=== PATIENT | female | born 1975 | race Caucasian/White ===

== ENCOUNTER 2024-10-17 16:12 | Inpatient (IN) | payer OTHER ==
--- NOTE | 2024-10-17 16:50 | ERPHSYRPT ---
- History of Present Illness Time Seen by Provider: 10/17/24 16:50 Historian: patient Exam Limitations: clinical condition Patient Subjective Stated Complaint: Abdominal pain Triage Nursing Assessment: Patient brought into ED per EMS ([facility]) and transferred self to bed. Patient A+O X 3. Patient's skin pale, warm and dry. Patient complains of abdominal pain 8/10, N/V and diarrhea for the past few days. Patient has hx of Crohn's disease and takes Percocet 7.5/325mg, which is not helping her pain. Abdomen soft and round with BS X 4. Timing/Duration: today Activities at Onset: none Quality: aching, burning, cramping Abdominal Pain Onset Location: RUQ, LUQ Allergies/Adverse Reactions: Penicillins Allergy (Intermediate, Verified 10/17/24 16:18) HALLUCINATIONS erythromycin base [Erythromycin Base] Allergy (Mild, Verified 10/17/24 16:18) Vomiting vancomycin Allergy (Verified 10/17/24 16:18) Home Medications: ALPRAZolam [Xanax] 1 mg PO TID 09/22/14 [History] Gabapentin [Neurontin] 800 mg PO QID 09/22/14 [History] Omeprazole 20 MG [Prilosec 20 mg] 20 mg PO DAILY 06/08/15 [History] Hydromorphone HCl [Dilaudid] 4 mg PO QID 08/03/15 [History] Hx Tetanus, Diphtheria Vaccination/Date Given: Yes Hx Influenza Vaccination/Date Given: Yes Hx Pneumococcal Vaccination/Date Given: No Immunizations Up to Date: Yes Travel Risk - International Travel Have you traveled outside of the country in past 3 weeks: No - Emerging Infectious Disease Are you exhibiting symptoms associated with any current EIDs: No - Review of Systems Constitutional: No Symptoms Eyes: No Symptoms Ears, Nose, & Throat: No Symptoms Respiratory: No Symptoms Cardiac: No Symptoms Abdominal/Gastrointestinal: Abdominal Pain, Nausea Genitourinary Symptoms: No Symptoms Musculoskeletal: No Symptoms - Past Medical History Pertinent Past Medical History: Yes Neurological History: No Pertinent History ENT History: No Pertinent History Cardiac History: No Pertinent History Respiratory History: No Pertinent History Endocrine Medical History: No Pertinent History Musculoskeletal History: No Pertinent History GI Medical History: Crohns Disease History: No Pertinent History Psycho-Social History: Anxiety, Panic Disorder Female Reproductive Disorders: No Pertinent History Other Medical History: 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., 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 - Past Surgical History Past Surgical History: Yes Neuro Surgical History: No Pertinent History Cardiac: No Pertinent History Respiratory: No Pertinent History Gastrointestinal: Appendectomy, Bowel Surgery, Colon Resection Genitourinary: No Pertinent History Musculoskeletal: No Pertinent History Female Surgical History: Other Other Surgical History: supra pubic cath Significant Family History: no pertinent family hx - Female History Hx Last Menstrual Period: no ovaries Hx Now: No - Social History Smoking Status: Former smoker How long have you smoked: 20 yrs Exposure to second hand smoke: Yes Alcohol Use: None Drug Use: marijuana Patient Lives Alone: No - Social Determinants of Health Will the patient participate in the screening: Yes Do you worry about a steady place to live?: No Do you have any problems with any of the following?: No known problems In the past 12 months,have you had to go without utilities?: No Transportation Issues: No Has anyone in your support network made you feel unsafe?: No Have you or anyone in your house had to go without enough: No - Nursing Vital Signs Nursing Vital Signs: Initial Vital Signs Temperature 99.1 F 10/17/24 16:21 Pulse Rate 74 10/17/24 16:21 Respiratory Rate 20 10/17/24 16:21 Blood Pressure 147/96 10/17/24 16:21 O2 Sat by Pulse Oximetry 96 10/17/24 16:21 Pain Scale Pain Intensity 0 - Physical Exam General Appearance: no apparent distress Eye Exam: PERRL/EOMI Ears, Nose, Throat Exam: normal ENT inspection Neck Exam: normal inspection Respiratory Exam: normal breath sounds Cardiovascular Exam: regular rate/rhythm Gastrointestinal/Abdomen Exam: tenderness (moderate diffuse tenderness noted ) SpO2: 96 Ordered Tests: Active Orders 24 hr Category Date Time Status Place in Observation ROUTINE Care 10/17/24 19:12 Ordered ABDOMEN AND PELVIS W CONTRAST [CT] Stat Exams 10/17/24 16:48 Taken CBC W DIFF Stat Lab 10/17/24 Completed CMP Stat Lab 10/17/24 Completed LIPASE Stat Lab 10/17/24 Completed Lactic Acid Stat Lab 10/17/24 16:48 Completed UA W/RFX UR CULTURE Stat Lab 10/17/24 16:48 Ordered Medication Summary Generic Name Dose Route Start Last Admin Trade Name Freq PRN Reason Stop Dose Admin Metronidazole 500 mg in 100 mls @ 200 mls/hr 10/17/24 19:10 Flagyl 500 Mg Ivpb IV 10/17/24 19:39 STAT STA Levofloxacin/Dextrose 500 mg in 100 mls @ 100 mls/hr 10/17/24 19:10 Levofloxacin 500mg/100ml D5w IV 10/17/24 20:09 STAT STA Discontinued Medications Generic Name Dose Route Start Last Admin Trade Name Skylerq PRN Reason Stop Dose Admin Droperidol 1.25 mg 10/17/24 16:48 10/17/24 16:55 Droperidol 5 Mg/2 Ml Vial IV 10/17/24 16:49 1.25 mg STAT ONE Administration Droperidol Confirm 10/17/24 16:51 Droperidol 5 Mg/2 Ml Vial Administered 10/17/24 16:52 Dose 5 mg .ROUTE .STK-MED ONE Hydromorphone HCl 1 mg 10/17/24 16:48 10/17/24 16:56 Hydromorphone 1 Mg/1ml Inj IV 10/17/24 16:49 1 mg STAT ONE Administration Hydromorphone HCl Confirm 10/17/24 16:51 Hydromorphone 1 Mg/1ml Inj Administered 10/17/24 16:52 Dose 1 mg .ROUTE .STK-MED ONE Hydromorphone HCl 1 mg 10/17/24 19:10 Hydromorphone 1 Mg/1ml Inj IV 10/17/24 19:11 STAT ONE Hydromorphone HCl Confirm 10/17/24 19:14 Hydromorphone 1 Mg/1ml Inj Administered 10/17/24 19:15 Dose 1 mg .ROUTE .STK-MED ONE Sodium Chloride 1,000 mls @ 999 mls/hr 10/17/24 16:48 10/17/24 18:19 Sodium Chloride 0.9% 1000 Ml IV 10/17/24 17:48 Infused .Q1H1M STA Infusion Sodium Chloride Confirm 10/17/24 16:51 Sodium Chloride 0.9% 1000 Ml Administered 10/17/24 16:52 Dose 1,000 mls @ ud .ROUTE .STK-MED ONE Metronidazole Confirm 10/17/24 19:14 Flagyl 500 Mg Ivpb Administered 10/17/24 19:15 Dose 500 mg in 100 mls @ ud IV .STK-MED ONE Lab/Rad Data: Laboratory Result Diagrams 10/17/24 Unknown 10/17/24 Unknown Laboratory Results 10/17/24 10/17/24 10/17/24 Range/Units Unknown Unknown 16:48 WBC 8.0 (3.98-10.04) x10^3/uL RBC 4.60 (3.93-5.22) x10^6/uL Hgb 12.1 (11.2-15.7) g/dL Hct 36.3 (34.1-44.9) % MCV 78.9 L (79.4-94.8) fL MCH 26.3 (25.6-32.2) pg MCHC 33.3 (32.2-35.5) g/dL RDW 14.0 (11.7-14.4) % Plt Count 310 (182-369) x10^3/uL MPV 9.7 (9.4-12.3) fL Gran % 69.0 (34.0-71.1) % Immature Gran % (Auto) 0.4 (0.001-0.429) % Nucleat RBC Rel Count 0.0 (0.00-0.2) % Eos # (Auto) 0.03 L (0.04-0.36) x10^3/uL Immature Gran # (Auto) 0.03 (0.001-0.031) x10^3u/L Absolute Lymphs (auto) 1.80 (1.18-3.74) x10^3/uL Absolute Monos (auto) 0.58 (0.24-0.86) x10^3/uL Absolute Nucleated RBC 0.00 (0.00-0.012) x10^3u/L Lymphocytes % 22.6 (19.3-51.7) % Monocytes % 7.3 (4.7-12.5) % Eosinophils % 0.4 L (0.7-5.8) % Basophils % 0.3 (0.1-1.2) % Absolute Granulocytes 5.52 (1.56-6.13) x10^3/uL Basophils # 0.02 (0.01-0.08) x10^3/uL Sodium 140 (135-145) mmol/L Potassium 3.2 L (3.5-5.1) mmol/L Chloride 103 (98-107) mmol/L Carbon Dioxide 28 (22-30) mmol/L Anion Gap 12.3 (5-15) MEQ/L BUN 12 (7-17) mg/dL Creatinine 1.11 H (0.52-1.04) mg/dL Estimated GFR 61.3 ML/MIN Glucose 112 H (74-106) mg/dL Lactic Acid 1.3 (0.4-2.0) Calcium 8.8 (8.4-10.2) mg/dL Total Bilirubin 1.00 (0.2-1.3) mg/dL AST 22 (14-36) U/L ALT 13 (0-35) U/L Alkaline Phosphatase 72 (38-126) U/L Serum Total Protein 6.9 (6.3-8.2) g/dL Albumin 4.0 (3.5-5.0) g/dL Lipase 70 (23-300) U/L - Progress Progress Note: Patient was seen and evaluated for abdominal pain she was given IV fluids opioid analgesia was given labs were obtained CT of the abdomen pelvis was obtained this revealed findings suggestive of colitis patient was updated with the results of her lab work and the CT and informed of the need for admission she is agreeable I paged the hospitalist and updated the hospitalist with the lab results and the CT results he wants the patient to receive one dose of decadron here in the department Patient was given further opioid analgesia and Levaquin and Flagyl were started here in the department 10/17/24 19:14 10/17/24 19:22 Medical Desision Making - Discussion of managment Care discussed with:: hospitalist Agreed on:: Treatment plan, decision to admit Will see patient: in hospital - Departure Departure Disposition: Observation Clinical Impression: Crohn's disease, Abdominal pain, Intractable abdominal pain, Vomiting, Acute abdominal pain Condition: Stable Critical Care Time: No Referrals: KAREN LOPEZ MD [Primary Care Provider] - Follow up/PCP as directed
[2024-10-17] MEDS ORDERED: Hydromorphone 1 mg/ml Injection ONE ×3 (16:51→22:19)
[2024-10-17] MEDS ORDERED: Sodium Chloride 0.9% 1000 ML 1,000 ML ONE (16:51)
[2024-10-17] MEDS: Sodium Chloride 0.9% 1000 ML 1,000 ML IV STA (16:53)
[2024-10-17] MEDS: Hydromorphone 1 mg/ml Injection IV ONE ×2 (16:56→19:17)
[2024-10-17 17:11] LABS: Absolute Neutrophil Ct (ANC) 5.52 x10^3/uL (1.56-6.13); BASOPHIL % 0.3 % (0.1-1.2); Basophil (Absolute #) 0.02 x10^3/uL (0.01-0.08); Eosinophil % 0.4 % (0.7-5.8); Eosinophil (Absolute #) 0.03 x10^3/uL (0.04-0.36); Hematocrit 36.3 % (34.1-44.9); Hemoglobin 12.1 g/dL (11.2-15.7); IMMATURE GRAN # 0.03 x10^3u/L (0.001-0.031); IMMATURE GRAN % 0.4 % (0.001-0.429); Lymphocytes % 22.6 % (19.3-51.7); Mean Cell Volume 78.9 fL (79.4-94.8); Mean Corpuscular Hemoglobin 26.3 pg (25.6-32.2); Mean Corpuscular Hgb Concent. 33.3 g/dL (32.2-35.5); Mean Platelet Volume 9.7 fL (9.4-12.3); Monocyte (Absolute #) 0.58 x10^3/uL (0.24-0.86); Monocytes % 7.3 % (4.7-12.5); Platelet Count 310 x10^3/uL (182-369)
[2024-10-17 17:23] LABS: ANION GAP 12.3 MEQ/L (5-15); Calcium 8.8 mg/dL (8.4-10.2); Creatinine 1 1.11 mg/dL (0.52-1.04); EST GLOMERULAR FILTRATION RATE 61.3 ML/MIN; Potassium 3.2 mmol/L (3.5-5.1); Total Protein 6.9 g/dL (6.3-8.2)
[2024-10-17] MEDS ORDERED: FLAGYL 500 MG IVPB 500 MG/100 ML BAG IV ONE (19:14)
[2024-10-17] MEDS: FLAGYL 500 MG IVPB 500 MG/100 ML BAG IV STA (19:22)
[2024-10-17] MEDS ORDERED: Levofloxacin 500MG/100ML D5W 500 MG/100 ML BAG IV ONE (20:02)
[2024-10-17] MEDS: Levofloxacin 500MG/100ML D5W 500 MG/100 ML BAG IV STA (20:03)
[2024-10-17 21:00] LABS: Appearance Cloudy (Clear); Bacteria Rare /HPF (None Seen); Bilirubin Negative (Negative); Blood Negative (Negative); Epithelial Cells Rare /HPF (None Seen); Glucose, Urine Negative (Negative); Hyaline Casts NONE SEEN /LPF (0-2); Ketones 40 (Negative); Leukocyte Esterase Trace (Negative); Nitrite Negative (Negative); Ph 7.5 (4.6-8.0); Protein,Urine Dip Trace (Negative); RBC 0-2 /HPF (0-5); Specific Gravity >=1.030 (1.005-1.030); Urobilinogen 0.2 mg/dL (0.2); WBC 0-2 /HPF (0-5)
[2024-10-17] MEDS ORDERED: MORPHINE SULFATE 4 MG INJ ONE (21:25)
[2024-10-17] MEDS ORDERED: zyPREXA 5MG TABLET ONE (21:25)
[2024-10-17] MEDS ORDERED: XANAX 1 MG ONE (21:26)
[2024-10-17] MEDS ORDERED: Neurontin ONE (21:27)
--- NOTE | 2024-10-17 21:28 | PCM.HP ---
History of Present Illness - Chief Complaint Chief Complaint: Crohns disease with acute flare Date: 10/17/24 History of Present Illness: 49-year-old with a history of Crohn's disease and anxiety, here with abdominal pain, nausea, and diarrhea, consistent with her prior flares. Patient has history of poorly controlled Crohn's disease; she was previously on Humira, but it was no longer effective. She tried Entyvio, but worsened, and was recently started on Stelara, receiving her second dose earlier this month. However, she has frequent hospitalizations with severe flares, most recently in June 2024 in [place]. She had been on a slow taper of steroids, discharging on prednisone 60, tapering slowly down to her maintenance dose of 10 mg daily. She follows with Dr. Yashira Holbrook in [place]. She was now with 3 days of severe, sharp, constant, epigastric pain, radiating to the left upper and lower quadrants, worsening with food or drink, relieved only by pain medications. Associated with nonbloody, nonbilious vomiting, 6 times per day. Patient has chr onic watery, nonbloody diarrhea, but this is increased in quantity and frequency, up to 4-5 times per day currently. She was given a Medrol Dosepak, but has not had any relief. Currently complaining mainly of the severe pain, although notes that the idea of any thing to eat or drink makes her even more nauseated. She has had some low-grade mild temperature elevations but no mariela fevers. No hematochezia or hematemesis. - Review of Systems All Other Systems: Reviewed and Negative Medications & Allergies Home Medications: Home Medication List Gabapentin [Neurontin] 800 mg PO QID 09/22/14 [History Confirmed 10/17/24] ALPRAZolam [Alprazolam] 3 mg PO TID 10/17/24 [History Confirmed 10/17/24] OLANZapine [Zyprexa] 7.5 mg PO QHS 10/17/24 [History Confirmed 10/17/24] Prednisone 10 mg [Deltasone 10 mg] 10 mg PO DAILY 10/17/24 [History Confirmed 10/17/24] Ustekinumab [Stelara] 10/17/24 [History] Allergies/Adverse Reactions: Allergies Allergy/AdvReac Type Severity Reaction Status Date / Time Penicillins Allergy Intermediate Verified 10/17/24 16:18 erythromycin base Allergy Mild Vomiting Verified 10/17/24 16:18 [Erythromycin Base] vancomycin Allergy Verified 10/17/24 16:18 - Past Medical History Past Medical History: Yes Neurological History: No Pertinent History ENT History: No Pertinent History Cardiac History: No Pertinent History Respiratory History: No Pertinent History Endocrine Medical History: No Pertinent History Musculoskelatal History: No Pertinent History GI Medical History: Crohns Disease History: No Pertinent History Pyscho-Social History: Anxiety, Panic Disorder Reproductive Disorders: No Pertinent History Comment: 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., 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 - Female History Hx Last Menstrual Period: no ovaries Are you now?: No - Past Surgical History Past Surgical History: Yes Neuro Surgical History: No Pertinent History Cardiac History: No Pertinent History Respiratory Surgery: No Pertinent History GI Surgical History: Appendectomy, Bowel Surgery, Colon Resection Genitourinary Surgical Hx: No Pertinent History Musculskeletal Surgical Hx: No Pertinent History Female Surgical History: Other Other Surgical History: supra pubic cath Significant Family History: no pertinent family hx - Social History Smoking Status: Former smoker How long have you smoked: 20 yrs Exposure to second hand smoke: Yes Alcohol: None Drug Use: marijuana - Social Determinants of Health Will the patient participate in the screening: Yes Do you worry about a steady place to live?: No Do you have any problems with any of the following?: No known problems In the past 12 months,have you had to go without utilities?: No Have you or anyone in your house had to go without enough: No Transportation Issues: No Has anyone in your support network made you feel unsafe?: No Does the patient want assistance with any of the above?: No - Physical Exam Vital Signs: Vital Signs - 24 hr Temp Pulse Resp BP BP Pulse Ox 10/17/24 20:41 97.6 F 60 18 120/63 91 L 10/17/24 19:23 96 10/17/24 19:00 82 17 138/76 97 10/17/24 18:30 88 18 122/68 96 10/17/24 18:00 70 18 145/82 94 L 10/17/24 17:00 78 18 152/88 96 10/17/24 16:58 71 155/94 97 10/17/24 16:21 99.1 F 74 20 147/96 147/96 95 Physical Exam GEN: Sitting up in bed in no acute distress. HENT: Normocephalic, atraumatic. Moist mucous membranes. EYES: Normal inspection, anicteric sclera, extraocular movements intact. NECK: Supple, full range of motion CV: Regular rate and rhythm, no murmurs, no gallops. No JVD or edema. PULM: Clear to auscultation bilaterally, no work of breathing. On room air. ABD: Nondistended. Tender to mild palpation, worst over left upper quadrant. No guarding or rebound. MSK: No joint effusions, full range of motion SKIN: No rashes, normal color. NEURO: Face symmetric, no focal motor or sensory deficits. PSYCH: Alert, oriented x 3, mildly anxious. Results - Labs Lab/Micro Results: Lab Results-Last 24 Hours 10/17/24 10/17/24 10/17/24 Range/Units 16:48 20:50 Unknown WBC 8.0 (3.98-10.04) x10^3/uL RBC 4.60 (3.93-5.22) x10^6/uL Hgb 12.1 (11.2-15.7) g/dL Hct 36.3 (34.1-44.9) % MCV 78.9 L (79.4-94.8) fL MCH 26.3 (25.6-32.2) pg MCHC 33.3 (32.2-35.5) g/dL RDW 14.0 (11.7-14.4) % Plt Count 310 (182-369) x10^3/uL MPV 9.7 (9.4-12.3) fL Gran % 69.0 (34.0-71.1) % Immature Gran % (Auto) 0.4 (0.001-0.429) % Nucleat RBC Rel Count 0.0 (0.00-0.2) % Eos # (Auto) 0.03 L (0.04-0.36) x10^3/uL Immature Gran # (Auto) 0.03 (0.001-0.031) x10^3u/L Absolute Lymphs (auto) 1.80 (1.18-3.74) x10^3/uL Absolute Monos (auto) 0.58 (0.24-0.86) x10^3/uL Absolute Nucleated RBC 0.00 (0.00-0.012) x10^3u/L Lymphocytes % 22.6 (19.3-51.7) % Monocytes % 7.3 (4.7-12.5) % Eosinophils % 0.4 L (0.7-5.8) % Basophils % 0.3 (0.1-1.2) % Absolute Granulocytes 5.52 (1.56-6.13) x10^3/uL Basophils # 0.02 (0.01-0.08) x10^3/uL Sodium (135-145) mmol/L Potassium (3.5-5.1) mmol/L Chloride (98-107) mmol/L Carbon Dioxide (22-30) mmol/L Anion Gap (5-15) MEQ/L BUN (7-17) mg/dL Creatinine (0.52-1.04) mg/dL Estimated GFR ML/MIN Glucose (74-106) mg/dL Lactic Acid 1.3 (0.4-2.0) Calcium (8.4-10.2) mg/dL Total Bilirubin (0.2-1.3) mg/dL AST (14-36) U/L ALT (0-35) U/L Alkaline Phosphatase (38-126) U/L Serum Total Protein (6.3-8.2) g/dL Albumin (3.5-5.0) g/dL Lipase (23-300) U/L Urine Color Yellow (Yellow) Urine Appearance Cloudy A (Clear) Urine pH 7.5 (4.6-8.0) Ur Specific [place] >=1.030 A (1.005-1.030) Urine Protein Trace A (Negative) Urine Glucose (UA) Negative (Negative) mg/dL Urine Ketones 40 A (Negative) Urine Blood Negative (Negative) Urine Nitrite Negative (Negative) Urine Bilirubin Negative (Negative) Urine Urobilinogen 0.2 (0.2) mg/dL Ur Leukocyte Esterase Trace A (Negative) U Hyaline Cast (Auto) NONE SEEN (0-2) /LPF Urine Microscopic RBC 0-2 (0-5) /HPF Urine Microscopic WBC 0-2 (0-5) /HPF Ur Epithelial Cells Rare (None Seen) /HPF Urine Bacteria Rare A (None Seen) /HPF Urine Culture Reflexed YES (NO) 10/17/24 Range/Units Unknown WBC (3.98-10.04) x10^3/uL RBC (3.93-5.22) x10^6/uL Hgb (11.2-15.7) g/dL Hct (34.1-44.9) % MCV (79.4-94.8) fL MCH (25.6-32.2) pg MCHC (32.2-35.5) g/dL RDW (11.7-14.4) % Plt Count (182-369) x10^3/uL MPV (9.4-12.3) fL Gran % (34.0-71.1) % Immature Gran % (Auto) (0.001-0.429) % Nucleat RBC Rel Count (0.00-0.2) % Eos # (Auto) (0.04-0.36) x10^3/uL Immature Gran # (Auto) (0.001-0.031) x10^3u/L Absolute Lymphs (auto) (1.18-3.74) x10^3/uL Absolute Monos (auto) (0.24-0.86) x10^3/uL Absolute Nucleated RBC (0.00-0.012) x10^3u/L Lymphocytes % (19.3-51.7) % Monocytes % (4.7-12.5) % Eosinophils % (0.7-5.8) % Basophils % (0.1-1.2) % Absolute Granulocytes (1.56-6.13) x10^3/uL Basophils # (0.01-0.08) x10^3/uL Sodium 140 (135-145) mmol/L Potassium 3.2 L (3.5-5.1) mmol/L Chloride 103 (98-107) mmol/L Carbon Dioxide 28 (22-30) mmol/L Anion Gap 12.3 (5-15) MEQ/L BUN 12 (7-17) mg/dL Creatinine 1.11 H (0.52-1.04) mg/dL Estimated GFR 61.3 ML/MIN Glucose 112 H (74-106) mg/dL Lactic Acid (0.4-2.0) Calcium 8.8 (8.4-10.2) mg/dL Total Bilirubin 1.00 (0.2-1.3) mg/dL AST 22 (14-36) U/L ALT 13 (0-35) U/L Alkaline Phosphatase 72 (38-126) U/L Serum Total Protein 6.9 (6.3-8.2) g/dL Albumin 4.0 (3.5-5.0) g/dL Lipase 70 (23-300) U/L Urine Color (Yellow) Urine Appearance (Clear) Urine pH (4.6-8.0) Ur Specific [place] (1.005-1.030) Urine Protein (Negative) Urine Glucose (UA) (Negative) mg/dL Urine Ketones (Negative) Urine Blood (Negative) Urine Nitrite (Negative) Urine Bilirubin (Negative) Urine Urobilinogen (0.2) mg/dL Ur Leukocyte Esterase (Negative) U Hyaline Cast (Auto) (0-2) /LPF Urine Microscopic RBC (0-5) /HPF Urine Microscopic WBC (0-5) /HPF Ur Epithelial Cells (None Seen) /HPF Urine Bacteria (None Seen) /HPF Urine Culture Reflexed (NO) - Radiology Impressions Radiology Exams & Impressions: Radiology Procedures Category Date Time Status ABDOMEN AND PELVIS W CONTRAST [CT] Stat Exams 10/17/24 16:[address] abdomen/pelvis report is not currently available, but per ED physician, patient had circumferential wall thickening, consistent with colitis. Assessment/Plan (1) Crohn's disease Current Visit: Yes Status: Chronic Assessment & Plan: 49-year-old woman with history of Crohn's disease and anxiety, here with acute flare of her Crohn's disease. ## Crohn's disease poorly controlled, not yet established on new steroid sparing therapies, and currently on chronic prednisone 10 mg. Recently started on Stelara. However, she is having frequent flares requiring hospitalization. Symptoms of current episode are also consistent with Crohn's flare. She does not appear to have evidence of abscess or bowel obstruction. However, she does have some localized peritonitis, without signs of sepsis. She was given a Medrol Dosepak, but given the severity of her symptoms, her chronic prednisone 10 mg use, and her need for a very prolonged taper, this is an inappropriate dosing for her. Start Solu-Medrol 60 mg IV BID Expect patient will discharge on prednisone 40 mg daily, with a very slow taper, no faster than 10 mg/week PRN morphine 4 mg IV q.3 hours for pain control PRN Zofran Start LR continuous at 125 mL/h Allow for clear liquid diet to allow for some ice chips and sips of water as needed, but I expect patient will not be having much p.o. intake until her flare calms down to some degree Start Levaquin and Flagyl for empiric coverage for the peritonitis ## Hypokalemia secondary to GI losses. Give KCl 40 mEq IV x 1 Repeat potassium levels in the morning Check magnesium levels ## Chronic anxiety patient is on high doses of Xanax at home, but appears to be stable on this dosing. Continue Zyprexa 7.5 mg QHS, Xanax 3 mg TID CODE STATUS: Full code (confirmed with patient) Diet: Clear liquids Prophylaxis: Lovenox 40 mg daily Disposition: Place in observation for now, but if not able to tolerate p.o. soon, may need transition to inpatient status. Expected discharge will be to home. Will need follow-up with her outpatient GI doctor in [place]. Code(s): K50.90 - CROHN'S DISEASE, UNSPECIFIED, WITHOUT COMPLICATIONS Telemedicine Encounter - Telemedicine Encounter Telemedicine Encounter: "The entirety of this encounter was performed via Telemedicine" This visit was performed using real-time audio and video connection between my location and thepatients locationwith the assistance of a surrogateat the patients location. Written or verbal consent was obtained from the patient/guardian to perform this [facility] technology. Any patient questions regarding the telemedicine interaction were answered.
[2024-10-17] MEDS: Lactated Ringers 1,000 ML IV SCH (21:29)
[2024-10-17] MEDS: NON-FORMULARY ITEM (Gabapentin [Neurontin] 800 MG Tablet) PO SCH (21:29)
[2024-10-17] MEDS: MORPHINE SULFATE 4 MG INJ IV PRN (21:30)
[2024-10-17] MEDS: Zofran 4 MG/2 ML VIAL IV PRN (21:30)
[2024-10-17] MEDS: XANAX 1 MG PO SCH (21:30)
[2024-10-17] MEDS: OLANZAPINE 7.5 MG PO SCH (21:30)
[2024-10-17] MEDS ORDERED: solu-MEDROL ONE (22:00)
[2024-10-17] MEDS: POTASSIUM CHLORIDE 20 mEq IN WATER 100ML 20 MEQ/100 ML BAG IV SCH (22:04)
[2024-10-17] MEDS: solu-MEDROL 60 MG, Sterile H2O 10 ml 2 ML IV SCH (22:05)
[2024-10-17] MEDS: Hydromorphone 1 mg/ml Injection IV PRN (22:20)
[2024-10-18] MEDS ORDERED: Hydromorphone 1 mg/ml Injection ONE ×2 (01:24→04:17)
--- NOTE | 2024-10-18 05:19 | PCM.NOTE ---
Date and Time: 10/18/24 0514 Subjective Assessment: HPI: 49-year-old with a history of Crohn's disease and anxiety, admitted 10/17/24 with abdominal pain, nausea, and diarrhea, consistent with her prior Crohn's flares. Patient has history of poorly controlled Crohn's disease; she was previously on Humira, but it was no longer effective. She tried Entyvio, but worsened, and was recently started on Stelara, receiving her second dose earlier this month. However, she has frequent hospitalizations with severe flares, most recently in June 2024 in [place]. She had been on a slow taper of steroids, discharging on prednisone 60, tapering slowly down to her maintenance dose of 10 mg daily. She follows with Dr. Yashira Holbrook in [place]. She was now with 3 days of severe, sharp, constant, epigastric pain, radiating to the left upper and lower quadrants, worsening with food or drink, relieved only by pain medications. Associated with nonbloody, nonbilious vomiting, 6 times per day. Patient has chronic watery, non-bloody diarrhea, but this is increased in quantity and frequency, up to 4-5 times per day currently. She was given a Medrol Dosepak, but has not had any relief. Initial labs remarkable for hypokalemia and BOBBI which have since resolved. Patient admitted with Crohns flare. 10/18/24: Met with patient bedside. Endorses 10/10 sharp/stabbing abdominal pain, nausea, diarrhea, and vomiting. Diluadid increased to 1mg every two hours lat night. Discussed labs with BOBBI and hypokalemia resolved. Plan for continued management of crohns flare with steroids and abx. - Review of Systems Constitutional: Weakness Eyes: No Symptoms Ears, Nose, & Throat: No Symptoms Respiratory: No Symptoms Cardiac: No Symptoms Abdominal/Gastrointestinal: Abdominal Pain, Nausea, Vomiting, Diarrhea Genitourinary Symptoms: No Symptoms Musculoskeletal: No Symptoms Skin: No Symptoms Neurological: No Symptoms Psychological: No Symptoms Endocrine: No Symptoms Hematologic/Lymphatic: No Symptoms Immunological/Allergic: No Symptoms Objective Exam General Appearance: no apparent distress Neurologic Exam: alert, oriented x 3, cooperative Skin Exam: normal color Eye Exam: PERRL Ears, Nose, Throat Exam: normal ENT inspection Neck Exam: normal inspection Respiratory Exam: normal breath sounds, lungs clear Cardiovascular Exam: regular rate/rhythm, normal heart sounds Gastrointestinal/Abdomen Exam: tenderness (TTP x 4 quads) Extremity Exam: normal inspection Back Exam: normal inspection Pelvic Exam: deferred Rectal Exam: deferred Objective Data Vital Signs: Vital Signs - 24 hr Temp Pulse Resp BP BP Pulse Ox 10/18/24 04:00 97.6 F 67 10 L 135/61 97 10/18/24 00:00 97.5 F 64 16 114/64 96 10/17/24 23:59 18 10/17/24 20:41 97.6 F 60 18 120/63 91 L 10/17/24 19:23 96 10/17/24 19:00 82 17 138/76 97 10/17/24 18:30 88 18 122/68 96 10/17/24 18:00 70 18 145/82 94 L 10/17/24 17:00 78 18 152/88 96 10/17/24 16:58 71 155/94 97 10/17/24 16:21 99.1 F 74 20 147/96 147/96 95 Pain Assessment - Last Documented Pain Intensity 7 Pain Scale Used 0-10 Pain Scale Intake and Output: Intake & Output 10/15/24 10/16/24 10/17/24 10/18/24 11:59 11:59 11:59 11:59 Intake Total 686 Output Total 800 Balance -114 Weight 71.5 kg Lab Results: Lab Results-Last 24 Hours 10/17/24 10/17/24 10/17/24 Range/Units 16:48 20:50 Unknown WBC 8.0 (3.98-10.04) x10^3/uL RBC 4.60 (3.93-5.22) x10^6/uL Hgb 12.1 (11.2-15.7) g/dL Hct 36.3 (34.1-44.9) % MCV 78.9 L (79.4-94.8) fL MCH 26.3 (25.6-32.2) pg MCHC 33.3 (32.2-35.5) g/dL RDW 14.0 (11.7-14.4) % Plt Count 310 (182-369) x10^3/uL MPV 9.7 (9.4-12.3) fL Gran % 69.0 (34.0-71.1) % Immature Gran % (Auto) 0.4 (0.001-0.429) % Nucleat RBC Rel Count 0.0 (0.00-0.2) % Eos # (Auto) 0.03 L (0.04-0.36) x10^3/uL Immature Gran # (Auto) 0.03 (0.001-0.031) x10^3u/L Absolute Lymphs (auto) 1.80 (1.18-3.74) x10^3/uL Absolute Monos (auto) 0.58 (0.24-0.86) x10^3/uL Absolute Nucleated RBC 0.00 (0.00-0.012) x10^3u/L Lymphocytes % 22.6 (19.3-51.7) % Monocytes % 7.3 (4.7-12.5) % Eosinophils % 0.4 L (0.7-5.8) % Basophils % 0.3 (0.1-1.2) % Absolute Granulocytes 5.52 (1.56-6.13) x10^3/uL Basophils # 0.02 (0.01-0.08) x10^3/uL Sodium (135-145) mmol/L Potassium (3.5-5.1) mmol/L Chloride (98-107) mmol/L Carbon Dioxide (22-30) mmol/L Anion Gap (5-15) MEQ/L BUN (7-17) mg/dL Creatinine (0.52-1.04) mg/dL Estimated GFR ML/MIN Glucose (74-106) mg/dL Lactic Acid 1.3 (0.4-2.0) Calcium (8.4-10.2) mg/dL Total Bilirubin (0.2-1.3) mg/dL AST (14-36) U/L ALT (0-35) U/L Alkaline Phosphatase (38-126) U/L Serum Total Protein (6.3-8.2) g/dL Albumin (3.5-5.0) g/dL Lipase (23-300) U/L Urine Color Yellow (Yellow) Urine Appearance Cloudy A (Clear) Urine pH 7.5 (4.6-8.0) Ur Specific [place] >=1.030 A (1.005-1.030) Urine Protein Trace A (Negative) Urine Glucose (UA) Negative (Negative) mg/dL Urine Ketones 40 A (Negative) Urine Blood Negative (Negative) Urine Nitrite Negative (Negative) Urine Bilirubin Negative (Negative) Urine Urobilinogen 0.2 (0.2) mg/dL Ur Leukocyte Esterase Trace A (Negative) U Hyaline Cast (Auto) NONE SEEN (0-2) /LPF Urine Microscopic RBC 0-2 (0-5) /HPF Urine Microscopic WBC 0-2 (0-5) /HPF Ur Epithelial Cells Rare (None Seen) /HPF Urine Bacteria Rare A (None Seen) /HPF Urine Culture Reflexed YES (NO) 10/17/24 Range/Units Unknown WBC (3.98-10.04) x10^3/uL RBC (3.93-5.22) x10^6/uL Hgb (11.2-15.7) g/dL Hct (34.1-44.9) % MCV (79.4-94.8) fL MCH (25.6-32.2) pg MCHC (32.2-35.5) g/dL RDW (11.7-14.4) % Plt Count (182-369) x10^3/uL MPV (9.4-12.3) fL Gran % (34.0-71.1) % Immature Gran % (Auto) (0.001-0.429) % Nucleat RBC Rel Count (0.00-0.2) % Eos # (Auto) (0.04-0.36) x10^3/uL Immature Gran # (Auto) (0.001-0.031) x10^3u/L Absolute Lymphs (auto) (1.18-3.74) x10^3/uL Absolute Monos (auto) (0.24-0.86) x10^3/uL Absolute Nucleated RBC (0.00-0.012) x10^3u/L Lymphocytes % (19.3-51.7) % Monocytes % (4.7-12.5) % Eosinophils % (0.7-5.8) % Basophils % (0.1-1.2) % Absolute Granulocytes (1.56-6.13) x10^3/uL Basophils # (0.01-0.08) x10^3/uL Sodium 140 (135-145) mmol/L Potassium 3.2 L (3.5-5.1) mmol/L Chloride 103 (98-107) mmol/L Carbon Dioxide 28 (22-30) mmol/L Anion Gap 12.3 (5-15) MEQ/L BUN 12 (7-17) mg/dL Creatinine 1.11 H (0.52-1.04) mg/dL Estimated GFR 61.3 ML/MIN Glucose 112 H (74-106) mg/dL Lactic Acid (0.4-2.0) Calcium 8.8 (8.4-10.2) mg/dL Total Bilirubin 1.00 (0.2-1.3) mg/dL AST 22 (14-36) U/L ALT 13 (0-35) U/L Alkaline Phosphatase 72 (38-126) U/L Serum Total Protein 6.9 (6.3-8.2) g/dL Albumin 4.0 (3.5-5.0) g/dL Lipase 70 (23-300) U/L Urine Color (Yellow) Urine Appearance (Clear) Urine pH (4.6-8.0) Ur Specific [place] (1.005-1.030) Urine Protein (Negative) Urine Glucose (UA) (Negative) mg/dL Urine Ketones (Negative) Urine Blood (Negative) Urine Nitrite (Negative) Urine Bilirubin (Negative) Urine Urobilinogen (0.2) mg/dL Ur Leukocyte Esterase (Negative) U Hyaline Cast (Auto) (0-2) /LPF Urine Microscopic RBC (0-5) /HPF Urine Microscopic WBC (0-5) /HPF Ur Epithelial Cells (None Seen) /HPF Urine Bacteria (None Seen) /HPF Urine Culture Reflexed (NO) Radiology Exams: Radiology Procedures Category Date Time Status ABDOMEN AND PELVIS W CONTRAST [CT] Stat Exams 10/17/24 16:48 Taken Assessment/Plan (1) Crohn's disease Current Visit: Yes Status: Chronic Assessment & Plan: Continue Solu-Medrol 60 mg IV BID On discharge continue steroid taper with prednisone 40 mg daily,very slow taper, no faster than 10 mg/week Pain control - currently on dilaudid 1mg Q2H PRN Zofran Start LR continuous at 125 mL/h Continue Levaquin and Flagyl for empiric coverage for the peritonitis -Follow with Dr.Prodyot Holbrook in [place] GI -+N/V/D and abdominal pain - will change diet to NPO for bowel rest -CT abd/pelvis demonstrating descending colonic circumferential wall thickening with minimal pericolonic stranding, probable colitis in this patient with history of Crohn's disease. Colonic mass is not completely excluded as there is also intraluminal narrowing with moderate fecal debris up to level of narrowing. Code(s): K50.90 - CROHN'S DISEASE, UNSPECIFIED, WITHOUT COMPLICATIONS (2) Hypokalemia Current Visit: No Status: Acute Assessment & Plan: -secondary to GI loss -Replenish per potassium protocol -potassium reviewed at 4.1 - resolved -tele Code(s): E87.6 - HYPOKALEMIA (3) Anxiety Current Visit: No Status: Acute Assessment & Plan: Continue Zyprexa 7.5 mg QHS, Xanax 1 mg TID -patient states she was on 3mg TID - inspect report ran by pharmacy showing correct dose is 1mg TID CODE STATUS: Full code (confirmed with patient) Diet: Clear liquids Prophylaxis: Lovenox 40 mg daily Disposition: Place in observation Code(s): F41.9 - ANXIETY DISORDER, UNSPECIFIED
[2024-10-18 05:21] LABS: Hematocrit 34.8 % (34.1-44.9); Hemoglobin 11.5 g/dL (11.2-15.7); Mean Cell Volume 79.8 fL (79.4-94.8); Mean Corpuscular Hemoglobin 26.4 pg (25.6-32.2); Mean Platelet Volume 9.2 fL (9.4-12.3); Platelet Count 281 x10^3/uL (182-369); Red Blood Count 4.36 x10^6/uL (3.93-5.22); Red Cell Distribution Width 13.9 % (11.7-14.4); White Blood Count 6.4 x10^3/uL (3.98-10.04)
[2024-10-18 05:35] LABS: ALBUMIN 3.8 g/dL (3.5-5.0); ANION GAP 12.3 MEQ/L (5-15); BILIRUBIN,TOTAL 0.7 mg/dL (0.2-1.3); Calcium 8.8 mg/dL (8.4-10.2); Creatinine 1 0.92 mg/dL (0.52-1.04); EST GLOMERULAR FILTRATION RATE 76.8 ML/MIN; Potassium 4.1 mmol/L (3.5-5.1); Total Protein 6.5 g/dL (6.3-8.2)
[2024-10-18] MEDS: Hydromorphone 1 mg/ml Injection IV PRN (06:17)
[2024-10-18] MEDS: FLAGYL 500 MG IVPB 500 MG/100 ML BAG IV SCH (07:20)
--- NOTE | 2024-10-18 08:42 | XRAY ---
Indication: Abdominal pain. History of Crohn's disease. Multiple contiguous axial images obtained through the abdomen and pelvis using 80 cc Isovue 370 contrast. Comparison: July 05, 2015 Lung bases clear. Heart not enlarged. Noncontrasted stomach and bowel loops appear nonobstructed. There is now moderate fecal debris predominantly in the ascending and transverse colon. Made to distal descending colon now demonstrates mild circumferential wall thickening with minimal pericolonic stranding favoring colitis. Colonic mass not completely excluded as there is underlying intraluminal colonic narrowing with fecal debris up level of narrowing with little to no fecal debris distally. No free fluid/air. Mild diffuse fatty liver. Remaining liver, gallbladder, pancreas, spleen, adrenal glands, kidneys, ureters, bladder, uterus, and aorta are unremarkable. No pathologic retroperitoneal lymphadenopathy. Osseous structures intact. Impression: 1. Descending colonic circumferential wall thickening with minimal pericolonic stranding, probable colitis in this patient with history of Crohn's disease. Colonic mass is not completely excluded as there is also intraluminal narrowing with moderate fecal debris up to level of narrowing. 2. Fatty liver.
[2024-10-18] MEDS: ENOXAPARIN SODIUM SQ SCH (10:19)
[2024-10-18] MEDS: Neurontin PO SCH (10:22)
[2024-10-18] MEDS: XANAX 1 MG PO SCH (11:36)
--- NOTE | 2024-10-18 14:27 | XRAY ---
Indication: Abdominal pain. Comparison: CT abdomen/pelvis one day earlier. KUB appears nonacute and nonobstructed again with moderate fecal debris predominantly in ascending and transverse colon. No focal bowel dilatation or free air. Contrast in urinary bladder from recent CT. Remaining solid organs and osseous structures unremarkable.
[2024-10-18 14:57] LABS: Amphetamine,Urine NEGATIVE (NEGATIVE); Barbiturate,Urine NEGATIVE (NEGATIVE); Cocaine,Urine NEGATIVE (NEGATIVE); Methadone,Urine NEGATIVE (NEGATIVE); Opiate,Urine POSITIVE (NEGATIVE); PCP,Urine NEGATIVE (NEGATIVE); THC,Urine POSITIVE (NEGATIVE)
[2024-10-18 16:11] LABS: Benzodiazepine,Urine POSITIVE (NEGATIVE)
[2024-10-18] MEDS: zyPREXA 5MG TABLET PO SCH (22:30)
[2024-10-18] MEDS: Levofloxacin 500MG/100ML D5W 500 MG/100 ML BAG IV SCH (22:36)
--- NOTE | 2024-10-19 04:58 | PCM.NOTE ---
Date and Time: 10/19/24 0458 Subjective Assessment: HPI: 49-year-old with a history of Crohn's disease and anxiety, admitted 10/17/24 with abdominal pain, nausea, and diarrhea, consistent with her prior Crohn's flares. Patient has history of poorly controlled Crohn's disease; she was previously on Humira, but it was no longer effective. She tried Entyvio, but worsened, and was recently started on Stelara, receiving her second dose earlier this month. However, she has frequent hospitalizations with severe flares, most recently in June 2024 in [place]. She had been on a slow taper of steroids, discharging on prednisone 60, tapering slowly down to her maintenance dose of 10 mg daily. She follows with Dr. Yashira Holbrook in [place]. She was now with 3 days of severe, sharp, constant, epigastric pain, radiating to the left upper and lower quadrants, worsening with food or drink, relieved only by pain medications. Associated with nonbloody, nonbilious vomiting, 6 times per day. Patient has chronic watery, non-bloody diarrhea, but this is increased in quantity and frequency, up to 4-5 times per day currently. She was given a Medrol Dosepak, but has not had any relief. Initial labs remarkable for hypokalemia and BOBBI which have since resolved. Patient admitted with Crohns flare. 10/18/24: Met with patient bedside. Endorses 10/10 sharp/stabbing abdominal pain, nausea, diarrhea, and vomiting. Diluadid increased to 1mg every two hours lat night. Discussed labs with BOBBI and hypokalemia resolved. Plan for continued management of crohns flare with steroids and abx. 10/19/24: Patient states she is feeling better. Still with some nausea and diarrhea. Rating abdominal pain 8/10 on numerical pain scale when pain meds wear off. Discussed changing pain meds to [place] with dilaudid for breakthrough. Labs and vitals stable. - Review of Systems Constitutional: No Symptoms Eyes: No Symptoms Ears, Nose, & Throat: No Symptoms Respiratory: No Symptoms Cardiac: No Symptoms Abdominal/Gastrointestinal: Abdominal Pain, Nausea, Vomiting, Diarrhea Genitourinary Symptoms: No Symptoms Musculoskeletal: No Symptoms Skin: No Symptoms Neurological: No Symptoms Psychological: No Symptoms Endocrine: No Symptoms Hematologic/Lymphatic: No Symptoms Immunological/Allergic: No Symptoms Objective Exam General Appearance: no apparent distress Neurologic Exam: alert, oriented x 3, cooperative Skin Exam: normal color Eye Exam: PERRL Ears, Nose, Throat Exam: normal ENT inspection Neck Exam: normal inspection Respiratory Exam: normal breath sounds, lungs clear Cardiovascular Exam: regular rate/rhythm, normal heart sounds Gastrointestinal/Abdomen Exam: soft, normal bowel sounds, tenderness (LLQ) Extremity Exam: normal inspection Back Exam: normal inspection Pelvic Exam: deferred Rectal Exam: deferred Objective Data Vital Signs: Vital Signs - 24 hr Temp Pulse Resp BP Pulse Ox 10/19/24 04:00 97.4 F 70 18 123/64 98 10/18/24 23:52 20 10/18/24 23:46 97.8 F 76 20 154/74 100 10/18/24 20:00 98.0 F 76 18 122/61 96 10/18/24 16:00 20 10/18/24 15:41 98.0 F 69 20 128/65 99 10/18/24 12:00 98.6 F 72 20 167/81 98 10/18/24 08:00 22 10/18/24 07:30 98.4 F 80 22 174/82 97 Pain Assessment - Last Documented Pain Intensity 7 Pain Scale Used 0-10 Pain Scale Intake and Output: Intake & Output 10/16/24 10/17/24 10/18/24 10/19/24 11:59 11:59 11:59 11:59 Intake Total 1126 2867 Output Total 800 600 Balance 326 2267 Weight 71.5 kg Lab Results: Lab Results-Last 24 Hours 10/18/24 10/18/24 10/18/24 Range/Units 05:00 05:00 05:00 WBC 6.4 (3.98-10.04) x10^3/uL RBC 4.36 (3.93-5.22) x10^6/uL Hgb 11.5 (11.2-15.7) g/dL Hct 34.8 (34.1-44.9) % MCV 79.8 (79.4-94.8) fL MCH 26.4 (25.6-32.2) pg MCHC 33.0 (32.2-35.5) g/dL RDW 13.9 (11.7-14.4) % Plt Count 281 (182-369) x10^3/uL MPV 9.2 L (9.4-12.3) fL Sodium 141 (135-145) mmol/L Potassium 4.1 D (3.5-5.1) mmol/L Chloride 107 (98-107) mmol/L Carbon Dioxide 25 (22-30) mmol/L Anion Gap 12.3 (5-15) MEQ/L BUN 12 (7-17) mg/dL Creatinine 0.92 (0.52-1.04) mg/dL Estimated GFR 76.8 ML/MIN Glucose 125 H (74-106) mg/dL Calcium 8.8 (8.4-10.2) mg/dL Magnesium 1.9 (1.6-2.3) mg/dL Total Bilirubin 0.70 (0.2-1.3) mg/dL AST 23 (14-36) U/L ALT 15 (0-35) U/L Alkaline Phosphatase 56 (38-126) U/L Serum Total Protein 6.5 (6.3-8.2) g/dL Albumin 3.8 (3.5-5.0) g/dL Urine Opiates Level (NEGATIVE) Ur Methadone (NEGATIVE) Urine Barbiturates (NEGATIVE) Ur Phencyclidine (PCP) (NEGATIVE) Urine Amphetamine (NEGATIVE) U Benzodiazepine Level (NEGATIVE) Urine Cocaine (NEGATIVE) Urine Marijuana (THC) (NEGATIVE) 10/18/24 10/18/24 Range/Units 05:00 13:28 WBC (3.98-10.04) x10^3/uL RBC (3.93-5.22) x10^6/uL Hgb (11.2-15.7) g/dL Hct (34.1-44.9) % MCV (79.4-94.8) fL MCH (25.6-32.2) pg MCHC (32.2-35.5) g/dL RDW (11.7-14.4) % Plt Count (182-369) x10^3/uL MPV (9.4-12.3) fL Sodium (135-145) mmol/L Potassium (3.5-5.1) mmol/L Chloride (98-107) mmol/L Carbon Dioxide (22-30) mmol/L Anion Gap (5-15) MEQ/L BUN (7-17) mg/dL Creatinine (0.52-1.04) mg/dL Estimated GFR ML/MIN Glucose (74-106) mg/dL Calcium (8.4-10.2) mg/dL Magnesium 2.0 (1.6-2.3) mg/dL Total Bilirubin (0.2-1.3) mg/dL AST (14-36) U/L ALT (0-35) U/L Alkaline Phosphatase (38-126) U/L Serum Total Protein (6.3-8.2) g/dL Albumin (3.5-5.0) g/dL Urine Opiates Level POSITIVE A (NEGATIVE) Ur Methadone NEGATIVE (NEGATIVE) Urine Barbiturates NEGATIVE (NEGATIVE) Ur Phencyclidine (PCP) NEGATIVE (NEGATIVE) Urine Amphetamine NEGATIVE (NEGATIVE) U Benzodiazepine Level POSITIVE A (NEGATIVE) Urine Cocaine NEGATIVE (NEGATIVE) Urine Marijuana (THC) POSITIVE A (NEGATIVE) Radiology Exams: Radiology Procedures Category Date Time Status ABDOMEN AND PELVIS W CONTRAST [CT] Stat Exams 10/17/24 16:48 Completed KUB Routine Exams 10/18/24 13:24 Completed Assessment/Plan (1) Crohn's disease Current Visit: Yes Status: Chronic Assessment & Plan: Continue Solu-Medrol 60 mg IV BID On discharge continue steroid taper with prednisone 40 mg daily,very slow taper, no faster than 10 mg/week Pain control - currently on dilaudid 1mg Q2H PRN Zofran Start LR continuous at 125 mL/h Continue Levaquin and Flagyl for empiric coverage for the peritonitis -Follow with Dr.Prodyot Holbrook in [place] GI -+N/V/D and abdominal pain - will change diet to NPO for bowel rest -CT abd/pelvis demonstrating descending colonic circumferential wall thickening with minimal pericolonic stranding, probable colitis in this patient with history of Crohn's disease. Colonic mass is not completely excluded as there is also intraluminal narrowing with moderate fecal debris up to level of narrowing. 10/19: -Change pain meds to [place] with dilaudid for breakthrough -NPO until N/v abd pain improves -continue levaquin/flagyl Code(s): K50.90 - CROHN'S DISEASE, UNSPECIFIED, WITHOUT COMPLICATIONS (2) Hypokalemia Current Visit: No Status: Acute Assessment & Plan: -secondary to GI loss -Replenish per potassium protocol -potassium reviewed at 4.1 - resolved -tele 10/19: -resolved Code(s): E87.6 - HYPOKALEMIA (3) Anxiety Current Visit: No Status: Acute Assessment & Plan: Continue Zyprexa 7.5 mg QHS, Xanax 1 mg TID -patient states she was on 3mg TID - inspect report ran by pharmacy showing correct dose is 1mg TID Code(s): K50.90 - CROHN'S DISEASE, UNSPECIFIED, WITHOUT COMPLICATIONS (2) Hypokalemia Current Visit: No Status: Acute Code(s): E87.6 - HYPOKALEMIA (3) Anxiety Current Visit: No Status: Acute Code(s): F41.9 - ANXIETY DISORDER, UNSPECIFIED
[2024-10-19 05:06] LABS: Absolute Neutrophil Ct (ANC) 6.36 x10^3/uL (1.56-6.13); BASOPHIL % 0.1 % (0.1-1.2); Basophil (Absolute #) 0.01 x10^3/uL (0.01-0.08); Eosinophil (Absolute #) 0 x10^3/uL (0.04-0.36); Hematocrit 31.5 % (34.1-44.9); Hemoglobin 10.4 g/dL (11.2-15.7); IMMATURE GRAN # 0.06 x10^3u/L (0.001-0.031); IMMATURE GRAN % 0.8 % (0.001-0.429); Lymphocyte (Absolute #) 0.71 x10^3/uL (1.18-3.74); Lymphocytes % 9.7 % (19.3-51.7); Mean Cell Volume 78.8 fL (79.4-94.8); Mean Platelet Volume 9.5 fL (9.4-12.3); Monocyte (Absolute #) 0.19 x10^3/uL (0.24-0.86); Monocytes % 2.6 % (4.7-12.5); Neutrophil % 86.8 % (34.0-71.1); Platelet Count 303 x10^3/uL (182-369); White Blood Count 7.3 x10^3/uL (3.98-10.04)
[2024-10-19 05:30] LABS: ALBUMIN 3.3 g/dL (3.5-5.0); ANION GAP 9.6 MEQ/L (5-15); BILIRUBIN,TOTAL 0.6 mg/dL (0.2-1.3); Calcium 8.4 mg/dL (8.4-10.2); Creatinine 1 0.8 mg/dL (0.52-1.04); EST GLOMERULAR FILTRATION RATE 90.8 ML/MIN; MAGNESIUM 1.8 mg/dL (1.6-2.3); Potassium 4.1 mmol/L (3.5-5.1); Total Protein 5.9 g/dL (6.3-8.2)
[2024-10-19] MEDS: Hydromorphone 1 mg/ml Injection IV PRN (10:56)
[2024-10-19] MEDS: NORCO 5/325 MG PO PRN (17:17)
--- NOTE | 2024-10-20 05:08 | PCM.NOTE ---
Date and Time: 10/20/24 0507 Subjective Assessment: HPI: 49-year-old with a history of Crohn's disease and anxiety, admitted 10/17/24 with abdominal pain, nausea, and diarrhea, consistent with her prior Crohn's flares. Patient has history of poorly controlled Crohn's disease; she was previously on Humira, but it was no longer effective. She tried Entyvio, but worsened, and was recently started on Stelara, receiving her second dose earlier this month. However, she has frequent hospitalizations with severe flares, most recently in June 2024 in [place]. She had been on a slow taper of steroids, discharging on prednisone 60, tapering slowly down to her maintenance dose of 10 mg daily. She follows with Dr. Yashira Holbrook in [place]. She was now with 3 days of severe, sharp, constant, epigastric pain, radiating to the left upper and lower quadrants, worsening with food or drink, relieved only by pain medications. Associated with nonbloody, nonbilious vomiting, 6 times per day. Patient has chronic watery, non-bloody diarrhea, but this is increased in quantity and frequency, up to 4-5 times per day currently. She was given a Medrol Dosepak, but has not had any relief. Initial labs remarkable for hypokalemia and BOBBI which have since resolved. Patient admitted with Crohns flare. 10/18/24: Met with patient bedside. Endorses 10/10 sharp/stabbing abdominal pain, nausea, diarrhea, and vomiting. Diluadid increased to 1mg every two hours lat night. Discussed labs with BOBBI and hypokalemia resolved. Plan for continued management of crohns flare with steroids and abx. 10/19/24: Patient states she is feeling better. Still with some nausea and diarrhea. Rating abdominal pain 8/10 on numerical pain scale when pain meds wear off. Discussed changing pain meds to [place] with dilaudid for breakthrough. Labs and vitals stable. 10/20/24: Met with patient bedside. Endorses continued LUQ and LLQ pain 7/10 on numerical pain scale. Tolerating CLD. States she chronically has diarrhea with no changes and nausea. Has had two doses of sterla but has failed Humira and Entyvio OP. Labs and vitals stable. Will increase steroid today. - Review of Systems Constitutional: No Symptoms Eyes: No Symptoms Ears, Nose, & Throat: No Symptoms Respiratory: No Symptoms Cardiac: No Symptoms Abdominal/Gastrointestinal: Abdominal Pain, Nausea, Vomiting, Diarrhea Genitourinary Symptoms: No Symptoms Musculoskeletal: No Symptoms Skin: No Symptoms Neurological: No Symptoms Psychological: No Symptoms Endocrine: No Symptoms Hematologic/Lymphatic: No Symptoms Immunological/Allergic: No Symptoms Objective Exam General Appearance: no apparent distress Neurologic Exam: alert, oriented x 3, cooperative Skin Exam: normal color Eye Exam: PERRL Ears, Nose, Throat Exam: normal ENT inspection Neck Exam: normal inspection Respiratory Exam: normal breath sounds, lungs clear Cardiovascular Exam: regular rate/rhythm, normal heart sounds Gastrointestinal/Abdomen Exam: tenderness (LUQ/LLQ) Extremity Exam: normal inspection Back Exam: normal inspection Pelvic Exam: deferred Rectal Exam: deferred Objective Data Vital Signs: Vital Signs - 24 hr Temp Pulse Resp BP Pulse Ox 10/20/24 04:00 97.8 F 78 140/77 99 10/20/24 00:00 16 10/19/24 23:23 97.5 F 60 16 105/55 96 10/19/24 20:00 13 10/19/24 19:52 98.6 F 79 13 167/79 98 10/19/24 16:00 98.7 F 63 15 136/76 98 10/19/24 12:00 16 10/19/24 11:50 98.3 F 76 20 168/97 97 10/19/24 08:00 98.4 F 82 22 161/108 98 Pain Assessment - Last Documented Pain Intensity 6 Pain Scale Used [facility] Intake and Output: Intake & Output 10/17/24 10/18/24 10/19/24 10/20/24 11:59 11:59 11:59 11:59 Intake Total 1126 2867 3650 Output Total 800 600 Balance 326 2267 3650 Weight 71.5 kg Lab Results: Lab Results-Last 24 Hours 10/19/24 10/19/24 Range/Units 04:59 04:59 WBC 7.3 (3.98-10.04) x10^3/uL RBC 4.00 (3.93-5.22) x10^6/uL Hgb 10.4 L (11.2-15.7) g/dL Hct 31.5 L (34.1-44.9) % MCV 78.8 L (79.4-94.8) fL MCH 26.0 (25.6-32.2) pg MCHC 33.0 (32.2-35.5) g/dL RDW 14.0 (11.7-14.4) % Plt Count 303 (182-369) x10^3/uL MPV 9.5 (9.4-12.3) fL Gran % 86.8 H (34.0-71.1) % Immature Gran % (Auto) 0.8 H (0.001-0.429) % Nucleat RBC Rel Count 0.0 (0.00-0.2) % Eos # (Auto) 0 L (0.04-0.36) x10^3/uL Immature Gran # (Auto) 0.06 H (0.001-0.031) x10^3u/L Absolute Lymphs (auto) 0.71 L (1.18-3.74) x10^3/uL Absolute Monos (auto) 0.19 L (0.24-0.86) x10^3/uL Absolute Nucleated RBC 0.00 (0.00-0.012) x10^3u/L Lymphocytes % 9.7 L (19.3-51.7) % Monocytes % 2.6 L (4.7-12.5) % Eosinophils % 0.0 L (0.7-5.8) % Basophils % 0.1 (0.1-1.2) % Absolute Granulocytes 6.36 H (1.56-6.13) x10^3/uL Basophils # 0.01 (0.01-0.08) x10^3/uL Sodium 135 (135-145) mmol/L Potassium 4.1 (3.5-5.1) mmol/L Chloride 104 (98-107) mmol/L Carbon Dioxide 25 (22-30) mmol/L Anion Gap 9.6 (5-15) MEQ/L BUN 12 (7-17) mg/dL Creatinine 0.80 (0.52-1.04) mg/dL Estimated GFR 90.8 ML/MIN Glucose 113 H (74-106) mg/dL Calcium 8.4 (8.4-10.2) mg/dL Magnesium 1.8 (1.6-2.3) mg/dL Total Bilirubin 0.60 (0.2-1.3) mg/dL AST 19 (14-36) U/L ALT 11 (0-35) U/L Alkaline Phosphatase 51 (38-126) U/L Serum Total Protein 5.9 L (6.3-8.2) g/dL Albumin 3.3 L (3.5-5.0) g/dL Radiology Exams: Radiology Procedures Category Date Time Status KUB Routine Exams 10/18/24 13:24 Completed Multi-Disciplinary Progress Notes: Multi-Disciplinary Progress Notes 10/19/24 10:30 (created 10/19/24 11:47) Case Management Note by Bhavani Tang PATIENT CONTINUES TO PLAN TO RETURN HOME AT TIME OF DC. NO CHANGE IN DC PLANS AT THIS TIME Initialized on 10/19/24 11:47 - END OF NOTE Assessment/Plan (1) Crohn's disease Current Visit: Yes Status: Chronic Assessment & Plan: Continue Solu-Medrol 60 mg IV BID On discharge continue steroid taper with prednisone 40 mg daily,very slow taper, no faster than 10 mg/week Pain control - currently on dilaudid 1mg Q2H PRN Zofran Start LR continuous at 125 mL/h Continue Levaquin and Flagyl for empiric coverage for the peritonitis -Follow with Dr.Prodyot Holbrook in [place] GI -+N/V/D and abdominal pain - will change diet to NPO for bowel rest -CT abd/pelvis demonstrating descending colonic circumferential wall thickening with minimal pericolonic stranding, probable colitis in this patient with history of Crohn's disease. Colonic mass is not completely excluded as there is also intraluminal narrowing with moderate fecal debris up to level of narrowing. 10/19: -Change pain meds to [place] with dilaudid for breakthrough -NPO until N/v abd pain improves -continue levaquin/flagyl 10/19: -Increase solumedrol to 60mg q8h -CLD -continue abx -CMP/CBC reviewed and unremarkable -Continue pain control -add aromatherapy patch to help nausea Code(s): K50.90 - CROHN'S DISEASE, UNSPECIFIED, WITHOUT COMPLICATIONS (2) Hypokalemia Current Visit: No Status: Acute Assessment & Plan: -secondary to GI loss -Replenish per potassium protocol -potassium reviewed at 4.1 - resolved -tele 10/19: -resolved Code(s): E87.6 - HYPOKALEMIA (3) Anxiety Current Visit: No Status: Acute Assessment & Plan: Continue Zyprexa 7.5 mg QHS, Xanax 1 mg TID -patient states she was on 3mg TID - inspect report ran by pharmacy showing correct dose is 1mg TID Code(s): K50.90 - CROHN'S DISEASE, UNSPECIFIED, WITHOUT COMPLICATIONS Code(s): K50.90 - CROHN'S DISEASE, UNSPECIFIED, WITHOUT COMPLICATIONS (2) Hypokalemia Current Visit: No Status: Acute Code(s): E87.6 - HYPOKALEMIA (3) Anxiety Current Visit: No Status: Acute Code(s): F41.9 - ANXIETY DISORDER, UNSPECIFIED
[2024-10-20 05:21] LABS: Hematocrit 34.2 % (34.1-44.9); Hemoglobin 11.4 g/dL (11.2-15.7); Mean Cell Volume 77.6 fL (79.4-94.8); Mean Corpuscular Hemoglobin 25.9 pg (25.6-32.2); Mean Corpuscular Hgb Concent. 33.3 g/dL (32.2-35.5); Platelet Count 368 x10^3/uL (182-369); Red Blood Count 4.41 x10^6/uL (3.93-5.22); Red Cell Distribution Width 14.2 % (11.7-14.4); White Blood Count 8.1 x10^3/uL (3.98-10.04)
[2024-10-20 05:41] LABS: ALBUMIN 3.8 g/dL (3.5-5.0); ANION GAP 10.5 MEQ/L (5-15); BILIRUBIN,TOTAL 0.8 mg/dL (0.2-1.3); Calcium 8.8 mg/dL (8.4-10.2); Creatinine 1 0.83 mg/dL (0.52-1.04); EST GLOMERULAR FILTRATION RATE 86.9 ML/MIN; MAGNESIUM 1.8 mg/dL (1.6-2.3); Potassium 3.9 mmol/L (3.5-5.1); Total Protein 6.4 g/dL (6.3-8.2)
[2024-10-20 09:06] LABS: Lymphocytes 12 % (19.3-51.7); Metamyelocyte 3 %; Monocyte 1 % (4.7-12.5); Neutrophils 84 % (34.0-71.1); Total Cells Counted 100
[2024-10-20 09:11] LABS: Platelet Estimate NORMAL (NORMAL)
[2024-10-20 09:12] LABS: Burr Cells 1+
[2024-10-20] MEDS: solu-MEDROL 60 MG, Sterile H2O 10 ml 2 ML IV SCH (14:37)
[2024-10-20] MEDS ORDERED: solu-MEDROL ONE (21:53)
[2024-10-21] MEDS ORDERED: solu-MEDROL ONE (04:54)
[2024-10-21 05:11] LABS: Absolute Neutrophil Ct (ANC) 7.02 x10^3/uL (1.56-6.13); BASOPHIL % 0.1 % (0.1-1.2); Basophil (Absolute #) 0.01 x10^3/uL (0.01-0.08); Eosinophil (Absolute #) 0 x10^3/uL (0.04-0.36); Hematocrit 32.4 % (34.1-44.9); Hemoglobin 10.9 g/dL (11.2-15.7); IMMATURE GRAN # 0.18 x10^3u/L (0.001-0.031); Lymphocyte (Absolute #) 1.37 x10^3/uL (1.18-3.74); Mean Cell Volume 78.3 fL (79.4-94.8); Mean Corpuscular Hemoglobin 26.3 pg (25.6-32.2); Mean Corpuscular Hgb Concent. 33.6 g/dL (32.2-35.5); Mean Platelet Volume 9.6 fL (9.4-12.3); Monocyte (Absolute #) 0.54 x10^3/uL (0.24-0.86); Monocytes % 5.9 % (4.7-12.5); Platelet Count 366 x10^3/uL (182-369); Red Blood Count 4.14 x10^6/uL (3.93-5.22); Red Cell Distribution Width 14.2 % (11.7-14.4); White Blood Count 9.1 x10^3/uL (3.98-10.04)
--- NOTE | 2024-10-21 05:24 | PCM.NOTE ---
Date and Time: 10/21/24 0523 Subjective Assessment: HPI: 49-year-old with a history of Crohn's disease and anxiety, admitted 10/17/24 with abdominal pain, nausea, and diarrhea, consistent with her prior Crohn's flares. Patient has history of poorly controlled Crohn's disease; she was previously on Humira, but it was no longer effective. She tried Entyvio, but worsened, and was recently started on Stelara, receiving her second dose earlier this month. However, she has frequent hospitalizations with severe flares, most recently in June 2024 in [place]. She had been on a slow taper of steroids, discharging on prednisone 60, tapering slowly down to her maintenance dose of 10 mg daily. She follows with Dr. Yashira Holbrook in [place]. She was now with 3 days of severe, sharp, constant, epigastric pain, radiating to the left upper and lower quadrants, worsening with food or drink, relieved only by pain medications. Associated with nonbloody, nonbilious vomiting, 6 times per day. Patient has chronic watery, non-bloody diarrhea, but this is increased in quantity and frequency, up to 4-5 times per day currently. She was given a Medrol Dosepak, but has not had any relief. Initial labs remarkable for hypokalemia and BOBBI which have since resolved. Patient admitted with Crohns flare. 10/18/24: Met with patient bedside. Endorses 10/10 sharp/stabbing abdominal pain, nausea, diarrhea, and vomiting. Diluadid increased to 1mg every two hours lat night. Discussed labs with BOBBI and hypokalemia resolved. Plan for continued management of crohns flare with steroids and abx. 10/19/24: Patient states she is feeling better. Still with some nausea and diarrhea. Rating abdominal pain 8/10 on numerical pain scale when pain meds wear off. Discussed changing pain meds to [place] with dilaudid for breakthrough. Labs and vitals stable. 10/20/24: Met with patient bedside. Endorses continued LUQ and LLQ pain 7/10 on numerical pain scale. Tolerating CLD. States she chronically has diarrhea with no changes and nausea. Has had two doses of sterla but has failed Humira and Entyvio OP. Labs and vitals stable. Will increase steroid today. 10/21/24: No overnight events noted. Patient requesting discharge today to a facility with GI as she feels her symptoms are not improving and this is not feeling like her typical crohns flare. Pain is still at a 7/10 on numerical pain scale to the LUE/LLE. No able to tolerate much of a diet. - Review of Systems Constitutional: Weakness Eyes: No Symptoms Ears, Nose, & Throat: No Symptoms Respiratory: No Symptoms Cardiac: No Symptoms Abdominal/Gastrointestinal: Abdominal Pain, Nausea, Vomiting, Diarrhea Genitourinary Symptoms: No Symptoms Musculoskeletal: No Symptoms Skin: No Symptoms Neurological: No Symptoms Psychological: No Symptoms Endocrine: No Symptoms Hematologic/Lymphatic: No Symptoms Immunological/Allergic: No Symptoms Objective Exam General Appearance: no apparent distress Neurologic Exam: alert, oriented x 3, cooperative Skin Exam: normal color Eye Exam: PERRL Ears, Nose, Throat Exam: normal ENT inspection Neck Exam: normal inspection Respiratory Exam: normal breath sounds, lungs clear Cardiovascular Exam: regular rate/rhythm, normal heart sounds Gastrointestinal/Abdomen Exam: tenderness (LUQ/LLQ) Extremity Exam: normal inspection Back Exam: normal inspection Objective Data Vital Signs: Vital Signs - 24 hr Temp Pulse Resp BP Pulse Ox 10/21/24 04:00 18 10/21/24 03:47 97.7 F 66 20 147/74 99 10/21/24 00:00 98.4 F 64 16 174/83 98 10/20/24 23:47 17 10/20/24 20:00 98.3 F 78 19 124/91 100 10/20/24 16:00 16 10/20/24 15:55 98.0 F 63 16 145/67 98 10/20/24 12:00 16 10/20/24 11:36 69 16 164/87 98 10/20/24 07:40 16 10/20/24 06:55 97.8 F 68 16 130/70 98 Pain Assessment - Last Documented Pain Intensity 7 Pain Scale Used 0-10 Pain Scale Intake and Output: Intake & Output 10/18/24 10/19/24 10/20/24 10/21/24 11:59 11:59 11:59 11:59 Intake Total 1126 3687 3890 3881 Output Total 800 600 Balance 326 2267 3890 3881 Weight 71.5 kg 71.5 kg Lab Results: Lab Results-Last 24 Hours 01/10/20/24 10/21/24 Range/Units 05:15 05:15 05:06 WBC 8.1 9.1 (3.98-10.04) x10^3/uL RBC 4.41 4.14 (3.93-5.22) x10^6/uL Hgb 11.4 10.9 L (11.2-15.7) g/dL Hct 34.2 32.4 L (34.1-44.9) % MCV 77.6 L 78.3 L (79.4-94.8) fL MCH 25.9 26.3 (25.6-32.2) pg MCHC 33.3 33.6 (32.2-35.5) g/dL RDW 14.2 14.2 (11.7-14.4) % Plt Count 368 366 (182-369) x10^3/uL MPV 10.0 9.6 (9.4-12.3) fL Gran % 77.0 H (34.0-71.1) % Immature Gran % (Auto) 2.0 H (0.001-0.429) % Nucleat RBC Rel Count 0.0 (0.00-0.2) % Eos # (Auto) 0 L (0.04-0.36) x10^3/uL Immature Gran # (Auto) 0.18 H (0.001-0.031) x10^3u/L Absolute Lymphs (auto) 1.37 (1.18-3.74) x10^3/uL Absolute Monos (auto) 0.54 (0.24-0.86) x10^3/uL Absolute Nucleated RBC 0.00 (0.00-0.012) x10^3u/L Lymphocytes % 15.0 L (19.3-51.7) % Monocytes % 5.9 (4.7-12.5) % Eosinophils % 0.0 L (0.7-5.8) % Basophils % 0.1 (0.1-1.2) % Absolute Granulocytes 7.02 H (1.56-6.13) x10^3/uL Segmented Neutrophils 84 H (34.0-71.1) % Lymphocytes (Manual) 12 L (19.3-51.7) % Monocytes (Manual) 1 L (4.7-12.5) % Basophils # 0.01 (0.01-0.08) x10^3/uL Metamyelocytes 3 % Platelet Estimate NORMAL (NORMAL) RBC Morphology ABNORMAL [place] Cells 1+ Sodium 135 (135-145) mmol/L Potassium 3.9 (3.5-5.1) mmol/L Chloride 103 (98-107) mmol/L Carbon Dioxide 25 (22-30) mmol/L Anion Gap 10.5 (5-15) MEQ/L BUN 14 (7-17) mg/dL Creatinine 0.83 (0.52-1.04) mg/dL Estimated GFR 86.9 ML/MIN Glucose 128 H (74-106) mg/dL Calcium 8.8 (8.4-10.2) mg/dL Magnesium 1.8 (1.6-2.3) mg/dL Total Bilirubin 0.80 (0.2-1.3) mg/dL AST 22 (14-36) U/L ALT 12 (0-35) U/L Alkaline Phosphatase 54 (38-126) U/L Serum Total Protein 6.4 (6.3-8.2) g/dL Albumin 3.8 (3.5-5.0) g/dL Multi-Disciplinary Progress Notes: Multi-Disciplinary Progress Notes 10/20/24 10:20 Case Management Note by Bhavani Tang S/W PATIENT- SHE CONTINUES TO DENY ANY NEW NEEDS AT TIME OF DC. SHE PLANS TO RETURN HOME TO HER PLF AT TIME OF DC Initialized on 10/20/24 10:20 - END OF NOTE Assessment/Plan (1) Crohn's disease Current Visit: Yes Status: Chronic Assessment & Plan: Continue Solu-Medrol 60 mg IV BID On discharge continue steroid taper with prednisone 40 mg daily,very slow taper, no faster than 10 mg/week Pain control - currently on dilaudid 1mg Q2H PRN Zofran Start LR continuous at 125 mL/h Continue Levaquin and Flagyl for empiric coverage for the peritonitis -Follow with Dr.Prodyot Holbrook in [place] GI -+N/V/D and abdominal pain - will change diet to NPO for bowel rest -CT abd/pelvis demonstrating descending colonic circumferential wall thickening with minimal pericolonic stranding, probable colitis in this patient with history of Crohn's disease. Colonic mass is not completely excluded as there is also intraluminal narrowing with moderate fecal debris up to level of narrowing. 10/19: -Change pain meds to [place] with dilaudid for breakthrough -NPO until N/v abd pain improves -continue levaquin/flagyl 10/20: -Increase solumedrol to 60mg q8h -CLD -continue abx -CMP/CBC reviewed and unremarkable -Continue pain control -add aromatherapy patch to help nausea 10/21: -continue pain control - add heating pad -Continue solumedrol -Request transfer to facility with GI per pt request -KUB reviwed with no obstruction -CMP/CBC reviewed- unremarkable -add crp Code(s): K50.90 - CROHN'S DISEASE, UNSPECIFIED, WITHOUT COMPLICATIONS (2) Hypokalemia Current Visit: No Status: Acute Assessment & Plan: -secondary to GI loss -Replenish per potassium protocol -potassium reviewed at 4.1 - resolved -tele 10/19: -resolved Code(s): E87.6 - HYPOKALEMIA (3) Anxiety Current Visit: No Status: Acute Assessment & Plan: Continue Zyprexa 7.5 mg QHS, Xanax 1 mg TID -patient states she was on 3mg TID - inspect report ran by pharmacy showing correct dose is 1mg TID Code(s): K50.90 - CROHN'S DISEASE, UNSPECIFIED, WITHOUT COMPLICATIONS (2) Hypokalemia Current Visit: No Status: Acute Code(s): E87.6 - HYPOKALEMIA (3) Anxiety Current Visit: No Status: Acute Code(s): F41.9 - ANXIETY DISORDER, UNSPECIFI ED
[2024-10-21 05:33] LABS: ALBUMIN 3.5 g/dL (3.5-5.0); ANION GAP 9.6 MEQ/L (5-15); BILIRUBIN,TOTAL 0.7 mg/dL (0.2-1.3); Calcium 8.8 mg/dL (8.4-10.2); Creatinine 1 0.76 mg/dL (0.52-1.04); EST GLOMERULAR FILTRATION RATE 96.6 ML/MIN; Potassium 3.8 mmol/L (3.5-5.1); Total Protein 6.1 g/dL (6.3-8.2)
[2024-10-21] MEDS: NORCO 5/325 MG PO PRN (11:04)
--- NOTE | 2024-10-22 05:19 | PCM.NOTE ---
Date and Time: 10/22/24 0518 Subjective Assessment: HPI: 49-year-old with a history of Crohn's disease and anxiety, admitted 10/17/24 with abdominal pain, nausea, and diarrhea, consistent with her prior Crohn's flares. Patient has history of poorly controlled Crohn's disease; she was previously on Humira, but it was no longer effective. She tried Entyvio, but worsened, and was recently started on Stelara, receiving her second dose earlier this month. However, she has frequent hospitalizations with severe flares, most recently in June 2024 in [place]. She had been on a slow taper of steroids, discharging on prednisone 60, tapering slowly down to her maintenance dose of 10 mg daily. She follows with Dr. Yashira Holbrook in [place]. She was now with 3 days of severe, sharp, constant, epigastric pain, radiating to the left upper and lower quadrants, worsening with food or drink, relieved only by pain medications. Associated with nonbloody, nonbilious vomiting, 6 times per day. Patient has chronic watery, non-bloody diarrhea, but this is increased in quantity and frequency, up to 4-5 times per day currently. She was given a Medrol Dosepak, but has not had any relief. Initial labs remarkable for hypokalemia and BOBBI which have since resolved. Patient admitted with Crohns flare. 10/18/24: Met with patient bedside. Endorses 10/10 sharp/stabbing abdominal pain, nausea, diarrhea, and vomiting. Diluadid increased to 1mg every two hours lat night. Discussed labs with BOBBI and hypokalemia resolved. Plan for continued management of crohns flare with steroids and abx. 10/19/24: Patient states she is feeling better. Still with some nausea and diarrhea. Rating abdominal pain 8/10 on numerical pain scale when pain meds wear off. Discussed changing pain meds to [place] with dilaudid for breakthrough. Labs and vitals stable. 10/20/24: Met with patient bedside. Endorses continued LUQ and LLQ pain 7/10 on numerical pain scale. Tolerating CLD. States she chronically has diarrhea with no changes and nausea. Has had two doses of sterla but has failed Humira and Entyvio OP. Labs and vitals stable. Will increase steroid today. 10/21/24: No overnight events noted. Patient requesting discharge today to a facility with GI as she feels her symptoms are not improving and this is not feeling like her typical crohns flare. Pain is still at a 7/10 on numerical pain scale to the LUE/LLE. No able to tolerate much of a diet. 10/22/24: Patient feeling better today- rating pain 6/10 on numerical pain scale. [facility] on diversion- patient requests to stay at our facility. Feels like she is improving. Would like to try a CLD today. - Review of Systems Constitutional: No Symptoms Eyes: No Symptoms Ears, Nose, & Throat: No Symptoms Respiratory: No Symptoms Cardiac: No Symptoms Abdominal/Gastrointestinal: Abdominal Pain, Nausea, Vomiting, Diarrhea Genitourinary Symptoms: No Symptoms Musculoskeletal: No Symptoms Skin: No Symptoms Neurological: No Symptoms Psychological: No Symptoms Endocrine: No Symptoms Hematologic/Lymphatic: No Symptoms Immunological/Allergic: No Symptoms Objective Exam General Appearance: no apparent distress Neurologic Exam: alert, oriented x 3, cooperative Skin Exam: normal color Wound Assessment: Skin/Wound Assessment Wound/Incision Assessment Start: 10/22/24 00:05 Text: Status: Active Freq: Q6H Protocol: Document 10/22/24 00:05 CT (Rec: 10/22/24 01:06 CT [id number]) Wound Photo Photo Taken No Eye Exam: PERRL Ears, Nose, Throat Exam: normal ENT inspection Neck Exam: normal inspection Respiratory Exam: normal breath sounds, lungs clear Cardiovascular Exam: regular rate/rhythm, normal heart sounds Gastrointestinal/Abdomen Exam: soft, normal bowel sounds, tenderness (LUQ/LLQ) Extremity Exam: normal inspection Back Exam: normal inspection Pelvic Exam: deferred Rectal Exam: deferred Objective Data Vital Signs: Vital Signs - 24 hr Temp Pulse Resp BP Pulse Ox 10/22/24 00:00 96.6 F 68 18 145/77 96 10/21/24 19:53 97.1 F 65 16 111/62 98 10/21/24 16:00 96.6 F 63 20 125/70 96 10/21/24 12:00 20 10/21/24 11:49 97.6 F 90 20 135/66 97 10/21/24 08:00 97.5 F 73 18 124/72 97 Pain Assessment - Last Documented Pain Intensity 4 Pain Scale Used 0-10 Pain Scale Intake and Output: Intake & Output 10/19/24 10/20/24 10/21/24 10/22/24 11:59 11:59 11:59 11:59 Intake Total 2867 3890 3881 340 Output Total 600 Balance 2033 3890 3881 340 Weight 71.5 kg Lab Results: Lab Results-Last 24 Hours 10/21/24 10/21/24 10/21/24 Range/Units 05:06 05:06 13:15 WBC 9.1 (3.98-10.04) x10^3/uL RBC 4.14 (3.93-5.22) x10^6/uL Hgb 10.9 L (11.2-15.7) g/dL Hct 32.4 L (34.1-44.9) % MCV 78.3 L (79.4-94.8) fL MCH 26.3 (25.6-32.2) pg MCHC 33.6 (32.2-35.5) g/dL RDW 14.2 (11.7-14.4) % Plt Count 366 (182-369) x10^3/uL MPV 9.6 (9.4-12.3) fL Gran % 77.0 H (34.0-71.1) % Immature Gran % (Auto) 2.0 H (0.001-0.429) % Nucleat RBC Rel Count 0.0 (0.00-0.2) % Eos # (Auto) 0 L (0.04-0.36) x10^3/uL Immature Gran # (Auto) 0.18 H (0.001-0.031) x10^3u/L Absolute Lymphs (auto) 1.37 (1.18-3.74) x10^3/uL Absolute Monos (auto) 0.54 (0.24-0.86) x10^3/uL Absolute Nucleated RBC 0.00 (0.00-0.012) x10^3u/L Lymphocytes % 15.0 L (19.3-51.7) % Monocytes % 5.9 (4.7-12.5) % Eosinophils % 0.0 L (0.7-5.8) % Basophils % 0.1 (0.1-1.2) % Absolute Granulocytes 7.02 H (1.56-6.13) x10^3/uL Basophils # 0.01 (0.01-0.08) x10^3/uL ESR < 1 (0-20) mm/hr Sodium 135 (135-145) mmol/L Potassium 3.8 (3.5-5.1) mmol/L Chloride 105 (98-107) mmol/L Carbon Dioxide 25 (22-30) mmol/L Anion Gap 9.6 (5-15) MEQ/L BUN 14 (7-17) mg/dL Creatinine 0.76 (0.52-1.04) mg/dL Estimated GFR 96.6 ML/MIN Glucose 114 H (74-106) mg/dL Calcium 8.8 (8.4-10.2) mg/dL Magnesium 2.0 (1.6-2.3) mg/dL Total Bilirubin 0.70 (0.2-1.3) mg/dL AST 26 (14-36) U/L ALT 14 (0-35) U/L Alkaline Phosphatase 54 (38-126) U/L Serum Total Protein 6.1 L (6.3-8.2) g/dL Albumin 3.5 (3.5-5.0) g/dL Assessment/Plan (1) Crohn's disease Current Visit: Yes Status: Chronic Assessment & Plan: Continue Solu-Medrol 60 mg IV BID On discharge continue steroid taper with prednisone 40 mg daily,very slow taper, no faster than 10 mg/week Pain control - currently on dilaudid 1mg Q2H PRN Zofran Start LR continuous at 125 mL/h Continue Levaquin and Flagyl for empiric coverage for the peritonitis -Follow with Dr.Prodyot Holbrook in [place] GI -+N/V/D and abdominal pain - will change diet to NPO for bowel rest -CT abd/pelvis demonstrating descending colonic circumferential wall thickening with minimal pericolonic stranding, probable colitis in this patient with history of Crohn's disease. Colonic mass is not completely excluded as there is also intraluminal narrowing with moderate fecal debris up to level of narrowing. 10/19: -Change pain meds to [place] with dilaudid for breakthrough -NPO until N/v abd pain improves -continue levaquin/flagyl 10/20: -Increase solumedrol to 60mg q8h -CLD -continue abx -CMP/CBC reviewed and unremarkable -Continue pain control -add aromatherapy patch to help nausea 10/21: -continue pain control - add heating pad -Continue solumedrol -Request transfer to facility with GI per pt request -KUB reviewed with no obstruction -CMP/CBC reviewed- unremarkable -add crp 10/22: -ESR reviewed and <1 -CRP pending -Heating pad helping with pain -Pain improving -Start CLD today -WBC reviewed and elevated at 13.7 most likely from increase in steroids Code(s): K50.90 - CROHN'S DISEASE, UNSPECIFIED, WITHOUT COMPLICATIONS (2) Hypokalemia Current Visit: No Status: Acute Assessment & Plan: -secondary to GI loss -Replenish per potassium protocol -potassium reviewed at 4.1 - resolved -tele 10/19: -resolved Code(s): E87.6 - HYPOKALEMIA (3) Anxiety Current Visit: No Status: Acute Assessment & Plan: Continue Zyprexa 7.5 mg QHS, Xanax 1 mg TID -patient states she was on 3mg TID - inspect report ran by pharmacy showing correct dose is 1mg TID Code(s): K50.90 - CROHN'S DISEASE, UNSPECIFIED, WITHOUT COMPLICATIONS (2) Hypokalemia Current Visit: No Status: Acute Code(s): E87.6 - HYPOKALEMIA (3) Anxiety Current Visit: No Status: Acute Code(s): F41.9 - ANXIETY DISORDER, UNSPECIFIED
[2024-10-22 09:24] LABS: Absolute Neutrophil Ct (ANC) 12.31 x10^3/uL (1.56-6.13); BASOPHIL % 0.1 % (0.1-1.2); Basophil (Absolute #) 0.01 x10^3/uL (0.01-0.08); Eosinophil (Absolute #) 0 x10^3/uL (0.04-0.36); Hematocrit 31.4 % (34.1-44.9); Hemoglobin 10.4 g/dL (11.2-15.7); IMMATURE GRAN # 0.26 x10^3u/L (0.001-0.031); IMMATURE GRAN % 1.9 % (0.001-0.429); Lymphocyte (Absolute #) 0.54 x10^3/uL (1.18-3.74); Mean Cell Volume 79.7 fL (79.4-94.8); Mean Corpuscular Hemoglobin 26.4 pg (25.6-32.2); Mean Corpuscular Hgb Concent. 33.1 g/dL (32.2-35.5); Mean Platelet Volume 9.7 fL (9.4-12.3); Monocyte (Absolute #) 0.55 x10^3/uL (0.24-0.86); Platelet Count 366 x10^3/uL (182-369); Red Blood Count 3.94 x10^6/uL (3.93-5.22); Red Cell Distribution Width 14.6 % (11.7-14.4); White Blood Count 13.7 x10^3/uL (3.98-10.04)
[2024-10-22 09:50] LABS: ALBUMIN 3.4 g/dL (3.5-5.0); ANION GAP 9.3 MEQ/L (5-15); BILIRUBIN,TOTAL 0.9 mg/dL (0.2-1.3); Calcium 8.3 mg/dL (8.4-10.2); Creatinine 1 0.81 mg/dL (0.52-1.04); EST GLOMERULAR FILTRATION RATE 89.5 ML/MIN; Potassium 3.5 mmol/L (3.5-5.1); Total Protein 5.9 g/dL (6.3-8.2)
[2024-10-22 11:15] LABS: Slide Review 1 YES
--- NOTE | 2024-10-23 05:16 | PCM.NOTE ---
Date and Time: 10/23/24 0515 Subjective Assessment: HPI: 49-year-old with a history of Crohn's disease and anxiety, admitted 10/17/24 with abdominal pain, nausea, and diarrhea, consistent with her prior Crohn's flares. Patient has history of poorly controlled Crohn's disease; she was previously on Humira, but it was no longer effective. She tried Entyvio, but worsened, and was recently started on Stelara, receiving her second dose earlier this month. However, she has frequent hospitalizations with severe flares, most recently in June 2024 in [place]. She had been on a slow taper of steroids, discharging on prednisone 60, tapering slowly down to her maintenance dose of 10 mg daily. She follows with Dr. Yashira Holbrook in [place]. She was now with 3 days of severe, sharp, constant, epigastric pain, radiating to the left upper and lower quadrants, worsening with food or drink, relieved only by pain medications. Associated with nonbloody, nonbilious vomiting, 6 times per day. Patient has chronic watery, non-bloody diarrhea, but this is increased in quantity and frequency, up to 4-5 times per day currently. She was given a Medrol Dosepak, but has not had any relief. Initial labs remarkable for hypokalemia and BOBBI which have since resolved. Patient admitted with Crohns flare. 10/18/24: Met with patient bedside. Endorses 10/10 sharp/stabbing abdominal pain, nausea, diarrhea, and vomiting. Diluadid increased to 1mg every two hours lat night. Discussed labs with BOBBI and hypokalemia resolved. Plan for continued management of crohns flare with steroids and abx. 10/19/24: Patient states she is feeling better. Still with some nausea and diarrhea. Rating abdominal pain 8/10 on numerical pain scale when pain meds wear off. Discussed changing pain meds to [place] with dilaudid for breakthrough. Labs and vitals stable. 10/20/24: Met with patient bedside. Endorses continued LUQ and LLQ pain 7/10 on numerical pain scale. Tolerating CLD. States she chronically has diarrhea with no changes and nausea. Has had two doses of sterla but has failed Humira and Entyvio OP. Labs and vitals stable. Will increase steroid today. 10/21/24: No overnight events noted. Patient requesting discharge today to a facility with GI as she feels her symptoms are not improving and this is not feeling like her typical crohns flare. Pain is still at a 7/10 on numerical pain scale to the LUE/LLE. No able to tolerate much of a diet. 10/22/24: Patient feeling better today- rating pain 6/10 on numerical pain scale. [facility] on diversion- patient requests to stay at our facility. Feels like she is improving. Would like to try a CLD today. 10/23/24: Pain continues to improve. Patient requesting full liquid diet today. Will try to discontinue IV pain meds and resume home percocet. No n/v. Patient states she is having dark stools. No BRB. Will order occult stools. Patient has planned OP colonoscopy already set up with GI. Occult stool ordered. - Review of Systems Constitutional: No Symptoms Eyes: No Symptoms Ears, Nose, & Throat: No Symptoms Respiratory: No Symptoms Cardiac: No Symptoms Abdominal/Gastrointestinal: Abdominal Pain, Diarrhea Genitourinary Symptoms: No Symptoms Musculoskeletal: No Symptoms Skin: No Symptoms Neurological: No Symptoms Psychological: No Symptoms Endocrine: No Symptoms Hematologic/Lymphatic: No Symptoms Immunological/Allergic: No Symptoms Objective Exam General Appearance: no apparent distress Neurologic Exam: alert, oriented x 3, cooperative Skin Exam: normal color Eye Exam: PERRL Ears, Nose, Throat Exam: normal ENT inspection Neck Exam: normal inspection Respiratory Exam: normal breath sounds, lungs clear Cardiovascular Exam: regular rate/rhythm, normal heart sounds Gastrointestinal/Abdomen Exam: soft, normal bowel sounds, tenderness (LLQ/LUQ) Extremity Exam: normal inspection Back Exam: normal inspection Pelvic Exam: deferred Rectal Exam: deferred Objective Data Vital Signs: Vital Signs - 24 hr Temp Pulse Resp BP Pulse Ox 10/23/24 00:41 97.3 F 69 16 116/61 98 10/22/24 21:00 98 F 80 16 115/64 99 10/22/24 17:00 97.5 F 60 17 113/56 97 10/22/24 12:17 97.3 F 63 16 129/84 98 10/22/24 09:50 138/80 10/22/24 08:00 97.1 F 79 16 193/109 97 Pain Assessment - Last Documented Pain Intensity 6 Pain Scale Used 0-10 Pain Scale Intake and Output: Intake & Output 10/20/24 10/21/24 10/22/24 10/23/24 11:59 11:59 11:59 11:59 Intake Total 3890 3884 3696 2213 Balance 3890 3881 3697 2211 Weight 71.5 kg Lab Results: Lab Results-Last 24 Hours 10/21/24 10/22/24 10/22/24 Range/Units 13:15 09:14 09:14 WBC 13.7 H (3.98-10.04) x10^3/uL RBC 3.94 (3.93-5.22) x10^6/uL Hgb 10.4 L (11.2-15.7) g/dL Hct 31.4 L (34.1-44.9) % MCV 79.7 (79.4-94.8) fL MCH 26.4 (25.6-32.2) pg MCHC 33.1 (32.2-35.5) g/dL RDW 14.6 H (11.7-14.4) % Plt Count 366 (182-369) x10^3/uL MPV 9.7 (9.4-12.3) fL Gran % 90.0 H (34.0-71.1) % Immature Gran % (Auto) 1.9 H (0.001-0.429) % Nucleat RBC Rel Count 0.0 (0.00-0.2) % Eos # (Auto) 0 L (0.04-0.36) x10^3/uL Immature Gran # (Auto) 0.26 H (0.001-0.031) x10^3u/L Absolute Lymphs (auto) 0.54 L (1.18-3.74) x10^3/uL Absolute Monos (auto) 0.55 (0.24-0.86) x10^3/uL Absolute Nucleated RBC 0.00 (0.00-0.012) x10^3u/L Lymphocytes % 4.0 L (19.3-51.7) % Monocytes % 4.0 L (4.7-12.5) % Eosinophils % 0.0 L (0.7-5.8) % Basophils % 0.1 (0.1-1.2) % Absolute Granulocytes 12.31 H (1.56-6.13) x10^3/uL Basophils # 0.01 (0.01-0.08) x10^3/uL Sodium 136 (135-145) mmol/L Potassium 3.5 (3.5-5.1) mmol/L Chloride 105 (98-107) mmol/L Carbon Dioxide 25 (22-30) mmol/L Anion Gap 9.3 (5-15) MEQ/L BUN 14 (7-17) mg/dL Creatinine 0.81 (0.52-1.04) mg/dL Estimated GFR 89.5 ML/MIN Glucose 144 H (74-106) mg/dL Calcium 8.3 L (8.4-10.2) mg/dL Magnesium 2.0 (1.6-2.3) mg/dL Total Bilirubin 0.90 (0.2-1.3) mg/dL AST 23 (14-36) U/L ALT 13 (0-35) U/L Alkaline Phosphatase 49 (38-126) U/L C-Reactive Prot, Quant 1 (0-10) mg/L Serum Total Protein 5.9 L (6.3-8.2) g/dL Albumin 3.4 L (3.5-5.0) g/dL Slides for Path Review YES Assessment/Plan (1) Crohn's disease Current Visit: Yes Status: Chronic Assessment & Plan: Continue Solu-Medrol 60 mg IV BID On discharge continue steroid taper with prednisone 40 mg daily,very slow taper, no faster than 10 mg/week Pain control - currently on dilaudid 1mg Q2H PRN Zofran Start LR continuous at 125 mL/h Continue Levaquin and Flagyl for empiric coverage for the peritonitis -Follow with Dr.Prodyot Holbrook in [place] [facility] -+N/V/D and abdominal pain - will change diet to NPO for bowel rest -CT abd/pelvis demonstrating descending colonic circumferential wall thickening with minimal pericolonic stranding, probable colitis in this patient with history of Crohn's disease. Colonic mass is not completely excluded as there is also intraluminal narrowing with moderate fecal debris up to level of narrowing. 10/19: -Change pain meds to [place] with dilaudid for breakthrough -NPO until N/v abd pain improves -continue levaquin/flagyl 10/20: -Increase solumedrol to 60mg q8h -CLD -continue abx -CMP/CBC reviewed and unremarkable -Continue pain control -add aromatherapy patch to help nausea 10/21: -continue pain control - add heating pad -Continue solumedrol -Request transfer to facility with GI per pt request -KUB reviewed with no obstruction -CMP/CBC reviewed- unremarkable -add crp 10/22: -ESR reviewed and <1 -CRP pending -Heating pad helping with pain -Pain improving -Start CLD today -WBC reviewed and elevated at 13.7 most likely from increase in steroids 10/23: -Advance diet to FLD- can advance as tolerated -WBC reviewed and WNL today -continue steroid/abx -Pain control - resume home percocet dosing -dc diluadid and norco Code(s): K50.90 - CROHN'S DISEASE, UNSPECIFIED, WITHOUT COMPLICATIONS (2) Hypokalemia Current Visit: No Status: Acute Assessment & Plan: -secondary to GI loss -Replenish per potassium protocol -potassium reviewed at 4.1 - resolved -tele 10/19: -resolved Code(s): E87.6 - HYPOKALEMIA (3) Anxiety Current Visit: No Status: Acute Assessment & Plan: Continue Zyprexa 7.5 mg QHS, Xanax 1 mg TID -patient states she was on 3mg TID - inspect report ran by pharmacy showing correct dose is 1mg TID Code(s): K50.90 - CROHN'S DISEASE, UNSPECIFIED, WITHOUT COMPLICATIONS (2) Hypokalemia Current Visit: No Status: Acute Code(s): E87.6 - HYPOKALEMIA (3) Anxiety Current Visit: No Status: Acute Code(s): F41.9 - ANXIETY DISORDER, UNSPECIFIED
[2024-10-23 08:29] LABS: Absolute Neutrophil Ct (ANC) 8.12 x10^3/uL (1.56-6.13); BASOPHIL % 0.1 % (0.1-1.2); Basophil (Absolute #) 0.01 x10^3/uL (0.01-0.08); Eosinophil (Absolute #) 0 x10^3/uL (0.04-0.36); Hematocrit 27.6 % (34.1-44.9); Hemoglobin 9.2 g/dL (11.2-15.7); IMMATURE GRAN # 0.12 x10^3u/L (0.001-0.031); IMMATURE GRAN % 1.3 % (0.001-0.429); Lymphocyte (Absolute #) 0.55 x10^3/uL (1.18-3.74); Lymphocytes % 6.1 % (19.3-51.7); Mean Cell Volume 79.5 fL (79.4-94.8); Mean Corpuscular Hemoglobin 26.5 pg (25.6-32.2); Mean Corpuscular Hgb Concent. 33.3 g/dL (32.2-35.5); Mean Platelet Volume 10.3 fL (9.4-12.3); Monocyte (Absolute #) 0.28 x10^3/uL (0.24-0.86); Monocytes % 3.1 % (4.7-12.5); Neutrophil % 89.4 % (34.0-71.1); Platelet Count 370 x10^3/uL (182-369); Red Blood Count 3.47 x10^6/uL (3.93-5.22); White Blood Count 9.1 x10^3/uL (3.98-10.04)
[2024-10-23 08:54] LABS: ALBUMIN 3.5 g/dL (3.5-5.0); ANION GAP 10.3 MEQ/L (5-15); BILIRUBIN,TOTAL 0.8 mg/dL (0.2-1.3); Calcium 8.5 mg/dL (8.4-10.2); Creatinine 1 0.69 mg/dL (0.52-1.04); MAGNESIUM 2.1 mg/dL (1.6-2.3); Potassium 4.7 mmol/L (3.5-5.1)
[2024-10-23 08:55] LABS: Slide Review 1 YES
[2024-10-23] MEDS: PERCOCET TABLET 5/325MG PO PRN (12:28)
[2024-10-23 14:50] LABS: IFOB TEST RESULTS POSITIVE (NEGATIVE)
[2024-10-23] MEDS: Hydromorphone 1 mg/ml Injection IV ONE (16:04)
[2024-10-24 06:35] LABS: Absolute Neutrophil Ct (ANC) 8.09 x10^3/uL (1.56-6.13); Basophil (Absolute #) 0 x10^3/uL (0.01-0.08); Eosinophil (Absolute #) 0 x10^3/uL (0.04-0.36); Hematocrit 26.1 % (34.1-44.9); Hemoglobin 8.7 g/dL (11.2-15.7); IMMATURE GRAN # 0.14 x10^3u/L (0.001-0.031); IMMATURE GRAN % 1.5 % (0.001-0.429); Lymphocyte (Absolute #) 1.02 x10^3/uL (1.18-3.74); Lymphocytes % 10.6 % (19.3-51.7); Mean Cell Volume 78.9 fL (79.4-94.8); Mean Corpuscular Hemoglobin 26.3 pg (25.6-32.2); Mean Corpuscular Hgb Concent. 33.3 g/dL (32.2-35.5); Mean Platelet Volume 10.3 fL (9.4-12.3); Monocyte (Absolute #) 0.35 x10^3/uL (0.24-0.86); Monocytes % 3.6 % (4.7-12.5); Neutrophil % 84.3 % (34.0-71.1); Platelet Count 413 x10^3/uL (182-369); Red Blood Count 3.31 x10^6/uL (3.93-5.22); Red Cell Distribution Width 15.2 % (11.7-14.4); White Blood Count 9.6 x10^3/uL (3.98-10.04)
[2024-10-24 06:41] LABS: ALBUMIN 3.4 g/dL (3.5-5.0); ANION GAP 10.3 MEQ/L (5-15); BILIRUBIN,TOTAL 0.6 mg/dL (0.2-1.3); Calcium 8.7 mg/dL (8.4-10.2); Creatinine 1 0.72 mg/dL (0.52-1.04); EST GLOMERULAR FILTRATION RATE 103.1 ML/MIN; MAGNESIUM 2.1 mg/dL (1.6-2.3); Potassium 3.9 mmol/L (3.5-5.1); Total Protein 5.8 g/dL (6.3-8.2)
[2024-10-24] MEDS: FLAGYL 500 MG IVPB 500 MG/100 ML BAG IV SCH (09:42)
--- NOTE | 2024-10-24 10:33 | PCM.NOTE ---
Date and Time: 10/24/24 1026 Subjective Assessment: HPI: 49-year-old with a history of Crohn's disease and anxiety, admitted 10/17/24 with abdominal pain, nausea, and diarrhea, consistent with her prior Crohn's flares. Patient has history of poorly controlled Crohn's disease; she was previously on Humira, but it was no longer effective. She tried Entyvio, but worsened, and was recently started on Stelara, receiving her second dose earlier this month. However, she has frequent hospitalizations with severe flares, most recently in June 2024 in [place]. She had been on a slow taper of steroids, discharging on prednisone 60, tapering slowly down to her maintenance dose of 10 mg daily. She follows with Dr. Yashira Holbrook in [place]. On admission she was going on 3 days of severe, sharp, constant, epigastric pain, radiating to the left upper and lower quadrants, worsening with food or drink, relieved only by pain medications. Associated with nonbloody, nonbilious vomiting, 6 times per day. Patient has chronic watery, non-bloody diarrhea, but this is increased in quantity and frequency, up to 4-5 times per day. She was given a Medrol Dosepak, but not have any relief. Initial labs remarkable for hypokalemia and BOBBI which have since resolved. Patient admitted with Crohns flare and placed on Flagyl and Levaquin. Diet changed to soft yesterday evening and she felt she wanted to eat something. IV pain meds stopped at that time and home PO meds started. Pt states she is refusing to eat as she only wants the IV pain meds for her abd pa in. Abd. pain is 10/10 today in epigastric region, and she describes it as squeezing. She is swaying back and forth, as well as turning herself in the bed. She has questionable drug seeking behavior. Surgery consulted as pain does not correlate with labs. Will also check a Lipase. Continue levaquin, flagyl, and IVF. Pt made NPO for surgery consult. - Review of Systems Constitutional: No Fever, No Chills Eyes: No Symptoms Ears, Nose, & Throat: No Symptoms Respiratory: No Cough, No Short Of Breath Cardiac: No Chest Pain, No Edema, No Syncope Abdominal/Gastrointestinal: Abdominal Pain, Nausea, No Vomiting, No Diarrhea Genitourinary Symptoms: No Dysuria Musculoskeletal: No Back Pain, No Neck Pain Skin: No Rash Neurological: No Dizziness, No Focal Weakness, No Sensory Changes Psychological: No Symptoms Endocrine: No Symptoms Hematologic/Lymphatic: No Symptoms Immunological/Allergic: No Symptoms Objective Exam General Appearance: moderate distress, alert Neurologic Exam: alert, oriented x 3, nml cerebellar function, sensation nml, agitation, No motor deficits Skin Exam: normal color, warm, dry Eye Exam: PERRL, EOMI, eyes nml inspection Ears, Nose, Throat Exam: normal ENT inspection, pharynx normal, moist mucous membranes Neck Exam: normal inspection, non-tender, supple, full range of motion Respiratory Exam: normal breath sounds, lungs clear, No respiratory distress Cardiovascular Exam: regular rate/rhythm, normal heart sounds Gastrointestinal/Abdomen Exam: soft, tenderness (epigastric region), No mass Extremity Exam: normal inspection, normal range of motion Back Exam: normal inspection, normal range of motion, No CVA tenderness, No vertebral tenderness Pelvic Exam: deferred Rectal Exam: deferred Objective Data Vital Signs: Vital Signs - 24 hr Temp Pulse Resp BP Pulse Ox 10/24/24 07:28 97.8 F 84 16 170/94 99 10/24/24 05:00 97 F 72 12 134/76 99 10/24/24 00:11 97 F 62 12 119/56 98 10/23/24 21:00 97.4 F 65 16 130/74 98 10/23/24 17:00 98 F 68 16 140/78 99 10/23/24 13:00 97.7 F 66 16 119/62 99 Pain Assessment - Last Documented Pain Intensity 10 Pain Scale Used 0-10 Pain Scale Intake and Output: Intake & Output 10/21/24 10/22/24 10/23/24 10/24/24 11:59 11:59 11:59 11:59 Intake Total 3881 3695 3915 4100 Balance 3881 3695 3915 4100 Weight 71.5 kg Lab Results: Lab Results-Last 24 Hours 10/23/24 10/24/24 10/24/24 Range/Units 14:30 06:15 06:15 WBC 9.6 (3.98-10.04) x10^3/uL RBC 3.31 L (3.93-5.22) x10^6/uL Hgb 8.7 L (11.2-15.7) g/dL Hct 26.1 L (34.1-44.9) % MCV 78.9 L (79.4-94.8) fL MCH 26.3 (25.6-32.2) pg MCHC 33.3 (32.2-35.5) g/dL RDW 15.2 H (11.7-14.4) % Plt Count 413 H (182-369) x10^3/uL MPV 10.3 (9.4-12.3) fL Gran % 84.3 H (34.0-71.1) % Immature Gran % (Auto) 1.5 H (0.001-0.429) % Nucleat RBC Rel Count 0.0 (0.00-0.2) % Eos # (Auto) 0 L (0.04-0.36) x10^3/uL Immature Gran # (Auto) 0.14 H (0.001-0.031) x10^3u/L Absolute Lymphs (auto) 1.02 L (1.18-3.74) x10^3/uL Absolute Monos (auto) 0.35 (0.24-0.86) x10^3/uL Absolute Nucleated RBC 0.00 (0.00-0.012) x10^3u/L Lymphocytes % 10.6 L (19.3-51.7) % Monocytes % 3.6 L (4.7-12.5) % Eosinophils % 0.0 L (0.7-5.8) % Basophils % 0.0 L (0.1-1.2) % Absolute Granulocytes 8.09 H (1.56-6.13) x10^3/uL Basophils # 0 L (0.01-0.08) x10^3/uL Sodium 133 L (135-145) mmol/L Potassium 3.9 (3.5-5.1) mmol/L Chloride 103 (98-107) mmol/L Carbon Dioxide 23 (22-30) mmol/L Anion Gap 10.3 (5-15) MEQ/L BUN 18 H (7-17) mg/dL Creatinine 0.72 (0.52-1.04) mg/dL Estimated GFR 103.1 ML/MIN Glucose 112 H (74-106) mg/dL Calcium 8.7 (8.4-10.2) mg/dL Magnesium 2.1 (1.6-2.3) mg/dL Total Bilirubin 0.60 (0.2-1.3) mg/dL AST 21 (14-36) U/L ALT 13 (0-35) U/L Alkaline Phosphatase 45 (38-126) U/L Serum Total Protein 5.8 L (6.3-8.2) g/dL Albumin 3.4 L (3.5-5.0) g/dL Stl Occult Blood (IFOB) POSITIVE A (NEGATIVE) Assessment/Plan (1) Crohn's disease Current Visit: Yes Status: Chronic Assessment & Plan: - surgery consult - LIpase pending - CBC, CMP reviewed - IVF - Levaquin/flagyl IV, steriods - Protonix - narcotic pain meds - Follow Dr. Hu in [place] with GI - KUB 10/18/24 appears nonacute and nonobstructed again with moderate fecal debris predominantly in ascending and transverse colon. No focal bowel dilatation or free air. Contrast in urinary bladder from recent CT. Remaining solid organs and osseous structures unremarkable - Abd/Pelvis CT: 10/17/24 Impression: 1. Descending colonic circumferential wall thickening with minimal pericolonic stranding, probable colitis in this patient with history of Crohn's disease. Colonic mass is not completely excluded as there is also intraluminal narrowing with moderate fecal debris up to level of narrowing. 2. Fatty liver. Code(s): K50.90 - CROHN'S DISEASE, UNSPECIFIED, WITHOUT COMPLICATIONS (2) Nausea & vomiting Current Visit: Yes Status: Acute Assessment & Plan: - IVF - Zofran PRN Code(s): R11.2 - NAUSEA WITH VOMITING, UNSPECIFIED (3) Anxiety Current Visit: No Status: Chronic Assessment & Plan: - xanax 1 mg TID PRN Code(s): F41.9 - ANXIETY DISORDER, UNSPECIFIED (4) Hypokalemia Current Visit: No Status: Acute Assessment & Plan: - resolved Code(s): E87.6 - HYPOKALEMIA (5) Chronic pain syndrome Current Visit: No Status: Chronic Assessment & Plan: - Continue home meds VTE: SCD's PPI: Protonix Next of KIN:parent Shanti/Norris Rojas [phone] D/C plan: pending surgery recs Code status: Full
[2024-10-24] MEDS: Lactated Ringers 1,000 ML IV SCH (10:39)
[2024-10-24] MEDS: PROTONIX 40 MG IV IV SCH (10:56)
[2024-10-24] MEDS: Narcan 0.4 MG/ML IV PRN (17:14)
[2024-10-24 17:40] LABS: ANION GAP 16.4 MEQ/L (5-15); BILIRUBIN,TOTAL 0.8 mg/dL (0.2-1.3); Calcium 8.1 mg/dL (8.4-10.2); Creatinine 1 1.16 mg/dL (0.52-1.04); EST GLOMERULAR FILTRATION RATE 58.2 ML/MIN; Potassium 4.3 mmol/L (3.5-5.1); Total Protein 5.2 g/dL (6.3-8.2)
[2024-10-24 17:53] LABS: Hematocrit 36.8 % (34.1-44.9); Mean Cell Volume 80.5 fL (79.4-94.8); Mean Corpuscular Hemoglobin 27.1 pg (25.6-32.2); Mean Corpuscular Hgb Concent. 33.7 g/dL (32.2-35.5); Red Blood Count 4.57 x10^6/uL (3.93-5.22); Red Cell Distribution Width 15.3 % (11.7-14.4)
[2024-10-24 17:55] LABS: White Blood Count 28.3 x10^3/uL (3.98-10.04)
[2024-10-24 17:56] LABS: Hemoglobin 12.4 g/dL (11.2-15.7); Platelet Count 607 x10^3/uL (182-369)
[2024-10-24 18:36] LABS: Lymphocytes 1 % (19.3-51.7); Monocyte 1 % (4.7-12.5); Neutrophils 98 % (34.0-71.1); Total Cells Counted 100
[2024-10-24 18:37] LABS: ACANTHROCYTES 1+; ANISOCYTOSIS 2+; Burr Cells 3+; Platelet Estimate INCREASED (NORMAL); Polychromasia 1+
--- NOTE | 2024-10-24 19:59 | TM.IN ---
Tele-Medicine Incident Note - Incident Note Tel-Medicine Incident Note: 10/24/241953 Repeat labs reviewed and were noted to be markedly abnormal, and STAT CT abdomen results just reported now to demonstrate significant abdominal fluid and free air concerning for bowel perforation. Checking lactic acid and calling surgery for reevaluation STAT (Dr. Bar assessed the patient earlier upon consultation by hospitalist service, with recommendations for transfer for GI evaluation). Continue NPO status. Will consider expanding antibiotics coverage but already receiving Levaquin and Flagyl IV. Also already received IV fluids earlier. Telemedicine Encounter - Telemedicine Encounter Telemedicine Encounter: "The entirety of this encounter was performed via Telemedicine" This visit was performed using real-time audio and video connection between my location and thepatients locationwith the assistance of a surrogateat the patients location. Written or verbal consent was obtained from the patient/guardian to perform this visit usingsyn[facility]Home Dialysis Pl[facility]elemedicine technology. Any patient questions regarding the telemedicine interaction were answered.
[2024-10-24] MEDS ORDERED: SUBLIMAZE 100 MCG/2 ML ONE (21:15)
[2024-10-24] MEDS ORDERED: Versed 2 MG/2 ML Injection ONE (21:16)
[2024-10-24 21:17] LABS: Hematocrit 38.3 % (34.1-44.9); Hemoglobin 12.8 g/dL (11.2-15.7); Mean Cell Volume 79.3 fL (79.4-94.8); Mean Corpuscular Hemoglobin 26.5 pg (25.6-32.2); Mean Corpuscular Hgb Concent. 33.4 g/dL (32.2-35.5); Platelet Count 737 x10^3/uL (182-369); Red Blood Count 4.83 x10^6/uL (3.93-5.22); Red Cell Distribution Width 15.8 % (11.7-14.4)
[2024-10-24] MEDS ORDERED: propofoL IV ONE (21:17)
[2024-10-24] MEDS ORDERED: ROCURONIUM BROMIDE IV ONE ×2 (21:18→22:13)
[2024-10-24] MEDS ORDERED: Zofran 4 MG/2 ML VIAL ONE (21:18)
[2024-10-24] MEDS ORDERED: Quelicin Fliptop 200 MG/10 ML ONE (21:18)
[2024-10-24] MEDS ORDERED: Sodium Chloride 0.9% 100 ML ONE ×2 (21:19→22:24)
[2024-10-24] MEDS ORDERED: PHENYLEPHRINE HCL ONE (21:20)
[2024-10-24 21:21] LABS: White Blood Count 25.8 x10^3/uL (3.98-10.04)
[2024-10-24 21:30] LABS: ALBUMIN 2.7 g/dL (3.5-5.0); ANION GAP 18.5 MEQ/L (5-15); BILIRUBIN,TOTAL 0.8 mg/dL (0.2-1.3); Calcium 8.7 mg/dL (8.4-10.2); Creatinine 1 1.37 mg/dL (0.52-1.04); EST GLOMERULAR FILTRATION RATE 47.6 ML/MIN; INR 1.89 (0.8-3.0); PROTIME 19.8 SECONDS (9.4-12.5); Potassium 4.8 mmol/L (3.5-5.1); Total Protein 4.9 g/dL (6.3-8.2)
[2024-10-24] MEDS ORDERED: CEFOXITIN 2 GM/100 ML NACL IVPB 2 GM/100 ML IVPB IV ONE (21:45)
[2024-10-24 21:53] LABS: ABO TYPING A; Antibody Screen NEGATIVE (NEGATIVE); RH TYPING POSITIVE
[2024-10-24] MEDS ORDERED: Lactated Ringers 1,000 ML IV ONE (22:13)
[2024-10-24] MEDS ORDERED: Ketamine HCl 50 MG/ML ONE (22:28)
[2024-10-24 23:37] LABS: ANISOCYTOSIS 2+; Burr Cells 2+; Lymphocytes 5 % (19.3-51.7); Monocyte 5 % (4.7-12.5); Neutrophils 90 % (34.0-71.1); Platelet Estimate INCREASED (NORMAL); Polychromasia 2+; Total Cells Counted 100
[2024-10-25] MEDS ORDERED: PHENYLEPHRINE HCL ONE (00:15)
[2024-10-25] MEDS ORDERED: Hydromorphone 1 mg/ml Injection ONE ×2 (00:21→00:54)
[2024-10-25 00:55] LABS: Appearance Clear (Clear); Bacteria None Seen /HPF (None Seen); Bilirubin Negative (Negative); Blood Negative (Negative); Epithelial Cells None Seen /HPF (None Seen); Glucose, Urine 100 mg/dL (Negative); Ketones Trace (Negative); Leukocyte Esterase Negative (Negative); Nitrite Negative (Negative); Protein,Urine Dip 30 (Negative); RBC 0-2 /HPF (0-5); Specific Gravity >=1.030 (1.005-1.030); Urobilinogen 0.2 mg/dL (0.2); WBC 0-2 /HPF (0-5)
--- NOTE | 2024-10-25 02:14 | XRAY ---
CLINICAL HISTORY: CVL PLACEMENT COMPARISON: None. TECHNIQUE: Chest x-ray performed in frontal view. FINDINGS: Left internal jugular central venous line, its tip is noted in the right atrium. Right subclavian central venous line, its tip located at the cavoatrial junction. Nasogastric/orogastric tube is located in the midline in the chest, traversing the ricky to the left upper abdomen, its tip is noted more than 10 cm from the gastroesophageal junction. Prominent central bronchovascular markings with mild peribronchial thickening. Suspected left lower zone retrocardiac small opacity, could be related to prominent bronchovascular markings. Otherwise, no consolidation or collapse. No evidence of pleural effusion or pleural thickening. Unremarkable heart size on AP projection. Unremarkable bony thorax. IMPRESSION: 1. Bilateral central venous lines with the appropriate position. 2. Nasogastric/orogastric tube with proper course and position. 3. Prominent broncho-vascular markings with mild peribronchial thickening. Clinical correlation is advised to assess for pulmonary congestion/bronchitis. Electronically Signed by: Jacques Andrade MD. (10/25/2024 02:09:05 EST)
[2024-10-25] MEDS: PHARMACY DOSING REQUIRED: DILAUDID PCA IV ONE (03:07)
[2024-10-25] MEDS: PHARMACY DOSING REQUEST MC ONE ×2 (03:07→10:53)
[2024-10-25] MEDS: Sodium Chloride 0.9% 1000 ML 1,000 ML IV SCH (03:13)
[2024-10-25] MEDS: Lactated Ringers 1,000 ML IV ONE (03:15)
[2024-10-25] MEDS: Merrem 1 GM in Sodium Chloride 100ML MINI-BAG PLUS 100 ML IV ONE (03:15)
[2024-10-25] MEDS ORDERED: NARCAN 2 MG/2 ML IV PRN (03:37)
[2024-10-25] MEDS: HYDROMORPHONE 30 MG/30 ML-NS PCA IV PRN (04:06)
[2024-10-25 05:28] LABS: Absolute Neutrophil Ct (ANC) 19.29 x10^3/uL (1.56-6.13); BASOPHIL % 0.1 % (0.1-1.2); Basophil (Absolute #) 0.03 x10^3/uL (0.01-0.08); Eosinophil (Absolute #) 0 x10^3/uL (0.04-0.36); Hematocrit 34.7 % (34.1-44.9); Hemoglobin 11.4 g/dL (11.2-15.7); IMMATURE GRAN # 0.16 x10^3u/L (0.001-0.031); IMMATURE GRAN % 0.7 % (0.001-0.429); Lymphocyte (Absolute #) 1.37 x10^3/uL (1.18-3.74); Lymphocytes % 6.1 % (19.3-51.7); Mean Cell Volume 81.5 fL (79.4-94.8); Mean Corpuscular Hemoglobin 26.8 pg (25.6-32.2); Mean Corpuscular Hgb Concent. 32.9 g/dL (32.2-35.5); Mean Platelet Volume 10.7 fL (9.4-12.3); Monocyte (Absolute #) 1.69 x10^3/uL (0.24-0.86); Monocytes % 7.5 % (4.7-12.5); NUCLEATED RBC % 0.4 % (0.00-0.2); Neutrophil % 85.6 % (34.0-71.1); Platelet Count 614 x10^3/uL (182-369); Red Blood Count 4.26 x10^6/uL (3.93-5.22); Red Cell Distribution Width 16.2 % (11.7-14.4); White Blood Count 22.5 x10^3/uL (3.98-10.04)
[2024-10-25] MEDS: FLAGYL 500 MG IVPB 500 MG/100 ML BAG IV SCH (05:43)
[2024-10-25] MEDS ORDERED: Merrem 1 GM in Sodium Chloride 100ML MINI-BAG PLUS 100 ML IV SCH (06:00)
[2024-10-25 06:18] LABS: ALBUMIN 2.3 g/dL (3.5-5.0); ANION GAP 16.1 MEQ/L (5-15); BILIRUBIN,TOTAL 0.7 mg/dL (0.2-1.3); Creatinine 1 1.94 mg/dL (0.52-1.04); EST GLOMERULAR FILTRATION RATE 31.4 ML/MIN; MAGNESIUM 1.9 mg/dL (1.6-2.3); Total Protein 4.4 g/dL (6.3-8.2)
--- NOTE | 2024-10-25 07:27 | ERPHSYRPT ---
- Events Date: 10/24/24 Time Seen by Provider: 17:15 Reason for Code Rapid: unresponsive Pre-Event Complaints: found unresponsive CPR initiated prior to MD arrival: No Physician Note: Dr. Andrews responded to code rapid as per policy at approximately 1715. Code rapid was called as patient was found unresponsive. However RN administered Narcan and patient immediately awoke. Code rapid resolved prior to my arrival. Upon my arrival patient was alert and oriented conversant. Patient stable I returned back to the emergency department. RN contacted me to request lab orders. Per RN it is policy that the responding physician place or authorize orders regarding the code rapid. Labs were followed up initially by floor nursing staff and later by Dr. Andrews.
[2024-10-25] MEDS ORDERED: Sodium Bicarbonate 50 MEQ/50 ML VIAL*** 150 MEQ in Dextrose 5%/Water IV Soln. 1000 ML 1... IV SCH (08:00)
[2024-10-25] MEDS: Sodium Chloride 0.9% 1000 ML 1,000 ML IV STA (08:28)
--- NOTE | 2024-10-25 08:38 | XRAY ---
Indication: Abdominal pain. Leukocytosis. History Crohn's disease. Multiple contiguous axial images obtained through the abdomen and pelvis using 80 cc Isovue 370 contrast. Comparison: October 17, 2024 Lung bases remain clear. Heart not enlarged. Abdomen demonstrates new moderate free fluid and small free air concerning for GI perforation. Query perforation cardiac portion of the stomach. Noncontrasted stomach and bowel loops appear nonobstructed. Previous colonic bowel wall thickening improved with mild residual. Again mild diffuse fatty liver and small left periumbilical ventral hernia now fluid filled. Remaining liver, gallbladder, pancreas, spleen, adrenal glands, kidneys, ureters, bladder, and uterus are unremarkable. Stable minimal distal aortic calcification without AAA or dissection. Impression: 1. New abdominal free fluid and free air concerning for GI perforation. Query gastric perforation. 2. Diminished colonic bowel wall thickening. 3. Again incidental fatty liver and periumbilical hernia. Comment: Telephone report given to Ling, floor nurse at 1945 hrs. on October 24, 2024.
[2024-10-25 09:02] LABS: Slide Review 1 YES
[2024-10-25] MEDS: Sodium Chloride 0.9% 1000 ML 1,000 ML IV ONE (09:41)
[2024-10-25] MEDS: PROTONIX 40 MG IV IV SCH (10:54)
[2024-10-25 13:20] LABS: ALBUMIN 2.3 g/dL (3.5-5.0); ANION GAP 10.2 MEQ/L (5-15); BILIRUBIN,TOTAL 0.6 mg/dL (0.2-1.3); Calcium 6.7 mg/dL (8.4-10.2); Creatinine 1 1.67 mg/dL (0.52-1.04); EST GLOMERULAR FILTRATION RATE 37.6 ML/MIN; Potassium 4.2 mmol/L (3.5-5.1); Total Protein 4.5 g/dL (6.3-8.2)
[2024-10-25] MEDS: ENOXAPARIN SODIUM SQ SCH (13:34)
[2024-10-25] MEDS: Sodium Chloride 0.9% 500 ML 500 ML IV SCH (13:54)
[2024-10-25] MEDS: KABIVEN - CENT TPN 2053 ML 2,053 ML with Vitamins For Infusion 10 ML INJECTION*** 10 ML... IV SCH (13:56)
--- NOTE | 2024-10-25 14:32 | PCM.NOTE ---
Date and Time: 10/25/24 1404 Subjective Assessment: 10/24/24 49-year-old with a history of Crohn's disease and anxiety, admitted 10/17/24 with abdominal pain, nausea, and diarrhea, consistent with her prior Crohn's flares. Patient has history of poorly controlled Crohn's disease; she was previously on Humira, but it was no longer effective. She tried Entyvio, but worsened, and was recently started on Stelara, receiving her second dose earlier this month. However, she has frequent hospitalizations with severe flares, most recently in June 2024 in [place]. She had been on a slow taper of steroids, discharging on prednisone 60, tapering slowly down to her maintenance dose of 10 mg daily. She follows with Dr. Yashira Holbrook in [place]. On admission she was going on 3 days of severe, sharp, constant, epigastric pain, radiating to the left upper and lower quadrants, worsening with food or drink, relieved only by pain medications. Associated with nonbloody, nonbilious vomiting, 6 times per day. Patient has chronic watery, non-bloody diarrhea, but this is increased in quantity and frequency, up to 4-5 times per day. She was given a Medrol Dosepak, but not have any relief. Initial labs remarkable for hypokalemia and BOBBI which have since resolved. Patient admitted with Crohns flare and placed on Flagyl and Levaquin. Diet changed to soft yesterday evening and she felt she wanted to eat something. IV pain meds stopped at that time and home PO meds started. Pt states she is refusing to eat as she only wants the IV pain meds for her abd pain. Abd. pain is 10/10 today in epigastric region, and she describes it as squeezing. She is swaying back and forth, as well as turning herself in the bed. She has questionable drug seeking behavior. Surgery consulted as pain does not correlate with labs. Will also check a Lipase. Continue levaquin, flagyl, and IVF. Pt made NPO for surgery consult. 10/25/24 Pt transferred to ICU bed this AM. Pt has severe sepsis this AM. 2 liters NS ordered stat. + tachycardia HR- 120-130. BP soft. Lactic acid 6.1 at 5am. Repeat LA after 2-1LNS fluid boluses 1.4. BP improved this afternoon. HR also improved. She was taken to surgery last night for bowel perforation as seen on CT abd/pelvis. It appears per surgery notes she had a bowel resection. She now has 3 kevin drains, a central line, and abd. binder on. General surgery was consulted earlier in the day and it was recommended she be transferred to a higher level of care with GI. Her GI provider is at [facility] and that hospital is currently on diversion and has been all week. She, previously in the week, would only transfer there but there were no beds. Last night [facility] was called and Dr. Ivan spoke with GI there and they recommended a stat CT abd/pelvis last night and would not accept the pt at that time. Thats when bowel perforation was found and GS reconsulted by Dr. Ivan. Prior to going to CT pt had an unresponsive episode per nurse PATRICK Dubon and Narcan was given in which the pt became responsive. She had been requesting IV pain med repeatedly throughout the day, Asked staff to search room for meds last night and 2 unmarked pill bottles were found 1 bottle had no meds and the other had xanax per nurse. Purse and meds locked up per staff. Today steroids reduced. Pt has dilaudid SHANK CEMENTER HAND per GS orders. Pt asking for benzo discussed at this time this would not be safe as it can cause respiratory depression in combination with narcotic pain medication. Narcan on NOV PRN. Antibiotic changed per GS to Merrem. Continue Flagyl. Call out to pt's GI provider to discuss pt case and further recs. AST/ALT elevated- US ordered for further evaluation. Awaiting further GS recs today. - Review of Systems Constitutional: No Fever, No Chills Eyes: No Symptoms Ears, Nose, & Throat: No Symptoms Respiratory: No Cough, No Short Of Breath Cardiac: No Chest Pain, No Edema, No Syncope Abdominal/Gastrointestinal: Abdominal Pain, No Nausea, No Vomiting, No Diarrhea Genitourinary Symptoms: No Dysuria Musculoskeletal: No Back Pain, No Neck Pain Skin: No Rash Neurological: No Dizziness, No Focal Weakness, No Sensory Changes Psychological: No Symptoms, Anxiety Endocrine: No Symptoms Hematologic/Lymphatic: No Symptoms Immunological/Allergic: No Symptoms Objective Exam General Appearance: no apparent distress, alert Neurologic Exam: alert, oriented x 3, cooperative, normal mood/affect, nml cerebellar function, sensation nml, other (anxiety), No motor deficits Skin Exam: normal color, warm, dry Eye Exam: PERRL, EOMI, eyes nml inspection Ears, Nose, Throat Exam: normal ENT inspection, pharynx normal, moist mucous mem branes Neck Exam: normal inspection, non-tender, supple, full range of motion Respiratory Exam: normal breath sounds, lungs clear, No respiratory distress Cardiovascular Exam: regular rate/rhythm, normal heart sounds Gastrointestinal/Abdomen Exam: soft, tenderness, No mass Extremity Exam: normal inspection, normal range of motion Back Exam: normal inspection, normal range of motion, No CVA tenderness, No vertebral tenderness Pelvic Exam: deferred Rectal Exam: deferred Objective Data Vital Signs: Vital Signs - 24 hr Temp Pulse Resp BP BP Pulse Ox 10/25/24 12:19 94 H 10/25/24 12:18 98.0 F 10/25/24 12:11 93 H 16 122/74 97 10/25/24 11:16 96 H 100/82 97 10/25/24 10:47 102 H 110/80 98 10/25/24 10:41 98.5 F 10/25/24 10:40 99 H 121/82 95 10/25/24 08:00 19 10/25/24 07:00 20 93 L 10/25/24 05:37 98.0 F 128 H 20 90/51 96 10/25/24 04:38 97.9 F 133 H 20 98/53 96 10/25/24 04:06 22 94 L 10/25/24 04:00 20 10/25/24 03:34 124 H 22 105/56 96 10/25/24 03:00 97.5 F 121 H 24 98/54 96 10/25/24 02:29 97.5 F 128 H 22 95/54 98 10/25/24 02:12 97.4 F 131 H 26 H 86/50 98 10/25/24 01:54 97.5 F 129 H 24 92/51 99 10/25/24 01:30 97.5 F 134 H 26 H 102/56 98 10/24/24 20:48 97.9 F 110 H 16 126/79 97 10/24/24 20:02 97.9 F 110 H 16 126/79 97 10/24/24 20:00 16 10/24/24 16:19 16 10/24/24 15:36 97.9 F 136 H 16 132/82 99 Pain Assessment - Last Documented Pain Intensity 8 Pain Scale Used 0-10 Pain Scale Intake and Output: Intake & Output 10/23/24 10/24/24 10/25/24 10/26/24 11:59 11:59 11:59 11:59 Intake Total 3915 4100 1200 0 Output Total 665 Balance 3915 4100 535 0 Weight 71.5 kg Lab Results: Lab Results-Last 24 Hours 10/24/24 10/24/24 10/24/24 Range/Units 17:13 17:28 17:28 WBC 28.3 H* (3.98-10.04) x10^3/uL RBC 4.57 (3.93-5.22) x10^6/uL Hgb 12.4 D (11.2-15.7) g/dL Hct 36.8 (34.1-44.9) % MCV 80.5 (79.4-94.8) fL MCH 27.1 (25.6-32.2) pg MCHC 33.7 (32.2-35.5) g/dL RDW 15.3 H (11.7-14.4) % Plt Count 607 H D (182-369) x10^3/uL MPV 10.0 (9.4-12.3) fL Gran % (34.0-71.1) % Immature Gran % (Auto) (0.001-0.429) % Nucleat RBC Rel Count (0.00-0.2) % Eos # (Auto) (0.04-0.36) x10^3/uL Immature Gran # (Auto) (0.001-0.031) x10^3u/L Absolute Lymphs (auto) (1.18-3.74) x10^3/uL Absolute Monos (auto) (0.24-0.86) x10^3/uL Absolute Nucleated RBC (0.00-0.012) x10^3u/L Lymphocytes % (19.3-51.7) % Monocytes % (4.7-12.5) % Eosinophils % (0.7-5.8) % Basophils % (0.1-1.2) % Absolute Granulocytes (1.56-6.13) x10^3/uL Segmented Neutrophils 98 H (34.0-71.1) % Lymphocytes (Manual) 1 L (19.3-51.7) % Monocytes (Manual) 1 L (4.7-12.5) % Basophils # (0.01-0.08) x10^3/uL Platelet Estimate INCREASED (NORMAL) RBC Morphology ABNORMAL Polychromasia 1+ Anisocytosis 2+ Greg Cells 3+ Acanthocytes (Spur) 1+ Smear Path Review Pending PT (9.4-12.5) SECONDS INR (0.8-3.0) Sodium 132 L (135-145) mmol/L Potassium 4.3 (3.5-5.1) mmol/L Chloride 103 (98-107) mmol/L Carbon Dioxide 17 L (22-30) mmol/L Anion Gap 16.4 H (5-15) MEQ/L BUN 26 H (7-17) mg/dL Creatinine 1.16 H (0.52-1.04) mg/dL Estimated GFR 58.2 ML/MIN Glucose 288 H (74-106) mg/dL POC Glucometer 231 H (74 to 106) mg/dL Lactic Acid (0.4-2.0) Calcium 8.1 L (8.4-10.2) mg/dL Magnesium (1.6-2.3) mg/dL Total Bilirubin 0.80 (0.2-1.3) mg/dL AST 29 (14-36) U/L ALT 23 (0-35) U/L Alkaline Phosphatase 37 L (38-126) U/L Serum Total Protein 5.2 L (6.3-8.2) g/dL Albumin 3.0 L (3.5-5.0) g/dL Urine Color (Yellow) Urine Appearance (Clear) Urine pH (4.6-8.0) Ur Specific [place] (1.005-1.030) Urine Protein (Negative) Urine Glucose (UA) (Negative) mg/dL Urine Ketones (Negative) Urine Blood (Negative) Urine Nitrite (Negative) Urine Bilirubin (Negative) Urine Urobilinogen (0.2) mg/dL Ur Leukocyte Esterase (Negative) U Hyaline Cast (Auto) (0-2) /LPF Urine Microscopic RBC (0-5) /HPF Urine Microscopic WBC (0-5) /HPF Ur Epithelial Cells (None Seen) /HPF Urine Bacteria (None Seen) /HPF Urine Culture Reflexed (NO) Slides for Path Review ABO Group Rh Factor Antibody Screen (NEGATIVE) 10/24/24 10/24/24 10/24/24 Range/Units 20:15 21:00 21:00 WBC 25.8 H* (3.98-10.04) x10^3/uL RBC 4.83 (3.93-5.22) x10^6/uL Hgb 12.8 (11.2-15.7) g/dL Hct 38.3 (34.1-44.9) % MCV 79.3 L (79.4-94.8) fL MCH 26.5 (25.6-32.2) pg MCHC 33.4 (32.2-35.5) g/dL RDW 15.8 H (11.7-14.4) % Plt Count 737 H (182-369) x10^3/uL MPV (9.4-12.3) fL Gran % (34.0-71.1) % Immature Gran % (Auto) (0.001-0.429) % Nucleat RBC Rel Count (0.00-0.2) % Eos # (Auto) (0.04-0.36) x10^3/uL Immature Gran # (Auto) (0.001-0.031) x10^3u/L Absolute Lymphs (auto) (1.18-3.74) x10^3/uL Absolute Monos (auto) (0.24-0.86) x10^3/uL Absolute Nucleated RBC (0.00-0.012) x10^3u/L Lymphocytes % (19.3-51.7) % Monocytes % (4.7-12.5) % Eosinophils % (0.7-5.8) % Basophils % (0.1-1.2) % Absolute Granulocytes (1.56-6.13) x10^3/uL Segmented Neutrophils 90 H (34.0-71.1) % Lymphocytes (Manual) 5 L (19.3-51.7) % Monocytes (Manual) 5 (4.7-12.5) % Basophils # (0.01-0.08) x10^3/uL Platelet Estimate INCREASED (NORMAL) RBC Morphology ABNORMAL Polychromasia 2+ Anisocytosis 2+ [place] Cells 2+ Acanthocytes (Spur) Smear Path Review PT (9.4-12.5) SECONDS INR (0.8-3.0) Sodium 132 L (135-145) mmol/L Potassium 4.8 (3.5-5.1) mmol/L Chloride 101 (98-107) mmol/L Carbon Dioxide 17 L (22-30) mmol/L Anion Gap 18.5 H (5-15) MEQ/L BUN 28 H (7-17) mg/dL Creatinine 1.37 H (0.52-1.04) mg/dL Estimated GFR 47.6 ML/MIN Glucose 286 H (74-106) mg/dL POC Glucometer (74 to 106) mg/dL Lactic Acid 6.2 H (0.4-2.0) Calcium 8.7 (8.4-10.2) mg/dL Magnesium (1.6-2.3) mg/dL Total Bilirubin 0.80 (0.2-1.3) mg/dL AST 30 (14-36) U/L ALT 25 (0-35) U/L Alkaline Phosphatase 35 L (38-126) U/L Serum Total Protein 4.9 L (6.3-8.2) g/dL Albumin 2.7 L (3.5-5.0) g/dL Urine Color (Yellow) Urine Appearance (Clear) Urine pH (4.6-8.0) Ur Specific [place] (1.005-1.030) Urine Protein (Negative) Urine Glucose (UA) (Negative) mg/dL Urine Ketones (Negative) Urine Blood (Negative) Urine Nitrite (Negative) Urine Bilirubin (Negative) Urine Urobilinogen (0.2) mg/dL Ur Leukocyte Esterase (Negative) U Hyaline Cast (Auto) (0-2) /LPF Urine Microscopic RBC (0-5) /HPF Urine Microscopic WBC (0-5) /HPF Ur Epithelial Cells (None Seen) /HPF Urine Bacteria (None Seen) /HPF Urine Culture Reflexed (NO) Slides for Path Review ABO Group Rh Factor Antibody Screen (NEGATIVE) 10/24/24 10/24/24 10/25/24 Range/Units 21:00 21:06 05:05 WBC (3.98-10.04) x10^3/uL RBC (3.93-5.22) x10^6/uL Hgb (11.2-15.7) g/dL Hct (34.1-44.9) % MCV (79.4-94.8) fL MCH (25.6-32.2) pg MCHC (32.2-35.5) g/dL RDW (11.7-14.4) % Plt Count (182-369) x10^3/uL MPV (9.4-12.3) fL Gran % (34.0-71.1) % Immature Gran % (Auto) (0.001-0.429) % Nucleat RBC Rel Count (0.00-0.2) % Eos # (Auto) (0.04-0.36) x10^3/uL Immature Gran # (Auto) (0.001-0.031) x10^3u/L Absolute Lymphs (auto) (1.18-3.74) x10^3/uL Absolute Monos (auto) (0.24-0.86) x10^3/uL Absolute Nucleated RBC (0.00-0.012) x10^3u/L Lymphocytes % (19.3-51.7) % Monocytes % (4.7-12.5) % Eosinophils % (0.7-5.8) % Basophils % (0.1-1.2) % Absolute Granulocytes (1.56-6.13) x10^3/uL Segmented Neutrophils (34.0-71.1) % Lymphocytes (Manual) (19.3-51.7) % Monocytes (Manual) (4.7-12.5) % Basophils # (0.01-0.08) x10^3/uL Platelet Estimate (NORMAL) RBC Morphology Polychromasia Anisocytosis Greg Cells Acanthocytes (Spur) Smear Path Review PT 19.8 H (9.4-12.5) SECONDS INR 1.89 (0.8-3.0) Sodium (135-145) mmol/L Potassium (3.5-5.1) mmol/L Chloride (98-107) mmol/L Carbon Dioxide (22-30) mmol/L Anion Gap (5-15) MEQ/L BUN (7-17) mg/dL Creatinine (0.52-1.04) mg/dL Estimated GFR ML/MIN Glucose (74-106) mg/dL POC Glucometer (74 to 106) mg/dL Lactic Acid 6.1 H (0.4-2.0) Calcium (8.4-10.2) mg/dL Magnesium (1.6-2.3) mg/dL Total Bilirubin (0.2-1.3) mg/dL AST (14-36) U/L ALT (0-35) U/L Alkaline Phosphatase (38-126) U/L Serum Total Protein (6.3-8.2) g/dL Albumin (3.5-5.0) g/dL Urine Color (Yellow) Urine Appearance (Clear) Urine pH (4.6-8.0) Ur Specific [place] (1.005-1.030) Urine Protein (Negative) Urine Glucose (UA) (Negative) mg/dL Urine Ketones (Negative) Urine Blood (Negative) Urine Nitrite (Negative) Urine Bilirubin (Negative) Urine Urobilinogen (0.2) mg/dL Ur Leukocyte Esterase (Negative) U Hyaline Cast (Auto) (0-2) /LPF Urine Microscopic RBC (0-5) /HPF Urine Microscopic WBC (0-5) /HPF Ur Epithelial Cells (None Seen) /HPF Urine Bacteria (None Seen) /HPF Urine Culture Reflexed (NO) Slides for Path Review ABO Group A Rh Factor POSITIVE Antibody Screen NEGATIVE (NEGATIVE) 10/25/24 10/25/24 10/25/24 Range/Units 05:21 05:21 10:45 WBC 22.5 H (3.98-10.04) x10^3/uL RBC 4.26 (3.93-5.22) x10^6/uL Hgb 11.4 (11.2-15.7) g/dL Hct 34.7 (34.1-44.9) % MCV 81.5 (79.4-94.8) fL MCH 26.8 (25.6-32.2) pg MCHC 32.9 (32.2-35.5) g/dL RDW 16.2 H (11.7-14.4) % Plt Count 614 H (182-369) x10^3/uL MPV 10.7 (9.4-12.3) fL Gran % 85.6 H (34.0-71.1) % Immature Gran % (Auto) 0.7 H (0.001-0.429) % Nucleat RBC Rel Count 0.4 H (0.00-0.2) % Eos # (Auto) 0 L (0.04-0.36) x10^3/uL Immature Gran # (Auto) 0.16 H (0.001-0.031) x10^3u/L Absolute Lymphs (auto) 1.37 (1.18-3.74) x10^3/uL Absolute Monos (auto) 1.69 H (0.24-0.86) x10^3/uL Absolute Nucleated RBC 0.10 H (0.00-0.012) x10^3u/L Lymphocytes % 6.1 L (19.3-51.7) % Monocytes % 7.5 (4.7-12.5) % Eosinophils % 0.0 L (0.7-5.8) % Basophils % 0.1 (0.1-1.2) % Absolute Granulocytes 19.29 H (1.56-6.13) x10^3/uL Segmented Neutrophils (34.0-71.1) % Lymphocytes (Manual) (19.3-51.7) % Monocytes (Manual) (4.7-12.5) % Basophils # 0.03 (0.01-0.08) x10^3/uL Platelet Estimate (NORMAL) RBC Morphology Polychromasia Anisocytosis [place] Cells Acanthocytes (Spur) Smear Path Review PT (9.4-12.5) SECONDS INR (0.8-3.0) Sodium 132 L (135-145) mmol/L Potassium 5.0 (3.5-5.1) mmol/L Chloride 104 (98-107) mmol/L Carbon Dioxide 17 L (22-30) mmol/L Anion Gap 16.1 H (5-15) MEQ/L BUN 32 H (7-17) mg/dL Creatinine 1.94 H (0.52-1.04) mg/dL Estimated GFR 31.4 ML/MIN Glucose 216 H (74-106) mg/dL POC Glucometer 117 H (74 to 106) mg/dL Lactic Acid (0.4-2.0) Calcium 7.0 L D (8.4-10.2) mg/dL Magnesium 1.9 (1.6-2.3) mg/dL Total Bilirubin 0.70 (0.2-1.3) mg/dL AST 97 H (14-36) U/L ALT 45 H (0-35) U/L Alkaline Phosphatase 33 L (38-126) U/L Serum Total Protein 4.4 L (6.3-8.2) g/dL Albumin 2.3 L (3.5-5.0) g/dL Urine Color (Yellow) Urine Appearance (Clear) Urine pH (4.6-8.0) Ur Specific [place] (1.005-1.030) Urine Protein (Negative) Urine Glucose (UA) (Negative) mg/dL Urine Ketones (Negative) Urine Blood (Negative) Urine Nitrite (Negative) Urine Bilirubin (Negative) Urine Urobilinogen (0.2) mg/dL Ur Leukocyte Esterase (Negative) U Hyaline Cast (Auto) (0-2) /LPF Urine Microscopic RBC (0-5) /HPF Urine Microscopic WBC (0-5) /HPF Ur Epithelial Cells (None Seen) /HPF Urine Bacteria (None Seen) /HPF Urine Culture Reflexed (NO) Slides for Path Review YES ABO Group Rh Factor Antibody Screen (NEGATIVE) 10/25/24 10/25/24 10/25/24 Range/Units 13:00 13:00 21:30 WBC (3.98-10.04) x10^3/uL RBC (3.93-5.22) x10^6/uL Hgb (11.2-15.7) g/dL Hct (34.1-44.9) % MCV (79.4-94.8) fL MCH (25.6-32.2) pg MCHC (32.2-35.5) g/dL RDW (11.7-14.4) % Plt Count (182-369) x10^3/uL MPV (9.4-12.3) fL Gran % (34.0-71.1) % Immature Gran % (Auto) (0.001-0.429) % Nucleat RBC Rel Count (0.00-0.2) % Eos # (Auto) (0.04-0.36) x10^3/uL Immature Gran # (Auto) (0.001-0.031) x10^3u/L Absolute Lymphs (auto) (1.18-3.74) x10^3/uL Absolute Monos (auto) (0.24-0.86) x10^3/uL Absolute Nucleated RBC (0.00-0.012) x10^3u/L Lymphocytes % (19.3-51.7) % Monocytes % (4.7-12.5) % Eosinophils % (0.7-5.8) % Basophils % (0.1-1.2) % Absolute Granulocytes (1.56-6.13) x10^3/uL Segmented Neutrophils (34.0-71.1) % Lymphocytes (Manual) (19.3-51.7) % Monocytes (Manual) (4.7-12.5) % Basophils # (0.01-0.08) x10^3/uL Platelet Estimate (NORMAL) RBC Morphology Polychromasia Anisocytosis [place] Cells Acanthocytes (Spur) Smear Path Review PT (9.4-12.5) SECONDS INR (0.8-3.0) Sodium 137 (135-145) mmol/L Potassium 4.2 (3.5-5.1) mmol/L Chloride 110 H (98-107) mmol/L Carbon Dioxide 20 L (22-30) mmol/L Anion Gap 10.2 (5-15) MEQ/L BUN 35 H (7-17) mg/dL Creatinine 1.67 H (0.52-1.04) mg/dL Estimated GFR 37.6 ML/MIN Glucose 116 H (74-106) mg/dL POC Glucometer (74 to 106) mg/dL Lactic Acid 1.4 (0.4-2.0) Calcium 6.7 L (8.4-10.2) mg/dL Magnesium (1.6-2.3) mg/dL Total Bilirubin 0.60 (0.2-1.3) mg/dL AST 727 H (14-36) U/L ALT 280 H (0-35) U/L Alkaline Phosphatase 34 L (38-126) U/L Serum Total Protein 4.5 L (6.3-8.2) g/dL Albumin 2.3 L (3.5-5.0) g/dL Urine Color Dark Yellow A (Yellow) Urine Appearance Clear (Clear) Urine pH 6.0 (4.6-8.0) Ur Specific [place] >=1.030 A (1.005-1.030) Urine Protein 30 (Negative) Urine Glucose (UA) 100 A (Negative) mg/dL Urine Ketones Trace A (Negative) Urine Blood Negative (Negative) Urine Nitrite Negative (Negative) Urine Bilirubin Negative (Negative) Urine Urobilinogen 0.2 (0.2) mg/dL Ur Leukocyte Esterase Negative (Negative) U Hyaline Cast (Auto) 3-5 A (0-2) /LPF Urine Microscopic RBC 0-2 (0-5) /HPF Urine Microscopic WBC 0-2 (0-5) /HPF Ur Epithelial Cells None Seen (None Seen) /HPF Urine Bacteria None Seen (None Seen) /HPF Urine Culture Reflexed YES (NO) Slides for Path Review ABO Group Rh Factor Antibody Screen (NEGATIVE) Radiology Exams: Radiology Procedures Category Date Time Status ABDOMEN AND PELVIS W CONTRAST [CT] Stat Exams 10/24/24 16:42 Completed CHEST 1 VIEW (PORTABLE) Stat Exams 10/25/24 00:10 Completed Multi-Disciplinary Progress Notes: Multi-Disciplinary Progress Notes 10/25/24 09:29 Pharmacy Note by [facility] TPN Consult Date: 10-25-24 TPN Day #: 1 Patient Name: OPAL ROJAS HT: 62 IN ACTUAL WT: 71.5KG Age: 49 Patient Current Labs: Sodium 132 Potassium 5.0 Chloride 104 Glucose 216 Magnesium 1.9 Calcium 7.0 Sr Cr 1.94 CR CL 27ML/MIN HOSPITAL CENTRAL LINE TPN FORMULATION a. Hospital Formulation: (triple mix) [facility] CENTRAL LINE TRIPLE MIX 3 ML b. Dextrose 9.8% + Amino Acid 3.3% + Intralipid 3.9% PER 2000 ML c. Total KCals = 1820 KCAL per bag d. Total Volume = 2053 ml e. Carbohydrates = 200 gm; Protein = 68 gm; Fat = 80 gm f. Electrolytes/ premixed bag Sodium 64 meq Potassium 47 meq Calcium 8 meq Magnesium 16 meq Chloride 92 meq Acetate 78 meq Sulfate 16 meq phosphorous 20 mMole 1. CENTRAL LINE - TPN RATE: Total Volume to be delivered /24 hr: 1680ML Total Calories to be delivered/24 hr: 1490CAL 2. Additions to TPN Bag for today (Date_1 ) A. Sodium chloride B. Potassium chloride C. MVI 10 ml D. Trace Metals 1 mg E. Other Humulin R 30 units ii. Total Electrolytes per 24 hours: 1. Sodium 64 meq 2. Potassium 47 meq 3. Calcium 8 meq 4. Magnesium 16 meq 5. Chloride 92 meq 6. Acetate 78 meq 7. Sulfate 16 meq 8. Phosphorous 20 mmol Central Line TPN to infuse at 70ml/hr. Creatinine is rising. Will start at lower rate to decrease protein amount. Adding 30 units of insulin for glucose levels. Initialized on 10/25/24 09:29 - END OF NOTE 10/25/24 07:25 Pharmacy Note by Hari Granado PHARMACY TO DOSE MERREM MERREM 1 GM Q8H KHAUGER Initialized on 10/25/24 07:25 - END OF NOTE 10/25/24 07:25 Pharmacy Note by Hari Granado PAIN / SHANK CEMENTER HAND CONSULT POST OP? YES CURRENT PAIN MEDS? NORCO - PRE SURGERY ALSO WAS ON DILAUDID 1 MG Q4H PRN UP TO 10/23/24 PAIN SCALE AT START?? 10 POST OP RECEIVED 2 MG DILAUDID IN PACU MEDICATION STARTED: DILAUDID SHANK CEMENTER HAND DATE AND TIME STARTED: 29910/25/24 DOSE: 0.5 MG BOLUS, 0.2 MG Q10 MIN PRN, BASAL RATE 0.4 MG/HR 6 MG MAX PER 4 HRS [facility] 10/25/24 [id number].... CHECK WITH NRUSE PESCH... PATIENT SLEEPING [facility] PHARMACY TO FOLLOW Initialized on 10/25/24 07:25 - END OF NOTE 10/24/24 15:46 Nutrition Note by Florina Harris F/u Note: Note pt with poor po intake x 6 days; consumed 50% of breakfast; 100% of lunch on ; refused meals/NPO the other 5 days. Labs 10/24= Na 133, BUN 18, glu 112, alb 3.4, hgb 8.7, hct 26.1, mcv 78.9. No recent weight available. Recommend alt feeding method. Will monitor and f/u prn. T.SANDI Harris Initialized on 10/24/24 15:46 - END OF NOTE Assessment/Plan (1) Severe sepsis Current Visit: Yes Status: Acute Assessment & Plan: - LA 6.1 - 1 L LR fluid bolus gave last night - 2 L NS fluid bolus gave this AM - Repeat LA 1.4 - 2:2 colon perforation - Resp > 20 , HR ? 90. WBC > 12,000, BOBBI - SBP < 90 - Tele - ICU - I&O Q4hr Code(s): A41.9 - SEPSIS, UNSPECIFIED ORGANISM; R65.20 - SEVERE SEPSIS WITHOUT SEPTIC SHOCK (2) Bowel perforation Current Visit: Yes Status: Acute Assessment & Plan: - as seen on CT yesterday evening Code(s): K63.1 - PERFORATION OF INTESTINE (NONTRAUMATIC) (3) S/P colon resection Current Visit: Yes Status: Acute Assessment & Plan: - Colon resection by Dr. Fong 10/24- evening - Abd binder., KEVIN drains x3, NG - SHANK CEMENTER HAND Dilaudid by GS Code(s): Z90.49 - ACQUIRED ABSENCE OF OTHER SPECIFIED PARTS OF DIGESTIVE TRACT (4) Transaminitis Current Visit: Yes Status: Acute Assessment & Plan: - likely 2:2 surgery - Trend labs - US tech unable to do US d/t abd incicsions. - discussed with Dr. Ivan- will continue to monitor. Code(s): R74.01 - ELEVATION OF LEVELS OF LIVER TRANSAMINASE LEVELS (5) Crohn's disease Current Visit: Yes Status: Chronic Code(s): K50.90 - CROHN'S DISEASE, UNSPECIFIED, WITHOUT COMPLICATIONS (6) Hyperglycemia Current Visit: Yes Status: Acute Assessment & Plan: - Accuchecks Q4 as she is NPO - Humalog s/s Code(s): R73.9 - HYPERGLYCEMIA, UNSPECIFIED (7) Nausea & vomiting Current Visit: Yes Status: Acute Code(s): R11.2 - NAUSEA WITH VOMITING, UNSPECIFIED (8) Anxiety Current Visit: No Status: Chronic Code(s): F41.9 - ANXIETY DISORDER, UNSPECIFIED (9) Hypokalemia Current Visit: No Status: Acute Code(s): E87.6 - HYPOKALEMIA (10) Chronic pain syndrome Current Visit: No Status: Chronic Assessment & Plan: (1) Crohn's disease Current Visit: Yes Status: Chronic Assessment & Plan: - Surgery consult: recommends tx to higher level of care where GI is available - no further radiology exams at this time. - Lipase pending - CBC, CMP reviewed - IVF - Levaquin/flagyl IV, steriods - Protonix - narcotic pain meds - Follow Dr. Hu in [place] with GI - KUB 10/18/24 appears nonacute and nonobstructed again with moderate fecal debris predominantly in ascending and transverse colon. No focal bowel dilatation or free air. Contrast in urinary bladder from recent CT. Remaining solid organs and osseous structures unremarkable - Abd/Pelvis CT: 10/17/24 Impression: 1. Descending colonic circumferential wall thickening with minimal pericolonic stranding, probable colitis in this patient with history of Crohn's disease. Colonic mass is not completely excluded as there is also intraluminal narrowing with moderate fecal debris up to level of narrowing. 2. Fatty liver. - Tried to transfer pt for GI and would not accept w/o CT abd/ pelvis - Stat CT abd pelvis 10/24 16:42 Impression: 1. New abdominal free fluid and free air concerning for GI perforation. Query gastric perforation. 2. Diminished colonic bowel wall thickening. 3. Again incidental fatty liver and periumbilical hernia. - GS called again for consult by Dr. Ivan - Colon resection by Dr. Fong - Black oliveros., KEVIN drains x3, NG - SHANK CEMENTER HAND Dilaudid by GS - Antibiotic changed to Merrem and flagyl by GS - Protonix changed to IV Q12 10/25/24 - TPN started - steroids decreased - Call out to discuss pt case with pt's GI provider. Code(s): K50.90 - CROHN'S DISEASE, UNSPECIFIED, WITHOUT COMPLICATIONS (2) Nausea & vomiting Current Visit: Yes Status: Acute Assessment & Plan: - IVF - Zofran PRN Code(s): R11.2 - NAUSEA WITH VOMITING, UNSPECIFIED (3) Anxiety Current Visit: No Status: Chronic Assessment & Plan: - xanax 1 mg TID PRN Code(s): F41.9 - ANXIETY DISORDER, UNSPECIFIED (4) Hypokalemia Current Visit: No Status: Acute Assessment & Plan: - resolved Code(s): E87.6 - HYPOKALEMIA (5) Chronic pain syndrome Current Visit: No Status: Chronic Assessment & Plan: - Continue home meds VTE: SCD's PPI: Protonix Next of KIN:parent Shanti/Norris Rojas [phone] D/C plan: pending surgery recs Code status: Full
[2024-10-25] MEDS: Merrem 1 GM in Sodium Chloride 100ML MINI-BAG PLUS 100 ML IV SCH (16:56)
[2024-10-25] MEDS: solu-MEDROL 40 MG, Sterile H2O 10 ml 1 ML IV SCH (20:01)
[2024-10-26 06:31] LABS: Absolute Neutrophil Ct (ANC) 12.82 x10^3/uL (1.56-6.13); BASOPHIL % 0.1 % (0.1-1.2); Basophil (Absolute #) 0.01 x10^3/uL (0.01-0.08); Eosinophil (Absolute #) 0 x10^3/uL (0.04-0.36); Hematocrit 21.3 % (34.1-44.9); Hemoglobin 7.1 g/dL (11.2-15.7); IMMATURE GRAN # 0.18 x10^3u/L (0.001-0.031); IMMATURE GRAN % 1.2 % (0.001-0.429); Lymphocyte (Absolute #) 1.16 x10^3/uL (1.18-3.74); Lymphocytes % 7.7 % (19.3-51.7); Mean Cell Volume 79.5 fL (79.4-94.8); Mean Corpuscular Hemoglobin 26.5 pg (25.6-32.2); Mean Corpuscular Hgb Concent. 33.3 g/dL (32.2-35.5); Mean Platelet Volume 10.4 fL (9.4-12.3); Monocyte (Absolute #) 0.87 x10^3/uL (0.24-0.86); Monocytes % 5.8 % (4.7-12.5); NUCLEATED RBC # 0.06 x10^3u/L (0.00-0.012); NUCLEATED RBC % 0.4 % (0.00-0.2); Neutrophil % 85.2 % (34.0-71.1); Platelet Count 350 x10^3/uL (182-369); Red Blood Count 2.68 x10^6/uL (3.93-5.22); Red Cell Distribution Width 15.8 % (11.7-14.4)
[2024-10-26 06:58] LABS: ALBUMIN 2.5 g/dL (3.5-5.0); ANION GAP 8.3 MEQ/L (5-15); BILIRUBIN,TOTAL 0.6 mg/dL (0.2-1.3); Calcium 7.5 mg/dL (8.4-10.2); Creatinine 1 1.07 mg/dL (0.52-1.04); EST GLOMERULAR FILTRATION RATE 64.1 ML/MIN; MAGNESIUM 2.5 mg/dL (1.6-2.3); Potassium 3.8 mmol/L (3.5-5.1); Total Protein 4.7 g/dL (6.3-8.2)
[2024-10-26 12:10] LABS: Hematocrit 19.9 % (34.1-44.9)
[2024-10-26 12:21] LABS: Hemoglobin 6.7 g/dL (11.2-15.7)
[2024-10-26] MEDS: KABIVEN - CENT TPN 2053 ML 2,053 ML with Vitamins For Infusion 10 ML INJECTION*** 10 ML... IV SCH (13:34)
--- NOTE | 2024-10-26 13:49 | CONS ---
HISTORY OF PRESENT ILLNESS: This is a 49-year-old female who has long history of Crohn disease, had a partial colectomy apparently in [place] for this. She has a long established history with [facility], treating her Crohn's at that time and she was recently admitted there. She was admitted for intermittent flares and recently she was just admitted there 2 or 3 months ago. The hospitalist has had her admitted here for 1 week. She did not appear to completely resolve her flare-up. Here, she had some chronic aches and pains. She is having loose stools. She is not obstructed. She had requested transfer 2 or 3 days ago to facility with GI at that time. They have had her on some IV pain medications during this time. She had an outpatient colonoscopy already set up per her GI specialist apparently. She is afebrile. Temperature 97.8, pulse is 84, blood pressure is 170/94. White count is 9.6, hemoglobin 8.7, platelets are not low. Liver function tests are fairly unremarkable. Creatinine 0.72. CT scan was done approximately 1 week ago with some thickening of descending colon consistent with the patient's history of Crohn disease. She had some fecal debris. She is not obstructed. She has been having loose stools. Lipase is 42. PAST MEDICAL HISTORY: Reviewed as presented in the history. HOME MEDICATIONS: Reviewed as presented in the history. SOCIAL HISTORY: Reviewed as presented in the history. FAMILY HISTORY: Reviewed as presented in the history. REVIEW OF SYSTEMS: As noted above. Pertinent for some abdominal aches. No current chest pain. Other systems negative or noncontributory as noted per admission assessment and history and physical. Twelve systems reviewed. PHYSICAL EXAMINATION: GENERAL: No acute distress. She does not appear toxic right now, sounds like she is having some chronic abdominal pain. VITAL SIGNS: Stable. HEENT: Sclerae nonicteric. NECK: No JVD. CHEST: Equal excursion, nonlabored breathing. CARDIOVASCULAR: Regular pulse. ABDOMEN: Very soft. She does have some nonspecific tenderness but she is very soft and she is distracted. She does not appear to have rebounding, does not appear to have an acute surgical abdomen at this point. EXTREMITIES: No edema. NEUROLOGIC: Alert, moving extremities. PSYCHIATRIC: Appropriate mood and affect. LABORATORY DATA AND TESTS: Her white count is 9.6. ASSESSMENT: They had held her IV pain medications today per the nurse and whether she has any withdrawal components unclear. Feel she is best served being transferred to her Crohn's specialist where her GI has had long followup with her and where she has had her surgery before as GI is not available here or Crohn's specialist. She seems to be in agreement. Recommend transferring her to higher level of care to be seen by GI as she does not appear on physical exam and vitals to need any emergent operation at this minute on my exam. Could do followup CT scan workup (not done today) but feel she is best served being transferred to her GI specialist and where she has had her surgery before, preferably [place] as they are well in tune with her extensive followup care as her saw handle assembler has her set up for endoscopy according to the staff and she has had her prior surgery there. At this time, on my visit she does not appear to need emergent surgical intervention. Feel she is best served transferring to higher level of care where she can see her saw handle assembler who is well known to her as well as be where she had her prior partial colectomy in the past. Otherwise, continue medical management of her chronic pain syndrome, anxiety, and Crohn disease. Her medications here, she is on Xanax, Neurontin, Flagyl, methylprednisolone, Zyprexa, Narcan, pantoprazole, Percocet, Zofran. They just started holding her IV pain medications per nurse. Again, feel she is best served at higher level of care where she can see her saw handle assembler and surgeons that followed her from her previous partial colectomy she had. Again, recommend transfer to higher level of care at this time as I do not feel she needs immediate emergent operation right at this moment on my visit and exam.
--- NOTE | 2024-10-26 13:53 | PROG NOTE ---
Followup visit, change in condition: I was called this evening. Patient had been seen earlier. Had a white count of 9.6 this morning from last labs. She is hemodynamically stable with a very soft abdomen. When I saw her, she was having some pain. She had been in the hospital for 1 week on high-dose steroids. I recommended that she be transferred to high-level care with her GI physician and the surgeons who did her original colon resection for her Crohn's disease in the past. Which I do believe was [place] according to the patient. They are working on making arrangements for that when the patient had more pain. She had a followup lab later this evening. White count 28,000, and change in condition. A CT scan was done where she had free air and enlargement of the free air. The prior colon thickening had improved according to the radiologist, but there was a new finding of a large amount of free fluid and some free air. There was concern on whether she had perforated stomach given her high-dose steroids or whether she had a perforated ulcer, although a perforated small bowel or colon would also be in the differential. Higher level of care was not wanting to take the patient in her current condition. It was felt she would benefit from emergent laparotomy. She had also tachycardia of 110. This evening her temperature is still afebrile. She is still 97% to 99% on room air and blood pressure is stable at 126 to 132 over 79 to 82. Patient did not want to be transferred to higher level care at this juncture. She preferred to receive the operative intervention right at this moment. On abdominal exam, she is having, unlike when I saw her earlier today where her abdomen was very soft, she seems to be having much more tenderness and rebound tenderness now that is a new finding from my exam earlier today. She was explained the CT results and concern for possible perforated bowel, whether gastroduodenal such as an ulcer-type situation versus small bowel or colon. It was felt she needed exploratory laparotomy and wash any contamination out and look for the area in question, and then possibly omental patch if ulcer or if small bowel or colon, she might need bowel resection, possible re-anastomosis of the small bowel, possible ostomy if colon enlargement or contamination. She was explained the risks and benefits of the procedure including, but not limited to, bleeding and infection; risk of wound complications, hernia, or dehiscence, particularly given her high steroid use; risk of intra-abdominal abscess formation, fistula formation, possibly requiring percutaneous or open drainage even at a later date; risk of ongoing infection and sepsis; risk of respiratory failure and renal insufficiency, pneumonia; risk of adhesion or scar formation or obstruction. She understands risk of any anastomotic complications, leak or fistula formation, should be small bowel source and attempt at re-anastomosis. She understands if ulcer and attempt at omental patch closure, the risk of nonhealing or fistula formation, possibly requiring other procedures or prolonged bowel rest and IV nutrition, general risk of anesthesia, DVT, PE, pneumonia, but not limited to risk of mortality. She is agreeable to the planned procedure. We will proceed with exploratory laparotomy, possible bowel resection, and possible ostomy if required. If colon source, require ostomy, risk of stomal complications, retraction, necrosis, peristomal hernia, possibly requiring other procedures. She understands all of the above. We will proceed with exploratory laparotomy and possible bowel resection, possible ostomy. She understands if ulcer, we may be able to was things out, leave drains, and try omental patching.
--- NOTE | 2024-10-26 13:57 | OP ---
SURGERY DATE/TIME: 10/24/2024 [id number]. PREOPERATIVE DIAGNOSIS: Acute abdomen perforated viscus. POSTOPERATIVE DIAGNOSIS: 1) Perforated large proximal duodenal ulcer, large diffuse peritonitis. 2) Incarcerated ventral hernia with incarcerated omentum. PROCEDURE: 1) Exploratory laparotomy. 2) Diffuse extensive lavage of diffuse peritonitis with culture sent. 3) Closure of very large perforated proximal duodenal ulcer with additional omental patch onlay. 4) Repair of incarcerated ventral hernias (with approximately 10 cm span of all defects) with suture (given contaminated field). SURGEON: Brayden Bar MD ANESTHESIA: General. Please see anesthesia notes regarding central line placed in left internal jugular vein. INDICATIONS: As above. The risks and benefits were explained in detail as outlined per the surgical followup consult note. Risks explained, consent obtained, including the failure to heal, possibly requiring prolonged bowel rest or other procedures. DESCRIPTION OF PROCEDURE AND FINDINGS: The patient was taken to the operating room. General anesthesia was induced. Prepped and draped in the usual sterile fashion. After official time-out, no disagreement in planned procedure, a midline incision was made, upper midline incision. Dissection carried down. She had 1 larger defect that was about 3.5 cm inferior to that incarcerated omentum. She actually had 2 other epigastric ventral hernias that had incarcerated fat in them. In actuality, the entire span across all of these defects is probably about 10 cm. . The peritoneum was entered sharply. There was diffuse liquidy fluid. A culture was sent. Suctioned 3 L of fluid out of the abdomen. It was evident that there was a very large hole in the proximal duodenum that seemed to be about 3.5 to 4 cm in size. On careful inspection, there did not appear to be any visible holes in the lesser sac or the posterior side of the stomach. Careful inspection up to the area of the diaphragm and splenic area with no visible perforations in the more proximal stomach that could be visualized at this point. Given the large size of the defect, it was felt that there was no way that simple omental patch onlay would allow this to heal. The tissue was soft on either edge enough that it was felt it was worthwhile to bring this together in interrupted fashion. As the defect was transverse across the direction of the bowel, it was closed in an interrupted fashion to avoid any narrowing with 3-0 PDS Pop-offs in a tension-free manner bringing the viable edges of the perforated ulcer back to midline. Once this was accomplished, the patient did not have good distal omentum but the more proximal omentum hanging off the inferior aspect of the stomach was mobile enough. This was slipped back up over the perforated ulcer closure side and carefully tacked in a tension-free manner without strangulation with some 2-0 PDS to the stomach. Additionally, the fatty viable falciform that had been adhesed to the omentum earlier was allowed to be laid down over the area also. Copious amount of irrigation down in the pelvis. The left lower quadrant was all sealed with omental adhesions, but there did not appear to be any new contamination down by the colon. There was a pocket down to the right half of the abdomen on the right. This was carefully irrigated. Any loose debris was removed as well as loose debris lateral to the spleen and above the liver. Copious amount of irrigation, irrigating clear. The large perforated ulcer was then closed with suturing in a tension-free manner with omental patch onlay then placed on it. NG was in good position. Copious amount of irrigation, irrigated as clear as possible. AARON drain was placed up by the spleen and the diaphragm on the left as well as another one up on the level of the liver on the right and a third drain extending from the right lower abdomen up onto the liver and the edge of the gallbladder without direct communication of the ulcer side itself. At this point, gloves and instruments were changed. Clean closing instruments were used. Fascia was closed with a running loop sequential 0 PDS. It should be noted in closing these hernia defects that were spread over about a 10 cm area with 2 upper epigastric ventral hernias and the more lower ventral hernia that had the larger amount of incarcerated omentum, they were all closed over a 10 cm span with sutures as this was a contaminated field, so it was not warranted using mesh. Copious amount of irrigation irrigating the subq. Skin loosely stapled. The facility did not have 0.25 inch Iodoform for some reason, so the next best thing is a 0.5 inch Iodoform which was packed in between and gradually advanced out. The drains sutured in place and placed to bulb suction. Anesthesia is working on placing a central line in left IJ with ultrasound approach. He had good access. Initially, he had a little bit of trouble with passing the guidewire, so I had sterile new gloves on at that time and was able to reposition the needle slightly and the guidewire passed easily at this time. That helped with the anesthesia. He then made the skin laura, passed the dilator, passed the triple lumen catheter to about 19 or 20 cm skin level and secured with a silk suture. Otherwise, all 3 lumens aspirated dark nonpulsatile venous return and flushed with injectable saline. Sterile dressings applied per the staff. Port flushes as needed pending central line placement.
[2024-10-26 14:56] LABS: CROSS MATCH (PRBC) COMPATIBLE (COMPATIBLE)
[2024-10-26 15:00] LABS: CROSS MATCH (PRBC) COMPATIBLE (COMPATIBLE)
[2024-10-26] MEDS: Sodium Chloride 0.9% 500 ML 500 ML IV SCH (15:00)
--- NOTE | 2024-10-26 16:57 | PCM.NOTE ---
Date and Time: 10/26/24 1634 Subjective Assessment: 10/24/24 49-year-old with a history of Crohn's disease and anxiety, admitted 10/17/24 with abdominal pain, nausea, and diarrhea, consistent with her prior Crohn's flares. Patient has history of poorly controlled Crohn's disease; she was previously on Humira, but it was no longer effective. She tried Entyvio, but worsened, and was recently started on Stelara, receiving her second dose earlier this month. However, she has frequent hospitalizations with severe flares, most recently in June 2024 in [place]. She had been on a slow taper of steroids, discharging on prednisone 60, tapering slowly down to her maintenance dose of 10 mg daily. She follows with Dr. Yashira Holbrook in [place]. On admission she was going on 3 days of severe, sharp, constant, epigastric pain, radiating to the left upper and lower quadrants, worsening with food or drink, relieved only by pain medications. Associated with nonbloody, nonbilious vomiting, 6 times per day. Patient has chronic watery, non-bloody diarrhea, but this is increased in quantity and frequency, up to 4-5 times per day. She was given a Medrol Dosepak, but not have any relief. Initial labs remarkable for hypokalemia and BOBBI which have since resolved. Patient admitted with Crohns flare and placed on Flagyl and Levaquin. Diet changed to soft yesterday evening and she felt she wanted to eat something. IV pain meds stopped at that time and home PO meds started. Pt states she is refusing to eat as she only wants the IV pain meds for her abd pain. Abd. pain is 10/10 today in epigastric region, and she describes it as squeezing. She is swaying back and forth, as well as turning herself in the bed. She has questionable drug seeking behavior. Surgery consulted as pain does not correlate with labs. Will also check a Lipase. Continue levaquin, flagyl, and IVF. Pt made NPO for surgery consult. 10/25/24 Pt transferred to ICU bed this AM. Pt has severe sepsis this AM. 2 liters NS ordered stat. + tachycardia HR- 120-130. BP soft. Lactic acid 6.1 at 5am. Repeat LA after 2-1LNS fluid boluses 1.4. BP improved this afternoon. HR also improved. She was taken to surgery last night for bowel perforation as seen on CT abd/pelvis. It appears per surgery notes she had a bowel resection. She now has 3 kevin drains, a central line, and abd. binder on. General surgery was consulted earlier in the day and it was recommended she be transferred to a higher level of care with GI. Her GI provider is at [facility] and that hospital is currently on diversion and has been all week. She, previously in the week, would only transfer there but there were no beds. Last night [facility] was called and Dr. Ivan spoke with GI there and they recommended a stat CT abd/pelvis last night and would not accept the pt at that time. Thats when bowel perforation was found and GS reconsulted by Dr. Ivan. Prior to going to CT pt had an unresponsive episode per nurse PATRICK Dubon and Narcan was given in which the pt became responsive. She had been requesting IV pain med repeatedly throughout the day, Asked staff to search room for meds last night and 2 unmarked pill bottles were found 1 bottle had no meds and the other had xanax per nurse. Purse and meds locked up per staff. Today steroids reduced. Pt has dilaudid PUMPING SUPERVISOR per GS orders. Pt asking for benzo discussed at this time this would not be safe as it can cause respiratory depression in combination with narcotic pain medication. Narcan on NOV PRN. Antibiotic changed per GS to Merrem. Continue Flagyl. Call out to pt's GI provider to discuss pt case and further recs. AST/ALT elevated- US ordered for further evaluation. Awaiting further GS recs today. 10/26/24 Pt up walking in the halls today and reports feeling better. Repeat HGB 6.7 at noon and 2 units PRBC ordered. Discussed pt case with pt's GI provider Dr. Holbrook at [facility], yesterday evening. He advised steroids are indicated for acute Crohn's flare and that a weaning schedule can now be implemented with specific instructions on how to do so, see chart notes. He advised that pt should only be admitted to a hospital with GI services from now on as pt only has 2 ft of colon left and she is a very difficult pt to manage. He reported she has a complex hx with drug abuse and crohn's disease. She has tried multiple immunosuppresive drugs without improvement. She has also had multiple colon surgeries. He stressed the fact that she will try and get food and drinks from staff and it is imperative that we do not give in as she will not heal from this surgery. He requested the path and operative reports from the surgery be faxed to him to review. Labs overall improving and she is feeling much better. Pt lluvia es any further concerns and pain is well controlled 01/05 with dilaudid PUMPING SUPERVISOR. Awaiting further surgery recs today. - Review of Systems Constitutional: No Fever, No Chills Eyes: No Symptoms Ears, Nose, & Throat: No Symptoms Respiratory: No Cough, No Short Of Breath Cardiac: No Chest Pain, No Edema, No Syncope Abdominal/Gastrointestinal: Abdominal Pain, No Nausea, No Vomiting, No Diarrhea Genitourinary Symptoms: No Dysuria Musculoskeletal: No Back Pain, No Neck Pain Skin: No Rash Neurological: No Dizziness, No Focal Weakness, No Sensory Changes Psychological: No Symptoms Endocrine: No Symptoms Hematologic/Lymphatic: No Symptoms Immunological/Allergic: No Symptoms Objective Exam General Appearance: no apparent distress, alert Neurologic Exam: alert, oriented x 3, cooperative, normal mood/affect, nml cerebellar function, sensation nml, No motor deficits Skin Exam: normal color, warm, dry Wound Assessment: Skin/Wound Assessment Wound/Incision Assessment Start: 10/26/24 07:40 Text: Status: Active Freq: Q6H Protocol: Document 10/26/24 14:00 HARRIET (Rec: 10/26/24 14:10 HARRIET [id number]) Wound/Incision Assessment Medial Abdomen Wound Assessment Shift Assessment Wound Type Incision Wound Stage Non Pressure Wound Dressing Status Dry & Intact Drainage Amount None Comment DRESSING IN PLACE, ABDOMINAL BINDER ALSO ON Left Lateral Abdomen Drain Type KEVIN drain Drainage Description Brown Odor None/Absent Right Lower Lateral Abdomen Drain Type KEVIN drain Drainage Description Yellow Odor None/Absent Right Upper Lateral Abdomen Drain Type KEVIN drain Drainage Description Yellow Odor None/Absent Eye Exam: PERRL, EOMI, eyes nml inspection Ears, Nose, Throat Exam: normal ENT inspection, pharynx normal, moist mucous membranes Neck Exam: normal inspection, non-tender, supple, full range of motion Respiratory Exam: normal breath sounds, lungs clear, No respiratory distress Cardiovascular Exam: regular rate/rhythm, normal heart sounds Gastrointestinal/Abdomen Exam: soft, tenderness, No mass Extremity Exam: normal inspection, normal range of motion Back Exam: normal inspection, normal range of motion, No CVA tenderness, No vertebral tenderness Pelvic Exam: deferred Rectal Exam: deferred Objective Data Vital Signs: Vital Signs - 24 hr Temp Pulse Resp BP BP Pulse Ox 10/26/24 16:00 98.0 F 86 19 133/46 95 10/26/24 12:00 79 16 95 10/26/24 11:43 98.3 F 86 21 136/67 96 10/26/24 08:03 98.2 F 81 39 H 126/64 95 10/26/24 08:00 85 19 95 10/26/24 07:00 12 95 10/26/24 06:00 88 12 112/67 95 10/26/24 05:01 89 17 145/64 95 10/26/24 04:07 98.0 F 94 H 22 144/71 94 L 10/26/24 04:00 94 H 12 10/26/24 03:04 82 17 111/56 90 L 10/26/24 03:00 17 90 L 10/26/24 02:03 94 H 13 94 L 10/26/24 01:05 101 H 20 148/81 94 L 10/26/24 00:01 97.7 F 105 H 15 134/81 86 L 10/26/24 00:00 105 H 15 10/25/24 23:01 95 H 23 124/69 10/25/24 23:00 18 92 L 10/25/24 22:00 91 H 15 145/85 94 L 10/25/24 21:00 101 H 19 125/66 95 10/25/24 20:05 98.1 F 89 17 139/80 95 10/25/24 20:00 89 15 10/25/24 19:00 104 H 15 143/86 95 10/25/24 18:02 113 H 15 132/75 10/25/24 18:00 95 H 18 93/68 10/25/24 17:45 101 H 17 127/99 10/25/24 17:30 104 H 20 129/77 95 10/25/24 17:16 91 H 15 126/68 93 L 10/25/24 16:45 105 H 21 128/73 97 Pain Assessment - Last Documented Pain Intensity 6 Pain Scale Used 0-10 Pain Scale Intake and Output: Intake & Output 10/24/24 10/25/24 10/26/24 10/27/24 11:59 11:59 11:59 11:59 Intake Total 4100 1200 3322 120 Output Total 665 2960 380 Balance 4100 849 362 -260 Weight 71.5 kg 76.4 kg Lab Results: Lab Results-Last 24 Hours 10/25/24 10/26/24 10/26/24 Range/Units 22:16 00:45 04:09 WBC (3.98-10.04) x10^3/uL RBC (3.93-5.22) x10^6/uL Hgb (11.2-15.7) g/dL Hct (34.1-44.9) % MCV (79.4-94.8) fL MCH (25.6-32.2) pg MCHC (32.2-35.5) g/dL RDW (11.7-14.4) % Plt Count (182-369) x10^3/uL MPV (9.4-12.3) fL Gran % (34.0-71.1) % Immature Gran % (Auto) (0.001-0.429) % Nucleat RBC Rel Count (0.00-0.2) % Eos # (Auto) (0.04-0.36) x10^3/uL Immature Gran # (Auto) (0.001-0.031) x10^3u/L Absolute Lymphs (auto) (1.18-3.74) x10^3/uL Absolute Monos (auto) (0.24-0.86) x10^3/uL Absolute Nucleated RBC (0.00-0.012) x10^3u/L Lymphocytes % (19.3-51.7) % Monocytes % (4.7-12.5) % Eosinophils % (0.7-5.8) % Basophils % (0.1-1.2) % Absolute Granulocytes (1.56-6.13) x10^3/uL Basophils # (0.01-0.08) x10^3/uL Sodium (135-145) mmol/L Potassium (3.5-5.1) mmol/L Chloride (98-107) mmol/L Carbon Dioxide (22-30) mmol/L Anion Gap (5-15) MEQ/L BUN (7-17) mg/dL Creatinine (0.52-1.04) mg/dL Estimated GFR ML/MIN Glucose (74-106) mg/dL POC Glucometer 119 H 133 H 122 H (74 to 106) mg/dL Calcium (8.4-10.2) mg/dL Magnesium (1.6-2.3) mg/dL Total Bilirubin (0.2-1.3) mg/dL AST (14-36) U/L ALT (0-35) U/L Alkaline Phosphatase (38-126) U/L Serum Total Protein (6.3-8.2) g/dL Albumin (3.5-5.0) g/dL Crossmatch (COMPATIBLE) 10/26/24 10/26/24 10/26/24 Range/Units 04:40 04:40 07:12 WBC 15.0 H (3.98-10.04) x10^3/uL RBC 2.68 L (3.93-5.22) x10^6/uL Hgb 7.1 L D (11.2-15.7) g/dL Hct 21.3 L (34.1-44.9) % MCV 79.5 (79.4-94.8) fL MCH 26.5 (25.6-32.2) pg MCHC 33.3 (32.2-35.5) g/dL RDW 15.8 H (11.7-14.4) % Plt Count 350 D (182-369) x10^3/uL MPV 10.4 (9.4-12.3) fL Gran % 85.2 H (34.0-71.1) % Immature Gran % (Auto) 1.2 H (0.001-0.429) % Nucleat RBC Rel Count 0.4 H (0.00-0.2) % Eos # (Auto) 0 L (0.04-0.36) x10^3/uL Immature Gran # (Auto) 0.18 H (0.001-0.031) x10^3u/L Absolute Lymphs (auto) 1.16 L (1.18-3.74) x10^3/uL Absolute Monos (auto) 0.87 H (0.24-0.86) x10^3/uL Absolute Nucleated RBC 0.06 H (0.00-0.012) x10^3u/L Lymphocytes % 7.7 L (19.3-51.7) % Monocytes % 5.8 (4.7-12.5) % Eosinophils % 0.0 L (0.7-5.8) % Basophils % 0.1 (0.1-1.2) % Absolute Granulocytes 12.82 H (1.56-6.13) x10^3/uL Basophils # 0.01 (0.01-0.08) x10^3/uL Sodium 134 L (135-145) mmol/L Potassium 3.8 (3.5-5.1) mmol/L Chloride 108 H (98-107) mmol/L Carbon Dioxide 21 L (22-30) mmol/L Anion Gap 8.3 (5-15) MEQ/L BUN 31 H (7-17) mg/dL Creatinine 1.07 H (0.52-1.04) mg/dL Estimated GFR 64.1 ML/MIN Glucose 101 (74-106) mg/dL POC Glucometer 106 (74 to 106) mg/dL Calcium 7.5 L (8.4-10.2) mg/dL Magnesium 2.5 H (1.6-2.3) mg/dL Total Bilirubin 0.60 (0.2-1.3) mg/dL AST 244 H (14-36) U/L ALT 179 H (0-35) U/L Alkaline Phosphatase 42 (38-126) U/L Serum Total Protein 4.7 L (6.3-8.2) g/dL Albumin 2.5 L (3.5-5.0) g/dL Crossmatch (COMPATIBLE) 10/26/24 10/26/24 10/26/24 Range/Units 11:07 12:00 13:20 WBC (3.98-10.04) x10^3/uL RBC (3.93-5.22) x10^6/uL Hgb 6.7 L* (11.2-15.7) g/dL Hct 19.9 L (34.1-44.9) % MCV (79.4-94.8) fL MCH (25.6-32.2) pg MCHC (32.2-35.5) g/dL RDW (11.7-14.4) % Plt Count (182-369) x10^3/uL MPV (9.4-12.3) fL Gran % (34.0-71.1) % Immature Gran % (Auto) (0.001-0.429) % Nucleat RBC Rel Count (0.00-0.2) % Eos # (Auto) (0.04-0.36) x10^3/uL Immature Gran # (Auto) (0.001-0.031) x10^3u/L Absolute Lymphs (auto) (1.18-3.74) x10^3/uL Absolute Monos (auto) (0.24-0.86) x10^3/uL Absolute Nucleated RBC (0.00-0.012) x10^3u/L Lymphocytes % (19.3-51.7) % Monocytes % (4.7-12.5) % Eosinophils % (0.7-5.8) % Basophils % (0.1-1.2) % Absolute Granulocytes (1.56-6.13) x10^3/uL Basophils # (0.01-0.08) x10^3/uL Sodium (135-145) mmol/L Potassium (3.5-5.1) mmol/L Chloride (98-107) mmol/L Carbon Dioxide (22-30) mmol/L Anion Gap (5-15) MEQ/L BUN (7-17) mg/dL Creatinine (0.52-1.04) mg/dL Estimated GFR ML/MIN Glucose (74-106) mg/dL POC Glucometer 95 (74 to 106) mg/dL Calcium (8.4-10.2) mg/dL Magnesium (1.6-2.3) mg/dL Total Bilirubin (0.2-1.3) mg/dL AST (14-36) U/L ALT (0-35) U/L Alkaline Phosphatase (38-126) U/L Serum Total Protein (6.3-8.2) g/dL Albumin (3.5-5.0) g/dL Crossmatch COMPATIBLE (COMPATIBLE) 10/26/24 10/26/24 Range/Units 13:20 16:00 WBC (3.98-10.04) x10^3/uL RBC (3.93-5.22) x10^6/uL Hgb (11.2-15.7) g/dL Hct (34.1-44.9) % MCV (79.4-94.8) fL MCH (25.6-32.2) pg MCHC (32.2-35.5) g/dL RDW (11.7-14.4) % Plt Count (182-369) x10^3/uL MPV (9.4-12.3) fL Gran % (34.0-71.1) % Immature Gran % (Auto) (0.001-0.429) % Nucleat RBC Rel Count (0.00-0.2) % Eos # (Auto) (0.04-0.36) x10^3/uL Immature Gran # (Auto) (0.001-0.031) x10^3u/L Absolute Lymphs (auto) (1.18-3.74) x10^3/uL Absolute Monos (auto) (0.24-0.86) x10^3/uL Absolute Nucleated RBC (0.00-0.012) x10^3u/L Lymphocytes % (19.3-51.7) % Monocytes % (4.7-12.5) % Eosinophils % (0.7-5.8) % Basophils % (0.1-1.2) % Absolute Granulocytes (1.56-6.13) x10^3/uL Basophils # (0.01-0.08) x10^3/uL Sodium (135-145) mmol/L Potassium (3.5-5.1) mmol/L Chloride (98-107) mmol/L Carbon Dioxide (22-30) mmol/L Anion Gap (5-15) MEQ/L BUN (7-17) mg/dL Creatinine (0.52-1.04) mg/dL Estimated GFR ML/MIN Glucose (74-106) mg/dL POC Glucometer 94 (74 to 106) mg/dL Calcium (8.4-10.2) mg/dL Magnesium (1.6-2.3) mg/dL Total Bilirubin (0.2-1.3) mg/dL AST (14-36) U/L ALT (0-35) U/L Alkaline Phosphatase (38-126) U/L Serum Total Protein (6.3-8.2) g/dL Albumin (3.5-5.0) g/dL Crossmatch COMPATIBLE (COMPATIBLE) Radiology Exams: Radiology Procedures Category Date Time Status ABDOMEN AND PELVIS W CONTRAST [CT] Stat Exams 10/24/24 16:42 Completed CHEST 1 VIEW (PORTABLE) Stat Exams 10/25/24 00:10 Completed Assessment/Plan (1) Severe sepsis Current Visit: Yes Status: Acute Assessment & Plan: - LA 6.1 - 1 L LR fluid bolus gave last night - 2 L NS fluid bolus gave this AM - Repeat LA 1.4 - 2:2 colon perforation - Resp > 20 , HR ? 90. WBC > 12,000, BOBBI - SBP < 90 - Tele - ICU - I&O Q4hr Code(s): A41.9 - SEPSIS, UNSPECIFIED ORGANISM; R65.20 - SEVERE SEPSIS WITHOUT SEPTIC SHOCK (2) Crohn's disease Current Visit: Yes Status: Chronic Assessment & Plan: - Surgery consult: recommends tx to higher level of care where GI is available - no further radiology exams at this time. - Lipase pending - CBC, CMP reviewed - IVF - Levaquin/flagyl IV, steriods - Protonix - narcotic pain meds - Follow Dr. Hu in [place] with GI - KUB 10/18/24 appears nonacute and nonobstructed again with moderate fecal debris predominantly in ascending and transverse colon. No focal bowel dilatation or free air. Contrast in urinary bladder from recent CT. Remaining solid organs and osseous structures unremarkable - Abd/Pelvis CT: 10/17/24 Impression: 1. Descending colonic circumferential wall thickening with minimal pericolonic stranding, probable colitis in this patient with history of Crohn's disease. Colonic mass is not completely excluded as there is also intraluminal narrowing with moderate fecal debris up to level of narrowing. 2. Fatty liver. - Tried to transfer pt for GI and would not accept w/o CT abd/ pelvis - Stat CT abd pelvis 10/24 16:42 Impression: 1. New abdominal free fluid and free air concerning for GI perforation. Query gastric perforation. 2. Diminished colonic bowel wall thickening. 3. Again incidental fatty liver and periumbilical hernia. - GS called again for consult by Dr. Ivan - Colon resection by Dr. Fong - Black oliveros., KEVIN drains x3, NG - PUMPING SUPERVISOR Dilaudid by - Antibiotic changed to Merrem and flagyl by - Protonix changed to IV Q12 10/25/24 - TPN started - steroids decreased to 40 BID - Discuss pt case with pt's GI provider- wean steroids as directed: tomorrow change 30 BID, THen 40 QD x1 week, then 30 QD x1 week - Per GI pt has 2 ft of colon left - Will fax Path and operative report when available per Dr. Hu request. 10/26 - Anemia- 2 units PRBC ordered - Advised nurse Shadia, PATRICK to let surgery know of acute anemia today - CBC, CMP reviewed- labs overall improving - NS @ 30 ml/hr to run with PUMPING SUPERVISOR Code(s): K50.90 - CROHN'S DISEASE, UNSPECIFIED, WITHOUT COMPLICATIONS (3) Bowel perforation Current Visit: Yes Status: Acute Assessment & Plan: - as seen on CT 10/24 Code(s): K63.1 - PERFORATION OF INTESTINE (NONTRAUMATIC) (4) S/P colon resection Current Visit: Yes Status: Acute Assessment & Plan: - Colon resection by Dr. Fong 10/24- evening - Abd domo., KEVIN drains x3, NG - PUMPING SUPERVISOR Dilaudid by Code(s): Z90.49 - ACQUIRED ABSENCE OF OTHER SPECIFIED PARTS OF DIGESTIVE TRACT (5) Anemia Current Visit: Yes Status: Acute Qualifiers: Anemia type: other cause Assessment & Plan: - Repeat HGB at noon 6.7 - 2 units PRBC ordered - T&C ordered - Repeat labs after blood infused. - RN to let GS team now about anemia. - Occult stool + on 10/23 Code(s): D64.9 - ANEMIA, UNSPECIFIED (6) Transaminitis Current Visit: Yes Status: Acute Assessment & Plan: - likely 2:2 surgery - Trend labs - US tech unable to do US d/t abd incicsions. - discussed with Dr. Ivan- will continue to monitor. 10/26 - labs improving- trend Code(s): R74.01 - ELEVATION OF LEVELS OF LIVER TRANSAMINASE LEVELS (7) Hyperglycemia Current Visit: Yes Status: Acute Assessment & Plan: - Accuchecks Q4 as she is NPO - Humalog s/s Code(s): R73.9 - HYPERGLYCEMIA, UNSPECIFIED (8) Nausea & vomiting Current Visit: Yes Status: Resolved Assessment & Plan: - IVF - Zofran PRN Code(s): R11.2 - NAUSEA WITH VOMITING, UNSPECIFIED (9) Anxiety Current Visit: No Status: Chronic Assessment & Plan: - meds stopped Code(s): F41.9 - ANXIETY DISORDER, UNSPECIFIED (10) Hypokalemia Current Visit: No Status: Acute Assessment & Plan: - resolved Code(s): E87.6 - HYPOKALEMIA (11) Chronic pain syndrome Current Visit: No Status: Chronic Assessment & Plan: - Oral pain med held for now - on PUMPING SUPERVISOR for pain PRN VTE: SCD's PPI: Protonix Next of KIN:parent Shanti/Norris Rojas [phone] D/C plan: pending surgery recs Code status: Full
[2024-10-26] MEDS: solu-MEDROL 30 MG, Sterile H2O 10 ml 1 ML IV SCH (21:32)
[2024-10-26 22:05] LABS: Hematocrit 26.6 % (34.1-44.9)
[2024-10-26 22:06] LABS: Hemoglobin 9.2 g/dL (11.2-15.7)
[2024-10-27 04:59] LABS: Hematocrit 28.3 % (34.1-44.9); Hemoglobin 9.3 g/dL (11.2-15.7); Mean Cell Volume 83.7 fL (79.4-94.8); Mean Corpuscular Hemoglobin 27.5 pg (25.6-32.2); Mean Corpuscular Hgb Concent. 32.9 g/dL (32.2-35.5); Platelet Count 191 x10^3/uL (182-369); Red Blood Count 3.38 x10^6/uL (3.93-5.22); Red Cell Distribution Width 15.7 % (11.7-14.4); White Blood Count 12.5 x10^3/uL (3.98-10.04)
[2024-10-27 05:14] LABS: ALBUMIN 2.6 g/dL (3.5-5.0); ANION GAP 8.3 MEQ/L (5-15); BILIRUBIN,TOTAL 0.8 mg/dL (0.2-1.3); Calcium 7.6 mg/dL (8.4-10.2); Creatinine 1 0.76 mg/dL (0.52-1.04); EST GLOMERULAR FILTRATION RATE 96.6 ML/MIN; MAGNESIUM 2.2 mg/dL (1.6-2.3); Potassium 4.2 mmol/L (3.5-5.1)
[2024-10-27] MEDS: solu-MEDROL 40 MG, Sterile H2O 10 ml 1 ML IV SCH (10:19)
--- NOTE | 2024-10-27 13:32 | PCM.NOTE ---
Date and Time: 10/27/24 1327 Subjective Assessment: 10/24/24 49-year-old with a history of Crohn's disease and anxiety, admitted 10/17/24 with abdominal pain, nausea, and diarrhea, consistent with her prior Crohn's flares. Patient has history of poorly controlled Crohn's disease; she was previously on Humira, but it was no longer effective. She tried Entyvio, but worsened, and was recently started on Stelara, receiving her second dose earlier this month. However, she has frequent hospitalizations with severe flares, most recently in June 2024 in [place]. She had been on a slow taper of steroids, discharging on prednisone 60, tapering slowly down to her maintenance dose of 10 mg daily. She follows with Dr. Yashira Holbrook in [place]. On admission she was going on 3 days of severe, sharp, constant, epigastric pain, radiating to the left upper and lower quadrants, worsening with food or drink, relieved only by pain medications. Associated with nonbloody, nonbilious vomiting, 6 times per day. Patient has chronic watery, non-bloody diarrhea, but this is increased in quantity and frequency, up to 4-5 times per day. She was given a Medrol Dosepak, but not have any relief. Initial labs remarkable for hypokalemia and BOBBI which have since resolved. Patient admitted with Crohns flare and placed on Flagyl and Levaquin. Diet changed to soft yesterday evening and she felt she wanted to eat something. IV pain meds stopped at that time and home PO meds started. Pt states she is refusing to eat as she only wants the IV pain meds for her abd pain. Abd. pain is 10/10 today in epigastric region, and she describes it as squeezing. She is swaying back and forth, as well as turning herself in the bed. She has questionable drug seeking behavior. Surgery consulted as pain does not correlate with labs. Will also check a Lipase. Continue levaquin, flagyl, and IVF. Pt made NPO for surgery consult. 10/25/24 Pt transferred to ICU bed this AM. Pt has severe sepsis this AM. 2 liters NS ordered stat. + tachycardia HR- 120-130. BP soft. Lactic acid 6.1 at 5am. Repeat LA after 2-1LNS fluid boluses 1.4. BP improved this afternoon. HR also improved. She was taken to surgery last night for bowel perforation as seen on CT abd/pelvis. It appears per surgery notes she had a bowel resection. She now has 3 kevin drains, a central line, and abd. binder on. General surgery was consulted earlier in the day and it was recommended she be transferred to a higher level of care with GI. Her GI provider is at [facility] and that hospital is currently on diversion and has been all week. She, previously in the week, would only transfer there but there were no beds. Last night [facility] was called and Dr. Ivan spoke with GI there and they recommended a stat CT abd/pelvis last night and would not accept the pt at that time. Thats when bowel perforation was found and GS reconsulted by Dr. Ivan. Prior to going to CT pt had an unresponsive episode per nurse PATRICK Dubon and Narcan was given in which the pt became responsive. She had been requesting IV pain med repeatedly throughout the day, Asked staff to search room for meds last night and 2 unmarked pill bottles were found 1 bottle had no meds and the other had xanax per nurse. Purse and meds locked up per staff. Today steroids reduced. Pt has dilaudid SHEET MANAGER per GS orders. Pt asking for benzo discussed at this time this would not be safe as it can cause respiratory depression in combination with narcotic pain medication. Narcan on NOV PRN. Antibiotic changed per GS to Merrem. Continue Flagyl. Call out to pt's GI provider to discuss pt case and further recs. AST/ALT elevated- US ordered for further evaluation. Awaiting further GS recs today. 10/26/24 Pt up walking in the halls today and reports feeling better. Repeat HGB 6.7 at noon and 2 units PRBC ordered. Discussed pt case with pt's GI provider Dr. Holbrook at [facility], yesterday evening. He advised steroids are indicated for acute Crohn's flare and that a weaning schedule can now be implemented with specific instructions on how to do so, see chart notes. He advised that pt should only be admitted to a hospital with GI services from now on as pt only has 2 ft of colon left and she is a very difficult pt to manage. He reported she has a complex hx with drug abuse and crohn's disease. She has tried multiple immunosuppresive drugs without improvement. She has also had multiple colon surgeries. He stressed the fact that she will try and get food and drinks from staff and it is imperative that we do not give in as she will not heal from this surgery. He requested the path and operative reports from the surgery be faxed to him to review. Labs overall improving and she is feeling much better. Pt denies any further concerns and pain is well controlled 01/05 with dilaudid SHEET MANAGER. Awaiting further surgery recs today. 10/27/24 Pt up and walking in the halls this AM again. She reports feeling better. Pharmacy discussed lowering SHEET MANAGER dose. Continue TPN, IV antibiotics. Continue to reduce steroids per GI recommended schedule. BOBBI resolved. Labs overall continue to improved. All drains remain in place. Abd. fluid culture pending. All other cultures negative. Pain well controlled at this time and she denies any further concerns. She is asking for a timeframe as to when she will be able to eat agai n. Will need to discuss this with general surgery. - Review of Systems Constitutional: No Fever, No Chills Eyes: No Symptoms Ears, Nose, & Throat: No Symptoms Respiratory: No Cough, No Short Of Breath Cardiac: No Chest Pain, No Edema, No Syncope Abdominal/Gastrointestinal: Abdominal Pain, No Nausea, No Vomiting, No Diarrhea Genitourinary Symptoms: No Dysuria Musculoskeletal: No Back Pain, No Neck Pain Skin: No Rash Neurological: No Dizziness, No Focal Weakness, No Sensory Changes Psychological: No Symptoms Endocrine: No Symptoms Hematologic/Lymphatic: No Symptoms Immunological/Allergic: No Symptoms Objective Exam General Appearance: no apparent distress, alert Neurologic Exam: alert, oriented x 3, cooperative, normal mood/affect, nml cerebellar function, sensation nml, No motor deficits Skin Exam: normal color, warm, dry Wound Assessment: Skin/Wound Assessment Wound/Incision Assessment Start: 10/26/24 07:40 Text: Status: Active Freq: Q6H Protocol: Document 10/27/24 08:00 HARRIET (Rec: 10/27/24 08:16 HARRIET [id number]) Wound/Incision Assessment Medial Abdomen Wound Assessment Shift Assessment Wound Type Incision Wound Stage Non Pressure Wound Dressing Status Dry & Intact Primary Dressing BORDERED GAUZE Comment DRESSING CLEAN, DRY AND INTACT , ABDOMINAL BINDER ALSO ON Left Lateral Abdomen Drain Type KEVIN drain Drainage Description Brown Odor None/Absent Right Lower Lateral Abdomen Drain Type KEVIN drain Drainage Description Yellow Odor None/Absent Right Upper Lateral Abdomen Drain Type KEVIN drain Drainage Description Yellow Odor None/Absent Eye Exam: PERRL, EOMI, eyes nml inspection Ears, Nose, Throat Exam: normal ENT inspection, pharynx normal, moist mucous membranes Neck Exam: normal inspection, non-tender, supple, full range of motion Respiratory Exam: normal breath sounds, lungs clear, No respiratory distress Cardiovascular Exam: regular rate/rhythm, normal heart sounds Gastrointestinal/Abdomen Exam: soft, tenderness (generlized), No mass Extremity Exam: normal inspection, normal range of motion Back Exam: normal inspection, normal range of motion, No CVA tenderness, No vertebral tenderness Pelvic Exam: deferred Rectal Exam: deferred Objective Data Vital Signs: Vital Signs - 24 hr Temp Pulse Resp BP Pulse Ox 10/27/24 12:00 98.0 F 78 16 119/78 97 10/27/24 11:55 14 94 L 10/27/24 08:00 81 18 95 10/27/24 07:45 98.4 F 82 22 122/88 97 10/27/24 07:10 18 96 10/27/24 04:00 97.5 F 94 H 17 125/84 94 L 10/27/24 00:00 98.9 F 82 17 122/65 94 L 10/26/24 20:35 98.0 F 85 18 128/66 95 10/26/24 20:00 98.4 F 85 18 129/69 97 10/26/24 19:02 17 96 10/26/24 16:00 98.0 F 86 19 133/46 95 Pain Assessment - Last Documented Pain Intensity 5 Pain Scale Used 0-10 Pain Scale Intake and Output: Intake & Output 10/25/24 10/26/24 10/27/24 10/28/24 11:59 11:59 11:59 11:59 Intake Total 1200 3322 4517 Output Total 665 2960 2975 300 Balance 742 118 5032 -300 Weight 71.5 kg 76.4 kg Lab Results: Lab Results-Last 24 Hours 10/26/24 10/26/24 10/26/24 Range/Units 12:20 13:20 13:20 WBC (3.98-10.04) x10^3/uL RBC (3.93-5.22) x10^6/uL Hgb (11.2-15.7) g/dL Hct (34.1-44.9) % MCV (79.4-94.8) fL MCH (25.6-32.2) pg MCHC (32.2-35.5) g/dL RDW (11.7-14.4) % Plt Count (182-369) x10^3/uL MPV (9.4-12.3) fL Sodium (135-145) mmol/L Potassium (3.5-5.1) mmol/L Chloride (98-107) mmol/L Carbon Dioxide (22-30) mmol/L Anion Gap (5-15) MEQ/L BUN (7-17) mg/dL Creatinine (0.52-1.04) mg/dL Estimated GFR ML/MIN Glucose (74-106) mg/dL POC Glucometer (74 to 106) mg/dL Hemoglobin A1c (4.5-6.0) % Calcium (8.4-10.2) mg/dL Magnesium (1.6-2.3) mg/dL Total Bilirubin (0.2-1.3) mg/dL AST (14-36) U/L ALT (0-35) U/L Alkaline Phosphatase (38-126) U/L Serum Total Protein (6.3-8.2) g/dL Albumin (3.5-5.0) g/dL Crossmatch COMPATIBLE COMPATIBLE (COMPATIBLE) 10/26/24 10/26/24 10/26/24 Range/Units 16:00 20:47 22:00 WBC (3.98-10.04) x10^3/uL RBC (3.93-5.22) x10^6/uL Hgb 9.2 L D (11.2-15.7) g/dL Hct 26.6 L (34.1-44.9) % MCV (79.4-94.8) fL MCH (25.6-32.2) pg MCHC (32.2-35.5) g/dL RDW (11.7-14.4) % Plt Count (182-369) x10^3/uL MPV (9.4-12.3) fL Sodium (135-145) mmol/L Potassium (3.5-5.1) mmol/L Chloride (98-107) mmol/L Carbon Dioxide (22-30) mmol/L Anion Gap (5-15) MEQ/L BUN (7-17) mg/dL Creatinine (0.52-1.04) mg/dL Estimated GFR ML/MIN Glucose (74-106) mg/dL POC Glucometer 94 86 (74 to 106) mg/dL Hemoglobin A1c (4.5-6.0) % Calcium (8.4-10.2) mg/dL Magnesium (1.6-2.3) mg/dL Total Bilirubin (0.2-1.3) mg/dL AST (14-36) U/L ALT (0-35) U/L Alkaline Phosphatase (38-126) U/L Serum Total Protein (6.3-8.2) g/dL Albumin (3.5-5.0) g/dL Crossmatch (COMPATIBLE) 10/26/24 10/27/24 10/27/24 Range/Units 23:40 04:30 04:55 WBC (3.98-10.04) x10^3/uL RBC (3.93-5.22) x10^6/uL Hgb (11.2-15.7) g/dL Hct (34.1-44.9) % MCV (79.4-94.8) fL MCH (25.6-32.2) pg MCHC (32.2-35.5) g/dL RDW (11.7-14.4) % Plt Count (182-369) x10^3/uL MPV (9.4-12.3) fL Sodium 135 (135-145) mmol/L Potassium 4.2 (3.5-5.1) mmol/L Chloride 107 (98-107) mmol/L Carbon Dioxide 24 (22-30) mmol/L Anion Gap 8.3 (5-15) MEQ/L BUN 19 H (7-17) mg/dL Creatinine 0.76 (0.52-1.04) mg/dL Estimated GFR 96.6 ML/MIN Glucose 120 H (74-106) mg/dL POC Glucometer 104 126 H (74 to 106) mg/dL Hemoglobin A1c (4.5-6.0) % Calcium 7.6 L (8.4-10.2) mg/dL Magnesium 2.2 (1.6-2.3) mg/dL Total Bilirubin 0.80 (0.2-1.3) mg/dL AST 204 H (14-36) U/L ALT 174 H (0-35) U/L Alkaline Phosphatase 40 (38-126) U/L Serum Total Protein 5.0 L (6.3-8.2) g/dL Albumin 2.6 L (3.5-5.0) g/dL Crossmatch (COMPATIBLE) 10/27/24 10/27/24 10/27/24 Range/Units 04:55 07:07 11:09 WBC 12.5 H (3.98-10.04) x10^3/uL RBC 3.38 L (3.93-5.22) x10^6/uL Hgb 9.3 L (11.2-15.7) g/dL Hct 28.3 L (34.1-44.9) % MCV 83.7 (79.4-94.8) fL MCH 27.5 (25.6-32.2) pg MCHC 32.9 (32.2-35.5) g/dL RDW 15.7 H (11.7-14.4) % Plt Count 191 D (182-369) x10^3/uL MPV 11.0 (9.4-12.3) fL Sodium (135-145) mmol/L Potassium (3.5-5.1) mmol/L Chloride (98-107) mmol/L Carbon Dioxide (22-30) mmol/L Anion Gap (5-15) MEQ/L BUN (7-17) mg/dL Creatinine (0.52-1.04) mg/dL Estimated GFR ML/MIN Glucose (74-106) mg/dL POC Glucometer 119 H 113 H (74 to 106) mg/dL Hemoglobin A1c (4.5-6.0) % Calcium (8.4-10.2) mg/dL Magnesium (1.6-2.3) mg/dL Total Bilirubin (0.2-1.3) mg/dL AST (14-36) U/L ALT (0-35) U/L Alkaline Phosphatase (38-126) U/L Serum Total Protein (6.3-8.2) g/dL Albumin (3.5-5.0) g/dL Crossmatch (COMPATIBLE) Multi-Disciplinary Progress Notes: Multi-Disciplinary Progress Notes 10/27/24 12:15 Case Management Note by Bhavani Tang PATIENT HAS BEEN AMBULATING IN HALLWAY WITH STAFF, SHE IS NORMALLY INDEPENDENT WITH ADLS. ANTICIPATE DC HOME AT TIME OF DC. MAY NEED HHC Initialized on 10/27/24 12:15 - END OF NOTE Assessment/Plan (1) Severe sepsis Current Visit: Yes Status: Acute Code(s): A41.9 - SEPSIS, UNSPECIFIED ORGANISM; R65.20 - SEVERE SEPSIS WITHOUT SEPTIC SHOCK (2) Crohn's disease Current Visit: Yes Status: Chronic Code(s): K50.90 - CROHN'S DISEASE, UNSPECIFIED, WITHOUT COMPLICATIONS (3) Bowel perforation Current Visit: Yes Status: Acute Code(s): K63.1 - PERFORATION OF INTESTINE (NONTRAUMATIC) (4) S/P colon resection Current Visit: Yes Status: Acute Code(s): Z90.49 - ACQUIRED ABSENCE OF OTHER SPECIFIED PARTS OF DIGESTIVE TRACT (5) Anemia Current Visit: Yes Status: Acute Qualifiers: Anemia type: other cause Code(s): D64.9 - ANEMIA, UNSPECIFIED (6) Transaminitis Current Visit: Yes Status: Acute Code(s): R74.01 - ELEVATION OF LEVELS OF LIVER TRANSAMINASE LEVELS (7) Hyperglycemia Current Visit: Yes Status: Acute Code(s): R73.9 - HYPERGLYCEMIA, UNSPECIFIED (8) Nausea & vomiting Current Visit: Yes Status: Resolved Code(s): R11.2 - NAUSEA WITH VOMITING, UNSPECIFIED (9) Anxiety Current Visit: No Status: Chronic Code(s): F41.9 - ANXIETY DISORDER, UNSPECIFIED (10) Hypokalemia Current Visit: No Status: Acute Code(s): E87.6 - HYPOKALEMIA (11) Chronic pain syndrome Current Visit: No Status: Chronic Assessment & Plan: (1) Severe sepsis Current Visit: Yes Status: Acute Assessment & Plan: - LA 6.1 - 1 L LR fluid bolus gave last night - 2 L NS fluid bolus gave this AM - Repeat LA 1.4 - 2:2 colon perforation - Resp > 20 , HR ? 90. WBC > 12,000, BOBBI - SBP < 90 - Tele - ICU - I&O Q4hr Code(s): A41.9 - SEPSIS, UNSPECIFIED ORGANISM; R65.20 - SEVERE SEPSIS WITHOUT SEPTIC SHOCK (2) Crohn's disease Current Visit: Yes Status: Chronic Assessment & Plan: - Surgery consult: recommends tx to higher level of care where GI is available - no further radiology exams at this time. - Lipase pending - CBC, CMP reviewed - IVF - Levaquin/flagyl IV, steriods - Protonix - narcotic pain meds - Follow Dr. Hu in [place] with GI - KUB 10/18/24 appears nonacute and nonobstructed again with moderate fecal debris predominantly in ascending and transverse colon. No focal bowel dilatation or free air. Contrast in urinary bladder from recent CT. Remaining solid organs and osseous structures unremarkable - Abd/Pelvis CT: 10/17/24 Impression: 1. Descending colonic circumferential wall thickening with minimal pericolonic stranding, probable colitis in this patient with history of Crohn's disease. Colonic mass is not completely excluded as there is also intraluminal narrowing with moderate fecal debris up to level of narrowing. 2. Fatty liver. - Tried to transfer pt for GI and would not accept w/o CT abd/ pelvis - Stat CT abd pelvis 10/24 16:42 Impression: 1. New abdominal free fluid and free air concerning for GI perforation. Query gastric perforation. 2. Diminished colonic bowel wall thickening. 3. Again incidental fatty liver and periumbilical hernia. - called again for consult by Dr. Ivan - Colon resection by Dr. Fong - Black oliveros., KEVIN drains x3, NG - SHEET MANAGER Dilaudid by GS - Antibiotic changed to Merrem and flagyl by GS - Protonix changed to IV Q12 10/25/24 - TPN started - Steroids decreased to 40 BID - Discuss pt case with pt's GI provider- wean steroids as directed: tomorrow change 30 BID, THen 40 QD x1 week, then 30 QD x1 week - Per GI pt has 2 ft of colon left - Will fax Path and operative report when available per Dr. Hu request. 10/26 - Anemia- 2 units PRBC ordered - Advised nurse PATRICK Reno to let surgery know of acute anemia today - CBC, CMP reviewed- labs overall improving - NS @ 30 ml/hr to run with SHEET MANAGER - Steroids decrease to 30 BID 10/27 - CBC, CMP reviewed- labs overall improving - Steroids started at 40 QD x1 week Code(s): K50.90 - CROHN'S DISEASE, UNSPECIFIED, WITHOUT COMPLICATIONS (3) Bowel perforation Current Visit: Yes Status: Acute Assessment & Plan: - as seen on CT 10/24 Code(s): K63.1 - PERFORATION OF INTESTINE (NONTRAUMATIC) (4) S/P colon resection Current Visit: Yes Status: Acute Assessment & Plan: - Colon resection by Dr. Fong 10/24- evening - NPO - Abd binder., KEVIN drains x3, NG - SHEET MANAGER Dilaudid by GS 10/27 - Abd. fluid culture pending Code(s): Z90.49 - ACQUIRED ABSENCE OF OTHER SPECIFIED PARTS OF DIGESTIVE TRACT (5) Anemia Current Visit: Yes Status: Acute Qualifiers: Anemia type: other cause Assessment & Plan: - Repeat HGB at noon 6.7 - 2 units PRBC ordered - T&C ordered - Repeat labs after blood infused. - RN to let team now about anemia. - Occult stool + on 10/23 10/27 - Hgb 9.3- stable Code(s): D64.9 - ANEMIA, UNSPECIFIED (6) Transaminitis Current Visit: Yes Status: Acute Assessment & Plan: - likely 2:2 surgery - Trend labs - US tech unable to do US d/t abd incicsions. - discussed with Dr. Ivan- will continue to monitor. 10/26 - labs improving- trend 10/26 - labs continue to improved Code(s): R74.01 - ELEVATION OF LEVELS OF LIVER TRANSAMINASE LEVELS (7) Hyperglycemia Current Visit: Yes Status: Acute Assessment & Plan: - Accuchecks Q4 as she is NPO - Humalog s/s Code(s): R73.9 - HYPERGLYCEMIA, UNSPECIFIED (8) Nausea & vomiting Current Visit: Yes Status: Resolved Assessment & Plan: - IVF - Zofran PRN Code(s): R11.2 - NAUSEA WITH VOMITING, UNSPECIFIED (9) Anxiety Current Visit: No Status: Chronic Assessment & Plan: - meds stopped Code(s): F41.9 - ANXIETY DISORDER, UNSPECIFIED (10) Hypokalemia Current Visit: No Status: Acute Assessment & Plan: - resolved Code(s): E87.6 - HYPOKALEMIA (11) Chronic pain syndrome Current Visit: No Status: Chronic Assessment & Plan: - Oral pain med held for now - on SHEET MANAGER for pain PRN- pharmacy managing VTE: SCD's PPI: Protonix Next of KIN:parent Shanti/Norris Rojas [phone] D/C plan: pending surgery recs Code status: Full
[2024-10-27] MEDS: CLARITIN 10 MG PO PRN (18:09)
[2024-10-27] MEDS: HYDROMORPHONE 30 MG/30 ML-NS PCA IV PRN (23:15)
[2024-10-28 07:39] LABS: Absolute Neutrophil Ct (ANC) 7.34 x10^3/uL (1.56-6.13); BASOPHIL % 0.1 % (0.1-1.2); Basophil (Absolute #) 0.01 x10^3/uL (0.01-0.08); Eosinophil % 0.1 % (0.7-5.8); Eosinophil (Absolute #) 0.01 x10^3/uL (0.04-0.36); Hematocrit 28.7 % (34.1-44.9); Hemoglobin 9.5 g/dL (11.2-15.7); IMMATURE GRAN # 0.18 x10^3u/L (0.001-0.031); Lymphocyte (Absolute #) 0.92 x10^3/uL (1.18-3.74); Lymphocytes % 10.1 % (19.3-51.7); Mean Corpuscular Hemoglobin 27.1 pg (25.6-32.2); Mean Corpuscular Hgb Concent. 33.1 g/dL (32.2-35.5); Mean Platelet Volume 10.7 fL (9.4-12.3); Monocyte (Absolute #) 0.68 x10^3/uL (0.24-0.86); Monocytes % 7.4 % (4.7-12.5); NUCLEATED RBC # 0.07 x10^3u/L (0.00-0.012); NUCLEATED RBC % 0.8 % (0.00-0.2); Neutrophil % 80.3 % (34.0-71.1); Platelet Count 247 x10^3/uL (182-369); Red Cell Distribution Width 15.7 % (11.7-14.4); White Blood Count 9.1 x10^3/uL (3.98-10.04)
[2024-10-28 07:50] LABS: ALBUMIN 2.7 g/dL (3.5-5.0); ANION GAP 8.3 MEQ/L (5-15); BILIRUBIN,TOTAL 0.9 mg/dL (0.2-1.3); Calcium 7.7 mg/dL (8.4-10.2); Creatinine 1 0.65 mg/dL (0.52-1.04); EST GLOMERULAR FILTRATION RATE 108.5 ML/MIN; MAGNESIUM 2.2 mg/dL (1.6-2.3); Potassium 3.5 mmol/L (3.5-5.1)
[2024-10-28 08:10] LABS: Slide Review 1 YES
[2024-10-28] MEDS ORDERED: SUBLIMAZE 100 MCG/2 ML IV PRN (09:24)
[2024-10-28] MEDS: PHARMACY DOSING REQUEST MC ONE ×2 (10:15→12:16)
[2024-10-28] MEDS: FENTANYL 500 MCG/10 ML VIAL 1,500 MCG in Sodium Chloride 0.9% 150 ML 120 ML IV SCH (10:37)
[2024-10-28] MEDS: MORPHINE SULFATE 4 MG INJ IV PRN (12:45)
--- NOTE | 2024-10-28 15:23 | PCM.NOTE ---
Date and Time: 10/28/24 1515 Subjective Assessment: 10/24/24 49-year-old with a history of Crohn's disease and anxiety, admitted 10/17/24 with abdominal pain, nausea, and diarrhea, consistent with her prior Crohn's flares. Patient has history of poorly controlled Crohn's disease; she was previously on Humira, but it was no longer effective. She tried Entyvio, but worsened, and was recently started on Stelara, receiving her second dose earlier this month. However, she has frequent hospitalizations with severe flares, most recently in June 2024 in [place]. She had been on a slow taper of steroids, discharging on prednisone 60, tapering slowly down to her maintenance dose of 10 mg daily. She follows with Dr. Yashira Holbrook in [place]. On admission she was going on 3 days of severe, sharp, constant, epigastric pain, radiating to the left upper and lower quadrants, worsening with food or drink, relieved only by pain medications. Associated with nonbloody, nonbilious vomiting, 6 times per day. Patient has chronic watery, non-bloody diarrhea, but this is increased in quantity and frequency, up to 4-5 times per day. She was given a Medrol Dosepak, but not have any relief. Initial labs remarkable for hypokalemia and BOBBI which have since resolved. Patient admitted with Crohns flare and placed on Flagyl and Levaquin. Diet changed to soft yesterday evening and she felt she wanted to eat something. IV pain meds stopped at that time and home PO meds started. Pt states she is refusing to eat as she only wants the IV pain meds for her abd pain. Abd. pain is 10/10 today in epigastric region, and she describes it as squeezing. She is swaying back and forth, as well as turning herself in the bed. She has questionable drug seeking behavior. Surgery consulted as pain does not correlate with labs. Will also check a Lipase. Continue levaquin, flagyl, and IVF. Pt made NPO for surgery consult. 10/25/24 Pt transferred to ICU bed this AM. Pt has severe sepsis this AM. 2 liters NS ordered stat. + tachycardia HR- 120-130. BP soft. Lactic acid 6.1 at 5am. Repeat LA after 2-1LNS fluid boluses 1.4. BP improved this afternoon. HR also improved. She was taken to surgery last night for bowel perforation as seen on CT abd/pelvis. It appears per surgery notes she had a bowel resection. She now has 3 kevin drains, a central line, and abd. binder on. General surgery was consulted earlier in the day and it was recommended she be transferred to a higher level of care with GI. Her GI provider is at [facility] and that hospital is currently on diversion and has been all week. She, previously in the week, would only transfer there but there were no beds. Last night [facility] was called and Dr. Ivan spoke with GI there and they recommended a stat CT abd/pelvis last night and would not accept the pt at that time. Thats when bowel perforation was found and GS reconsulted by Dr. Ivan. Prior to going to CT pt had an unresponsive episode per nurse PATRICK Dubon and Narcan was given in which the pt became responsive. She had been requesting IV pain med repeatedly throughout the day, Asked staff to search room for meds last night and 2 unmarked pill bottles were found 1 bottle had no meds and the other had xanax per nurse. Purse and meds locked up per staff. Today steroids reduced. Pt has dilaudid TOE CLOSING MACHINE TENDER per GS orders. Pt asking for benzo discussed at this time this would not be safe as it can cause respiratory depression in combination with narcotic pain medication. Narcan on NOV PRN. Antibiotic changed per GS to Merrem. Continue Flagyl. Call out to pt's GI provider to discuss pt case and further recs. AST/ALT elevated- US ordered for further evaluation. Awaiting further GS recs today. 10/26/24 Pt up walking in the halls today and reports feeling better. Repeat HGB 6.7 at noon and 2 units PRBC ordered. Discussed pt case with pt's GI provider Dr. Holbrook at [facility], yesterday evening. He advised steroids are indicated for acute Crohn's flare and that a weaning schedule can now be implemented with specific instructions on how to do so, see chart notes. He advised that pt should only be admitted to a hospital with GI services from now on as pt only has 2 ft of colon left and she is a very difficult pt to manage. He reported she has a complex hx with drug abuse and crohn's disease. She has tried multiple immunosuppresive drugs without improvement. She has also had multiple colon surgeries. He stressed the fact that she will try and get food and drinks from staff and it is imperative that we do not give in as she will not heal from this surgery. He requested the path and operative reports from the surgery be faxed to him to review. Labs overall improving and she is feeling much better. Pt denies any further concerns and pain is well controlled 01/05 with dilaudid TOE CLOSING MACHINE TENDER. Awaiting further surgery recs today. 10/27/24 Pt up and walking in the halls this AM again. She reports feeling better. Pharmacy discussed lowering TOE CLOSING MACHINE TENDER dose. Continue TPN, IV antibiotics. Continue to reduce steroids per GI recommended schedule. BOBBI resolved. Labs overall continue to improved. All drains remain in place. Abd. fluid culture pending. All other cultures negative. Pain well controlled at this time and she denies any further concerns. She is asking for a timeframe as to when she will be able to eat agai n. Will need to discuss this with general surgery. 10/28/24 Pt resting in bed. She is asking for anxiety meds back and tearful. Discussed side effects of resp depression with combination of narcotic pain medication. Per pharmacy Dilaudid needed to be changed to something else as on back order and med almost out. Nurse called and they recommended fentanyl. Pt refused this med. Discussed case with Dr. Ivan and we will change to Morphine IVP as the syringe will not fit in the machine. Pt states she would give up pain meds for anxiety meds. Discussed that pain meds are PRN and we will see how she does and if she dos not need much we can continue anxiety meds. LAbs overal improving. PLan is pt to have upper GI study Thursday per . She denies CP, SOB, abd. pain, N/V/D. Pt weight obtained this afternoon as bed scale was incorrect. This information was charted with the correct wt. - Review of Systems Constitutional: No Fever, No Chills Eyes: No Symptoms Ears, Nose, & Throat: No Symptoms Respiratory: No Cough, No Short Of Breath Cardiac: No Chest Pain, No Edema, No Syncope Abdominal/Gastrointestinal: Abdominal Pain, No Nausea, No Vomiting, No Diarrhea Genitourinary Symptoms: No Dysuria Musculoskeletal: No Back Pain, No Neck Pain Skin: No Rash Neurological: No Dizziness, No Focal Weakness, No Sensory Changes Psychological: No Symptoms, Anxiety Endocrine: No Symptoms Hematologic/Lymphatic: No Symptoms Immunological/Allergic: No Symptoms Objective Exam General Appearance: no apparent distress, alert Neurologic Exam: alert, oriented x 3, cooperative, normal mood/affect, nml cerebellar function, sensation nml, No motor deficits Skin Exam: normal color, warm, dry Wound Assessment: Skin/Wound Assessment Wound/Incision Assessment Start: 10/26/24 07:40 Text: Status: Active Freq: Q6H Protocol: Document 10/28/24 14:00 Christopher (Rec: 10/28/24 14:08 [facility] [id number]) Wound/Incision Assessment Medial Abdomen Wound Assessment Shift Assessment Wound Type Incision Wound Stage Non Pressure Wound Dressing Status Changed Drainage Amount Moderate Drainage Description Brown Drainage Odor None/Absent General Appearance Well Approximated,Sutures Intact,[place] Intact Surrounding Tissue [place] Topical Solution/Irrigant Saline Irrigant Packing Type Specialty Absorptive Primary Dressing Gauze Pads Secondary Dressing Bordered gauze Comment dressing changed at this time to abd incision, brown drainage on abd binder, old dressing. incision well approximated, no redness, betito intact.. Drainage sponges changed around all 3 KEVIN drains and secured with tape. yellow drainage noted in KEVIN drains - minimal amount. pt tolerated well, medicated with morphine 4 mg prior to dressing change. new abdominal binder applied. Left Lateral Abdomen Drain Type KEVIN drain Drainage Description Yellow Odor None/Absent Right Lower Lateral Abdomen Drain Type KEVIN drain Drainage Description Yellow Odor None/Absent Right Upper Lateral Abdomen Drain Type KEVIN drain Drainage Description Yellow Odor None/Absent Wound Photo Photo Taken No Eye Exam: PERRL, EOMI, eyes nml inspection Ears, Nose, Throat Exam: normal ENT inspection, pharynx normal, moist mucous membranes Neck Exam: normal inspection, non-tender, supple, full range of motion Respiratory Exam: normal breath sounds, lungs clear, No respiratory distress Cardiovascular Exam: regular rate/rhythm, normal heart sounds Gastrointestinal/Abdomen Exam: soft, tenderness, No mass Extremity Exam: normal inspection, normal range of motion Back Exam: normal inspection, normal range of motion, No CVA tenderness, No vertebral tenderness Pelvic Exam: deferred Rectal Exam: deferred Objective Data Vital Signs: Vital Signs - 24 hr Temp Pulse Resp BP BP Pulse Ox 10/28/24 12:00 71 10/28/24 11:16 67 23 150/91 10/28/24 10:42 71 14 132/86 10/28/24 07:54 71 15 170/94 10/28/24 07:51 93 H 15 169/101 10/28/24 07:47 17 95 10/28/24 07:42 98.5 F 76 17 135/94 95 10/28/24 07:03 79 18 135/94 10/28/24 04:10 76 23 144/83 10/28/24 04:00 97.2 F 70 20 144/83 97 10/28/24 00:20 72 14 129/74 97 10/28/24 00:00 77 17 129/74 94 L 10/27/24 23:15 14 94 L 10/27/24 20:11 76 17 144/83 10/27/24 20:00 97.3 F 74 16 144/83 95 10/27/24 16:19 87 19 137/90 10/27/24 16:00 98 F 71 16 137/90 97 Pain Assessment - Last Documented Pain Intensity 6 Pain Scale Used 0-10 Pain Scale Intake and Output: Intake & Output 10/26/24 10/27/24 10/28/24 10/29/24 11:59 11:59 11:59 11:59 Intake Total 3322 4517 3414 Output Total 2960 2975 1510 Balance 362 1542 1904 Weight 76.4 kg 76.8 kg 70.81 kg Lab Results: Lab Results-Last 24 Hours 10/27/24 10/27/24 10/27/24 Range/Units 16:18 20:09 23:48 WBC Corrected WBC (auto) RBC Hgb Hct MCV MCH MCHC RDW Plt Count MPV Gran % (34.0-71.1) % Immature Gran % (Auto) (0.001-0.429) % Nucleat RBC Rel Count (0.00-0.2) % Eos # (Auto) (0.04-0.36) x10^3/uL Immature Gran # (Auto) (0.001-0.031) x10^3u/L Absolute Lymphs (auto) (1.18-3.74) x10^3/uL Absolute Monos (auto) (0.24-0.86) x10^3/uL Absolute Nucleated RBC (0.00-0.012) x10^3u/L Lymphocytes % (19.3-51.7) % Monocytes % (4.7-12.5) % Eosinophils % (0.7-5.8) % Basophils % (0.1-1.2) % Absolute Granulocytes (1.56-6.13) x10^3/uL Basophils # (0.01-0.08) x10^3/uL Sodium (135-145) mmol/L Potassium (3.5-5.1) mmol/L Chloride (98-107) mmol/L Carbon Dioxide (22-30) mmol/L Anion Gap (5-15) MEQ/L BUN (7-17) mg/dL Creatinine (0.52-1.04) mg/dL Estimated GFR ML/MIN Glucose (74-106) mg/dL POC Glucometer 128 H 135 H 134 H (74 to 106) mg/dL Calcium (8.4-10.2) mg/dL Magnesium (1.6-2.3) mg/dL Total Bilirubin (0.2-1.3) mg/dL AST (14-36) U/L ALT (0-35) U/L Alkaline Phosphatase (38-126) U/L Serum Total Protein (6.3-8.2) g/dL Albumin (3.5-5.0) g/dL Slides for Path Review 10/28/24 10/28/24 10/28/24 Range/Units 04:06 04:59 07:06 WBC Cancelled Corrected WBC (auto) Cancelled RBC Cancelled Hgb Cancelled Hct Cancelled MCV Cancelled MCH Cancelled MCHC Cancelled RDW Cancelled Plt Count Cancelled MPV Cancelled Gran % (34.0-71.1) % Immature Gran % (Auto) (0.001-0.429) % Nucleat RBC Rel Count (0.00-0.2) % Eos # (Auto) (0.04-0.36) x10^3/uL Immature Gran # (Auto) (0.001-0.031) x10^3u/L Absolute Lymphs (auto) (1.18-3.74) x10^3/uL Absolute Monos (auto) (0.24-0.86) x10^3/uL Absolute Nucleated RBC (0.00-0.012) x10^3u/L Lymphocytes % (19.3-51.7) % Monocytes % (4.7-12.5) % Eosinophils % (0.7-5.8) % Basophils % (0.1-1.2) % Absolute Granulocytes (1.56-6.13) x10^3/uL Basophils # (0.01-0.08) x10^3/uL Sodium (135-145) mmol/L Potassium (3.5-5.1) mmol/L Chloride (98-107) mmol/L Carbon Dioxide (22-30) mmol/L Anion Gap (5-15) MEQ/L BUN (7-17) mg/dL Creatinine (0.52-1.04) mg/dL Estimated GFR ML/MIN Glucose (74-106) mg/dL POC Glucometer 130 H 110 H (74 to 106) mg/dL Calcium (8.4-10.2) mg/dL Magnesium (1.6-2.3) mg/dL Total Bilirubin (0.2-1.3) mg/dL AST (14-36) U/L ALT (0-35) U/L Alkaline Phosphatase (38-126) U/L Serum Total Protein (6.3-8.2) g/dL Albumin (3.5-5.0) g/dL Slides for Path Review Cancelled 10/28/24 10/28/24 10/28/24 Range/Units 07:39 07:39 11:16 WBC 9.1 Corrected WBC (auto) RBC 3.50 L Hgb 9.5 L Hct 28.7 L MCV 82.0 MCH 27.1 MCHC 33.1 RDW 15.7 H Plt Count 247 MPV 10.7 Gran % 80.3 H (34.0-71.1) % Immature Gran % (Auto) 2.0 H (0.001-0.429) % Nucleat RBC Rel Count 0.8 H (0.00-0.2) % Eos # (Auto) 0.01 L (0.04-0.36) x10^3/uL Immature Gran # (Auto) 0.18 H (0.001-0.031) x10^3u/L Absolute Lymphs (auto) 0.92 L (1.18-3.74) x10^3/uL Absolute Monos (auto) 0.68 (0.24-0.86) x10^3/uL Absolute Nucleated RBC 0.07 H (0.00-0.012) x10^3u/L Lymphocytes % 10.1 L (19.3-51.7) % Monocytes % 7.4 (4.7-12.5) % Eosinophils % 0.1 L (0.7-5.8) % Basophils % 0.1 (0.1-1.2) % Absolute Granulocytes 7.34 H (1.56-6.13) x10^3/uL Basophils # 0.01 (0.01-0.08) x10^3/uL Sodium 137 (135-145) mmol/L Potassium 3.5 (3.5-5.1) mmol/L Chloride 110 H (98-107) mmol/L Carbon Dioxide 22 (22-30) mmol/L Anion Gap 8.3 (5-15) MEQ/L BUN 16 (7-17) mg/dL Creatinine 0.65 (0.52-1.04) mg/dL Estimated GFR 108.5 ML/MIN Glucose 110 H (74-106) mg/dL POC Glucometer 120 H (74 to 106) mg/dL Calcium 7.7 L (8.4-10.2) mg/dL Magnesium 2.2 (1.6-2.3) mg/dL Total Bilirubin 0.90 (0.2-1.3) mg/dL AST 178 H (14-36) U/L ALT 209 H (0-35) U/L Alkaline Phosphatase 50 (38-126) U/L Serum Total Protein 5.0 L (6.3-8.2) g/dL Albumin 2.7 L (3.5-5.0) g/dL Slides for Path Review YES Radiology Exams: Radiology Procedures Category Date Time Status UGI w/o AIR Urgent Exams 10/31/24 08:00 Ordered Multi-Disciplinary Progress Notes: Multi-Disciplinary Progress Notes 10/28/24 13:13 Case Management Note by Bhavani Tang PATIENT STILL ACUTELY ILL, FRESHLY POST OP. NO PLANS FOR DC OVER THE WEEKEND. PATIENT CONTINUES TO PLAN TO DC HOME. WILL ASSESS NEEDS CLOSER TO TIME OF DC. PATIENT NORMALLY INDEPENDENT WITH ADLS Initialized on 10/28/24 13:13 - END OF NOTE 10/27/24 15:20 Nutrition Note by Florina Harris F/U Note: Pt remains NPO; TPN infusing @ 80mls/hour meeting pts needs 100%. Labs 10/27= alb 2.6, BUN 19, glu 113, hgb 9.3, hct 28.3. adm weight 71.5kg; current weight 76.4kg. Pt with + fluid balance. Pt tolerating TPN. Will con't to monitor and f/u prn. TSANDI Lee Initialized on 10/27/24 15:20 - END OF NOTE Assessment/Plan (1) Severe sepsis Current Visit: Yes Status: Acute Code(s): A41.9 - SEPSIS, UNSPECIFIED ORGANISM; R65.20 - SEVERE SEPSIS WITHOUT SEPTIC SHOCK (2) Crohn's disease Current Visit: Yes Status: Chronic Code(s): K50.90 - CROHN'S DISEASE, UNSPECIFIED, WITHOUT COMPLICATIONS (3) Bowel perforation Current Visit: Yes Status: Acute Code(s): K63.1 - PERFORATION OF INTESTINE (NONTRAUMATIC) (4) S/P colon resection Current Visit: Yes Status: Acute Code(s): Z90.49 - ACQUIRED ABSENCE OF OTHER SPECIFIED PARTS OF DIGESTIVE TRACT (5) Anemia Current Visit: Yes Status: Acute Qualifiers: Anemia type: other cause Code(s): D64.9 - ANEMIA, UNSPECIFIED (6) Transaminitis Current Visit: Yes Status: Acute Code(s): R74.01 - ELEVATION OF LEVELS OF LIVER TRANSAMINASE LEVELS (7) Hyperglycemia Current Visit: Yes Status: Acute Code(s): R73.9 - HYPERGLYCEMIA, UNSPECIFIED (8) Nausea & vomiting Current Visit: Yes Status: Resolved Code(s): R11.2 - NAUSEA WITH VOMITING, UNSPECIFIED (9) Anxiety Current Visit: No Status: Chronic Code(s): F41.9 - ANXIETY DISORDER, UNSPECIFIED (10) Hypokalemia Current Visit: No Status: Acute Code(s): E87.6 - HYPOKALEMIA (11) Chronic pain syndrome Current Visit: No Status: Chronic Assessment & Plan: (1) Severe sepsis Current Visit: Yes Status: Acute Assessment & Plan: - LA 6.1 - 1 L LR fluid bolus gave last night - 2 L NS fluid bolus gave this AM - Repeat LA 1.4 - 2:2 colon perforation - Resp > 20 , HR ? 90. WBC > 12,000, BOBBI - SBP < 90 - Tele - ICU - I&O Q4hr Code(s): A41.9 - SEPSIS, UNSPECIFIED ORGANISM; R65.20 - SEVERE SEPSIS WITHOUT SEPTIC SHOCK (2) Crohn's disease Current Visit: Yes Status: Chronic Assessment & Plan: - Surgery consult: recommends tx to higher level of care where GI is available - no further radiology exams at this time. - Lipase pending - CBC, CMP reviewed - IVF - Levaquin/flagyl IV, steriods - Protonix - narcotic pain meds - Follow Dr. Hu in [place] with GI - KUB 10/18/24 appears nonacute and nonobstructed again with moderate fecal debris predominantly in ascending and transverse colon. No focal bowel dilatation or free air. Contrast in urinary bladder from recent CT. Remaining solid organs and osseous structures unremarkable - Abd/Pelvis CT: 10/17/24 Impression: 1. Descending colonic circumferential wall thickening with minimal pericolonic stranding, probable colitis in this patient with history of Crohn's disease. Colonic mass is not completely excluded as there is also intraluminal narrowing with moderate fecal debris up to level of narrowing. 2. Fatty liver. - Tried to transfer pt for GI and would not accept w/o CT abd/ pelvis - Stat CT abd pelvis 10/24 16:42 Impression: 1. New abdominal free fluid and free air concerning for GI perforation. Query gastric perforation. 2. Diminished colonic bowel wall thickening. 3. Again incidental fatty liver and periumbilical hernia. - called again for consult by Dr. Ivan - Colon resection by Dr. Fong - Black oliveros., KEVIN drains x3, NG - TOE CLOSING MACHINE TENDER Dilaudid by - Antibiotic changed to Merrem and flagyl by GS - Protonix changed to IV Q12 10/25/24 - TPN started - Steroids decreased to 40 BID - Discuss pt case with pt's GI provider- wean steroids as directed: tomorrow change 30 BID, THen 40 QD x1 week, then 30 QD x1 week - Per GI pt has 2 ft of colon left - Will fax Path and operative report when available per Dr. Hu request. 10/26 - Anemia- 2 units PRBC ordered - Advised nurse Krystol, RN to let surgery know of acute anemia today - CBC, CMP reviewed- labs overall improving - NS @ 30 ml/hr to run with TOE CLOSING MACHINE TENDER - Steroids decrease to 30 BID 10/27 - CBC, CMP reviewed- labs overall improving - Steroids started at 40 QD x1 week 10/28 - CBC, CMP reviewed- labs overall improving - Pain med changed to morphine IVP Code(s): K50.90 - CROHN'S DISEASE, UNSPECIFIED, WITHOUT COMPLICATIONS (3) Bowel perforation Current Visit: Yes Status: Acute Assessment & Plan: - as seen on CT 10/24 Code(s): K63.1 - PERFORATION OF INTESTINE (NONTRAUMATIC) (4) S/P colon resection Current Visit: Yes Status: Acute Assessment & Plan: - Colon resection by Dr. Fong 10/24- evening - NPO - Abd binder., KEVIN drains x3, NG - TOE CLOSING MACHINE TENDER Dilaudid by GS 10/27 - Abd. fluid culture negative Code(s): Z90.49 - ACQUIRED ABSENCE OF OTHER SPECIFIED PARTS OF DIGESTIVE TRACT (5) Anemia Current Visit: Yes Status: Acute Qualifiers: Anemia type: other cause Assessment & Plan: - Repeat HGB at noon 6.7 - 2 units PRBC ordered - T&C ordered - Repeat labs after blood infused. - RN to let team now about anemia. - Occult stool + on 10/23 10/27 - Hgb 9.3- stable 10/28 - Hgb 9.5 Code(s): D64.9 - ANEMIA, UNSPECIFIED (6) Transaminitis Current Visit: Yes Status: Acute Assessment & Plan: - likely 2:2 surgery - Trend labs - US tech unable to do US d/t abd incicsions. - discussed with Dr. Ivan- will continue to monitor. 10/26 - labs improving- trend 10/17 - labs continue to improve 10/28 - labs continue to improve Code(s): R74.01 - ELEVATION OF LEVELS OF LIVER TRANSAMINASE LEVELS (7) Hyperglycemia Current Visit: Yes Status: Acute Assessment & Plan: - Accuchecks Q4 as she is NPO - Humalog s/s Code(s): R73.9 - HYPERGLYCEMIA, UNSPECIFIED (8) Nausea & vomiting Current Visit: Yes Status: Resolved Assessment & Plan: - IVF - Zofran PRN Code(s): R11.2 - NAUSEA WITH VOMITING, UNSPECIFIED (9) Anxiety Current Visit: No Status: Chronic Assessment & Plan: - meds stopped Code(s): F41.9 - ANXIETY DISORDER, UNSPECIFIED (10) Hypokalemia Current Visit: No Status: Acute Assessment & Plan: - resolved Code(s): E87.6 - HYPOKALEMIA (11) Chronic pain syndrome Current Visit: No Status: Chronic Assessment & Plan: - Oral pain med held for now - on TOE CLOSING MACHINE TENDER for pain PRN- pharmacy managing VTE: SCD's PPI: Protonix Next of KIN:parent Shanti/Norris Rojas [phone] D/C plan: pending surgery recs Code status: Full
[2024-10-28] MEDS: APRESOLINE 20 MG/ML INJ IV PRN (16:39)
[2024-10-29 04:42] LABS: Absolute Neutrophil Ct (ANC) 5.98 x10^3/uL (1.56-6.13); BASOPHIL % 0.2 % (0.1-1.2); Basophil (Absolute #) 0.02 x10^3/uL (0.01-0.08); Eosinophil % 0.1 % (0.7-5.8); Eosinophil (Absolute #) 0.01 x10^3/uL (0.04-0.36); Hematocrit 30.3 % (34.1-44.9); Hemoglobin 10.2 g/dL (11.2-15.7); IMMATURE GRAN # 0.45 x10^3u/L (0.001-0.031); Lymphocyte (Absolute #) 1.56 x10^3/uL (1.18-3.74); Lymphocytes % 17.2 % (19.3-51.7); Mean Cell Volume 80.6 fL (79.4-94.8); Mean Corpuscular Hemoglobin 27.1 pg (25.6-32.2); Mean Corpuscular Hgb Concent. 33.7 g/dL (32.2-35.5); Mean Platelet Volume 9.4 fL (9.4-12.3); Monocyte (Absolute #) 1.03 x10^3/uL (0.24-0.86); Monocytes % 11.4 % (4.7-12.5); NUCLEATED RBC # 0.07 x10^3u/L (0.00-0.012); NUCLEATED RBC % 0.8 % (0.00-0.2); Neutrophil % 66.1 % (34.0-71.1); Platelet Count 395 x10^3/uL (182-369); Red Blood Count 3.76 x10^6/uL (3.93-5.22); Red Cell Distribution Width 15.9 % (11.7-14.4); White Blood Count 9.1 x10^3/uL (3.98-10.04)
[2024-10-29 04:54] LABS: ALBUMIN 2.7 g/dL (3.5-5.0); ANION GAP 6.8 MEQ/L (5-15); BILIRUBIN,TOTAL 0.8 mg/dL (0.2-1.3); Calcium 7.8 mg/dL (8.4-10.2); Creatinine 1 0.67 mg/dL (0.52-1.04); EST GLOMERULAR FILTRATION RATE 107.8 ML/MIN; MAGNESIUM 2.2 mg/dL (1.6-2.3); Potassium 3.3 mmol/L (3.5-5.1); Total Protein 5.3 g/dL (6.3-8.2)
[2024-10-29] MEDS: POTASSIUM CHLORIDE 20 mEq IN WATER 100ML 20 MEQ/100 ML BAG IV SCH (05:48)
[2024-10-29] MEDS: POTASSIUM CHLORIDE 20 mEq IN WATER 100ML 100 ML IV SCH (09:54)
--- NOTE | 2024-10-29 13:08 | PCM.NOTE ---
Date and Time: 10/29/24 1304 Subjective Assessment: 10/24/24 49-year-old with a history of Crohn's disease and anxiety, admitted 10/17/24 with abdominal pain, nausea, and diarrhea, consistent with her prior Crohn's flares. Patient has history of poorly controlled Crohn's disease; she was previously on Humira, but it was no longer effective. She tried Entyvio, but worsened, and was recently started on Stelara, receiving her second dose earlier this month. However, she has frequent hospitalizations with severe flares, most recently in June 2024 in [place]. She had been on a slow taper of steroids, discharging on prednisone 60, tapering slowly down to her maintenance dose of 10 mg daily. She follows with Dr. Yashira Holbrook in [place]. On admission she was going on 3 days of severe, sharp, constant, epigastric pain, radiating to the left upper and lower quadrants, worsening with food or drink, relieved only by pain medications. Associated with nonbloody, nonbilious vomiting, 6 times per day. Patient has chronic watery, non-bloody diarrhea, but this is increased in quantity and frequency, up to 4-5 times per day. She was given a Medrol Dosepak, but not have any relief. Initial labs remarkable for hypokalemia and BOBBI which have since resolved. Patient admitted with Crohns flare and placed on Flagyl and Levaquin. Diet changed to soft yesterday evening and she felt she wanted to eat something. IV pain meds stopped at that time and home PO meds started. Pt states she is refusing to eat as she only wants the IV pain meds for her abd pain. Abd. pain is 10/10 today in epigastric region, and she describes it as squeezing. She is swaying back and forth, as well as turning herself in the bed. She has questionable drug seeking behavior. Surgery consulted as pain does not correlate with labs. Will also check a Lipase. Continue levaquin, flagyl, and IVF. Pt made NPO for surgery consult. 10/25/24 Pt transferred to ICU bed this AM. Pt has severe sepsis this AM. 2 liters NS ordered stat. + tachycardia HR- 120-130. BP soft. Lactic acid 6.1 at 5am. Repeat LA after 2-1LNS fluid boluses 1.4. BP improved this afternoon. HR also improved. She was taken to surgery last night for bowel perforation as seen on CT abd/pelvis. It appears per surgery notes she had a bowel resection. She now has 3 kevin drains, a central line, and abd. binder on. General surgery was consulted earlier in the day and it was recommended she be transferred to a higher level of care with GI. Her GI provider is at [facility] and that hospital is currently on diversion and has been all week. She, previously in the week, would only transfer there but there were no beds. Last night [facility] was called and Dr. Ivan spoke with GI there and they recommended a stat CT abd/pelvis last night and would not accept the pt at that time. Thats when bowel perforation was found and GS reconsulted by Dr. Ivan. Prior to going to CT pt had an unresponsive episode per nurse PATRICK Dubon and Narcan was given in which the pt became responsive. She had been requesting IV pain med repeatedly throughout the day, Asked staff to search room for meds last night and 2 unmarked pill bottles were found 1 bottle had no meds and the other had xanax per nurse. Purse and meds locked up per staff. Today steroids reduced. Pt has dilaudid MUSIC ENGRAVER per GS orders. Pt asking for benzo discussed at this time this would not be safe as it can cause respiratory depression in combination with narcotic pain medication. Narcan on NOV PRN. Antibiotic changed per GS to Merrem. Continue Flagyl. Call out to pt's GI provider to discuss pt case and further recs. AST/ALT elevated- US ordered for further evaluation. Awaiting further GS recs today. 10/26/24 Pt up walking in the halls today and reports feeling better. Repeat HGB 6.7 at noon and 2 units PRBC ordered. Discussed pt case with pt's GI provider Dr. Holbrook at [facility], yesterday evening. He advised steroids are indicated for acute Crohn's flare and that a weaning schedule can now be implemented with specific instructions on how to do so, see chart notes. He advised that pt should only be admitted to a hospital with GI services from now on as pt only has 2 ft of colon left and she is a very difficult pt to manage. He reported she has a complex hx with drug abuse and crohn's disease. She has tried multiple immunosuppresive drugs without improvement. She has also had multiple colon surgeries. He stressed the fact that she will try and get food and drinks from staff and it is imperative that we do not give in as she will not heal from this surgery. He requested the path and operative reports from the surgery be faxed to him to review. Labs overall improving and she is feeling much better. Pt lluvia es any further concerns and pain is well controlled 01/05 with dilaudid MUSIC ENGRAVER. Awaiting further surgery recs today. 10/27/24 Pt up and walking in the halls this AM again. She reports feeling better. Pharmacy discussed lowering MUSIC ENGRAVER dose. Continue TPN, IV antibiotics. Continue to reduce steroids per GI recommended schedule. BOBBI resolved. Labs overall continue to improved. All drains remain in place. Abd. fluid culture pending. All other cultures negative. Pain well controlled at this time and she denies any further concerns. She is asking for a timeframe as to when she will be able to eat aga in. Will need to discuss this with general surgery. 10/28/24 Pt resting in bed. She is asking for anxiety meds back and tearful. Discussed side effects of resp depression with combination of narcotic pain medication. Per pharmacy Dilaudid needed to be changed to something else as on back order and med almost out. Nurse called GS and they recommended fentanyl. Pt refused this med. Discussed case with Dr. Ivan and we will change to Morphine IVP as the syringe will not fit in the machine. Pt states she would give up pain meds for anxiety meds. Discussed that pain meds are PRN and we will see how she does and if she dos not need much we can continue anxiety meds. LAbs overal improving. PLan is pt to have upper GI study Thursday per GS. She denies CP, SOB, abd. pain, N/V/D. Pt weight obtained this afternoon as bed scale was incorrect. This information was charted with the correct wt. 10/29/24 Pt resting in bed She is feeling much better. She is asking for chicken broth. Explained she is scheduled for an upper GI scan Thursday and that she will need to discuss when she can start eating again after that is completed with general surgery. For now continue TPN. K+ 3.3 and replaced. Labs overall improving. Pain improving. CXR for NG placement and nonconcerning. Continue Merrem and Flagyl. Per GS note on 10/27/[address] abd/pelvis today, order placed. Reviewed OP report today as it was not back immediately. Note states post op dx perforated large proximal duodenlal ulcer, large diffuse peritonitis. Also incarcerated ventral hernia with incarcerated omentum. Pt denies CP, SOB, N/V/D. - Review of Systems Constitutional: No Fever, No Chills Eyes: No Symptoms Ears, Nose, & Throat: No Symptoms Respiratory: No Cough, No Short Of Breath Cardiac: No Chest Pain, No Edema, No Syncope Abdominal/Gastrointestinal: Abdominal Pain, No Nausea, No Vomiting, No Diarrhea Genitourinary Symptoms: No Dysuria Musculoskeletal: No Back Pain, No Neck Pain Skin: No Rash Neurological: No Dizziness, No Focal Weakness, No Sensory Changes Psychological: No Symptoms Endocrine: No Symptoms Hematologic/Lymphatic: No Symptoms Immunological/Allergic: No Symptoms Objective Exam General Appearance: no apparent distress, alert Neurologic Exam: alert, oriented x 3, cooperative, normal mood/affect, nml cerebellar function, sensation nml, No motor deficits Skin Exam: normal color, warm, dry Wound Assessment: Skin/Wound Assessment Wound/Incision Assessment Start: 10/26/24 07:40 Text: Status: Active Freq: Q6H Protocol: Document 10/29/24 08:10 JV (Rec: 10/29/24 10:12 JV [id number]) Wound/Incision Assessment Medial Abdomen Wound Assessment Shift Assessment Wound Type Incision Wound Stage Non Pressure Wound Dressing Status Dry & Intact Drainage Amount None Secondary Dressing bordered gauze Comment dressing CDI at this time Left Lateral Abdomen Drain Type KEVIN drain Drainage Description Yellow Odor None/Absent Right Lower Lateral Abdomen Drain Type KEVIN drain Drainage Description Yellow Odor None/Absent Right Upper Lateral Abdomen Drain Type KEVIN drain Drainage Description Yellow Odor None/Absent Wound Photo Photo Taken No Eye Exam: PERRL, EOMI, eyes nml inspection Ears, Nose, Throat Exam: normal ENT inspection, pharynx normal, moist mucous membranes Neck Exam: normal inspection, non-tender, supple, full range of motion Respiratory Exam: normal breath sounds, lungs clear, No respiratory distress Cardiovascular Exam: regular rate/rhythm, normal heart sounds Gastrointestinal/Abdomen Exam: soft, tenderness, No mass Extremity Exam: normal inspection, normal range of motion Back Exam: normal inspection, normal range of motion, No CVA tenderness, No vertebral tenderness Pelvic Exam: deferred Rectal Exam: deferred Objective Data Vital Signs: Vital Signs - 24 hr Temp Pulse Resp BP BP Pulse Ox 10/29/24 12:45 72 10/29/24 11:40 98.2 F 72 16 133/86 99 10/29/24 11:31 77 17 133/86 10/29/24 08:31 80 18 138/75 10/29/24 08:25 98.0 F 83 22 183/102 95 10/29/24 08:10 80 10/29/24 07:22 75 38 H 183/102 10/29/24 04:01 78 15 137/77 10/29/24 04:00 98.9 F 70 14 137/77 98 10/28/24 23:30 70 10/28/24 23:29 98.8 F 70 16 140/108 99 10/28/24 23:28 72 14 140/108 10/28/24 19:59 98.9 F 78 18 97 10/28/24 19:55 78 10/28/24 19:30 74 19 155/102 10/28/24 19:10 81 22 151/91 10/28/24 18:32 98 H 17 10/28/24 18:03 82 11 L 10/28/24 17:30 80 13 175/115 10/28/24 17:00 92 H 28 H 162/89 10/28/24 16:43 83 20 155/91 10/28/24 16:17 73 16 161/107 97 10/28/24 16:15 76 20 10/28/24 16:00 71 Pain Assessment - Last Documented Pain Intensity 6 Pain Scale Used 0-10 Pain Scale Intake and Output: Intake & Output 10/27/24 10/28/24 10/29/24 10/30/24 11:59 11:59 11:59 11:59 Intake Total 4517 3414 3677 Output Total 2975 1510 665 180 Balance 1542 1904 3012 -180 Weight 76.8 kg 68.04 kg Lab Results: Lab Results-Last 24 Hours 10/28/24 10/28/24 10/29/24 Range/Units 16:18 21:13 00:04 WBC (3.98-10.04) x10^3/uL RBC (3.93-5.22) x10^6/uL Hgb (11.2-15.7) g/dL Hct (34.1-44.9) % MCV (79.4-94.8) fL MCH (25.6-32.2) pg MCHC (32.2-35.5) g/dL RDW (11.7-14.4) % Plt Count (182-369) x10^3/uL MPV (9.4-12.3) fL Gran % (34.0-71.1) % Immature Gran % (Auto) (0.001-0.429) % Nucleat RBC Rel Count (0.00-0.2) % Eos # (Auto) (0.04-0.36) x10^3/uL Immature Gran # (Auto) (0.001-0.031) x10^3u/L Absolute Lymphs (auto) (1.18-3.74) x10^3/uL Absolute Monos (auto) (0.24-0.86) x10^3/uL Absolute Nucleated RBC (0.00-0.012) x10^3u/L Lymphocytes % (19.3-51.7) % Monocytes % (4.7-12.5) % Eosinophils % (0.7-5.8) % Basophils % (0.1-1.2) % Absolute Granulocytes (1.56-6.13) x10^3/uL Basophils # (0.01-0.08) x10^3/uL Sodium (135-145) mmol/L Potassium (3.5-5.1) mmol/L Chloride (98-107) mmol/L Carbon Dioxide (22-30) mmol/L Anion Gap (5-15) MEQ/L BUN (7-17) mg/dL Creatinine (0.52-1.04) mg/dL Estimated GFR ML/MIN Glucose (74-106) mg/dL POC Glucometer 137 H 131 H 130 H (74 to 106) mg/dL Calcium (8.4-10.2) mg/dL Magnesium (1.6-2.3) mg/dL Total Bilirubin (0.2-1.3) mg/dL AST (14-36) U/L ALT (0-35) U/L Alkaline Phosphatase (38-126) U/L Serum Total Protein (6.3-8.2) g/dL Albumin (3.5-5.0) g/dL 10/29/24 10/29/24 10/29/24 Range/Units 04:19 04:36 04:36 WBC 9.1 (3.98-10.04) x10^3/uL RBC 3.76 L (3.93-5.22) x10^6/uL Hgb 10.2 L (11.2-15.7) g/dL Hct 30.3 L (34.1-44.9) % MCV 80.6 (79.4-94.8) fL MCH 27.1 (25.6-32.2) pg MCHC 33.7 (32.2-35.5) g/dL RDW 15.9 H (11.7-14.4) % Plt Count 395 H D (182-369) x10^3/uL MPV 9.4 (9.4-12.3) fL Gran % 66.1 (34.0-71.1) % Immature Gran % (Auto) 5.0 H (0.001-0.429) % Nucleat RBC Rel Count 0.8 H (0.00-0.2) % Eos # (Auto) 0.01 L (0.04-0.36) x10^3/uL Immature Gran # (Auto) 0.45 H (0.001-0.031) x10^3u/L Absolute Lymphs (auto) 1.56 (1.18-3.74) x10^3/uL Absolute Monos (auto) 1.03 H (0.24-0.86) x10^3/uL Absolute Nucleated RBC 0.07 H (0.00-0.012) x10^3u/L Lymphocytes % 17.2 L (19.3-51.7) % Monocytes % 11.4 (4.7-12.5) % Eosinophils % 0.1 L (0.7-5.8) % Basophils % 0.2 (0.1-1.2) % Absolute Granulocytes 5.98 (1.56-6.13) x10^3/uL Basophils # 0.02 (0.01-0.08) x10^3/uL Sodium 138 (135-145) mmol/L Potassium 3.3 L (3.5-5.1) mmol/L Chloride 108 H (98-107) mmol/L Carbon Dioxide 27 (22-30) mmol/L Anion Gap 6.8 (5-15) MEQ/L BUN 14 (7-17) mg/dL Creatinine 0.67 (0.52-1.04) mg/dL Estimated GFR 107.8 ML/MIN Glucose 96 (74-106) mg/dL POC Glucometer 104 (74 to 106) mg/dL Calcium 7.8 L (8.4-10.2) mg/dL Magnesium 2.2 (1.6-2.3) mg/dL Total Bilirubin 0.80 (0.2-1.3) mg/dL AST 109 H (14-36) U/L ALT 197 H (0-35) U/L Alkaline Phosphatase 51 (38-126) U/L Serum Total Protein 5.3 L (6.3-8.2) g/dL Albumin 2.7 L (3.5-5.0) g/dL 10/29/24 10/29/24 Range/Units 07:20 11:30 WBC (3.98-10.04) x10^3/uL RBC (3.93-5.22) x10^6/uL Hgb (11.2-15.7) g/dL Hct (34.1-44.9) % MCV (79.4-94.8) fL MCH (25.6-32.2) pg MCHC (32.2-35.5) g/dL RDW (11.7-14.4) % Plt Count (182-369) x10^3/uL MPV (9.4-12.3) fL Gran % (34.0-71.1) % Immature Gran % (Auto) (0.001-0.429) % Nucleat RBC Rel Count (0.00-0.2) % Eos # (Auto) (0.04-0.36) x10^3/uL Immature Gran # (Auto) (0.001-0.031) x10^3u/L Absolute Lymphs (auto) (1.18-3.74) x10^3/uL Absolute Monos (auto) (0.24-0.86) x10^3/uL Absolute Nucleated RBC (0.00-0.012) x10^3u/L Lymphocytes % (19.3-51.7) % Monocytes % (4.7-12.5) % Eosinophils % (0.7-5.8) % Basophils % (0.1-1.2) % Absolute Granulocytes (1.56-6.13) x10^3/uL Basophils # (0.01-0.08) x10^3/uL Sodium (135-145) mmol/L Potassium (3.5-5.1) mmol/L Chloride (98-107) mmol/L Carbon Dioxide (22-30) mmol/L Anion Gap (5-15) MEQ/L BUN (7-17) mg/dL Creatinine (0.52-1.04) mg/dL Estimated GFR ML/MIN Glucose (74-106) mg/dL POC Glucometer 108 H 117 H (74 to 106) mg/dL Calcium (8.4-10.2) mg/dL Magnesium (1.6-2.3) mg/dL Total Bilirubin (0.2-1.3) mg/dL AST (14-36) U/L ALT (0-35) U/L Alkaline Phosphatase (38-126) U/L Serum Total Protein (6.3-8.2) g/dL Albumin (3.5-5.0) g/dL Radiology Exams: Radiology Procedures Category Date Time Status CHEST 1 VIEW (PORTABLE) Routine Exams 10/29/24 07:18 Taken UGI w/o AIR Urgent Exams 10/31/24 08:00 Ordered Multi-Disciplinary Progress Notes: Multi-Disciplinary Progress Notes 10/29/24 10:42 Pharmacy Note by [facility] changing TPN due to product availability... changing to Clinimix E 15/5 Adding additional KCL 40 meq to bag for total 85 meq given per day patient had been receiving k riders... current potassium level - 3.3 tpn rate = 80 ml/hr 1920 ml/day weight decreased 2 kg today. instructed nursing for accurate I and Os [facility] CENTRAL LINE TPN FORMULATION a. Hospital Formulation: (triple mix) Clinimix E 15/5 Dextrose 15% + Amino Acid 5% per 2000 ml + Intralipid 20% 250 ML b. Total KCals = 1920 KCAL per bag c. Total Volume = 2250 ml d. Carbohydrates = 300 gm; Protein = 100 gm; Fat = 50 gm e. Electrolytes/ premixed bag Sodium 70 meq Potassium 60 meq Calcium 9 meq Magnesium 10 meq Chloride 78 meq Acetate 160 meq Phosphorous 30 mMole 1. CENTRAL LINE - TPN RATE: 80 ml/hr Total Volume to be delivered /24 hr: 1920 ml Total Calories to be delivered/24 hr: 1638 kcal 2. Additions to TPN Bag for today (Date__10/29/2024 ) A. Sodium chloride B. Potassium chloride 40 mEq C. MVI 10 ml D. Trace Metals 1 mg E. Other _Humulin R 30 units ii. Total Electrolytes per 24 hours: 1. Sodium 60 meq 2. Potassium 85 meq 3. Calcium 7.65 meq 4. Magnesium 8.5 meq 5. Chloride 83 meq 6. Acetate 136 meq 7. Phosphorous 25.5 mmol k mari Initialized on 10/29/24 10:42 - END OF NOTE 10/28/24 13:13 Case Management Note by Bhavani Tang PATIENT STILL ACUTELY ILL, FRESHLY POST OP. NO PLANS FOR DC OVER THE WEEKEND. PATIENT CONTINUES TO PLAN TO DC HOME. WILL ASSESS NEEDS CLOSER TO TIME OF DC. PATIENT NORMALLY INDEPENDENT WITH ADLS Initialized on 10/28/24 13:13 - END OF NOTE Assessment/Plan (1) Severe sepsis Current Visit: Yes Status: Acute Code(s): A41.9 - SEPSIS, UNSPECIFIED ORGANISM; R65.20 - SEVERE SEPSIS WITHOUT SEPTIC SHOCK (2) Crohn's disease Current Visit: Yes Status: Chronic Code(s): K50.90 - CROHN'S DISEASE, UNSPECIFIED, WITHOUT COMPLICATIONS (3) Bowel perforation Current Visit: Yes Status: Acute Code(s): K63.1 - PERFORATION OF INTESTINE (NONTRAUMATIC) (4) S/P colon resection Current Visit: Yes Status: Acute Code(s): Z90.49 - ACQUIRED ABSENCE OF OTHER SPECIFIED PARTS OF DIGESTIVE TRACT (5) Anemia Current Visit: Yes Status: Acute Qualifiers: Anemia type: other cause Code(s): D64.9 - ANEMIA, UNSPECIFIED (6) Transaminitis Current Visit: Yes Status: Acute Code(s): R74.01 - ELEVATION OF LEVELS OF LIVER TRANSAMINASE LEVELS (7) Hyperglycemia Current Visit: Yes Status: Acute Code(s): R73.9 - HYPERGLYCEMIA, UNSPECIFIED (8) Nausea & vomiting Current Visit: Yes Status: Resolved Code(s): R11.2 - NAUSEA WITH VOMITING, UNSPECIFIED (9) Anxiety Current Visit: No Status: Chronic Code(s): F41.9 - ANXIETY DISORDER, UNSPECIFIED (10) Hypokalemia Current Visit: No Status: Acute Code(s): E87.6 - HYPOKALEMIA (11) Chronic pain syndrome Current Visit: No Status: Chronic Assessment & Plan: (1) Severe sepsis Current Visit: Yes Status: Acute Assessment & Plan: - LA 6.1 - 1 L LR fluid bolus gave last night - 2 L NS fluid bolus gave this AM - Repeat LA 1.4 - 2:2 colon perforation - Resp > 20 , HR ? 90. WBC > 12,000, BOBBI - SBP < 90 - Tele - ICU - I&O Q4hr Code(s): A41.9 - SEPSIS, UNSPECIFIED ORGANISM; R65.20 - SEVERE SEPSIS WITHOUT SEPTIC SHOCK (2) Crohn's disease Current Visit: Yes Status: Chronic Assessment & Plan: - Surgery consult: recommends tx to higher level of care where GI is available - no further radiology exams at this time. - Lipase pending - CBC, CMP reviewed - IVF - Levaquin/flagyl IV, steriods - Protonix - narcotic pain meds - Follow Dr. Hu in [place] with GI - KUB 10/18/24 appears nonacute and nonobstructed again with moderate fecal debris predominantly in ascending and transverse colon. No focal bowel dilatation or free air. Contrast in urinary bladder from recent CT. Remaining solid organs and osseous structures unremarkable - Abd/Pelvis CT: 10/17/24 Impression: 1. Descending colonic circumferential wall thickening with minimal pericolonic stranding, probable colitis in this patient with history of Crohn's disease. Colonic mass is not completely excluded as there is also intraluminal narrowing with moderate fecal debris up to level of narrowing. 2. Fatty liver. - Tried to transfer pt for GI and would not accept w/o CT abd/ pelvis - Stat CT abd pelvis 10/24 16:42 Impression: 1. New abdominal free fluid and free air concerning for GI perforation. Query gastric perforation. 2. Diminished colonic bowel wall thickening. 3. Again incidental fatty liver and periumbilical hernia. - called again for consult by Dr. Ivan - Colon resection by Dr. Fong - Black murphy, KEVIN drains x3, NG - MUSIC ENGRAVER Dilaudid by GS - Antibiotic changed to Merrem and flagyl by GS - Protonix changed to IV Q12 10/25/24 - TPN started - Steroids decreased to 40 BID - Discuss pt case with pt's GI provider- wean steroids as directed: tomorrow change 30 BID, THen 40 QD x1 week, then 30 QD x1 week - Per GI pt has 2 ft of colon left - Will fax Path and operative report when available per Dr. Hu request. 10/26 - Anemia- 2 units PRBC ordered - Advised nurse PATRICK Reno to let surgery know of acute anemia today - CBC, CMP reviewed- labs overall improving - NS @ 30 ml/hr to run with MUSIC ENGRAVER - Steroids decrease to 30 BID 10/27 - CBC, CMP reviewed- labs overall improving - Steroids started at 40 QD x1 week 10/28 - CBC, CMP reviewed- labs overall improving - Pain med changed to morphine IVP 10/29 - CBC, CMP reviewed- labs overall improving - CT abd pelvis wand w/o contrast per surgery orders today Code(s): K50.90 - CROHN'S DISEASE, UNSPECIFIED, WITHOUT COMPLICATIONS (3) Bowel perforation Current Visit: Yes Status: Acute Assessment & Plan: - as seen on CT 10/24 10/29 - Not a bowel perforation per GS note but a perforated ulcer with peritonitis Code(s): K63.1 - PERFORATION OF INTESTINE (NONTRAUMATIC) (4) S/P colon resection Current Visit: Yes Status: Acute Assessment & Plan: - Colon resection by Dr. Fong 10/24- evening - NPO - Abd domo., KEVIN drains x3, NG - MUSIC ENGRAVER Dilaudid by GS 10/27 - Abd. fluid culture negative 2/1 - Pt did not have colon resection per OP note. Code(s): Z90.49 - ACQUIRED ABSENCE OF OTHER SPECIFIED PARTS OF DIGESTIVE TRACT (5) Anemia Current Visit: Yes Status: Acute Qualifiers: Anemia type: other cause Assessment & Plan: - Repeat HGB at noon 6.7 - 2 units PRBC ordered - T&C ordered - Repeat labs after blood infused. - RN to let GS team now about anemia. - Occult stool + on 10/23 10/27 - Hgb 9.3- stable 10/28 - Hgb 9.5 10/29 - Hgb 10.2- stable Code(s): D64.9 - ANEMIA, UNSPECIFIED (6) Transaminitis Current Visit: Yes Status: Acute Assessment & Plan: - likely 2:2 surgery - Trend labs - US tech unable to do US d/t abd incicsions. - discussed with Dr. Ivan- will continue to monitor. 10/26 - labs improving- trend 10/17 - labs continue to improve 10/28 - labs continue to improve 10/29 - AST 109, ALT 197 Code(s): R74.01 - ELEVATION OF LEVELS OF LIVER TRANSAMINASE LEVELS (7) Hyperglycemia Current Visit: Yes Status: Acute Assessment & Plan: - Accuchecks Q4 as she is NPO - Humalog s/s Code(s): R73.9 - HYPERGLYCEMIA, UNSPECIFIED (8) Nausea & vomiting Current Visit: Yes Status: Resolved Assessment & Plan: - IVF - Zofran PRN Code(s): R11.2 - NAUSEA WITH VOMITING, UNSPECIFIED (9) Anxiety Current Visit: No Status: Chronic Assessment & Plan: - meds stopped Code(s): F41.9 - ANXIETY DISORDER, UNSPECIFIED (10) Hypokalemia Current Visit: No Status: Acute Assessment & Plan: - K+ 3.3- replaced and added to TPN by pharmacy Code(s): E87.6 - HYPOKALEMIA (11) Chronic pain syndrome Current Visit: No Status: Chronic Assessment & Plan: - Oral pain med held for now - on MUSIC ENGRAVER for pain PRN- pharmacy managing (12) Diffuse peritonitis Current Visit: Yes Status: Acute Assessment & Plan: - Per GS OP report Code(s): K65.0 - GENERALIZED (ACUTE) PERITONITIS (13) Perforated duodenal ulcer Current Visit: Yes Status: Acute Assessment & Plan: - Per GS OP report - With closure and repair with large ulcer, omental patch by Code(s): K26.5 - CHRONIC OR UNSPECIFIED DUODENAL ULCER WITH PERFORATION (14) Incarcerated ventral hernia Current Visit: Yes Status: Acute Assessment & Plan: - Per GS report with repair - report reviewed Code(s): K43.6 - OTHER AND UNSP VENTRAL HERNIA WITH OBSTRUCTION, W/O GANGRENE (15) S/P exploratory laparotomy Current Visit: Yes Status: Acute Assessment & Plan: - Post op report from on 10/24 reviewed- see note for further information. VTE: SCD's PPI: Protonix Next of KIN: Parent Shanti/Norris Rojas [phone] D/C plan: Pending surgery recs Code status: Full Code(s): Z98.890 - OTHER SPECIFIED POSTPROCEDURAL STATES
[2024-10-29] MEDS: [UNRECOGNIZED DRUG - OTHER] IV SCH (16:43)
[2024-10-29] MEDS: INTRALIPID 20% IV SCH (16:43)
[2024-10-29] MEDS: CLINIMIX E IV SCH (16:43)
[2024-10-29] MEDS: Cathflo Activase 2 MG IV ONE ×2 (16:44)
[2024-10-30 06:22] LABS: Hematocrit 32.2 % (34.1-44.9); Hemoglobin 10.4 g/dL (11.2-15.7); Mean Cell Volume 82.4 fL (79.4-94.8); Mean Corpuscular Hemoglobin 26.6 pg (25.6-32.2); Mean Corpuscular Hgb Concent. 32.3 g/dL (32.2-35.5); Mean Platelet Volume 9.5 fL (9.4-12.3); Platelet Count 443 x10^3/uL (182-369); Red Blood Count 3.91 x10^6/uL (3.93-5.22); Red Cell Distribution Width 16.1 % (11.7-14.4); White Blood Count 10.4 x10^3/uL (3.98-10.04)
[2024-10-30 06:51] LABS: ALBUMIN 2.7 g/dL (3.5-5.0); ANION GAP 9.1 MEQ/L (5-15); BILIRUBIN,TOTAL 0.9 mg/dL (0.2-1.3); Calcium 8.1 mg/dL (8.4-10.2); Creatinine 1 0.66 mg/dL (0.52-1.04); EST GLOMERULAR FILTRATION RATE 108.1 ML/MIN; MAGNESIUM 2.2 mg/dL (1.6-2.3); Total Protein 5.3 g/dL (6.3-8.2)
--- NOTE | 2024-10-30 11:16 | XRAY ---
CLINICAL HISTORY: NG placement COMPARISON: DX dated 10/24/2024. TECHNIQUE: Chest x-ray performed in frontal portable view. FINDINGS: Left internal jugular central venous line, its tip is noted in the atriocaval junction. Right subclavian central venous line, its tip located at the cavoatrial junction. Nasogastric tube is located in the midline in the chest, its tip is noted at the gastroesophageal junction. The fenestrations within the nasogastric tube is located at the esophagus above the gastroesophageal junction further pushing of the nasogastric tube is advised for adequate positioning Prominent central bronchovascular markings with mild peribronchial thickening. Otherwise, no consolidation or collapse. Blunting of both costophrenic angles suggesting small effusion Unremarkable heart size on AP projection. Unremarkable bony thorax. IMPRESSION: 1. A nasogastric tube is located in the midline in the chest, its tip is noted at the gastroesophageal junction. The fenestrations within the nasogastric tube is located at the esophagus above the gastroesophageal junction further pushing of the nasogastric tube is advised for adequate positioning, New. 2. Blunting of both costophrenic angles suggesting small effusion, New. 3. Bilateral central venous lines with the appropriate position. 4. Stable prominent broncho-vascular markings with mild peribronchial thickening. Clinical correlation is advised to assess for pulmonary congestion/bronchitis. Electronically Signed by: Jacques Andrade MD. (10/30/2024 11:11:16 EST)
--- NOTE | 2024-10-30 11:20 | PCM.NOTE ---
Date and Time: 10/30/24 1110 Subjective Assessment: 10/24/24 49-year-old with a history of Crohn's disease and anxiety, admitted 10/17/24 with abdominal pain, nausea, and diarrhea, consistent with her prior Crohn's flares. Patient has history of poorly controlled Crohn's disease; she was previously on Humira, but it was no longer effective. She tried Entyvio, but worsened, and was recently started on Stelara, receiving her second dose earlier this month. However, she has frequent hospitalizations with severe flares, most recently in June 2024 in [place]. She had been on a slow taper of steroids, discharging on prednisone 60, tapering slowly down to her maintenance dose of 10 mg daily. She follows with Dr. Yashira Holbrook in [place]. On admission she was going on 3 days of severe, sharp, constant, epigastric pain, radiating to the left upper and lower quadrants, worsening with food or drink, relieved only by pain medications. Associated with nonbloody, nonbilious vomiting, 6 times per day. Patient has chronic watery, non-bloody diarrhea, but this is increased in quantity and frequency, up to 4-5 times per day. She was given a Medrol Dosepak, but not have any relief. Initial labs remarkable for hypokalemia and BOBBI which have since resolved. Patient admitted with Crohns flare and placed on Flagyl and Levaquin. Diet changed to soft yesterday evening and she felt she wanted to eat something. IV pain meds stopped at that time and home PO meds started. Pt states she is refusing to eat as she only wants the IV pain meds for her abd pain. Abd. pain is 10/10 today in epigastric region, and she describes it as squeezing. She is swaying back and forth, as well as turning herself in the bed. She has questionable drug seeking behavior. Surgery consulted as pain does not correlate with labs. Will also check a Lipase. Continue levaquin, flagyl, and IVF. Pt made NPO for surgery consult. 10/25/24 Pt transferred to ICU bed this AM. Pt has severe sepsis this AM. 2 liters NS ordered stat. + tachycardia HR- 120-130. BP soft. Lactic acid 6.1 at 5am. Repeat LA after 2-1LNS fluid boluses 1.4. BP improved this afternoon. HR also improved. She was taken to surgery last night for bowel perforation as seen on CT abd/pelvis. It appears per surgery notes she had a bowel resection. She now has 3 kevin drains, a central line, and abd. binder on. General surgery was consulted earlier in the day and it was recommended she be transferred to a higher level of care with GI. Her GI provider is at [facility] and that hospital is currently on diversion and has been all week. She, previously in the week, would only transfer there but there were no beds. Last night [facility] was called and Dr. Ivan spoke with GI there and they recommended a stat CT abd/pelvis last night and would not accept the pt at that time. Thats when bowel perforation was found and GS reconsulted by Dr. Ivan. Prior to going to CT pt had an unresponsive episode per nurse PATRICK Dubon and Narcan was given in which the pt became responsive. She had been requesting IV pain med repeatedly throughout the day, Asked staff to search room for meds last night and 2 unmarked pill bottles were found 1 bottle had no meds and the other had xanax per nurse. Purse and meds locked up per staff. Today steroids reduced. Pt has dilaudid FOOD SERVICE SPECIALIST per GS orders. Pt asking for benzo discussed at this time this would not be safe as it can cause respiratory depression in combination with narcotic pain medication. Narcan on NOV PRN. Antibiotic changed per GS to Merrem. Continue Flagyl. Call out to pt's GI provider to discuss pt case and further recs. AST/ALT elevated- US ordered for further evaluation. Awaiting further GS recs today. 10/26/24 Pt up walking in the halls today and reports feeling better. Repeat HGB 6.7 at noon and 2 units PRBC ordered. Discussed pt case with pt's GI provider Dr. Holbrook at [facility], yesterday evening. He advised steroids are indicated for acute Crohn's flare and that a weaning schedule can now be implemented with specific instructions on how to do so, see chart notes. He advised that pt should only be admitted to a hospital with GI services from now on as pt only has 2 ft of colon left and she is a very difficult pt to manage. He reported she has a complex hx with drug abuse and crohn's disease. She has tried multiple immunosuppresive drugs without improvement. She has also had multiple colon surgeries. He stressed the fact that she will try and get food and drinks from staff and it is imperative that we do not give in as she will not heal from this surgery. He requested the path and operative reports from the surgery be faxed to him to review. Labs overall improving and she is feeling much better. Pt lluvia es any further concerns and pain is well controlled 01/05 with dilaudid FOOD SERVICE SPECIALIST. Awaiting further surgery recs today. 10/27/24 Pt up and walking in the halls this AM again. She reports feeling better. Pharmacy discussed lowering FOOD SERVICE SPECIALIST dose. Continue TPN, IV antibiotics. Continue to reduce steroids per GI recommended schedule. BOBBI resolved. Labs overall continue to improved. All drains remain in place. Abd. fluid culture pending. All other cultures negative. Pain well controlled at this time and she denies any further concerns. She is asking for a timeframe as to when she will be able to eat aga in. Will need to discuss this with general surgery. 10/28/24 Pt resting in bed. She is asking for anxiety meds back and tearful. Discussed side effects of resp depression with combination of narcotic pain medication. Per pharmacy Dilaudid needed to be changed to something else as on back order and med almost out. Nurse called GS and they recommended fentanyl. Pt refused this med. Discussed case with Dr. Ivan and we will change to Morphine IVP as the syringe will not fit in the machine. Pt states she would give up pain meds for anxiety meds. Discussed that pain meds are PRN and we will see how she does and if she dos not need much we can continue anxiety meds. LAbs overal improving. PLan is pt to have upper GI study Thursday per GS. She denies CP, SOB, abd. pain, N/V/D. Pt weight obtained this afternoon as bed scale was incorrect. This information was charted with the correct wt. 10/29/24 Pt resting in bed She is feeling much better. She is asking for chicken broth. Explained she is scheduled for an upper GI scan Thursday and that she will need to discuss when she can start eating again after that is completed with general surgery. For now continue TPN. K+ 3.3 and replaced. Labs overall improving. Pain improving. CXR for NG placement and nonconcerning. Continue Merrem and Flagyl. Per GS note on 10/27/[address] abd/pelvis today, order placed. Reviewed OP report today as it was not back immediately. Note states post op dx perforated large proximal duodenlal ulcer, large diffuse peritonitis. Also incarcerated ventral hernia with incarcerated omentum. Pt denies CP, SOB, N/V/D. 10/30/24 Pt resting in bed. She explained she started having some burning type pain last in epigastric region- this is a new type of pain she explains. She is unsure if CT abd/pelvis was done before or aft the pain started. Will have nurse reach out to GS today abut this new pain. She feels morphine is controlling pain well. WBC elevated today at 10.4, Continue Merrem, flagyl, morphine, and TPN. FLT's improved. Continue NG to LIS. She is scheduled for an upper GI scan tomorrow. CT Abd/Pelvis reading by radiology yesterday. She denies Cp, SOB, N/V/D. + passing gas. - Review of Systems Constitutional: No Fever, No Chills Eyes: No Symptoms Ears, Nose, & Throat: No Symptoms Respiratory: No Cough, No Short Of Breath Cardiac: No Chest Pain, No Edema, No Syncope Abdominal/Gastrointestinal: Abdominal Pain (epigastric burning pain), No Nausea, No Vomiting, No Diarrhea Genitourinary Symptoms: No Dysuria Musculoskeletal: No Back Pain, No Neck Pain Skin: No Rash Neurological: No Dizziness, No Focal Weakness, No Sensory Changes Psychological: No Symptoms Endocrine: No Symptoms Hematologic/Lymphatic: No Symptoms Immunological/Allergic: No Symptoms Objective Exam General Appearance: no apparent distress, alert Neurologic Exam: alert, oriented x 3, cooperative, normal mood/affect, nml cerebellar function, sensation nml, No motor deficits Skin Exam: normal color, warm, dry Wound Assessment: Skin/Wound Assessment Wound/Incision Assessment Start: 10/26/24 07:40 Text: Status: Active Freq: Q6H Protocol: Document 10/30/24 08:30 JV (Rec: 10/30/24 09:01 JV [id number]) Wound/Incision Assessment Medial Abdomen Wound Assessment Shift Assessment Wound Type Incision Wound Stage Non Pressure Wound Dressing Status Dry & Intact Drainage Amount Minimal Drainage Description Brown Secondary Dressing bordered gauze Comment dressing dry and intact - scant amount of drainage noted to silk tape. Remains true Left Lateral Abdomen Drain Type KEVIN drain Drainage Description Yellow Odor None/Absent Right Lower Lateral Abdomen Drain Type KEVIN drain Drainage Description Yellow Odor None/Absent Right Upper Lateral Abdomen Drain Type KEVIN drain Drainage Description Yellow Odor None/Absent Wound Photo Photo Taken No Eye Exam: PERRL, EOMI, eyes nml inspection Ears, Nose, Throat Exam: normal ENT inspection, pharynx normal, moist mucous membranes Neck Exam: normal inspection, non-tender, supple, full range of motion Respiratory Exam: normal breath sounds, lungs clear, No respiratory distress Cardiovascular Exam: regular rate/rhythm, normal heart sounds Gastrointestinal/Abdomen Exam: soft, tenderness, No mass Extremity Exam: normal inspection, normal range of motion Back Exam: normal inspection, normal range of motion, No CVA tenderness, No vertebral tenderness Pelvic Exam: deferred Rectal Exam: deferred Objective Data Vital Signs: Vital Signs - 24 hr Temp Pulse Resp BP BP Pulse Ox 10/30/24 08:30 70 10/30/24 07:33 97.9 F 70 11 L 138/77 95 10/30/24 03:09 65 10/30/24 02:59 97.5 F 65 13 137/83 98 10/30/24 00:00 62 10/29/24 23:49 97.8 F 68 12 164/92 97 10/29/24 19:27 67 16 135/89 99 10/29/24 19:15 98.9 F 69 16 135/89 99 10/29/24 16:30 69 10/29/24 16:19 69 12 132/83 10/29/24 16:00 97.8 F 97 H 16 132/83 97 10/29/24 12:45 72 10/29/24 11:40 98.2 F 72 16 133/86 99 10/29/24 11:31 77 17 133/86 Pain Assessment - Last Documented Pain Intensity 6 Pain Scale Used 0-10 Pain Scale Intake and Output: Intake & Output 10/27/24 10/28/24 10/29/24 10/30/24 11:59 11:59 11:59 11:59 Intake Total 5616 3414 3677 2957 Output Total 2975 0995 035 6281 Balance 1542 1904 3012 -1244 Weight 76.8 kg 68.04 kg 67.5 kg Lab Results: Lab Results-Last 24 Hours 10/28/24 10/29/24 10/29/24 Range/Units 07:39 11:30 13:31 WBC 9.1 (3.98-10.04) x10^3/uL RBC 3.50 L (3.93-5.22) x10^6/uL Hgb 9.5 L (11.2-15.7) g/dL Hct 28.7 L (34.1-44.9) % MCV 82.0 (79.4-94.8) fL MCH 27.1 (25.6-32.2) pg MCHC 33.1 (32.2-35.5) g/dL RDW 15.7 H (11.7-14.4) % Plt Count 247 (182-369) x10^3/uL MPV 10.7 (9.4-12.3) fL Gran % 80.3 H (34.0-71.1) % Immature Gran % (Auto) 2.0 H (0.001-0.429) % Nucleat RBC Rel Count 0.8 H (0.00-0.2) % Eos # (Auto) 0.01 L (0.04-0.36) x10^3/uL Immature Gran # (Auto) 0.18 H (0.001-0.031) x10^3u/L Absolute Lymphs (auto) 0.92 L (1.18-3.74) x10^3/uL Absolute Monos (auto) 0.68 (0.24-0.86) x10^3/uL Absolute Nucleated RBC 0.07 H (0.00-0.012) x10^3u/L Lymphocytes % 10.1 L (19.3-51.7) % Monocytes % 7.4 (4.7-12.5) % Eosinophils % 0.1 L (0.7-5.8) % Basophils % 0.1 (0.1-1.2) % Absolute Granulocytes 7.34 H (1.56-6.13) x10^3/uL Basophils # 0.01 (0.01-0.08) x10^3/uL Sodium (135-145) mmol/L Potassium 3.9 (3.5-5.1) mmol/L Chloride (98-107) mmol/L Carbon Dioxide (22-30) mmol/L Anion Gap (5-15) MEQ/L BUN (7-17) mg/dL Creatinine (0.52-1.04) mg/dL Estimated GFR ML/MIN Glucose (74-106) mg/dL POC Glucometer 117 H (74 to 106) mg/dL Calcium (8.4-10.2) mg/dL Magnesium (1.6-2.3) mg/dL Total Bilirubin (0.2-1.3) mg/dL AST (14-36) U/L ALT (0-35) U/L Alkaline Phosphatase (38-126) U/L Serum Total Protein (6.3-8.2) g/dL Albumin (3.5-5.0) g/dL Slides for Path Review YES 10/29/24 10/29/24 10/29/24 Range/Units 16:18 19:31 23:47 WBC (3.98-10.04) x10^3/uL RBC (3.93-5.22) x10^6/uL Hgb (11.2-15.7) g/dL Hct (34.1-44.9) % MCV (79.4-94.8) fL MCH (25.6-32.2) pg MCHC (32.2-35.5) g/dL RDW (11.7-14.4) % Plt Count (182-369) x10^3/uL MPV (9.4-12.3) fL Gran % (34.0-71.1) % Immature Gran % (Auto) (0.001-0.429) % Nucleat RBC Rel Count (0.00-0.2) % Eos # (Auto) (0.04-0.36) x10^3/uL Immature Gran # (Auto) (0.001-0.031) x10^3u/L Absolute Lymphs (auto) (1.18-3.74) x10^3/uL Absolute Monos (auto) (0.24-0.86) x10^3/uL Absolute Nucleated RBC (0.00-0.012) x10^3u/L Lymphocytes % (19.3-51.7) % Monocytes % (4.7-12.5) % Eosinophils % (0.7-5.8) % Basophils % (0.1-1.2) % Absolute Granulocytes (1.56-6.13) x10^3/uL Basophils # (0.01-0.08) x10^3/uL Sodium (135-145) mmol/L Potassium (3.5-5.1) mmol/L Chloride (98-107) mmol/L Carbon Dioxide (22-30) mmol/L Anion Gap (5-15) MEQ/L BUN (7-17) mg/dL Creatinine (0.52-1.04) mg/dL Estimated GFR ML/MIN Glucose (74-106) mg/dL POC Glucometer 146 H 157 H 129 H (74 to 106) mg/dL Calcium (8.4-10.2) mg/dL Magnesium (1.6-2.3) mg/dL Total Bilirubin (0.2-1.3) mg/dL AST (14-36) U/L ALT (0-35) U/L Alkaline Phosphatase (38-126) U/L Serum Total Protein (6.3-8.2) g/dL Albumin (3.5-5.0) g/dL Slides for Path Review 10/30/24 10/30/24 10/30/24 Range/Units 03:02 06:15 06:15 WBC 10.4 H (3.98-10.04) x10^3/uL RBC 3.91 L (3.93-5.22) x10^6/uL Hgb 10.4 L (11.2-15.7) g/dL Hct 32.2 L (34.1-44.9) % MCV 82.4 (79.4-94.8) fL MCH 26.6 (25.6-32.2) pg MCHC 32.3 (32.2-35.5) g/dL RDW 16.1 H (11.7-14.4) % Plt Count 443 H (182-369) x10^3/uL MPV 9.5 (9.4-12.3) fL Gran % (34.0-71.1) % Immature Gran % (Auto) (0.001-0.429) % Nucleat RBC Rel Count (0.00-0.2) % Eos # (Auto) (0.04-0.36) x10^3/uL Immature Gran # (Auto) (0.001-0.031) x10^3u/L Absolute Lymphs (auto) (1.18-3.74) x10^3/uL Absolute Monos (auto) (0.24-0.86) x10^3/uL Absolute Nucleated RBC (0.00-0.012) x10^3u/L Lymphocytes % (19.3-51.7) % Monocytes % (4.7-12.5) % Eosinophils % (0.7-5.8) % Basophils % (0.1-1.2) % Absolute Granulocytes (1.56-6.13) x10^3/uL Basophils # (0.01-0.08) x10^3/uL Sodium 139 (135-145) mmol/L Potassium 4.0 (3.5-5.1) mmol/L Chloride 109 H (98-107) mmol/L Carbon Dioxide 25 (22-30) mmol/L Anion Gap 9.1 (5-15) MEQ/L BUN 17 (7-17) mg/dL Creatinine 0.66 (0.52-1.04) mg/dL Estimated GFR 108.1 ML/MIN Glucose 101 (74-106) mg/dL POC Glucometer 119 H (74 to 106) mg/dL Calcium 8.1 L (8.4-10.2) mg/dL Magnesium 2.2 (1.6-2.3) mg/dL Total Bilirubin 0.90 (0.2-1.3) mg/dL AST 53 H (14-36) U/L ALT 149 H (0-35) U/L Alkaline Phosphatase 51 (38-126) U/L Serum Total Protein 5.3 L (6.3-8.2) g/dL Albumin 2.7 L (3.5-5.0) g/dL Slides for Path Review 10/30/24 Range/Units 07:29 WBC (3.98-10.04) x10^3/uL RBC (3.93-5.22) x10^6/uL Hgb (11.2-15.7) g/dL Hct (34.1-44.9) % MCV (79.4-94.8) fL MCH (25.6-32.2) pg MCHC (32.2-35.5) g/dL RDW (11.7-14.4) % Plt Count (182-369) x10^3/uL MPV (9.4-12.3) fL Gran % (34.0-71.1) % Immature Gran % (Auto) (0.001-0.429) % Nucleat RBC Rel Count (0.00-0.2) % Eos # (Auto) (0.04-0.36) x10^3/uL Immature Gran # (Auto) (0.001-0.031) x10^3u/L Absolute Lymphs (auto) (1.18-3.74) x10^3/uL Absolute Monos (auto) (0.24-0.86) x10^3/uL Absolute Nucleated RBC (0.00-0.012) x10^3u/L Lymphocytes % (19.3-51.7) % Monocytes % (4.7-12.5) % Eosinophils % (0.7-5.8) % Basophils % (0.1-1.2) % Absolute Granulocytes (1.56-6.13) x10^3/uL Basophils # (0.01-0.08) x10^3/uL Sodium (135-145) mmol/L Potassium (3.5-5.1) mmol/L Chloride (98-107) mmol/L Carbon Dioxide (22-30) mmol/L Anion Gap (5-15) MEQ/L BUN (7-17) mg/dL Creatinine (0.52-1.04) mg/dL Estimated GFR ML/MIN Glucose (74-106) mg/dL POC Glucometer 121 H (74 to 106) mg/dL Calcium (8.4-10.2) mg/dL Magnesium (1.6-2.3) mg/dL Total Bilirubin (0.2-1.3) mg/dL AST (14-36) U/L ALT (0-35) U/L Alkaline Phosphatase (38-126) U/L Serum Total Protein (6.3-8.2) g/dL Albumin (3.5-5.0) g/dL Slides for Path Review Radiology Exams: Radiology Procedures Category Date Time Status ABDOMEN AND PELVIS W&WO CONTRA [CT] Routine Exams 10/29/24 13:18 Taken CHEST 1 VIEW (PORTABLE) Routine Exams 10/29/24 07:18 Taken UGI w/o AIR Urgent Exams 10/31/24 08:00 Ordered UGI w/o AIR Urgent Exams 10/31/24 08:00 Stop Req Assessment/Plan (1) Severe sepsis Current Visit: Yes Status: Acute Code(s): A41.9 - SEPSIS, UNSPECIFIED ORGANISM; R65.20 - SEVERE SEPSIS WITHOUT SEPTIC SHOCK (2) Crohn's disease Current Visit: Yes Status: Chronic Code(s): K50.90 - CROHN'S DISEASE, UNSPECIFIED, WITHOUT COMPLICATIONS (3) Bowel perforation Current Visit: Yes Status: Acute Code(s): K63.1 - PERFORATION OF INTESTINE (NONTRAUMATIC) (4) S/P colon resection Current Visit: Yes Status: Acute Code(s): Z90.49 - ACQUIRED ABSENCE OF OTHER SPECIFIED PARTS OF DIGESTIVE TRACT (5) Anemia Current Visit: Yes Status: Acute Qualifiers: Anemia type: other cause Code(s): D64.9 - ANEMIA, UNSPECIFIED (6) Transaminitis Current Visit: Yes Status: Acute Code(s): R74.01 - ELEVATION OF LEVELS OF LIVER TRANSAMINASE LEVELS (7) Hyperglycemia Current Visit: Yes Status: Acute Code(s): R73.9 - HYPERGLYCEMIA, UNSPECIFIED (8) Nausea & vomiting Current Visit: Yes Status: Resolved Code(s): R11.2 - NAUSEA WITH VOMITING, UNSPECIFIED (9) Anxiety Current Visit: No Status: Chronic Code(s): F41.9 - ANXIETY DISORDER, UNSPECIFIED (10) Hypokalemia Current Visit: No Status: Acute Code(s): E87.6 - HYPOKALEMIA (11) Chronic pain syndrome Current Visit: No Status: Chronic (12) Diffuse peritonitis Current Visit: Yes Status: Acute Code(s): K65.0 - GENERALIZED (ACUTE) PERITONITIS (13) Perforated duodenal ulcer Current Visit: Yes Status: Acute Code(s): K26.5 - CHRONIC OR UNSPECIFIED DU ODENAL ULCER WITH PERFORATION (14) Incarcerated ventral hernia Current Visit: Yes Status: Acute Code(s): K43.6 - OTHER AND UNSP VENTRAL HERNIA WITH OBSTRUCTION, W/O GANGRENE (15) S/P exploratory laparotomy Current Visit: Yes Status: Acute Assessment & Plan: (1) Severe sepsis Current Visit: Yes Status: Acute Assessment & Plan: - LA 6.1 - 1 L LR fluid bolus gave last night - 2 L NS fluid bolus gave this AM - Repeat LA 1.4 - 2:2 colon perforation - Resp > 20 , HR ? 90. WBC > 12,000, BOBBI - SBP < 90 - Tele - ICU - I&O Q4hr Code(s): A41.9 - SEPSIS, UNSPECIFIED ORGANISM; R65.20 - SEVERE SEPSIS WITHOUT SEPTIC SHOCK (2) Crohn's disease Current Visit: Yes Status: Chronic Assessment & Plan: - Surgery consult: recommends tx to higher level of care where GI is available - no further radiology exams at this time. - Lipase pending - CBC, CMP reviewed - IVF - Levaquin/flagyl IV, steriods - Protonix - narcotic pain meds - Follow Dr. Hu in [place] with GI - KUB 10/18/24 appears nonacute and nonobstructed again with moderate fecal debris predominantly in ascending and transverse colon. No focal bowel dilatation or free air. Contrast in urinary bladder from recent CT. Remaining solid organs and osseous structures unremarkable - Abd/Pelvis CT: 10/17/24 Impression: 1. Descending colonic circumferential wall thickening with minimal pericolonic stranding, probable colitis in this patient with history of Crohn's disease. Colonic mass is not completely excluded as there is also intraluminal narrowing with moderate fecal debris up to level of narrowing. 2. Fatty liver. - Tried to transfer pt for GI and would not accept w/o CT abd/ pelvis - Stat CT abd pelvis 10/24 16:42 Impression: 1. New abdominal free fluid and free air concerning for GI perforation. Query gastric perforation. 2. Diminished colonic bowel wall thickening. 3. Again incidental fatty liver and periumbilical hernia. - called again for consult by Dr. Ivan - Colon resection by Dr. Fong - Black oliveros., KEVIN drains x3, NG - FOOD SERVICE SPECIALIST Dilaudid by GS - Antibiotic changed to Merrem and flagyl by GS - Protonix changed to IV Q12 10/25/24 - TPN started - Steroids decreased to 40 BID - Discuss pt case with pt's GI provider- wean steroids as directed: tomorrow change 30 BID, Then 40 QD x1 week, then 30 QD x1 week - Per GI pt has 2 ft of colon left - Will fax Path and operative report when available per Dr. uH request. 10/26 - Anemia- 2 units PRBC ordered - Advised nurse Shadia, PATRICK to let surgery know of acute anemia today - CBC, CMP reviewed- labs overall improving - NS @ 30 ml/hr to run with FOOD SERVICE SPECIALIST - Steroids decrease to 30 BID 10/27 - CBC, CMP reviewed- labs overall improving - Steroids started at 40 QD x1 week 10/28 - CBC, CMP reviewed- labs overall improving - Pain med changed to morphine IVP 10/29 - CBC, CMP reviewed- labs overall improving - CT abd pelvis wand w/o contrast per surgery orders today 10/30 - CT abd/pelvis pending radiology reading - CBC, CMP reviewed - WBC 10.4 - New epigastric pain- burning- nurse to make surgeon aware. Code(s): K50.90 - CROHN'S DISEASE, UNSPECIFIED, WITHOUT COMPLICATIONS (3) Bowel perforation Current Visit: Yes Status: Acute Assessment & Plan: - as seen on CT 10/24 10/29 - Not a bowel perforation per GS note but a perforated ulcer with peritonitis Code(s): K63.1 - PERFORATION OF INTESTINE (NONTRAUMATIC) (4) S/P colon resection Current Visit: Yes Status: Acute Assessment & Plan: - Colon resection by Dr. Fong 10/24- evening - NPO - Abd binder., KEVIN drains x3, NG - FOOD SERVICE SPECIALIST Dilaudid by GS 10/27 - Abd. fluid culture negative 10/29 - Pt did not have colon resection per OP note. Code(s): Z90.49 - ACQUIRED ABSENCE OF OTHER SPECIFIED PARTS OF DIGESTIVE TRACT (5) Anemia Current Visit: Yes Status: Acute Qualifiers: Anemia type: other cause Assessment & Plan: - Repeat HGB at noon 6.7 - 2 units PRBC ordered - T&C ordered - Repeat labs after blood infused. - RN to let GS team now about anemia. - Occult stool + on 10/23 10/27 - Hgb 9.3- stable 10/28 - Hgb 9.5 10/29 - Hgb 10.2- stable 10/30 - Hgb 10.4- stable Code(s): D64.9 - ANEMIA, UNSPECIFIED (6) Transaminitis Current Visit: Yes Status: Acute Assessment & Plan: - likely 2:2 surgery - Trend labs - US tech unable to do US d/t abd incicsions. - discussed with Dr. Ivan- will continue to monitor. 10/26 - labs improving- trend 10/17 - labs continue to improve 10/28 - labs continue to improve 10/29 - AST 109, ALT 197 10/30 - AST 53, ALT 149 Code(s): R74.01 - ELEVATION OF LEVELS OF LIVER TRANSAMINASE LEVELS (7) Hyperglycemia Current Visit: Yes Status: Acute Assessment & Plan: - Accuchecks Q4 as she is NPO - Humalog s/s Code(s): R73.9 - HYPERGLYCEMIA, UNSPECIFIED (8) Nausea & vomiting Current Visit: Yes Status: Resolved Assessment & Plan: - IVF - Zofran PRN Code(s): R11.2 - NAUSEA WITH VOMITING, UNSPECIFIED (9) Anxiety Current Visit: No Status: Chronic Assessment & Plan: - meds stopped Code(s): F41.9 - ANXIETY DISORDER, UNSPECIFIED (10) Hypokalemia Current Visit: No Status: Acute Assessment & Plan: - K+ 3.3- replaced and added to TPN by pharmacy 10/30 - resolved Code(s): E87.6 - HYPOKALEMIA (11) Chronic pain syndrome Current Visit: No Status: Chronic Assessment & Plan: - Oral pain med held for now - on FOOD SERVICE SPECIALIST for pain PRN- pharmacy managing (12) Diffuse peritonitis Current Visit: Yes Status: Acute Assessment & Plan: - Per GS OP report Code(s): K65.0 - GENERALIZED (ACUTE) PERITONITIS (13) Perforated duodenal ulcer Current Visit: Yes Status: Acute Assessment & Plan: - Per GS OP report - With closure and repair with large ulcer, omental patch by GS Code(s): K26.5 - CHRONIC OR UNSPECIFIED DUODENAL ULCER WITH PERFORATION (14) Incarcerated ventral hernia Current Visit: Yes Status: Acute Assessment & Plan: - Per GS report with repair - report reviewed Code(s): K43.6 - OTHER AND UNSP VENTRAL HERNIA WITH OBSTRUCTION, W/O GANGRENE (15) S/P exploratory laparotomy Current Visit: Yes Status: Acute Assessment & Plan: - Post op report from on 10/24 reviewed- see note for further information. Code(s): Z98.890 - OTHER SPECIFIED POSTPROCEDURAL STATE Code(s): Z98.890 - OTHER SPECIFIED POSTPROCEDURAL STATES (16) Thrombocytosis Current Visit: Yes Status: Acute Assessment & Plan: - platelets 443 - likely 2:2 surgery/ infection VTE: SCD's PPI: Protonix Next of KIN: Parent Shanti/Norris Rojas [phone] D/C plan: Pending surgery recs Code status: Full
--- NOTE | 2024-10-30 12:30 | XRAY ---
CLINICAL HISTORY: post op perforated duodenal ulcer COMPARISON: No prior studies are available for comparison. TECHNIQUE: Non-contrast and contrast-enhanced CT of the abdomen and pelvis was performed, with the following protocol: axial images and reconstructed coronal and sagittal images. One of the following dose reduction techniques was utilized for this exam.Automated exposure control, adjustment of the mA and/or kV according to patient size, and use of iterative reconstruction. CTDI: 21mGy, DLP: 1156mGy*cm. FINDINGS: Liver: evidence of right perihepatic drain with no related encysted collection Normal in size, shape, with homogenous low attenuation ct texture denoting fatty infiltration. No focal lesions, cysts, or masses were identified. No evidence of hepatic steatosis or cirrhosis. Gallbladder and Biliary System: The gallbladder is normal in size and shape. No wall thickening, pericholecystic fluid, or gallstones were identified. Pancreas: Pancreatic head, body, and tail are visualized and appear normal in size and density. No pancreatic masses, cysts, or calcifications were noted. The main pancreatic duct is normal size and diameter without dilatation. Spleen: Evidence of left sided subdiaphragmatic drain with no related encysted collection could be seen. Normal in size, shape, and density. No splenic lesions or masses were identified. Kidneys and Adrenal Glands: Both kidneys are normal in size, shape, and position. Cortical thickness is within normal limits. No renal calculi or hydronephrosis. Adrenal glands are unremarkable. Appendix: The appendix is normal in size without luna appendiceal fat stranding, and without an appendicolith. No evidence of appendiceal abscess or perforation. Peritoneal and Retroperitoneal Structures: Mild upper abdominal mesenteric fat stranding seen at the perigastric region with no evidence of pneumoperitoneum. No free fluid or abnormal fluid collections were identified within the abdomen or pelvis. No lymphadenopathy was noted. Bladder: Normal in size and wall thickness. No intraluminal masses or diverticula. Normal enhancement post-contrast. Uterus and both ovaries: Normal in size and appearance. No focal lesions or abnormal enhancement. no adenexal masses. Bowel: Normal appearance of the visualized bowel loops. No evidence of obstruction, wall thickening, or abnormal dilatation. evidence of nasogastric tube, its tip opposite the cardia. midline abdominal wall suture is seen Lower chest cuts show bilateral mild pleural reaction. IMPRESSION: 1. Right perihepatic drain with no related encysted collection. 2. Left sided subdiaphragmatic drain with no related encysted collection could be seen. 3. Mild upper abdominal mesenteric fat stranding was seen at the perigastric region with no evidence of pneumoperitoneum likely related to previous intervention sequel. 4. Mild fatty liver. 5. Bilateral mild pleural reaction. 6. Nasogastric tube, its tip opposite the cardia. 7. Clinical correlation is recommended and follow up Electronically Signed by: Jacques Andrade MD. (10/30/2024 12:26:56 EST)
[2024-10-31 05:13] LABS: Absolute Neutrophil Ct (ANC) 5.61 x10^3/uL (1.56-6.13); BASOPHIL % 0.1 % (0.1-1.2); Basophil (Absolute #) 0.01 x10^3/uL (0.01-0.08); Eosinophil % 0.7 % (0.7-5.8); Eosinophil (Absolute #) 0.06 x10^3/uL (0.04-0.36); Hematocrit 31.4 % (34.1-44.9); Hemoglobin 10.1 g/dL (11.2-15.7); IMMATURE GRAN % 2.4 % (0.001-0.429); Lymphocyte (Absolute #) 1.74 x10^3/uL (1.18-3.74); Mean Cell Volume 83.3 fL (79.4-94.8); Mean Corpuscular Hemoglobin 26.8 pg (25.6-32.2); Mean Corpuscular Hgb Concent. 32.2 g/dL (32.2-35.5); Mean Platelet Volume 9.4 fL (9.4-12.3); Monocyte (Absolute #) 0.67 x10^3/uL (0.24-0.86); Monocytes % 8.1 % (4.7-12.5); Neutrophil % 67.7 % (34.0-71.1); Platelet Count 372 x10^3/uL (182-369); Red Blood Count 3.77 x10^6/uL (3.93-5.22); White Blood Count 8.3 x10^3/uL (3.98-10.04)
[2024-10-31 05:41] LABS: ALBUMIN 2.7 g/dL (3.5-5.0); ANION GAP 9.6 MEQ/L (5-15); Creatinine 1 0.64 mg/dL (0.52-1.04); EST GLOMERULAR FILTRATION RATE 108.9 ML/MIN; Total Protein 5.2 g/dL (6.3-8.2)
--- NOTE | 2024-10-31 05:41 | PCM.NOTE ---
Date and Time: 10/31/24 0536 Subjective Assessment: HPI: 49-year-old with a history of Crohn's disease and anxiety, admitted 10/17/24 with abdominal pain, nausea, and diarrhea, consistent with her prior Crohn's flares. Patient has history of poorly controlled Crohn's disease; she was previously on Humira, but it was no longer effective. She tried Entyvio, but worsened, and was recently started on Stelara, receiving her second dose earlier this month. However, she has frequent hospitalizations with severe flares, most recently in June 2024 in [place]. She had been on a slow taper of steroids, discharging on prednisone 60, tapering slowly down to her maintenance dose of 10 mg daily. She follows with Dr. Yashira Holbrook in [place]. Transfer was attempted to [facility] where her GI doctor is but they were on diversion and patient did not wish to transfer to another facility. Initial labs remarkable for hypokalemia and BOBBI which have since resolved. On 10/25/24 patient was taken to surgery for perforated large proximal duodenal ulcer, large diffuse peritonitis and an incarcerated ventral hernia. Surgery consisted of a closure of very large perforated proximal duodenal ulcer with additional omental patch onlay. Repair of incarcerated ventral hernia (with approximately 3.5 cm defect) with suture (given contaminated field). Case discussed with Dr. Holbrook at [facility], patients GI provider.. He advised steroids are indicated for acute Crohn's flare and that a weaning schedule can now be implemented with specific instructions on how to do so, see chart notes. He advised that pt should only be admitted to a hospital with GI services from now on as pt only has 2 ft of colon left and she is a very difficult pt to manage. He reported she has a complex hx with drug abuse and crohn's disease. She has tried multiple immunosuppresive drugs without improvement. She has also had multiple colon surgeries. He stressed the fact that she will try and get food and drinks from staff and it is imperative that we do not give in as she will not heal from this surgery. He requested the path and operative reports from the surgery be faxed to him to review. GI study ordered per GS and negative.Continue Merrem and Flagy. Per surgery discontinue NG 10/31/24 and advance diet to [facility]. Please see prior chart notes for full details. 2/3: Met with patient bedside. Endorses some nauseas and abdominal pain. +flatulence. No BM. GI study negative. Vitals and labs stable. GS following - NG to be discontinued today and diet advanced to [facility]. - Review of Systems Constitutional: No Symptoms Eyes: No Symptoms Ears, Nose, & Throat: No Symptoms Respiratory: No Symptoms Cardiac: No Symptoms Abdominal/Gastrointestinal: Abdominal Pain, Nausea Genitourinary Symptoms: No Symptoms Musculoskeletal: No Symptoms Skin: Other (3 AARON drains with moderate sanguineous fluid) Neurological: No Symptoms, Other (MLI with betito covered in surgical dressing/3 AARON drains with moderate sanguineous drainage) Psychological: No Symptoms Endocrine: No Symptoms Hematologic/Lymphatic: No Symptoms Immunological/Allergic: No Symptoms Objective Exam General Appearance: no apparent distress Neurologic Exam: alert, oriented x 3, cooperative Skin Exam: other (MLI with betito covered in surgical dressing/3 AARON drains with moderate sanguineous drainage) Wound Assessment: Skin/Wound Assessment Wound/Incision Assessment Start: 10/26/24 07:40 Text: Status: Active Freq: Q6H Protocol: Document 10/31/24 02:00 AK (Rec: 10/31/24 03:45 AK [id number]) Wound/Incision Assessment Medial Abdomen Wound Assessment Shift Assessment Wound Type Incision Wound Stage Non Pressure Wound Dressing Status Dry & Intact Comment dressing CDI Left Lateral Abdomen Drain Type AARON drain Drainage Description Yellow Odor None/Absent Right Lower Lateral Abdomen Drain Type AARON drain Drainage Description Yellow Odor None/Absent Right Upper Lateral Abdomen Drain Type AARON drain Drainage Description Yellow Odor None/Absent Wound Photo Photo Taken No Eye Exam: PERRL Ears, Nose, Throat Exam: normal ENT inspection Neck Exam: normal inspection Respiratory Exam: normal breath sounds, lungs clear Cardiovascular Exam: regular rate/rhythm, normal heart sounds Gastrointestinal/Abdomen Exam: soft, tenderness, other (hypoactive BS x 4 quads) Extremity Exam: normal inspection Back Exam: normal inspection Pelvic Exam: deferred Rectal Exam: deferred Objective Data Vital Signs: Vital Signs - 24 hr Temp Pulse Resp BP Pulse Ox 10/31/24 04:00 97.4 F 73 17 126/89 96 10/31/24 00:00 97.5 F 75 20 126/78 97 10/30/24 19:40 97.8 F 67 17 145/90 98 10/30/24 16:00 98.2 F 81 20 120/82 98 10/30/24 11:42 98.1 F 73 12 114/89 96 10/30/24 08:30 70 10/30/24 07:33 97.9 F 70 11 L 138/77 95 Pain Assessment - Last Documented Pain Intensity 4 Pain Scale Used 0-10 Pain Scale Intake and Output: Intake & Output 10/28/24 10/29/24 10/30/24 10/31/24 11:59 11:59 11:59 11:59 Intake Total 3414 3677 2956 1533 Output Total 8680 319 5447 1909 Balance 1907 8079 -1794 -469 Weight 76.8 kg 68.04 kg 67.5 kg Lab Results: Lab Results-Last 24 Hours 10/28/24 10/30/24 10/30/24 Range/Units 07:39 06:15 06:15 WBC 9.1 10.4 H (3.98-10.04) x10^3/uL RBC 3.50 L 3.91 L (3.93-5.22) x10^6/uL Hgb 9.5 L 10.4 L (11.2-15.7) g/dL Hct 28.7 L 32.2 L (34.1-44.9) % MCV 82.0 82.4 (79.4-94.8) fL MCH 27.1 26.6 (25.6-32.2) pg MCHC 33.1 32.3 (32.2-35.5) g/dL RDW 15.7 H 16.1 H (11.7-14.4) % Plt Count 247 443 H (182-369) x10^3/uL MPV 10.7 9.5 (9.4-12.3) fL Gran % 80.3 H (34.0-71.1) % Immature Gran % (Auto) 2.0 H (0.001-0.429) % Nucleat RBC Rel Count 0.8 H (0.00-0.2) % Eos # (Auto) 0.01 L (0.04-0.36) x10^3/uL Immature Gran # (Auto) 0.18 H (0.001-0.031) x10^3u/L Absolute Lymphs (auto) 0.92 L (1.18-3.74) x10^3/uL Absolute Monos (auto) 0.68 (0.24-0.86) x10^3/uL Absolute Nucleated RBC 0.07 H (0.00-0.012) x10^3u/L Lymphocytes % 10.1 L (19.3-51.7) % Monocytes % 7.4 (4.7-12.5) % Eosinophils % 0.1 L (0.7-5.8) % Basophils % 0.1 (0.1-1.2) % Absolute Granulocytes 7.34 H (1.56-6.13) x10^3/uL Basophils # 0.01 (0.01-0.08) x10^3/uL Sodium 139 (135-145) mmol/L Potassium 4.0 (3.5-5.1) mmol/L Chloride 109 H (98-107) mmol/L Carbon Dioxide 25 (22-30) mmol/L Anion Gap 9.1 (5-15) MEQ/L BUN 17 (7-17) mg/dL Creatinine 0.66 (0.52-1.04) mg/dL Estimated GFR 108.1 ML/MIN Glucose 101 (74-106) mg/dL POC Glucometer (74 to 106) mg/dL Calcium 8.1 L (8.4-10.2) mg/dL Magnesium 2.2 (1.6-2.3) mg/dL Total Bilirubin 0.90 (0.2-1.3) mg/dL AST 53 H (14-36) U/L ALT 149 H (0-35) U/L Alkaline Phosphatase 51 (38-126) U/L Serum Total Protein 5.3 L (6.3-8.2) g/dL Albumin 2.7 L (3.5-5.0) g/dL Slides for Path Review YES 10/30/24 10/30/24 10/30/24 Range/Units 07:29 11:37 16:20 WBC (3.98-10.04) x10^3/uL RBC (3.93-5.22) x10^6/uL Hgb (11.2-15.7) g/dL Hct (34.1-44.9) % MCV (79.4-94.8) fL MCH (25.6-32.2) pg MCHC (32.2-35.5) g/dL RDW (11.7-14.4) % Plt Count (182-369) x10^3/uL MPV (9.4-12.3) fL Gran % (34.0-71.1) % Immature Gran % (Auto) (0.001-0.429) % Nucleat RBC Rel Count (0.00-0.2) % Eos # (Auto) (0.04-0.36) x10^3/uL Immature Gran # (Auto) (0.001-0.031) x10^3u/L Absolute Lymphs (auto) (1.18-3.74) x10^3/uL Absolute Monos (auto) (0.24-0.86) x10^3/uL Absolute Nucleated RBC (0.00-0.012) x10^3u/L Lymphocytes % (19.3-51.7) % Monocytes % (4.7-12.5) % Eosinophils % (0.7-5.8) % Basophils % (0.1-1.2) % Absolute Granulocytes (1.56-6.13) x10^3/uL Basophils # (0.01-0.08) x10^3/uL Sodium (135-145) mmol/L Potassium (3.5-5.1) mmol/L Chloride (98-107) mmol/L Carbon Dioxide (22-30) mmol/L Anion Gap (5-15) MEQ/L BUN (7-17) mg/dL Creatinine (0.52-1.04) mg/dL Estimated GFR ML/MIN Glucose (74-106) mg/dL POC Glucometer 121 H 141 H 132 H (74 to 106) mg/dL Calcium (8.4-10.2) mg/dL Magnesium (1.6-2.3) mg/dL Total Bilirubin (0.2-1.3) mg/dL AST (14-36) U/L ALT (0-35) U/L Alkaline Phosphatase (38-126) U/L Serum Total Protein (6.3-8.2) g/dL Albumin (3.5-5.0) g/dL Slides for Path Review 10/30/24 10/31/24 10/31/24 Range/Units 20:09 00:18 04:23 WBC (3.98-10.04) x10^3/uL RBC (3.93-5.22) x10^6/uL Hgb (11.2-15.7) g/dL Hct (34.1-44.9) % MCV (79.4-94.8) fL MCH (25.6-32.2) pg MCHC (32.2-35.5) g/dL RDW (11.7-14.4) % Plt Count (182-369) x10^3/uL MPV (9.4-12.3) fL Gran % (34.0-71.1) % Immature Gran % (Auto) (0.001-0.429) % Nucleat RBC Rel Count (0.00-0.2) % Eos # (Auto) (0.04-0.36) x10^3/uL Immature Gran # (Auto) (0.001-0.031) x10^3u/L Absolute Lymphs (auto) (1.18-3.74) x10^3/uL Absolute Monos (auto) (0.24-0.86) x10^3/uL Absolute Nucleated RBC (0.00-0.012) x10^3u/L Lymphocytes % (19.3-51.7) % Monocytes % (4.7-12.5) % Eosinophils % (0.7-5.8) % Basophils % (0.1-1.2) % Absolute Granulocytes (1.56-6.13) x10^3/uL Basophils # (0.01-0.08) x10^3/uL Sodium (135-145) mmol/L Potassium (3.5-5.1) mmol/L Chloride (98-107) mmol/L Carbon Dioxide (22-30) mmol/L Anion Gap (5-15) MEQ/L BUN (7-17) mg/dL Creatinine (0.52-1.04) mg/dL Estimated GFR ML/MIN Glucose (74-106) mg/dL POC Glucometer 132 H 130 H 104 (74 to 106) mg/dL Calcium (8.4-10.2) mg/dL Magnesium (1.6-2.3) mg/dL Total Bilirubin (0.2-1.3) mg/dL AST (14-36) U/L ALT (0-35) U/L Alkaline Phosphatase (38-126) U/L Serum Total Protein (6.3-8.2) g/dL Albumin (3.5-5.0) g/dL Slides for Path Review 10/31/24 Range/Units 05:05 WBC 8.3 (3.98-10.04) x10^3/uL RBC 3.77 L (3.93-5.22) x10^6/uL Hgb 10.1 L (11.2-15.7) g/dL Hct 31.4 L (34.1-44.9) % MCV 83.3 (79.4-94.8) fL MCH 26.8 (25.6-32.2) pg MCHC 32.2 (32.2-35.5) g/dL RDW 16.0 H (11.7-14.4) % Plt Count 372 H (182-369) x10^3/uL MPV 9.4 (9.4-12.3) fL Gran % 67.7 (34.0-71.1) % Immature Gran % (Auto) 2.4 H (0.001-0.429) % Nucleat RBC Rel Count 0.0 (0.00-0.2) % Eos # (Auto) 0.06 (0.04-0.36) x10^3/uL Immature Gran # (Auto) 0.20 H (0.001-0.031) x10^3u/L Absolute Lymphs (auto) 1.74 (1.18-3.74) x10^3/uL Absolute Monos (auto) 0.67 (0.24-0.86) x10^3/uL Absolute Nucleated RBC 0.00 (0.00-0.012) x10^3u/L Lymphocytes % 21.0 (19.3-51.7) % Monocytes % 8.1 (4.7-12.5) % Eosinophils % 0.7 (0.7-5.8) % Basophils % 0.1 (0.1-1.2) % Absolute Granulocytes 5.61 (1.56-6.13) x10^3/uL Basophils # 0.01 (0.01-0.08) x10^3/uL Sodium (135-145) mmol/L Potassium (3.5-5.1) mmol/L Chloride (98-107) mmol/L Carbon Dioxide (22-30) mmol/L Anion Gap (5-15) MEQ/L BUN (7-17) mg/dL Creatinine (0.52-1.04) mg/dL Estimated GFR ML/MIN Glucose (74-106) mg/dL POC Glucometer (74 to 106) mg/dL Calcium (8.4-10.2) mg/dL Magnesium (1.6-2.3) mg/dL Total Bilirubin (0.2-1.3) mg/dL AST (14-36) U/L ALT (0-35) U/L Alkaline Phosphatase (38-126) U/L Serum Total Protein (6.3-8.2) g/dL Albumin (3.5-5.0) g/dL Slides for Path Review Radiology Exams: Radiology Procedures Category Date Time Status ABDOMEN AND PELVIS W&WO CONTRA [CT] Routine Exams 10/29/24 13:18 Completed CHEST 1 VIEW (PORTABLE) Routine Exams 10/29/24 07:18 Completed UGI w/o AIR Urgent Exams 10/31/24 08:00 Ordered Assessment/Plan (1) Severe sepsis Current Visit: Yes Status: Acute Assessment & Plan: -Received 3L fluid bolus - 2:2 duodenal ulcer perforation - Tele - ICU - I&O Q4hr -no longer meeting sepsis criteria -Continue Merem and Flagyl -WBC reviewed at 8.3- WNL Code(s): A41.9 - SEPSIS, UNSPECIFIED ORGANISM; R65.20 - SEVERE SEPSIS WITHOUT SEPTIC SHOCK (2) Crohn's disease Current Visit: Yes Status: Chronic Assessment & Plan: - Follow Dr. Hu in [place] with GI - KUB 10/18/24 appears nonacute and nonobstructed again with moderate fecal debris predominantly in ascending and transverse colon. No focal bowel dilatation or free air. Contrast in urinary bladder from recent CT. Remaining solid organs and osseous structures unremarkable - Abd/Pelvis CT: 10/17/24 Impression: 1. Descending colonic circumferential wall thickening with minimal pericolonic stranding, probable colitis in this patient with history of Crohn's disease. Colonic mass is not completely excluded as there is also intraluminal narrowing with moderate fecal debris up to level of narrowing. 2. Fatty liver. - Attempted transfer pt for GI and would not accept w/o CT abd/ pelvis - Stat CT abd pelvis 10/24 16:42 Impression: 1. New abdominal free fluid and free air concerning for GI perforation. Query gastric perforation. 2. Diminished colonic bowel wall thickening. 3. Again incidental fatty liver and periumbilical hernia. - GS called again for consult by Dr. Ivan - 10/25/24 surgery for perforated large proximal duodenal ulcer, large diffuse peritonitis and an incarcerated ventral hernia. Surgery consisted of a closure of very large perforated proximal duodenal ulcer with additional omental patch onlay. Repair of incarcerated ventral hernia (with approximately 3.5 cm defect) with suture (given contaminated field). Dr. Fong - Black oliveros., AARON drains x3, NG - Antibiotic changed to Merrem and flagyl by GS - Protonix changed to IV Q12 - TPN started - Discuss pt case with pt's GI provider- wean steroids as directed: 30 BID, Then 40 QD x1 week, then 30 QD x1 week - currently on solumedrol 40mg daily started 10/27 stop on 11/02 then start 30mg daily x 1 week - Per GI pt has 2 ft of colon left - Will fax Path and operative report when available per Dr. Hu request. - 2 units PRBC 10/26/24 - Pain med changed to morphine IVP 10/28/24 - CT abd/pelvis reviewed from 10/29/24 with no new findings - CBC, CMP reviewed -Upper GI negative - NG discontinued per surgery and diet advanced to [facility] Code(s): K50.90 - CROHN'S DISEASE, UNSPECIFIED, WITHOUT COMPLICATIONS (3) Hypokalemia Current Visit: No Status: Acute Assessment & Plan: -tele -monitor renal/lytes daily -replenish per potassium protocol as needed -potassium reviewed at 4.0 resolved Code(s): E87.6 - HYPOKALEMIA (4) Anxiety Current Visit: No Status: Chronic Assessment & Plan: - meds stopped due to oversedation Code(s): F41.9 - ANXIETY DISORDER, UNSPECIFIED (5) Anemia Current Visit: Yes Status: Acute Qualifiers: Anemia type: other cause Assessment & Plan: -2 units of LPRBC received on 10/26/24 -Hgb reviewed 10.1 -Monitor and replace if hgb < 7 Code(s): D64.9 - ANEMIA, UNSPECIFIED (6) Bowel perforation Current Visit: Yes Status: Acute Assessment & Plan: - Not a bowel perforation per GS note but a perforated ulcer with peritonitis Code(s): K63.1 - PERFORATION OF INTESTINE (NONTRAUMATIC) (7) Diffuse peritonitis Current Visit: Yes Status: Acute Assessment & Plan: - Per GS OP report Code(s): K65.0 - GENERALIZED (ACUTE) PERITONITIS (8) Hyperglycemia Current Visit: Yes Status: Acute Assessment & Plan: -2/2 to steroids most likely - Accuchecks Q4 as she is NPO - Humalog s/s Code(s): R73.9 - HYPERGLYCEMIA, UNSPECIFIED (9) Incarcerated ventral hernia Current Visit: Yes Status: Acute Assessment & Plan: - Per GS report with repair - report reviewed Code(s): K43.6 - OTHER AND UNSP VENTRAL HERNIA WITH OBSTRUCTION, W/O GANGRENE (10) Perforated duodenal ulcer Current Visit: Yes Status: Acute Assessment & Plan: - Per GS OP report - With closure and repair with large ulcer, omental patch by GS Code(s): K26.5 - CHRONIC OR UNSPECIFIED DUODENAL ULCER WITH PERFORATION (11) S/P colon resection Current Visit: Yes Status: Acute Assessment & Plan: - Abd. fluid culture negative - Pt did not have colon resection per OP note rather a closure of very large perforated proximal duodenal ulcer with additional omental patch onlay. Repair of incarcerated ventral hernia (with approximately 3.5 cm defect) with suture (given contaminated field). Code(s): Z90.49 - ACQUIRED ABSENCE OF OTHER SPECIFIED PARTS OF DIGESTIVE TRACT (12) S/P exploratory laparotomy Current Visit: Yes Status: Acute Assessment & Plan: - Post op report from on 10/24 reviewed- see note for further information. Code(s): Z98.890 - OTHER SPECIFIED POSTPROCEDURAL STATES (13) Transaminitis Current Visit: Yes Status: Acute Assessment & Plan: -LFTs reviewed and improving - most likely reactive from recent surgery/infection Code(s): R74.01 - ELEVATION OF LEVELS OF LIVER TRANSAMINASE LEVELS (14) Chronic pain syndrome Current Visit: Yes Status: Acute Assessment & Plan: Oral pain med held for now - on [employer] for pain PRN- pharmacy managing Code(s): G89.4 - CHRONIC PAIN SYNDROME (15) Nausea and vomiting Current Visit: Yes Status: Acute Assessment & Plan: - IVF - Zofran PRN Code(s): R11.2 - NAUSEA WITH VOMITING, UNSPECIFIED (16) Thrombocytosis Current Visit: Yes Status: Acute Assessment & Plan: -most likely reactive 2:2 surgery/ infection -PLT reviewed and improved at 372<443 -trend VTE: SCD's PPI: Protonix Next of KIN: Parent Shanti/Norris Rojas [phone] D/C plan: Pending surgery recs Code status: Full
--- NOTE | 2024-10-31 11:53 | XRAY ---
Indication: Follow-up perforated bowel with surgery one week ago. Approximately 270 cc of diluted Gastrografin mixed with water injected through indwelling NG tube. Multiple digital spot and overhead radiographs obtained. Contrast collects in the gastric lumen. No abnormal filling defect, extravasation, or gastroesophageal reflux. Little to no peristalsis with very slow gastric emptying. Duodenal cap unremarkable. Duodenal sweep best seen on overhead radiograph and appears normal in course and caliber. No extravasation. Normal antegrade movement of Gastrografin throughout small bowel loops. Impression: Negative limited single contrast upper GI exam. Approximately 6.7 minutes fluoroscopy used.
[2024-11-01 05:10] LABS: Absolute Neutrophil Ct (ANC) 6.29 x10^3/uL (1.56-6.13); BASOPHIL % 0.1 % (0.1-1.2); Basophil (Absolute #) 0.01 x10^3/uL (0.01-0.08); Eosinophil % 1.2 % (0.7-5.8); Hematocrit 31.5 % (34.1-44.9); IMMATURE GRAN # 0.13 x10^3u/L (0.001-0.031); IMMATURE GRAN % 1.5 % (0.001-0.429); Lymphocytes % 16.4 % (19.3-51.7); Mean Cell Volume 83.6 fL (79.4-94.8); Mean Corpuscular Hemoglobin 26.5 pg (25.6-32.2); Mean Corpuscular Hgb Concent. 31.7 g/dL (32.2-35.5); Mean Platelet Volume 9.6 fL (9.4-12.3); Monocyte (Absolute #) 0.63 x10^3/uL (0.24-0.86); Monocytes % 7.4 % (4.7-12.5); Neutrophil % 73.4 % (34.0-71.1); Platelet Count 403 x10^3/uL (182-369); Red Blood Count 3.77 x10^6/uL (3.93-5.22); Red Cell Distribution Width 15.9 % (11.7-14.4); White Blood Count 8.6 x10^3/uL (3.98-10.04)
[2024-11-01 05:25] LABS: ALBUMIN 2.7 g/dL (3.5-5.0); ANION GAP 9.6 MEQ/L (5-15); BILIRUBIN,TOTAL 0.9 mg/dL (0.2-1.3); Creatinine 1 0.65 mg/dL (0.52-1.04); EST GLOMERULAR FILTRATION RATE 108.5 ML/MIN; Potassium 4.3 mmol/L (3.5-5.1); Total Protein 5.3 g/dL (6.3-8.2)
--- NOTE | 2024-11-01 06:01 | PCM.NOTE ---
Date and Time: 11/01/24 0600 Subjective Assessment: HPI: 49-year-old with a history of Crohn's disease and anxiety, admitted 10/17/24 with abdominal pain, nausea, and diarrhea, consistent with her prior Crohn's flares. Patient has history of poorly controlled Crohn's disease; she was previously on Humira, but it was no longer effective. She tried Entyvio, but worsened, and was recently started on Stelara, receiving her second dose earlier this month. However, she has frequent hospitalizations with severe flares, most recently in June 2024 in [place]. She had been on a slow taper of steroids, discharging on prednisone 60, tapering slowly down to her maintenance dose of 10 mg daily. She follows with Dr. Yashira Holbrook in [place]. Transfer was attempted to [facility] where her GI doctor is but they were on diversion and patient did not wish to transfer to another facility. Initial labs remarkable for hypokalemia and BOBBI which have since resolved. On 10/25/24 patient was taken to surgery for perforated large proximal duodenal ulcer, large diffuse peritonitis and an incarcerated ventral hernia. Surgery consisted of a closure of very large perforated proximal duodenal ulcer with additional omental patch onlay. Repair of incarcerated ventral hernia (with approximately 3.5 cm defect) with suture (given contaminated field). Case discussed with Dr. Holbrook at [facility], patients GI provider.. He advised steroids are indicated for acute Crohn's flare and that a weaning schedule can now be implemented with specific instructions on how to do so, see chart notes. He advised that pt should only be admitted to a hospital with GI services from now on as pt only has 2 ft of colon left and she is a very difficult pt to manage. He reported she has a complex hx with drug abuse and crohn's disease. She has tried multiple immunosuppresive drugs without improvement. She has also had multiple colon surgeries. He stressed the fact that she will try and get food and drinks from staff and it is imperative that we do not give in as she will not heal from this surgery. He requested the path and operative reports from the surgery be faxed to him to review. GI study ordered per GS and negative.Continue Merrem and Flagy. Per surgery discontinue NG 10/31/24 and advance diet to CLD. Please see prior chart notes for full details. 2: Met with patient bedside. Endorses some nauseas and abdominal pain. +flatulence. No BM. GI study negative. Vitals and labs stable. GS following - NG to be discontinued today and diet advanced to CLD. 11/01/24: No overnight events noted. Patient with BM x 2 overnight +flatulence. GS following. Tolerating CLD. Abdominal pain 7/10 at surgical incision site. AARON drains with minimal drainage. - Review of Systems Constitutional: No Symptoms Eyes: No Symptoms Ears, Nose, & Throat: No Symptoms Respiratory: No Symptoms Cardiac: No Symptoms Abdominal/Gastrointestinal: Abdominal Pain Genitourinary Symptoms: No Symptoms Musculoskeletal: No Symptoms Skin: Other (MLI with betito, covered in surgical dressing/abdominal binder - 3 AARON drains - CDI) Neurological: No Symptoms Psychological: No Symptoms Endocrine: No Symptoms Hematologic/Lymphatic: No Symptoms Immunological/Allergic: No Symptoms Objective Exam General Appearance: no apparent distress Neurologic Exam: alert, oriented x 3, cooperative Skin Exam: normal color, other (MLI with betito, covered in surgical dressing/abdominal binder - 3 AARON drains - CDI) Wound Assessment: Skin/Wound Assessment Wound/Incision Assessment Start: 10/26/24 07:40 Text: Status: Active Freq: Q6H Protocol: Document 11/01/24 02:00 HARRIET (Rec: 11/01/24 02:04 HARRIET [id number]) Wound/Incision Assessment Medial Abdomen Wound Assessment Shift Assessment Wound Type Incision Wound Stage Non Pressure Wound Dressing Status Dry & Intact,Changed Drainage Amount None Comment ABDOMINAL BINDER ALSO ON Left Lateral Abdomen Drain Type AARON drain Drainage Description Yellow Odor None/Absent Right Lower Lateral Abdomen Drain Type AARON drain Drainage Description Yellow Odor None/Absent Right Upper Lateral Abdomen Drain Type AARON drain Drainage Description Yellow Odor None/Absent Eye Exam: PERRL Ears, Nose, Throat Exam: normal ENT inspection Neck Exam: normal inspection Respiratory Exam: normal breath sounds, lungs clear Cardiovascular Exam: regular rate/rhythm, normal heart sounds Gastrointestinal/Abdomen Exam: soft, normal bowel sounds, tenderness Extremity Exam: normal inspection Back Exam: normal inspection Pelvic Exam: deferred Rectal Exam: deferred Objective Data Vital Signs: Vital Signs - 24 hr Temp Pulse Resp BP BP Pulse Ox 11/01/24 04:00 97.1 F 76 16 116/73 97 11/01/24 00:00 96.5 F 72 18 111/73 98 10/31/24 20:00 97.1 F 70 19 105/63 98 10/31/24 16:00 78 17 114/77 98 10/31/24 12:00 97.6 F 79 17 111/74 99 10/31/24 07:59 97.7 F 76 16 141/78 96 Pain Assessment - Last Documented Pain Intensity 7 Pain Scale Used 0-10 Pain Scale Intake and Output: Intake & Output 10/29/24 10/30/24 10/31/24 11/01/24 11:59 11:59 11:59 11:59 Intake Total 3677 2957 3000 1576 Output Total 669 2891 1761 7228 Balance 3012 -0985 395 1302 Weight 68.04 kg 67.5 kg 64.6 kg Lab Results: Lab Results-Last 24 Hours 10/31/24 10/31/24 10/31/24 Range/Units 07:55 11:50 16:19 WBC (3.98-10.04) x10^3/uL RBC (3.93-5.22) x10^6/uL Hgb (11.2-15.7) g/dL Hct (34.1-44.9) % MCV (79.4-94.8) fL MCH (25.6-32.2) pg MCHC (32.2-35.5) g/dL RDW (11.7-14.4) % Plt Count (182-369) x10^3/uL MPV (9.4-12.3) fL Gran % (34.0-71.1) % Immature Gran % (Auto) (0.001-0.429) % Nucleat RBC Rel Count (0.00-0.2) % Eos # (Auto) (0.04-0.36) x10^3/uL Immature Gran # (Auto) (0.001-0.031) x10^3u/L Absolute Lymphs (auto) (1.18-3.74) x10^3/uL Absolute Monos (auto) (0.24-0.86) x10^3/uL Absolute Nucleated RBC (0.00-0.012) x10^3u/L Lymphocytes % (19.3-51.7) % Monocytes % (4.7-12.5) % Eosinophils % (0.7-5.8) % Basophils % (0.1-1.2) % Absolute Granulocytes (1.56-6.13) x10^3/uL Basophils # (0.01-0.08) x10^3/uL Sodium (135-145) mmol/L Potassium (3.5-5.1) mmol/L Chloride (98-107) mmol/L Carbon Dioxide (22-30) mmol/L Anion Gap (5-15) MEQ/L BUN (7-17) mg/dL Creatinine (0.52-1.04) mg/dL Estimated GFR ML/MIN Glucose (74-106) mg/dL POC Glucometer 124 H 120 H 140 H (74 to 106) mg/dL Calcium (8.4-10.2) mg/dL Total Bilirubin (0.2-1.3) mg/dL AST (14-36) U/L ALT (0-35) U/L Alkaline Phosphatase (38-126) U/L Serum Total Protein (6.3-8.2) g/dL Albumin (3.5-5.0) g/dL 10/31/24 11/01/24 11/01/24 Range/Units 20:27 00:39 03:58 WBC (3.98-10.04) x10^3/uL RBC (3.93-5.22) x10^6/uL Hgb (11.2-15.7) g/dL Hct (34.1-44.9) % MCV (79.4-94.8) fL MCH (25.6-32.2) pg MCHC (32.2-35.5) g/dL RDW (11.7-14.4) % Plt Count (182-369) x10^3/uL MPV (9.4-12.3) fL Gran % (34.0-71.1) % Immature Gran % (Auto) (0.001-0.429) % Nucleat RBC Rel Count (0.00-0.2) % Eos # (Auto) (0.04-0.36) x10^3/uL Immature Gran # (Auto) (0.001-0.031) x10^3u/L Absolute Lymphs (auto) (1.18-3.74) x10^3/uL Absolute Monos (auto) (0.24-0.86) x10^3/uL Absolute Nucleated RBC (0.00-0.012) x10^3u/L Lymphocytes % (19.3-51.7) % Monocytes % (4.7-12.5) % Eosinophils % (0.7-5.8) % Basophils % (0.1-1.2) % Absolute Granulocytes (1.56-6.13) x10^3/uL Basophils # (0.01-0.08) x10^3/uL Sodium (135-145) mmol/L Potassium (3.5-5.1) mmol/L Chloride (98-107) mmol/L Carbon Dioxide (22-30) mmol/L Anion Gap (5-15) MEQ/L BUN (7-17) mg/dL Creatinine (0.52-1.04) mg/dL Estimated GFR ML/MIN Glucose (74-106) mg/dL POC Glucometer 121 H 139 H 111 H (74 to 106) mg/dL Calcium (8.4-10.2) mg/dL Total Bilirubin (0.2-1.3) mg/dL AST (14-36) U/L ALT (0-35) U/L Alkaline Phosphatase (38-126) U/L Serum Total Protein (6.3-8.2) g/dL Albumin (3.5-5.0) g/dL 11/01/24 11/01/24 Range/Units 04:11 04:11 WBC 8.6 (3.98-10.04) x10^3/uL RBC 3.77 L (3.93-5.22) x10^6/uL Hgb 10.0 L (11.2-15.7) g/dL Hct 31.5 L (34.1-44.9) % MCV 83.6 (79.4-94.8) fL MCH 26.5 (25.6-32.2) pg MCHC 31.7 L (32.2-35.5) g/dL RDW 15.9 H (11.7-14.4) % Plt Count 403 H (182-369) x10^3/uL MPV 9.6 (9.4-12.3) fL Gran % 73.4 H (34.0-71.1) % Immature Gran % (Auto) 1.5 H (0.001-0.429) % Nucleat RBC Rel Count 0.0 (0.00-0.2) % Eos # (Auto) 0.10 (0.04-0.36) x10^3/uL Immature Gran # (Auto) 0.13 H (0.001-0.031) x10^3u/L Absolute Lymphs (auto) 1.40 (1.18-3.74) x10^3/uL Absolute Monos (auto) 0.63 (0.24-0.86) x10^3/uL Absolute Nucleated RBC 0.00 (0.00-0.012) x10^3u/L Lymphocytes % 16.4 L (19.3-51.7) % Monocytes % 7.4 (4.7-12.5) % Eosinophils % 1.2 (0.7-5.8) % Basophils % 0.1 (0.1-1.2) % Absolute Granulocytes 6.29 H (1.56-6.13) x10^3/uL Basophils # 0.01 (0.01-0.08) x10^3/uL Sodium 135 (135-145) mmol/L Potassium 4.3 (3.5-5.1) mmol/L Chloride 105 (98-107) mmol/L Carbon Dioxide 25 (22-30) mmol/L Anion Gap 9.6 (5-15) MEQ/L BUN 18 H (7-17) mg/dL Creatinine 0.65 (0.52-1.04) mg/dL Estimated GFR 108.5 ML/MIN Glucose 92 (74-106) mg/dL POC Glucometer (74 to 106) mg/dL Calcium 8.0 L (8.4-10.2) mg/dL Total Bilirubin 0.90 (0.2-1.3) mg/dL AST 30 (14-36) U/L ALT 91 H (0-35) U/L Alkaline Phosphatase 57 (38-126) U/L Serum Total Protein 5.3 L (6.3-8.2) g/dL Albumin 2.7 L (3.5-5.0) g/dL Radiology Exams: Radiology Procedures Category Date Time Status UGI w/o AIR Urgent Exams 10/31/24 08:00 Completed Multi-Disciplinary Progress Notes: Multi-Disciplinary Progress Notes 10/31/24 15:22 Nutrition Note by Florina Harris F/u Note: TPN con't with no problems. Pt remains NPO. Labs 2/3= BUN 18, glu 120, alb 2.7, hgb 10.1, hct 31.4. Pt currently 117%IBW - note fluid balance decreasing. MBS today - no report noted at this time. Will con't to monitor and f/u prn. T.MATIAS HarrisCD Initialized on 10/31/24 15:22 - END OF NOTE 10/31/24 11:42 Case Management Note by Bhavani Tang PATIENT STILL BEING MANAGED ACUTELY POST OP- PATIENT AMBULATING WELL. ANTICIPATE TO DC HOME TO HER PLF, MAY NEED HHC SET UP Initialized on 10/31/24 11:42 - END OF NOTE Assessment/Plan (1) Severe sepsis Current Visit: Yes Status: Acute Assessment & Plan: -Received 3L fluid bolus - 2:2 duodenal ulcer perforation - Tele - ICU - I&O Q4hr -no longer meeting sepsis criteria -Continue Merem and Flagyl -WBC reviewed at 8.3- WNL Code(s): A41.9 - SEPSIS, UNSPECIFIED ORGANISM; R65.20 - SEVERE SEPSIS WITHOUT SEPTIC SHOCK (2) Crohn's disease Current Visit: Yes Status: Chronic Assessment & Plan: - Follow Dr. Hu in [place] with GI - KUB 10/18/24 appears nonacute and nonobstructed again with moderate fecal debris predominantly in ascending and transverse colon. No focal bowel dilatation or free air. Contrast in urinary bladder from recent CT. Remaining solid organs and osseous structures unremarkable - Abd/Pelvis CT: 10/17/24 Impression: 1. Descending colonic circumferential wall thickening with minimal pericolonic stranding, probable colitis in this patient with history of Crohn's disease. Colonic mass is not completely excluded as there is also intraluminal narrowing with moderate fecal debris up to level of narrowing. 2. Fatty liver. - Attempted transfer pt for GI and would not accept w/o CT abd/ pelvis - Stat CT abd pelvis 10/24 16:42 Impression: 1. New abdominal free fluid and free air concerning for GI perforation. Query gastric perforation. 2. Diminished colonic bowel wall thickening. 3. Again incidental fatty liver and periumbilical hernia. - called again for consult by Dr. Ivan - 10/25/24 surgery for perforated large proximal duodenal ulcer, large diffuse peritonitis and an incarcerated ventral hernia. Surgery consisted of a closure of very large perforated proximal duodenal ulcer with additional omental patch onlay. Repair of incarcerated ventral hernia (with approximately 3.5 cm defect) with suture (given contaminated field). Dr. Fong - Abd binder., AARON drains x3, NG - Antibiotic changed to Merrem and flagyl by GS - Protonix changed to IV Q12 - TPN started - Discuss pt case with pt's GI provider- wean steroids as directed: 30 BID, Then 40 QD x1 week, then 30 QD x1 week - currently on solumedrol 40mg daily started 10/27 stop on 11/02 then start 30mg daily x 1 week - Per GI pt has 2 ft of colon left - Will fax Path and operative report when available per Dr. Hu request. - 2 units PRBC 10/26/24 - Pain med changed to morphine IVP 10/28/24 - CT abd/pelvis reviewed from 10/29/24 with no new findings - CBC, CMP reviewed -Upper GI negative - NG discontinued per surgery and diet advanced to CLD 11/01/24: -BM x 2 - +flatulence -Tolerating CLD -Surgery following -pending further recommendations -AARON drains with minimal drainage -Continue TPN per surgery -CMP/CBC reviewed -unremarkable Code(s): K50.90 - CROHN'S DISEASE, UNSPECIFIED, WITHOUT COMPLICATIONS (3) Hypokalemia Current Visit: No Status: Acute Assessment & Plan: -tele -monitor renal/lytes daily -replenish per potassium protocol as needed -potassium reviewed at 4.0 resolved Code(s): E87.6 - HYPOKALEMIA (4) Anxiety Current Visit: No Status: Chronic Assessment & Plan: - meds stopped due to oversedation Code(s): F41.9 - ANXIETY DISORDER, UNSPECIFIED (5) Anemia Current Visit: Yes Status: Acute Qualifiers: Anemia type: other cause Assessment & Plan: -2 units of LPRBC received on 10/26/24 -Hgb reviewed 10.0 -Monitor and replace if hgb < 7 Code(s): D64.9 - ANEMIA, UNSPECIFIED (6) Bowel perforation Current Visit: Yes Status: Acute Assessment & Plan: - Not a bowel perforation per GS note but a perforated ulcer with peritonitis Code(s): K63.1 - PERFORATION OF INTESTINE (NONTRAUMATIC) (7) Diffuse peritonitis Current Visit: Yes Status: Acute Assessment & Plan: - Per GS OP report Code(s): K65.0 - GENERALIZED (ACUTE) PERITONITIS (8) Hyperglycemia Current Visit: Yes Status: Acute Assessment & Plan: -2/2 to steroids most likely - Accuchecks Q4 as she is NPO - Humalog s/s 2/: Glucose reviewed and stable at 114 Code(s): R73.9 - HYPERGLYCEMIA, UNSPECIFIED (9) Incarcerated ventral hernia Current Visit: Yes Status: Acute Assessment & Plan: - Per GS report with repair - report reviewed Code(s): K43.6 - OTHER AND UNSP VENTRAL HERNIA WITH OBSTRUCTION, W/O GANGRENE (10) Perforated duodenal ulcer Current Visit: Yes Status: Acute Assessment & Plan: - Per GS OP report - With closure and repair with large ulcer, omental patch by GS Code(s): K26.5 - CHRONIC OR UNSPECIFIED DUODENAL ULCER WITH PERFORATION (11) S/P colon resection Current Visit: Yes Status: Acute Assessment & Plan: - Abd. fluid culture negative - Pt did not have colon resection per OP note rather a closure of very large perforated proximal duodenal ulcer with additional omental patch onlay. Repair of incarcerated ventral hernia (with approximately 3.5 cm defect) with suture (given contaminated field). Code(s): Z90.49 - ACQUIRED ABSENCE OF OTHER SPECIFIED PARTS OF DIGESTIVE TRACT (12) S/P exploratory laparotomy Current Visit: Yes Status: Acute Assessment & Plan: - Post op report from on 10/24 reviewed- see note for further information. Code(s): Z98.890 - OTHER SPECIFIED POSTPROCEDURAL STATES (13) Transaminitis Current Visit: Yes Status: Acute Assessment & Plan: -LFTs reviewed and improving - most likely reactive from recent surgery/infection 11/01: -LFTs down-trending - monitor daily Code(s): R74.01 - ELEVATION OF LEVELS OF LIVER TRANSAMINASE LEVELS (14) Chronic pain syndrome Current Visit: Yes Status: Acute Assessment & Plan: Oral pain med held for now - on [employer] for pain PRN- pharmacy managing /: -continue morphine IVP for now Code(s): G89.4 - CHRONIC PAIN SYNDROME (15) Nausea and vomiting Current Visit: Yes Status: Acute Assessment & Plan: - IVF - Zofran PRN Code(s): R11.2 - NAUSEA WITH VOMITING, UNSPECIFIED (16) Thrombocytosis Current Visit: Yes Status: Acute Assessment & Plan: -most likely reactive 2:2 surgery/ infection -PLT reviewed and improved at 372<443 -trend 11/01: -Plts reviewed at 403 VTE: SCD's PPI: Protonix Next of KIN: Parent Shanti/Norris Rojas [phone] D/C plan: Pending surgery recs Code status: Full Additional CC's: KAREN LOPEZ Code(s): A41.9 - SEPSIS, UNSPECIFIED ORGANISM; R65.20 - SEVERE SEPSIS WITHOUT SEPTIC SHOCK (2) Crohn's disease Current Visit: Yes Status: Chronic Code(s): K50.90 - CROHN'S DISEASE, UNSPECIFIED, WITHOUT COMPLICATIONS (3) Hypokalemia Current Visit: No Status: Acute Code(s): E87.6 - HYPOKALEMIA (4) Anxiety Current Visit: No Status: Chronic Code(s): F41.9 - ANXIETY DISORDER, UNSPECIFIED (5) Anemia Current Visit: Yes Status: Acute Qualifiers: Anemia type: other cause Code(s): D64.9 - ANEMIA, UNSPECIFIED (6) Bowel perforation Current Visit: Yes Status: Acute Code(s): K63.1 - PERFORATION OF INTESTINE (NONTRAUMATIC) (7) Diffuse peritonitis Current Visit: Yes Status: Acute Code(s): K65.0 - GENERALIZED (ACUTE) PERITONITIS (8) Hyperglycemia Current Visit: Yes Status: Acute Code(s): R73.9 - HYPERGLYCEMIA, UNSPECIFIED (9) Incarcerated ventral hernia Current Visit: Yes Status: Acute Code(s): K43.6 - OTHER AND UNSP VENTRAL HERNIA WITH OBSTRUCTION, W/O GANGRENE (10) Perforated duodenal ulcer Current Visit: Yes Status: Acute Code(s): K26.5 - CHRONIC OR UNSPECIFIED DUODENAL ULCER WITH PERFORATION (11) S/P colon resection Current Visit: Yes Status: Acute Code(s): Z90.49 - ACQUIRED ABSENCE OF OTHER SPECIFIED PARTS OF DIGESTIVE TRACT (12) S/P exploratory laparotomy Current Visit: Yes Status: Acute Code(s): Z98.890 - OTHER SPECIFIED POSTPROCEDURAL STATES (13) Transaminitis Current Visit: Yes Status: Acute Code(s): R74.01 - ELEVATION OF LEVELS OF LIVER TRANSAMINASE LEVELS (14) Chronic pain syndrome Current Visit: Yes Status: Acute Code(s): G89.4 - CHRONIC PAIN SYNDROME (15) Nausea and vomiting Current Visit: Yes Status: Acute Code(s): R11.2 - NAUSEA WITH VOMITING, UNSPECIFIED (16) Thrombocytosis Current Visit: Yes Status: Acute
[2024-11-02 05:26] LABS: Absolute Neutrophil Ct (ANC) 4.99 x10^3/uL (1.56-6.13); BASOPHIL % 0.1 % (0.1-1.2); Basophil (Absolute #) 0.01 x10^3/uL (0.01-0.08); Eosinophil % 1.6 % (0.7-5.8); Eosinophil (Absolute #) 0.12 x10^3/uL (0.04-0.36); Hematocrit 30.4 % (34.1-44.9); Hemoglobin 9.9 g/dL (11.2-15.7); IMMATURE GRAN # 0.12 x10^3u/L (0.001-0.031); IMMATURE GRAN % 1.6 % (0.001-0.429); Lymphocyte (Absolute #) 1.55 x10^3/uL (1.18-3.74); Lymphocytes % 21.3 % (19.3-51.7); Mean Cell Volume 83.3 fL (79.4-94.8); Mean Corpuscular Hemoglobin 27.1 pg (25.6-32.2); Mean Corpuscular Hgb Concent. 32.6 g/dL (32.2-35.5); Mean Platelet Volume 9.6 fL (9.4-12.3); Monocyte (Absolute #) 0.49 x10^3/uL (0.24-0.86); Monocytes % 6.7 % (4.7-12.5); Neutrophil % 68.7 % (34.0-71.1); Platelet Count 409 x10^3/uL (182-369); Red Blood Count 3.65 x10^6/uL (3.93-5.22); Red Cell Distribution Width 16.2 % (11.7-14.4); White Blood Count 7.3 x10^3/uL (3.98-10.04)
[2024-11-02 05:47] LABS: ALBUMIN 2.8 g/dL (3.5-5.0); ANION GAP 9.6 MEQ/L (5-15); BILIRUBIN,TOTAL 0.7 mg/dL (0.2-1.3); Calcium 8.3 mg/dL (8.4-10.2); Creatinine 1 0.71 mg/dL (0.52-1.04); EST GLOMERULAR FILTRATION RATE 104.8 ML/MIN; Potassium 4.6 mmol/L (3.5-5.1); Total Protein 5.3 g/dL (6.3-8.2)
--- NOTE | 2024-11-02 05:49 | PCM.NOTE ---
Date and Time: 11/02/24 0547 Subjective Assessment: HPI: 49-year-old with a history of Crohn's disease and anxiety, admitted 10/17/24 with abdominal pain, nausea, and diarrhea, consistent with her prior Crohn's flares. Patient has history of poorly controlled Crohn's disease; she was previously on Humira, but it was no longer effective. She tried Entyvio, but worsened, and was recently started on Stelara, receiving her second dose earlier this month. However, she has frequent hospitalizations with severe flares, most recently in June 2024 in [place]. She had been on a slow taper of steroids, discharging on prednisone 60, tapering slowly down to her maintenance dose of 10 mg daily. She follows with Dr. Yashira Holbrook in [place]. Transfer was attempted to [facility] where her GI doctor is but they were on diversion and patient did not wish to transfer to another facility. Initial labs remarkable for hypokalemia and BOBBI which have since resolved. On 10/25/24 patient was taken to surgery for perforated large proximal duodenal ulcer, large diffuse peritonitis and an incarcerated ventral hernia. Surgery consisted of a closure of very large perforated proximal duodenal ulcer with additional omental patch onlay. Repair of incarcerated ventral hernia (with approximately 3.5 cm defect) with suture (given contaminated field). Case discussed with Dr. Holbrook at [facility], patients GI provider.. He advised steroids are indicated for acute Crohn's flare and that a weaning schedule can now be implemented with specific instructions on how to do so, see chart notes. He advised that pt should only be admitted to a hospital with GI services from now on as pt only has 2 ft of colon left and she is a very difficult pt to manage. He reported she has a complex hx with drug abuse and crohn's disease. She has tried multiple immunosuppresive drugs without improvement. She has also had multiple colon surgeries. He stressed the fact that she will try and get food and drinks from staff and it is imperative that we do not give in as she will not heal from this surgery. He requested the path and operative reports from the surgery be faxed to him to review. GI study ordered per GS and negative.Continue Merrem and Flagy. Per surgery discontinue NG 10/31/24 and advance diet to CLD. Please see prior chart notes for full details. 2: Met with patient bedside. Endorses some nauseas and abdominal pain. +flatulence. No BM. GI study negative. Vitals and labs stable. GS following - NG to be discontinued today and diet advanced to CLD. 11/01/24: No overnight events noted. Patient with BM x 2 overnight +flatulence. GS following. Tolerating CLD. Abdominal pain 7/10 at surgical incision site. AARON drains with minimal drainage. 11/02/24: Diet advanced to FLD per surgery team - also recommended to continue TPN for now. +BM. No nausea/vomiting. Patient with abdominal pain at incision site but states pain is "improving everyday" rating at 6/10 on numerical pain scale. Will change pain meds to home pain regimen of percocet 7.5mg. Surgery team following - appreciate recs. - Review of Systems Constitutional: No Symptoms Eyes: No Symptoms Ears, Nose, & Throat: No Symptoms Respiratory: No Symptoms Cardiac: No Symptoms Abdominal/Gastrointestinal: Abdominal Pain Genitourinary Symptoms: No Symptoms Musculoskeletal: No Symptoms Skin: No Symptoms Neurological: No Symptoms Psychological: No Symptoms Endocrine: No Symptoms Hematologic/Lymphatic: No Symptoms Immunological/Allergic: No Symptoms Objective Exam General Appearance: no apparent distress Neurologic Exam: alert, oriented x 3, cooperative Skin Exam: normal color Wound Assessment: Skin/Wound Assessment Wound/Incision Assessment Start: 10/26/24 07:40 Text: Status: Active Freq: Q6H Protocol: Document 11/02/24 02:00 AK (Rec: 11/02/24 02:16 AK [id number]) Wound/Incision Assessment Medial Abdomen Wound Assessment Shift Assessment Wound Type Incision Wound Stage Non Pressure Wound Dressing Status Dry & Intact Drainage Amount None Primary Dressing Absorbant Pad Comment dressing CDI Left Lateral Abdomen Drain Type AARON drain Drainage Description Yellow Odor None/Absent Right Lower Lateral Abdomen Drain Type AARON drain Drainage Description Yellow Odor None/Absent Right Upper Lateral Abdomen Drain Type AARON drain Drainage Description Yellow Odor None/Absent Wound Photo Photo Taken No Eye Exam: PERRL Ears, Nose, Throat Exam: normal ENT inspection Neck Exam: normal inspection Respiratory Exam: normal breath sounds, lungs clear Cardiovascular Exam: regular rate/rhythm, normal heart sounds Gastrointestinal/Abdomen Exam: soft, normal bowel sounds, tenderness, other (MLI with betito/surgical dressing -CDI - 3 AARON drains) Extremity Exam: normal inspection Objective Data Vital Signs: Vital Signs - 24 hr Temp Pulse Resp BP Pulse Ox 11/02/24 04:00 98.1 F 73 16 130/68 99 11/01/24 23:35 97.5 F 68 20 133/66 99 11/01/24 19:15 99 F 68 16 127/80 98 11/01/24 16:00 98.0 F 76 16 111/75 99 11/01/24 12:00 98.5 F 83 14 101/81 97 11/01/24 08:00 98.0 F 77 16 119/68 99 Pain Assessment - Last Documented Pain Intensity 5 Pain Scale Used 0-10 Pain Scale Intake and Output: Intake & Output 10/30/24 10/31/24 11/01/24 11/02/24 11:59 11:59 11:59 11:59 Intake Total 2957 3000 2936 3912 Output Total 4551 2605 3498 2935 Balance -1594 395 -562 977 Weight 67.5 kg 64.6 kg 63.775 kg Lab Results: Lab Results-Last 24 Hours 11/01/24 11/01/24 11/01/24 Range/Units 07:37 11:53 16:51 WBC (3.98-10.04) x10^3/uL RBC (3.93-5.22) x10^6/uL Hgb (11.2-15.7) g/dL Hct (34.1-44.9) % MCV (79.4-94.8) fL MCH (25.6-32.2) pg MCHC (32.2-35.5) g/dL RDW (11.7-14.4) % Plt Count (182-369) x10^3/uL MPV (9.4-12.3) fL Gran % (34.0-71.1) % Immature Gran % (Auto) (0.001-0.429) % Nucleat RBC Rel Count (0.00-0.2) % Eos # (Auto) (0.04-0.36) x10^3/uL Immature Gran # (Auto) (0.001-0.031) x10^3u/L Absolute Lymphs (auto) (1.18-3.74) x10^3/uL Absolute Monos (auto) (0.24-0.86) x10^3/uL Absolute Nucleated RBC (0.00-0.012) x10^3u/L Lymphocytes % (19.3-51.7) % Monocytes % (4.7-12.5) % Eosinophils % (0.7-5.8) % Basophils % (0.1-1.2) % Absolute Granulocytes (1.56-6.13) x10^3/uL Basophils # (0.01-0.08) x10^3/uL POC Glucometer 114 H TNP 148 H (74 to 106) mg/dL 11/02/24 11/02/24 11/02/24 Range/Units 00:46 04:32 05:12 WBC 7.3 (3.98-10.04) x10^3/uL RBC 3.65 L (3.93-5.22) x10^6/uL Hgb 9.9 L (11.2-15.7) g/dL Hct 30.4 L (34.1-44.9) % MCV 83.3 (79.4-94.8) fL MCH 27.1 (25.6-32.2) pg MCHC 32.6 (32.2-35.5) g/dL RDW 16.2 H (11.7-14.4) % Plt Count 409 H (182-369) x10^3/uL MPV 9.6 (9.4-12.3) fL Gran % 68.7 (34.0-71.1) % Immature Gran % (Auto) 1.6 H (0.001-0.429) % Nucleat RBC Rel Count 0.0 (0.00-0.2) % Eos # (Auto) 0.12 (0.04-0.36) x10^3/uL Immature Gran # (Auto) 0.12 H (0.001-0.031) x10^3u/L Absolute Lymphs (auto) 1.55 (1.18-3.74) x10^3/uL Absolute Monos (auto) 0.49 (0.24-0.86) x10^3/uL Absolute Nucleated RBC 0.00 (0.00-0.012) x10^3u/L Lymphocytes % 21.3 (19.3-51.7) % Monocytes % 6.7 (4.7-12.5) % Eosinophils % 1.6 (0.7-5.8) % Basophils % 0.1 (0.1-1.2) % Absolute Granulocytes 4.99 (1.56-6.13) x10^3/uL Basophils # 0.01 (0.01-0.08) x10^3/uL POC Glucometer 121 H 106 (74 to 106) mg/dL Radiology Exams: Radiology Procedures Category Date Time Status UGI w/o AIR Urgent Exams 10/31/24 08:00 Completed Multi-Disciplinary Progress Notes: Multi-Disciplinary Progress Notes 11/01/24 13:13 Case Management Note by Bhavani Tang S/W PATIENT- SHE CONTINUES TO PLAN TO DC HOME AT [facility]. SHE REPORTS SHE FEELS SHE CAN DO HER DRESSING CHANGES AT HOME AND MANAGE HER DRAINS HERSELF AND REPORTS HER DAUGHTER CAN ASSIST IF NEEDED. NO NEW NEEDS FOR DC IDENTIFIED AT THIS TIME Initialized on 11/01/24 13:13 - END OF NOTE Assessment/Plan (1) Severe sepsis Current Visit: Yes Status: Acute Assessment & Plan: -Received 3L fluid bolus - 2:2 duodenal ulcer perforation - Tele - ICU - I&O Q4hr -no longer meeting sepsis criteria -Continue Merem and Flagyl -WBC reviewed at 8.3- WNL Code(s): A41.9 - SEPSIS, UNSPECIFIED ORGANISM; R65.20 - SEVERE SEPSIS WITHOUT SEPTIC SHOCK (2) Crohn's disease Current Visit: Yes Status: Chronic Assessment & Plan: - Follow Dr. Hu in [place] with GI - KUB 10/18/24 appears nonacute and nonobstructed again with moderate fecal debris predominantly in ascending and transverse colon. No focal bowel dilatation or free air. Contrast in urinary bladder from recent CT. Remaining solid organs and osseous structures unremarkable - Abd/Pelvis CT: 10/17/24 Impression: 1. Descending colonic circumferential wall thickening with minimal pericolonic stranding, probable colitis in this patient with history of Crohn's disease. Colonic mass is not completely excluded as there is also intraluminal narrowing with moderate fecal debris up to level of narrowing. 2. Fatty liver. - Attempted transfer pt for GI and would not accept w/o CT abd/ pelvis - Stat CT abd pelvis 10/24 16:42 Impression: 1. New abdominal free fluid and free air concerning for GI perforation. Query gastric perforation. 2. Diminished colonic bowel wall thickening. 3. Again incidental fatty liver and periumbilical hernia. - GS called again for consult by Dr. Ivan - 10/25/24 surgery for perforated large proximal duodenal ulcer, large diffuse peritonitis and an incarcerated ventral hernia. Surgery consisted of a closure of very large perforated proximal duodenal ulcer with additional omental patch onlay. Repair of incarcerated ventral hernia (with approximately 3.5 cm defect) with suture (given contaminated field). Dr. Fong - Abd binder., AARON drains x3, NG - Antibiotic changed to Merrem and flagyl by GS - Protonix changed to IV Q12 - TPN started - Discuss pt case with pt's GI provider- wean steroids as directed: 30 BID, Then 40 QD x1 week, then 30 QD x1 week - currently on solumedrol 40mg daily started 10/27 stop on 11/02 then start 30mg daily x 1 week - Per GI pt has 2 ft of colon left - Will fax Path and operative report when available per Dr. Hu request. - 2 units PRBC 10/26/24 - Pain med changed to morphine IVP 10/28/24 - CT abd/pelvis reviewed from 10/29/24 with no new findings - CBC, CMP reviewed -Upper GI negative - NG discontinued per surgery and diet advanced to CLD 11/01/24: -BM x 2 - +flatulence -Tolerating CLD -Surgery following -pending further recommendations -AARON drains with minimal drainage -Continue TPN per surgery -CMP/CBC reviewed -unremarkable 11/02: -Surgery has advanced diet to FLD-recommends keeping TPN on -Continue abx -Change to oral pain meds- home regimen- percocet 7.5mg Code(s): K50.90 - CROHN'S DISEASE, UNSPECIFIED, WITHOUT COMPLICATIONS (3) Hypokalemia Current Visit: No Status: Acute Assessment & Plan: -tele -monitor renal/lytes daily -replenish per potassium protocol as needed -potassium reviewed at 4.0 resolved Code(s): E87.6 - HYPOKALEMIA (4) Anxiety Current Visit: No Status: Chronic Assessment & Plan: - meds stopped due to oversedation Code(s): F41.9 - ANXIETY DISORDER, UNSPECIFIED (5) Anemia Current Visit: Yes Status: Acute Qualifiers: Anemia type: other cause Assessment & Plan: -2 units of LPRBC received on 10/26/24 -Hgb reviewed at 9.9 -Monitor and replace if hgb < 7 Code(s): D64.9 - ANEMIA, UNSPECIFIED (6) Bowel perforation Current Visit: Yes Status: Acute Assessment & Plan: - Not a bowel perforation per GS note but a perforated ulcer with peritonitis Code(s): K63.1 - PERFORATION OF INTESTINE (NONTRAUMATIC) (7) Diffuse peritonitis Current Visit: Yes Status: Acute Assessment & Plan: - Per GS OP report Code(s): K65.0 - GENERALIZED (ACUTE) PERITONITIS (8) Hyperglycemia Current Visit: Yes Status: Acute Assessment & Plan: -2/2 to steroids most likely - Accuchecks Q4 as she is NPO - Humalog s/s /: Glucose reviewed and stable at 114 Code(s): R73.9 - HYPERGLYCEMIA, UNSPECIFIED (9) Incarcerated ventral hernia Current Visit: Yes Status: Acute Assessment & Plan: - Per GS report with repair - report reviewed Code(s): K43.6 - OTHER AND UNSP VENTRAL HERNIA WITH OBSTRUCTION, W/O GANGRENE (10) Perforated duodenal ulcer Current Visit: Yes Status: Acute Assessment & Plan: - Per GS OP report - With closure and repair with large ulcer, omental patch by GS Code(s): K26.5 - CHRONIC OR UNSPECIFIED DUODENAL ULCER WITH PERFORATION (11) S/P colon resection Current Visit: Yes Status: Acute Assessment & Plan: - Abd. fluid culture negative - Pt did not have colon resection per OP note rather a closure of very large perforated proximal duodenal ulcer with additional omental patch onlay. Repair of incarcerated ventral hernia (with approximately 3.5 cm defect) with suture (given contaminated field). Code(s): Z90.49 - ACQUIRED ABSENCE OF OTHER SPECIFIED PARTS OF DIGESTIVE TRACT (12) S/P exploratory laparotomy Current Visit: Yes Status: Acute Assessment & Plan: - Post op report from on 10/24 reviewed- see note for further information. Code(s): Z98.890 - OTHER SPECIFIED POSTPROCEDURAL STATES (13) Transaminitis Current Visit: Yes Status: Acute Assessment & Plan: -LFTs reviewed and improving - most likely reactive from recent surgery/infection 11/01: -LFTs down-trending - monitor daily Code(s): R74.01 - ELEVATION OF LEVELS OF LIVER TRANSAMINASE LEVELS (14) Chronic pain syndrome Current Visit: Yes Status: Acute Assessment & Plan: Oral pain med held for now - on [employer] for pain PRN- pharmacy managing 11/01: -continue morphine IVP for now Code(s): G89.4 - CHRONIC PAIN SYNDROME (15) Nausea and vomiting Current Visit: Yes Status: Acute Assessment & Plan: - IVF - Zofran PRN Code(s): R11.2 - NAUSEA WITH VOMITING, UNSPECIFIED (16) Thrombocytosis Current Visit: Yes Status: Acute Assessment & Plan: -most likely reactive 2:2 surgery/ infection -PLT reviewed and improved at 372<443 -trend 11/01: -Plts reviewed at 403 VTE: SCD's PPI: Protonix Next of KIN: Parent Shanti/Norris Rojas [phone] D/C plan: Pending surgery recs Code status: Full Code(s): A41.9 - SEPSIS, UNSPECIFIED ORGANISM; R65.20 - SEVERE SEPSIS WITHOUT SEPTIC SHOCK (2) Crohn's disease Current Visit: Yes Status: Chronic Code(s): K50.90 - CROHN'S DISEASE, UNSPECIFIED, WITHOUT COMPLICATIONS (3) Hypokalemia Current Visit: No Status: Acute Code(s): E87.6 - HYPOKALEMIA (4) Anxiety Current Visit: No Status: Chronic Code(s): F41.9 - ANXIETY DISORDER, UNSPECIFIED (5) Anemia Current Visit: Yes Status: Acute Qualifiers: Anemia type: other cause Code(s): D64.9 - ANEMIA, UNSPECIFIED (6) Bowel perforation Current Visit: Yes Status: Acute Code(s): K63.1 - PERFORATION OF INTESTINE (NONTRAUMATIC) (7) Diffuse peritonitis Current Visit: Yes Status: Acute Code(s): K65.0 - GENERALIZED (ACUTE) PERITONITIS (8) Hyperglycemia Current Visit: Yes Status: Acute Code(s): R73.9 - HYPERGLYCEMIA, UNSPECIFIED (9) Incarcerated ventral hernia Current Visit: Yes Status: Acute Code(s): K43.6 - OTHER AND UNSP VENTRAL HERNIA WITH OBSTRUCTION, W/O GANGRENE (10) Perforated duodenal ulcer Current Visit: Yes Status: Acute Code(s): K26.5 - CHRONIC OR UNSPECIFIED DUODENAL ULCER WITH PERFORATION (11) S/P colon resection Current Visit: Yes Status: Acute Code(s): Z90.49 - ACQUIRED ABSENCE OF OTHER SPECIFIED PARTS OF DIGESTIVE TRACT (12) S/P exploratory laparotomy Current Visit: Yes Status: Acute Code(s): Z98.890 - OTHER SPECIFIED POSTPROCEDURAL STATES (13) Transaminitis Current Visit: Yes Status: Acute Code(s): R74.01 - ELEVATION OF LEVELS OF LIVER TRANSAMINASE LEVELS (14) Chronic pain syndrome Current Visit: Yes Status: Acute Code(s): G89.4 - CHRONIC PAIN SYNDROME (15) Nausea and vomiting Current Visit: Yes Status: Acute Code(s): R11.2 - NAUSEA WITH VOMITING, UNSPECIFIED (16) Thrombocytosis Current Visit: Yes Status: Acute
[2024-11-02] MEDS: INTRALIPID 20% IV SCH (14:26)
[2024-11-02] MEDS: CLINIMIX E IV SCH (14:26)
[2024-11-02] MEDS: [UNRECOGNIZED DRUG - OTHER] IV SCH (14:26)
[2024-11-02] MEDS ORDERED: Sterile H2O 10 ml IJ ONE (18:25)
[2024-11-02] MEDS: solu-MEDROL IV SCH (18:45)
[2024-11-02] MEDS: PERCOCET TABLET 5/325MG PO PRN (22:46)
[2024-11-03 05:17] LABS: Absolute Neutrophil Ct (ANC) 8.34 x10^3/uL (1.56-6.13); BASOPHIL % 0.1 % (0.1-1.2); Basophil (Absolute #) 0.01 x10^3/uL (0.01-0.08); Eosinophil % 0.2 % (0.7-5.8); Eosinophil (Absolute #) 0.02 x10^3/uL (0.04-0.36); Hematocrit 31.6 % (34.1-44.9); Hemoglobin 10.1 g/dL (11.2-15.7); IMMATURE GRAN # 0.13 x10^3u/L (0.001-0.031); IMMATURE GRAN % 1.3 % (0.001-0.429); Lymphocyte (Absolute #) 1.33 x10^3/uL (1.18-3.74); Mean Corpuscular Hemoglobin 26.9 pg (25.6-32.2); Mean Platelet Volume 9.6 fL (9.4-12.3); Monocyte (Absolute #) 0.44 x10^3/uL (0.24-0.86); Monocytes % 4.3 % (4.7-12.5); Neutrophil % 81.1 % (34.0-71.1); Platelet Count 408 x10^3/uL (182-369); Red Blood Count 3.76 x10^6/uL (3.93-5.22); White Blood Count 10.3 x10^3/uL (3.98-10.04)
--- NOTE | 2024-11-03 05:19 | PCM.NOTE ---
Date and Time: 11/03/24 0517 Subjective Assessment: HPI: 49-year-old with a history of Crohn's disease and anxiety, admitted 10/17/24 with abdominal pain, nausea, and diarrhea, consistent with her prior Crohn's flares. Patient has history of poorly controlled Crohn's disease; she was previously on Humira, but it was no longer effective. She tried Entyvio, but worsened, and was recently started on Stelara, receiving her second dose earlier this month. However, she has frequent hospitalizations with severe flares, most recently in June 2024 in [place]. She had been on a slow taper of steroids, discharging on prednisone 60, tapering slowly down to her maintenance dose of 10 mg daily. She follows with Dr. Yashira Holbrook in [place]. Transfer was attempted to [facility] where her GI doctor is but they were on diversion and patient did not wish to transfer to another facility. Initial labs remarkable for hypokalemia and BOBBI which have since resolved. On 10/25/24 patient was taken to surgery for perforated large proximal duodenal ulcer, large diffuse peritonitis and an incarcerated ventral hernia. Surgery consisted of a closure of very large perforated proximal duodenal ulcer with additional omental patch onlay. Repair of incarcerated ventral hernia (with approximately 3.5 cm defect) with suture (given contaminated field). Case discussed with Dr. Holbrook at [facility], patients GI provider.. He advised steroids are indicated for acute Crohn's flare and that a weaning schedule can now be implemented with specific instructions on how to do so, see chart notes. He advised that pt should only be admitted to a hospital with GI services from now on as pt only has 2 ft of colon left and she is a very difficult pt to manage. He reported she has a complex hx with drug abuse and crohn's disease. She has tried multiple immunosuppresive drugs without improvement. She has also had multiple colon surgeries. He stressed the fact that she will try and get food and drinks from staff and it is imperative that we do not give in as she will not heal from this surgery. He requested the path and operative reports from the surgery be faxed to him to review. GI study ordered per GS and negative.Continue Merrem and Flagy. Per surgery discontinue NG 10/31/24 and advance diet to CLD. Please see prior chart notes for full details. 2: Met with patient bedside. Endorses some nauseas and abdominal pain. +flatulence. No BM. GI study negative. Vitals and labs stable. GS following - NG to be discontinued today and diet advanced to CLD. 11/01/24: No overnight events noted. Patient with BM x 2 overnight +flatulence. GS following. Tolerating CLD. Abdominal pain 7/10 at surgical incision site. AARON drains with minimal drainage. 11/02/24: Diet advanced to FLD per surgery team - also recommended to continue TPN for now. +BM. No nausea/vomiting. Patient with abdominal pain at incision site but states pain is "improving everyday" rating at 6/10 on numerical pain scale. Will change pain meds to home pain regimen of percocet 7.5mg. Surgery team following - appreciate recs. 11/03/24: Patient doing well- Pain at 6/10 on numerical pain scale at incision site. Oral pain meds controlling pain. GI bland diet ordered by surgery and patient tolerating. AARON drains to be removed. TPN reduced. Steroids on 30mg x 1 week then dc. Most likely can discharge in a few days per surgery team. - Review of Systems Constitutional: No Symptoms Eyes: No Symptoms Ears, Nose, & Throat: No Symptoms Respiratory: No Symptoms Cardiac: No Symptoms Abdominal/Gastrointestinal: Abdominal Pain (MLI site) Genitourinary Symptoms: No Symptoms Musculoskeletal: No Symptoms Skin: Other (MLI CDI) Neurological: No Symptoms Psychological: No Symptoms Endocrine: No Symptoms Hematologic/Lymphatic: No Symptoms Immunological/Allergic: No Symptoms Objective Exam General Appearance: no apparent distress Neurologic Exam: alert, oriented x 3, cooperative Skin Exam: other (MLI with surgical dressing CDI- abdominal binder) Wound Assessment: Skin/Wound Assessment Wound/Incision Assessment Start: 10/26/24 07:40 Text: Status: Active Freq: Q6H Protocol: Document 11/03/24 02:00 AK (Rec: 11/03/24 02:20 AK [id number]) Wound/Incision Assessment Medial Abdomen Wound Assessment Shift Assessment Wound Type Incision Wound Stage Non Pressure Wound Dressing Status Dry & Intact Primary Dressing Absorbant Pad Comment dressing CDI Left Lateral Abdomen Drain Type AARON drain Drainage Description Yellow Odor None/Absent Right Lower Lateral Abdomen Drain Type AARON drain Drainage Description Yellow Odor None/Absent Right Upper Lateral Abdomen Drain Type AARON drain Drainage Description Yellow Odor None/Absent Wound Photo Photo Taken No Eye Exam: PERRL Ears, Nose, Throat Exam: normal ENT inspection Neck Exam: normal inspection Respiratory Exam: normal breath sounds, lungs clear Cardiovascular Exam: regular rate/rhythm, normal heart sounds Gastrointestinal/Abdomen Exam: soft, normal bowel sounds Extremity Exam: normal inspection Back Exam: normal inspection Objective Data Vital Signs: Vital Signs - 24 hr Temp Pulse Resp BP Pulse Ox 11/03/24 04:00 97.7 F 72 19 100/45 97 11/02/24 23:44 97.5 F 79 14 121/66 98 11/02/24 19:15 98.4 F 80 17 107/70 99 11/02/24 16:00 78 16 99/71 93 L 11/02/24 12:00 98 F 77 16 110/64 97 11/02/24 07:56 98.2 F 77 12 106/56 97 Pain Assessment - Last Documented Pain Intensity 7 Pain Scale Used 0-10 Pain Scale Intake and Output: Intake & Output 10/31/24 11/01/24 11/02/24 11/03/24 11:59 11:59 11:59 11:59 Intake Total 3000 2936 3912 3508 Output Total 2605 3498 3335 2390 Balance 395 -409 958 7088 Weight 64.6 kg 63.775 kg 63.616 kg Lab Results: Lab Results-Last 24 Hours 11/02/24 11/02/24 11/02/24 Range/Units 05:12 05:12 07:54 WBC 7.3 (3.98-10.04) x10^3/uL RBC 3.65 L (3.93-5.22) x10^6/uL Hgb 9.9 L (11.2-15.7) g/dL Hct 30.4 L (34.1-44.9) % MCV 83.3 (79.4-94.8) fL MCH 27.1 (25.6-32.2) pg MCHC 32.6 (32.2-35.5) g/dL RDW 16.2 H (11.7-14.4) % Plt Count 409 H (182-369) x10^3/uL MPV 9.6 (9.4-12.3) fL Gran % 68.7 (34.0-71.1) % Immature Gran % (Auto) 1.6 H (0.001-0.429) % Nucleat RBC Rel Count 0.0 (0.00-0.2) % Eos # (Auto) 0.12 (0.04-0.36) x10^3/uL Immature Gran # (Auto) 0.12 H (0.001-0.031) x10^3u/L Absolute Lymphs (auto) 1.55 (1.18-3.74) x10^3/uL Absolute Monos (auto) 0.49 (0.24-0.86) x10^3/uL Absolute Nucleated RBC 0.00 (0.00-0.012) x10^3u/L Lymphocytes % 21.3 (19.3-51.7) % Monocytes % 6.7 (4.7-12.5) % Eosinophils % 1.6 (0.7-5.8) % Basophils % 0.1 (0.1-1.2) % Absolute Granulocytes 4.99 (1.56-6.13) x10^3/uL Basophils # 0.01 (0.01-0.08) x10^3/uL Sodium 135 (135-145) mmol/L Potassium 4.6 (3.5-5.1) mmol/L Chloride 105 (98-107) mmol/L Carbon Dioxide 25 (22-30) mmol/L Anion Gap 9.6 (5-15) MEQ/L BUN 19 H (7-17) mg/dL Creatinine 0.71 (0.52-1.04) mg/dL Estimated GFR 104.8 ML/MIN Glucose 94 (74-106) mg/dL POC Glucometer 103 (74 to 106) mg/dL Calcium 8.3 L (8.4-10.2) mg/dL Total Bilirubin 0.70 (0.2-1.3) mg/dL AST 31 (14-36) U/L ALT 66 H (0-35) U/L Alkaline Phosphatase 51 (38-126) U/L Serum Total Protein 5.3 L (6.3-8.2) g/dL Albumin 2.8 L (3.5-5.0) g/dL 11/02/24 11/02/24 11/02/24 Range/Units 12:00 16:45 19:24 WBC (3.98-10.04) x10^3/uL RBC (3.93-5.22) x10^6/uL Hgb (11.2-15.7) g/dL Hct (34.1-44.9) % MCV (79.4-94.8) fL MCH (25.6-32.2) pg MCHC (32.2-35.5) g/dL RDW (11.7-14.4) % Plt Count (182-369) x10^3/uL MPV (9.4-12.3) fL Gran % (34.0-71.1) % Immature Gran % (Auto) (0.001-0.429) % Nucleat RBC Rel Count (0.00-0.2) % Eos # (Auto) (0.04-0.36) x10^3/uL Immature Gran # (Auto) (0.001-0.031) x10^3u/L Absolute Lymphs (auto) (1.18-3.74) x10^3/uL Absolute Monos (auto) (0.24-0.86) x10^3/uL Absolute Nucleated RBC (0.00-0.012) x10^3u/L Lymphocytes % (19.3-51.7) % Monocytes % (4.7-12.5) % Eosinophils % (0.7-5.8) % Basophils % (0.1-1.2) % Absolute Granulocytes (1.56-6.13) x10^3/uL Basophils # (0.01-0.08) x10^3/uL Sodium (135-145) mmol/L Potassium (3.5-5.1) mmol/L Chloride (98-107) mmol/L Carbon Dioxide (22-30) mmol/L Anion Gap (5-15) MEQ/L BUN (7-17) mg/dL Creatinine (0.52-1.04) mg/dL Estimated GFR ML/MIN Glucose (74-106) mg/dL POC Glucometer 111 H 136 H 125 H (74 to 106) mg/dL Calcium (8.4-10.2) mg/dL Total Bilirubin (0.2-1.3) mg/dL AST (14-36) U/L ALT (0-35) U/L Alkaline Phosphatase (38-126) U/L Serum Total Protein (6.3-8.2) g/dL Albumin (3.5-5.0) g/dL 11/02/24 11/03/24 Range/Units 23:38 04:07 WBC (3.98-10.04) x10^3/uL RBC (3.93-5.22) x10^6/uL Hgb (11.2-15.7) g/dL Hct (34.1-44.9) % MCV (79.4-94.8) fL MCH (25.6-32.2) pg MCHC (32.2-35.5) g/dL RDW (11.7-14.4) % Plt Count (182-369) x10^3/uL MPV (9.4-12.3) fL Gran % (34.0-71.1) % Immature Gran % (Auto) (0.001-0.429) % Nucleat RBC Rel Count (0.00-0.2) % Eos # (Auto) (0.04-0.36) x10^3/uL Immature Gran # (Auto) (0.001-0.031) x10^3u/L Absolute Lymphs (auto) (1.18-3.74) x10^3/uL Absolute Monos (auto) (0.24-0.86) x10^3/uL Absolute Nucleated RBC (0.00-0.012) x10^3u/L Lymphocytes % (19.3-51.7) % Monocytes % (4.7-12.5) % Eosinophils % (0.7-5.8) % Basophils % (0.1-1.2) % Absolute Granulocytes (1.56-6.13) x10^3/uL Basophils # (0.01-0.08) x10^3/uL Sodium (135-145) mmol/L Potassium (3.5-5.1) mmol/L Chloride (98-107) mmol/L Carbon Dioxide (22-30) mmol/L Anion Gap (5-15) MEQ/L BUN (7-17) mg/dL Creatinine (0.52-1.04) mg/dL Estimated GFR ML/MIN Glucose (74-106) mg/dL POC Glucometer 158 H 134 H (74 to 106) mg/dL Calcium (8.4-10.2) mg/dL Total Bilirubin (0.2-1.3) mg/dL AST (14-36) U/L ALT (0-35) U/L Alkaline Phosphatase (38-126) U/L Serum Total Protein (6.3-8.2) g/dL Albumin (3.5-5.0) g/dL Multi-Disciplinary Progress Notes: Multi-Disciplinary Progress Notes 11/02/24 13:33 Case Management Note by Bhavani Tang NO CHANGE IN DC PLANS- PATIENT PLANS TO RETURN HOME TO HER PLF WITH HER DAUGHTER TO HELP HER IF NEEDED. NO NEW NEEDS IDENTIFIED AT THIS TIME Initialized on 11/02/24 13:33 - END OF NOTE Assessment/Plan (1) Severe sepsis Current Visit: Yes Status: Acute Assessment & Plan: -Received 3L fluid bolus - 2:2 duodenal ulcer perforation - Tele - ICU - I&O Q4hr -no longer meeting sepsis criteria -Continue Merem and Flagyl -WBC reviewed at 8.3- WNL 2/6: WBC reviewed at 10.3-trend -continue Merem/Flagyl Code(s): A41.9 - SEPSIS, UNSPECIFIED ORGANISM; R65.20 - SEVERE SEPSIS WITHOUT SEPTIC SHOCK (2) Crohn's disease Current Visit: Yes Status: Chronic Assessment & Plan: - Follow Dr. Hu in [place] with GI - KUB 10/18/24 appears nonacute and nonobstructed again with moderate fecal debris predominantly in ascending and transverse colon. No focal bowel dilatation or free air. Contrast in urinary bladder from recent CT. Remaining solid organs and osseous structures unremarkable - Abd/Pelvis CT: 10/17/24 Impression: 1. Descending colonic circumferential wall thickening with minimal pericolonic stranding, probable colitis in this patient with history of Crohn's disease. Colonic mass is not completely excluded as there is also intraluminal narrowing with moderate fecal debris up to level of narrowing. 2. Fatty liver. - Attempted transfer pt for GI and would not accept w/o CT abd/ pelvis - Stat CT abd pelvis 10/24 16:42 Impression: 1. New abdominal free fluid and free air concerning for GI perforation. Query gastric perforation. 2. Diminished colonic bowel wall thickening. 3. Again incidental fatty liver and periumbilical hernia. - GS called again for consult by Dr. Ivan - 10/25/24 surgery for perforated large proximal duodenal ulcer, large diffuse peritonitis and an incarcerated ventral hernia. Surgery consisted of a closure of very large perforated proximal duodenal ulcer with additional omental patch onlay. Repair of incarcerated ventral hernia (with approximately 3.5 cm defect) with suture (given contaminated field). Dr. Fong - Abd binder., AARON drains x3, NG - Antibiotic changed to Merrem and flagyl by GS - Protonix changed to IV Q12 - TPN started - Discuss pt case with pt's GI provider- wean steroids as directed: 30 BID, Then 40 QD x1 week, then 30 QD x1 week - currently on solumedrol 40mg daily started 10/27 stop on 11/02 then start 30mg daily x 1 week - Per GI pt has 2 ft of colon left - Will fax Path and operative report when available per Dr. Hu request. - 2 units PRBC 10/26/24 - Pain med changed to morphine IVP 10/28/24 - CT abd/pelvis reviewed from 10/29/24 with no new findings - CBC, CMP reviewed -Upper GI negative - NG discontinued per surgery and diet advanced to CLD 11/01/24: -BM x 2 - +flatulence -Tolerating CLD -Surgery following -pending further recommendations -AARON drains with minimal drainage -Continue TPN per surgery -CMP/CBC reviewed -unremarkable 11/02: -Surgery has advanced diet to FLD-recommends keeping TPN on -Continue abx -Change to oral pain meds- home regimen- percocet 7.5mg -solumedrol started at 30mg daily x 1 week -stop after final dose on 11/09/2411/03: -DC AARON per surgery- TPN reduced- advance to GI bland diet -continue abx -Pain controlled with oral pain meds -Resume xanax -continue solumedrol until 11/09/24 Code(s): K50.90 - CROHN'S DISEASE, UNSPECIFIED, WITHOUT COMPLICATIONS (3) Hypokalemia Current Visit: No Status: Acute Assessment & Plan: -tele -monitor renal/lytes daily -replenish per potassium protocol as needed -potassium reviewed at 4.0 resolved Code(s): E87.6 - HYPOKALEMIA (4) Anxiety Current Visit: No Status: Chronic Assessment & Plan: - meds stopped due to oversedation 11/03: -resume home meds Code(s): F41.9 - ANXIETY DISORDER, UNSPECIFIED (5) Anemia Current Visit: Yes Status: Acute Qualifiers: Anemia type: other cause Assessment & Plan: -2 units of LPRBC received on 10/26/24 -Hgb reviewed at 10.1 -Monitor and replace if hgb < 7 Code(s): D64.9 - ANEMIA, UNSPECIFIED (6) Bowel perforation Current Visit: Yes Status: Acute Assessment & Plan: - Not a bowel perforation per GS note but a perforated ulcer with peritonitis Code(s): K63.1 - PERFORATION OF INTESTINE (NONTRAUMATIC) (7) Diffuse peritonitis Current Visit: Yes Status: Acute Assessment & Plan: - Per GS OP report Code(s): K65.0 - GENERALIZED (ACUTE) PERITONITIS (8) Hyperglycemia Current Visit: Yes Status: Acute Assessment & Plan: -2/2 to steroids most likely - Accuchecks Q4 as she is NPO - Humalog s/s 11/02: Glucose reviewed and stable at 114 2/: -Glucose stable at 124 Code(s): R73.9 - HYPERGLYCEMIA, UNSPECIFIED (9) Incarcerated ventral hernia Current Visit: Yes Status: Acute Assessment & Plan: - Per GS report with repair - report reviewed Code(s): K43.6 - OTHER AND UNSP VENTRAL HERNIA WITH OBSTRUCTION, W/O GANGRENE (10) Perforated duodenal ulcer Current Visit: Yes Status: Acute Assessment & Plan: - Per GS OP report - With closure and repair with large ulcer, omental patch by GS Code(s): K26.5 - CHRONIC OR UNSPECIFIED DUODENAL ULCER WITH PERFORATION (11) S/P colon resection Current Visit: Yes Status: Acute Assessment & Plan: - Abd. fluid culture negative - Pt did not have colon resection per OP note rather a closure of very large perforated proximal duodenal ulcer with additional omental patch onlay. Repair of incarcerated ventral hernia (with approximately 3.5 cm defect) with suture (given contaminated field). Code(s): Z90.49 - ACQUIRED ABSENCE OF OTHER SPECIFIED PARTS OF DIGESTIVE TRACT (12) S/P exploratory laparotomy Current Visit: Yes Status: Acute Assessment & Plan: - Post op report from on 10/24 reviewed- see note for further information. Code(s): Z98.890 - OTHER SPECIFIED POSTPROCEDURAL STATES (13) Transaminitis Current Visit: Yes Status: Acute Assessment & Plan: -LFTs reviewed and improving - most likely reactive from recent surgery/infection 11/01: -LFTs down-trending - monitor daily Code(s): R74.01 - ELEVATION OF LEVELS OF LIVER TRANSAMINASE LEVELS (14) Chronic pain syndrome Current Visit: Yes Status: Acute Assessment & Plan: Oral pain med held for now - on VAT OPERATOR for pain PRN- pharmacy managing 11/01: -continue morphine IVP for now 11/03: -Resume home dosing of percocet PO Code(s): G89.4 - CHRONIC PAIN SYNDROME (15) Nausea and vomiting Current Visit: Yes Status: Acute Assessment & Plan: - IVF - Zofran PRN Code(s): R11.2 - NAUSEA WITH VOMITING, UNSPECIFIED (16) Thrombocytosis Current Visit: Yes Status: Acute Assessment & Plan: -most likely reactive 2:2 surgery/ infection -PLT reviewed and improved at 372<443 -trend 11/01: -Plts reviewed at 403 2/: -Plt reviewed at 408 VTE: SCD's PPI: Protonix Next of KIN: Parent Shanti/Norris Rojas [phone] D/C plan: Pending surgery recs Code status: Full Code(s): A41.9 - SEPSIS, UNSPECIFIED ORGANISM; R65.20 - SEVERE SEPSIS WITHOUT SEPTIC SHOCK (2) Crohn's disease Current Visit: Yes Status: Chronic Code(s): K50.90 - CROHN'S DISEASE, UNSPECIFIED, WITHOUT COMPLICATIONS (3) Hypokalemia Current Visit: No Status: Acute Code(s): E87.6 - HYPOKALEMIA (4) Anxiety Current Visit: No Status: Chronic Code(s): F41.9 - ANXIETY DISORDER, UNSPECIFIED (5) Anemia Current Visit: Yes Status: Acute Qualifiers: Anemia type: other cause Code(s): D64.9 - ANEMIA, UNSPECIFIED (6) Bowel perforation Current Visit: Yes Status: Acute Code(s): K63.1 - PERFORATION OF INTESTINE (NONTRAUMATIC) (7) Diffuse peritonitis Current Visit: Yes Status: Acute Code(s): K65.0 - GENERALIZED (ACUTE) PERITONITIS (8) Hyperglycemia Current Visit: Yes Status: Acute Code(s): R73.9 - HYPERGLYCEMIA, UNSPECIFIED (9) Incarcerated ventral hernia Current Visit: Yes Status: Acute Code(s): K43.6 - OTHER AND UNSP VENTRAL HERNIA WITH OBSTRUCTION, W/O GANGRENE (10) Perforated duodenal ulcer Current Visit: Yes Status: Acute Code(s): K26.5 - CHRONIC OR UNSPECIFIED DUODENAL ULCER WITH PERFORATION (11) S/P colon resection Current Visit: Yes Status: Acute Code(s): Z90.49 - ACQUIRED ABSENCE OF OTHER SPECIFIED PARTS OF DIGESTIVE TRACT (12) S/P exploratory laparotomy Current Visit: Yes Status: Acute Code(s): Z98.890 - OTHER SPECIFIED POSTPROCEDURAL STATES (13) Transaminitis Current Visit: Yes Status: Acute Code(s): R74.01 - ELEVATION OF LEVELS OF LIVER TRANSAMINASE LEVELS (14) Chronic pain syndrome Current Visit: Yes Status: Acute Code(s): G89.4 - CHRONIC PAIN SYNDROME (15) Nausea and vomiting Current Visit: Yes Status: Acute Code(s): R11.2 - NAUSEA WITH VOMITING, UNSPECIFIED (16) Thrombocytosis Current Visit: Yes Status: Acute
[2024-11-03 05:45] LABS: BILIRUBIN,TOTAL 0.6 mg/dL (0.2-1.3); Calcium 8.5 mg/dL (8.4-10.2); Creatinine 1 0.66 mg/dL (0.52-1.04); EST GLOMERULAR FILTRATION RATE 108.1 ML/MIN; Potassium 4.5 mmol/L (3.5-5.1); Total Protein 5.5 g/dL (6.3-8.2)
[2024-11-03] MEDS ORDERED: XANAX 1 MG PO PRN (10:09)
[2024-11-03] MEDS: solu-MEDROL 30 MG, Sterile H2O 10 ml 1 ML IV SCH (10:23)
[2024-11-03] MEDS: XANAX 1 MG PO SCH (10:23)
[2024-11-03] MEDS: INTRALIPID 20% IV SCH (14:40)
[2024-11-03] MEDS: [UNRECOGNIZED DRUG - OTHER] IV SCH (14:40)
[2024-11-03] MEDS: CLINIMIX E IV SCH (14:40)
[2024-11-03] MEDS: HUMALOG SQ PRN (17:12)
[2024-11-04 05:19] LABS: Absolute Neutrophil Ct (ANC) 7.07 x10^3/uL (1.56-6.13); BASOPHIL % 0.2 % (0.1-1.2); Basophil (Absolute #) 0.02 x10^3/uL (0.01-0.08); Eosinophil % 0.7 % (0.7-5.8); Eosinophil (Absolute #) 0.07 x10^3/uL (0.04-0.36); Hematocrit 31.5 % (34.1-44.9); Hemoglobin 9.9 g/dL (11.2-15.7); IMMATURE GRAN # 0.12 x10^3u/L (0.001-0.031); IMMATURE GRAN % 1.2 % (0.001-0.429); Lymphocyte (Absolute #) 1.89 x10^3/uL (1.18-3.74); Lymphocytes % 19.4 % (19.3-51.7); Mean Cell Volume 84.9 fL (79.4-94.8); Mean Corpuscular Hemoglobin 26.7 pg (25.6-32.2); Mean Corpuscular Hgb Concent. 31.4 g/dL (32.2-35.5); Mean Platelet Volume 9.6 fL (9.4-12.3); Monocyte (Absolute #) 0.57 x10^3/uL (0.24-0.86); Monocytes % 5.9 % (4.7-12.5); Neutrophil % 72.6 % (34.0-71.1); Platelet Count 405 x10^3/uL (182-369); Red Blood Count 3.71 x10^6/uL (3.93-5.22); White Blood Count 9.7 x10^3/uL (3.98-10.04)
--- NOTE | 2024-11-04 05:34 | PCM.NOTE ---
Date and Time: 11/04/24 0533 Subjective Assessment: HPI: 49-year-old with a history of Crohn's disease and anxiety, admitted 10/17/24 with abdominal pain, nausea, and diarrhea, consistent with her prior Crohn's flares. Patient has history of poorly controlled Crohn's disease; she was previously on Humira, but it was no longer effective. She tried Entyvio, but worsened, and was recently started on Stelara, receiving her second dose earlier this month. However, she has frequent hospitalizations with severe flares, most recently in June 2024 in [place]. She had been on a slow taper of steroids, discharging on prednisone 60, tapering slowly down to her maintenance dose of 10 mg daily. She follows with Dr. Yashira Holbrook in [place]. Transfer was attempted to [facility] where her GI doctor is but they were on diversion and patient did not wish to transfer to another facility. Initial labs remarkable for hypokalemia and BOBBI which have since resolved. On 10/25/24 patient was taken to surgery for perforated large proximal duodenal ulcer, large diffuse peritonitis and an incarcerated ventral hernia. Surgery consisted of a closure of very large perforated proximal duodenal ulcer with additional omental patch onlay. Repair of incarcerated ventral hernia (with approximately 3.5 cm defect) with suture (given contaminated field). Case discussed with Dr. Holbrook at [facility], patients GI provider.. He advised steroids are indicated for acute Crohn's flare and that a weaning schedule can now be implemented with specific instructions on how to do so, see chart notes. He advised that pt should only be admitted to a hospital with GI services from now on as pt only has 2 ft of colon left and she is a very difficult pt to manage. He reported she has a complex hx with drug abuse and crohn's disease. She has tried multiple immunosuppresive drugs without improvement. She has also had multiple colon surgeries. He stressed the fact that she will try and get food and drinks from staff and it is imperative that we do not give in as she will not heal from this surgery. He requested the path and operative reports from the surgery be faxed to him to review. GI study ordered per GS and negative.Continue Merrem and Flagy. Per surgery discontinue NG 10/31/24 and advance diet to CLD. Please see prior chart notes for full details. 2: Met with patient bedside. Endorses some nauseas and abdominal pain. +flatulence. No BM. GI study negative. Vitals and labs stable. GS following - NG to be discontinued today and diet advanced to CLD. 11/01/24: No overnight events noted. Patient with BM x 2 overnight +flatulence. GS following. Tolerating CLD. Abdominal pain 7/10 at surgical incision site. AARON drains with minimal drainage. 11/02/24: Diet advanced to FLD per surgery team - also recommended to continue TPN for now. +BM. No nausea/vomiting. Patient with abdominal pain at incision site but states pain is "improving everyday" rating at 6/10 on numerical pain scale. Will change pain meds to home pain regimen of percocet 7.5mg. Surgery team following - appreciate recs. 11/03/24: Patient doing well- Pain at 6/10 on numerical pain scale at incision site. Oral pain meds controlling pain. GI bland diet ordered by surgery and patient tolerating. AARON drains to be removed. TPN reduced. Steroids on 30mg x 1 week then dc. Most likely can discharge in a few days per surgery team. Objective Exam Wound Assessment: Skin/Wound Assessment Wound/Incision Assessment Start: 10/26/24 07:40 Text: Status: Active Freq: Q6H Protocol: Document 11/04/24 02:00 MP (Rec: 11/04/24 02:56 MP [id number]) Wound/Incision Assessment Medial Abdomen Wound Assessment Shift Assessment Wound Type Incision Wound Stage Non Pressure Wound Dressing Status Dry & Intact Drainage Odor None/Absent Primary Dressing BORDERED GAUZE Comment DRESSING C/D/I Wound Photo Photo Taken No Objective Data Vital Signs: Vital Signs - 24 hr Temp Pulse Resp BP Pulse Ox 11/04/24 04:06 96.8 F 89 15 139/71 98 11/04/24 00:00 97.7 F 84 18 114/68 98 11/03/24 20:15 97.4 F 120 H 20 130/84 95 11/03/24 16:48 97.0 F 97 H 15 138/92 98 11/03/24 12:22 83 14 118/62 97 11/03/24 09:21 98.1 F 11/03/24 08:00 78 13 108/71 99 Pain Assessment - Last Documented Pain Intensity 6 Pain Scale Used 0-10 Pain Scale Intake and Output: Intake & Output 11/01/24 11/02/24 11/03/24 11/04/24 11:59 11:59 11:59 11:59 Intake Total 2932 391 4148 1617 Output Total 3492 1405 2810 Balance -851 384 2745 1617 Weight 63.775 kg 63.616 kg 63.248 kg Lab Results: Lab Results-Last 24 Hours 11/03/24 11/03/24 11/03/24 Range/Units 05:07 08:01 11:33 WBC (3.98-10.04) x10^3/uL RBC (3.93-5.22) x10^6/uL Hgb (11.2-15.7) g/dL Hct (34.1-44.9) % MCV (79.4-94.8) fL MCH (25.6-32.2) pg MCHC (32.2-35.5) g/dL RDW (11.7-14.4) % Plt Count (182-369) x10^3/uL MPV (9.4-12.3) fL Gran % (34.0-71.1) % Immature Gran % (Auto) (0.001-0.429) % Nucleat RBC Rel Count (0.00-0.2) % Eos # (Auto) (0.04-0.36) x10^3/uL Immature Gran # (Auto) (0.001-0.031) x10^3u/L Absolute Lymphs (auto) (1.18-3.74) x10^3/uL Absolute Monos (auto) (0.24-0.86) x10^3/uL Absolute Nucleated RBC (0.00-0.012) x10^3u/L Lymphocytes % (19.3-51.7) % Monocytes % (4.7-12.5) % Eosinophils % (0.7-5.8) % Basophils % (0.1-1.2) % Absolute Granulocytes (1.56-6.13) x10^3/uL Basophils # (0.01-0.08) x10^3/uL Sodium 136 (135-145) mmol/L Potassium 4.5 (3.5-5.1) mmol/L Chloride 106 (98-107) mmol/L Carbon Dioxide 22 (22-30) mmol/L Anion Gap 12.0 (5-15) MEQ/L BUN 21 H (7-17) mg/dL Creatinine 0.66 (0.52-1.04) mg/dL Estimated GFR 108.1 ML/MIN Glucose 124 H (74-106) mg/dL POC Glucometer 130 H 104 (74 to 106) mg/dL Calcium 8.5 (8.4-10.2) mg/dL Total Bilirubin 0.60 (0.2-1.3) mg/dL AST 24 (14-36) U/L ALT 52 H (0-35) U/L Alkaline Phosphatase 68 (38-126) U/L Serum Total Protein 5.5 L (6.3-8.2) g/dL Albumin 3.0 L (3.5-5.0) g/dL 11/03/24 11/03/24 11/03/24 Range/Units 16:30 20:09 23:50 WBC (3.98-10.04) x10^3/uL RBC (3.93-5.22) x10^6/uL Hgb (11.2-15.7) g/dL Hct (34.1-44.9) % MCV (79.4-94.8) fL MCH (25.6-32.2) pg MCHC (32.2-35.5) g/dL RDW (11.7-14.4) % Plt Count (182-369) x10^3/uL MPV (9.4-12.3) fL Gran % (34.0-71.1) % Immature Gran % (Auto) (0.001-0.429) % Nucleat RBC Rel Count (0.00-0.2) % Eos # (Auto) (0.04-0.36) x10^3/uL Immature Gran # (Auto) (0.001-0.031) x10^3u/L Absolute Lymphs (auto) (1.18-3.74) x10^3/uL Absolute Monos (auto) (0.24-0.86) x10^3/uL Absolute Nucleated RBC (0.00-0.012) x10^3u/L Lymphocytes % (19.3-51.7) % Monocytes % (4.7-12.5) % Eosinophils % (0.7-5.8) % Basophils % (0.1-1.2) % Absolute Granulocytes (1.56-6.13) x10^3/uL Basophils # (0.01-0.08) x10^3/uL Sodium (135-145) mmol/L Potassium (3.5-5.1) mmol/L Chloride (98-107) mmol/L Carbon Dioxide (22-30) mmol/L Anion Gap (5-15) MEQ/L BUN (7-17) mg/dL Creatinine (0.52-1.04) mg/dL Estimated GFR ML/MIN Glucose (74-106) mg/dL POC Glucometer 226 H 136 H 120 H (74 to 106) mg/dL Calcium (8.4-10.2) mg/dL Total Bilirubin (0.2-1.3) mg/dL AST (14-36) U/L ALT (0-35) U/L Alkaline Phosphatase (38-126) U/L Serum Total Protein (6.3-8.2) g/dL Albumin (3.5-5.0) g/dL 11/04/24 11/04/24 Range/Units 04:00 05:12 WBC 9.7 (3.98-10.04) x10^3/uL RBC 3.71 L (3.93-5.22) x10^6/uL Hgb 9.9 L (11.2-15.7) g/dL Hct 31.5 L (34.1-44.9) % MCV 84.9 (79.4-94.8) fL MCH 26.7 (25.6-32.2) pg MCHC 31.4 L (32.2-35.5) g/dL RDW 16.0 H (11.7-14.4) % Plt Count 405 H (182-369) x10^3/uL MPV 9.6 (9.4-12.3) fL Gran % 72.6 H (34.0-71.1) % Immature Gran % (Auto) 1.2 H (0.001-0.429) % Nucleat RBC Rel Count 0.0 (0.00-0.2) % Eos # (Auto) 0.07 (0.04-0.36) x10^3/uL Immature Gran # (Auto) 0.12 H (0.001-0.031) x10^3u/L Absolute Lymphs (auto) 1.89 (1.18-3.74) x10^3/uL Absolute Monos (auto) 0.57 (0.24-0.86) x10^3/uL Absolute Nucleated RBC 0.00 (0.00-0.012) x10^3u/L Lymphocytes % 19.4 (19.3-51.7) % Monocytes % 5.9 (4.7-12.5) % Eosinophils % 0.7 (0.7-5.8) % Basophils % 0.2 (0.1-1.2) % Absolute Granulocytes 7.07 H (1.56-6.13) x10^3/uL Basophils # 0.02 (0.01-0.08) x10^3/uL Sodium (135-145) mmol/L Potassium (3.5-5.1) mmol/L Chloride (98-107) mmol/L Carbon Dioxide (22-30) mmol/L Anion Gap (5-15) MEQ/L BUN (7-17) mg/dL Creatinine (0.52-1.04) mg/dL Estimated GFR ML/MIN Glucose (74-106) mg/dL POC Glucometer 104 (74 to 106) mg/dL Calcium (8.4-10.2) mg/dL Total Bilirubin (0.2-1.3) mg/dL AST (14-36) U/L ALT (0-35) U/L Alkaline Phosphatase (38-126) U/L Serum Total Protein (6.3-8.2) g/dL Albumin (3.5-5.0) g/dL Multi-Disciplinary Progress Notes: Multi-Disciplinary Progress Notes 11/03/24 16:18 Nutrition Note by Florina Harris F/u Note: Note po intake resumed; receiving a soft diet with 50-75% po intake. TPN con't @ 40mls/hour. Labs 11/03= BUN 21, glu wnl, alb 3.0, hgb 10.1, hct 31.6. goals: #1) maintain po intake >=75% #2) no weight loss. Will con't to monitor and f/u prn. MATIAS KothariCD Initialized on 11/03/24 16:18 - END OF NOTE 11/03/24 11:15 Case Management Note by Bhavani Tang NO CHANGE IN DC PLANS AT THIS TIME, PATIENT TO RETURN HOME WITH SELF CARE AT THIS TIME Initialized on 11/03/24 11:15 - END OF NOTE Assessment/Plan (1) Severe sepsis Current Visit: Yes Status: Acute Assessment & Plan: -Received 3L fluid bolus - 2:2 duodenal ulcer perforation - Tele - ICU - I&O Q4hr -no longer meeting sepsis criteria -Continue Merem and Flagyl -WBC reviewed at 8.3- WNL 2/6: WBC reviewed at 10.3-trend -continue Merem/Flagyl Code(s): A41.9 - SEPSIS, UNSPECIFIED ORGANISM; R65.20 - SEVERE SEPSIS WITHOUT SEPTIC SHOCK (2) Crohn's disease Current Visit: Yes Status: Chronic Assessment & Plan: - Follow Dr. Hu in [place] with GI - KUB 10/18/24 appears nonacute and nonobstructed again with moderate fecal debris predominantly in ascending and transverse colon. No focal bowel dilatation or free air. Contrast in urinary bladder from recent CT. Remaining solid organs and osseous structures unremarkable - Abd/Pelvis CT: 10/17/24 Impression: 1. Descending colonic circumferential wall thickening with minimal pericolonic stranding, probable colitis in this patient with history of Crohn's disease. Colonic mass is not completely excluded as there is also intraluminal narrowing with moderate fecal debris up to level of narrowing. 2. Fatty liver. - Attempted transfer pt for GI and would not accept w/o CT abd/ pelvis - Stat CT abd pelvis 10/24 16:42 Impression: 1. New abdominal free fluid and free air concerning for GI perforation. Query gastric perforation. 2. Diminished colonic bowel wall thickening. 3. Again incidental fatty liver and periumbilical hernia. - GS called again for consult by Dr. Ivan - 10/25/24 surgery for perforated large proximal duodenal ulcer, large diffuse peritonitis and an incarcerated ventral hernia. Surgery consisted of a closure of very large perforated proximal duodenal ulcer with additional omental patch onlay. Repair of incarcerated ventral hernia (with approximately 3.5 cm defect) with suture (given contaminated field). Dr. Fong - Abd binder., AARON drains x3, NG - Antibiotic changed to Merrem and flagyl by GS - Protonix changed to IV Q12 - TPN started - Discuss pt case with pt's GI provider- wean steroids as directed: 30 BID, Then 40 QD x1 week, then 30 QD x1 week - currently on solumedrol 40mg daily started 10/27 stop on 11/02 then start 30mg daily x 1 week - Per GI pt has 2 ft of colon left - Will fax Path and operative report when available per Dr. Hu request. - 2 units PRBC 10/26/24 - Pain med changed to morphine IVP 10/28/24 - CT abd/pelvis reviewed from 10/29/24 with no new findings - CBC, CMP reviewed -Upper GI negative - NG discontinued per surgery and diet advanced to CLD 11/01/24: -BM x 2 - +flatulence -Tolerating CLD -Surgery following -pending further recommendations -AARON drains with minimal drainage -Continue TPN per surgery -CMP/CBC reviewed -unremarkable 11/02: -Surgery has advanced diet to FLD-recommends keeping TPN on -Continue abx -Change to oral pain meds- home regimen- percocet 7.5mg -solumedrol started at 30mg daily x 1 week -stop after final dose on 11/09/2411/03: -DC AARON per surgery- TPN reduced- advance to GI bland diet -continue abx -Pain controlled with oral pain meds -Resume xanax -continue solumedrol until 11/09/24 Code(s): K50.90 - CROHN'S DISEASE, UNSPECIFIED, WITHOUT COMPLICATIONS (3) Hypokalemia Current Visit: No Status: Acute Assessment & Plan: -tele -monitor renal/lytes daily -replenish per potassium protocol as needed -potassium reviewed at 4.0 resolved Code(s): E87.6 - HYPOKALEMIA (4) Anxiety Current Visit: No Status: Chronic Assessment & Plan: - meds stopped due to oversedation 11/03: -resume home meds Code(s): F41.9 - ANXIETY DISORDER, UNSPECIFIED (5) Anemia Current Visit: Yes Status: Acute Qualifiers: Anemia type: other cause Assessment & Plan: -2 units of LPRBC received on 10/26/24 -Hgb reviewed at 10.1 -Monitor and replace if hgb < 7 Code(s): D64.9 - ANEMIA, UNSPECIFIED (6) Bowel perforation Current Visit: Yes Status: Acute Assessment & Plan: - Not a bowel perforation per GS note but a perforated ulcer with peritonitis Code(s): K63.1 - PERFORATION OF INTESTINE (NONTRAUMATIC) (7) Diffuse peritonitis Current Visit: Yes Status: Acute Assessment & Plan: - Per GS OP report Code(s): K65.0 - GENERALIZED (ACUTE) PERITONITIS (8) Hyperglycemia Current Visit: Yes Status: Acute Assessment & Plan: -2/ to steroids most likely - Accuchecks Q4 as she is NPO - Humalog s/s 11/02: Glucose reviewed and stable at 114 2: -Glucose stable at 124 Code(s): R73.9 - HYPERGLYCEMIA, UNSPECIFIED (9) Incarcerated ventral hernia Current Visit: Yes Status: Acute Assessment & Plan: - Per GS report with repair - report reviewed Code(s): K43.6 - OTHER AND UNSP VENTRAL HERNIA WITH OBSTRUCTION, W/O GANGRENE (10) Perforated duodenal ulcer Current Visit: Yes Status: Acute Assessment & Plan: - Per GS OP report - With closure and repair with large ulcer, omental patch by GS Code(s): K26.5 - CHRONIC OR UNSPECIFIED DUODENAL ULCER WITH PERFORATION (11) S/P colon resection Current Visit: Yes Status: Acute Assessment & Plan: - Abd. fluid culture negative - Pt did not have colon resection per OP note rather a closure of very large perforated proximal duodenal ulcer with additional omental patch onlay. Repair of incarcerated ventral hernia (with approximately 3.5 cm defect) with suture (given contaminated field). Code(s): Z90.49 - ACQUIRED ABSENCE OF OTHER SPECIFIED PARTS OF DIGESTIVE TRACT (12) S/P exploratory laparotomy Current Visit: Yes Status: Acute Assessment & Plan: - Post op report from on 10/24 reviewed- see note for further information. Code(s): Z98.890 - OTHER SPECIFIED POSTPROCEDURAL STATES (13) Transaminitis Current Visit: Yes Status: Acute Assessment & Plan: -LFTs reviewed and improving - most likely reactive from recent surgery/infection 11/01: -LFTs down-trending - monitor daily Code(s): R74.01 - ELEVATION OF LEVELS OF LIVER TRANSAMINASE LEVELS (14) Chronic pain syndrome Current Visit: Yes Status: Acute Assessment & Plan: Oral pain med held for now - on [employer]IC[employer] for pain PRN- pharmacy managing 11/01: -continue morphine IVP for now 6: -Resume home dosing of percocet PO Code(s): G89.4 - CHRONIC PAIN SYNDROME (15) Nausea and vomiting Current Visit: Yes Status: Acute Assessment & Plan: - IVF - Zofran PRN Code(s): R11.2 - NAUSEA WITH VOMITING, UNSPECIFIED (16) Thrombocytosis Current Visit: Yes Status: Acute Assessment & Plan: -most likely reactive 2:2 surgery/ infection -PLT reviewed and improved at 372<443 -trend 11/01: -Plts reviewed at 403 2/: -Plt reviewed at 408 VTE: SCD's PPI: Protonix Next of KIN: Parent Shanti/Norris Rojas [phone] D/C plan: Pending surgery recs Code status: Full Code(s): A41.9 - SEPSIS, UNSPECIFIED ORGANISM; R65.20 - SEVERE SEPSIS WITHOUT SEPTIC SHOCK (2) Crohn's disease Current Visit: Yes Status: Chronic Code(s): K50.90 - CROHN'S DISEASE, UNSPECIFIED, WITHOUT COMPLICATIONS (3) Hypokalemia Current Visit: No Status: Acute Code(s): E87.6 - HYPOKALEMIA (4) Anxiety Current Visit: No Status: Chronic Code(s): F41.9 - ANXIETY DISORDER, UNSPECIFIED (5) Anemia Current Visit: Yes Status: Acute Qualifiers: Anemia type: other cause Code(s): D64.9 - ANEMIA, UNSPECIFIED (6) Bowel perforation Current Visit: Yes Status: Acute Code(s): K63.1 - PERFORATION OF INTESTINE (NONTRAUMATIC) (7) Diffuse peritonitis Current Visit: Yes Status: Acute Code(s): K65.0 - GENERALIZED (ACUTE) PERITONITIS (8) Hyperglycemia Current Visit: Yes Status: Acute Code(s): R73.9 - HYPERGLYCEMIA, UNSPECIFIED (9) Incarcerated ventral hernia Current Visit: Yes Status: Acute Code(s): K43.6 - OTHER AND UNSP VENTRAL HERNIA WITH OBSTRUCTION, W/O GANGRENE (10) Perforated duodenal ulcer Current Visit: Yes Status: Acute Code(s): K26.5 - CHRONIC OR UNSPECIFIED DUODENAL ULCER WITH PERFORATION (11) S/P colon resection Current Visit: Yes Status: Acute Code(s): Z90.49 - ACQUIRED ABSENCE OF OTHER SPECIFIED PARTS OF DIGESTIVE TRACT (12) S/P exploratory laparotomy Current Visit: Yes Status: Acute Code(s): Z98.890 - OTHER SPECIFIED POSTPROCEDURAL STATES (13) Transaminitis Current Visit: Yes Status: Acute Code(s): R74.01 - ELEVATION OF LEVELS OF LIVER TRANSAMINASE LEVELS (14) Chronic pain syndrome Current Visit: Yes Status: Acute Code(s): G89.4 - CHRONIC PAIN SYNDROME (15) Nausea and vomiting Current Visit: Yes Status: Acute Code(s): R11.2 - NAUSEA WITH VOMITING, UNSPECIFIED (16) Thrombocytosis Current Visit: Yes Status: Acute
[2024-11-04 05:51] LABS: ALBUMIN 2.7 g/dL (3.5-5.0); ANION GAP 8.7 MEQ/L (5-15); BILIRUBIN,TOTAL 0.5 mg/dL (0.2-1.3); Calcium 8.2 mg/dL (8.4-10.2); Creatinine 1 0.74 mg/dL (0.52-1.04); EST GLOMERULAR FILTRATION RATE 99.7 ML/MIN; Potassium 4.1 mmol/L (3.5-5.1); Total Protein 5.2 g/dL (6.3-8.2)
[2024-11-04 11:51] VITALS: BP 104/51; PULSE 90; RESP 18; TEMP 98.9; O2SAT 95
--- NOTE | 2024-11-04 13:42 | PCM.DS ---
Discharge Summary Date of Admission: 10/18/24 05:14 Date of Discharge: 11/04/24 Admitting Physician: LEO PANDEY MD Consults: Consults on Case 10/24/24 09:06 Consult Surgery ROUTINE Primary Care Provider: KAREN LOPEZ MD Allergies Allergies Penicillins Allergy (Intermediate, Verified 10/17/24 16:18) HALLUCINATIONS erythromycin base [Erythromycin Base] Allergy (Mild, Verified 10/17/24 16:18) Vomiting vancomycin Allergy (Verified 10/17/24 16:18) Hospital Summary - Hospital Course Hospital Course: HPI: 49-year-old with a history of Crohn's disease and anxiety, admitted 10/17/24 with abdominal pain, nausea, and diarrhea, consistent with her prior Crohn's flares. Patient has history of poorly controlled Crohn's disease; she was previously on Humira, but it was no longer effective. She tried Entyvio, but worsened, and was recently started on Stelara, receiving her second dose earlier this month. However, she has frequent hospitalizations with severe flares, most recently in June 2024 in [place]. She had been on a slow taper of steroids, discharging on prednisone 60, tapering slowly down to her maintenance dose of 10 mg daily. She follows with Dr. Yashira Valles in [place]. Transfer was attempted to [facility] where her GI doctor is but they were on div ersion and patient did not wish to transfer to another facility. Initial labs remarkable for hypokalemia and BOBBI which have since resolved. On 10/25/24 patient was taken to surgery for perforated large proximal duodenal ulcer, large diffuse peritonitis and an incarcerated ventral hernia. Surgery consisted of a closure of very large perforated proximal duodenal ulcer with additional omental patch onlay. Repair of incarcerated ventral hernia (with approximately 3.5 cm defect) with suture (given contaminated field). [facility] He advised steroids are indicated for acute Crohn's flare and that a weaning schedule can now be implemented with specific instructions on how to do so, see chart notes. He advised that pt should only be admitted to a hospital with GI services from now on as pt only has 2 ft of colon left and she is a very difficult pt to manage. He reported she has a complex hx with drug abuse and crohn's disease. She has tried multiple immunosuppresive drugs without improvement. She has also had multiple colon surgeries. He stressed the fact that she will try and get food and drinks from staff and it is imperative that we do not give in as she will not heal from this surgery. He requested the path and operative reports from the surgery be faxed to him to review. GI study ordered per GS and negative.Continue Merrem and Flagy. Per surgery discontinue NG 10/31/24 and advance diet to CLD. Please see prior chart notes for full details. 10/31: Met with patient bedside. Endorses some nauseas and abdominal pain. +flatulence. No BM. GI study negative. Vitals and labs stable. GS following - NG to be discontinued today and diet advanced to CLD. 11/01/24: No overnight events noted. Patient with BM x 2 overnight +flatulence. GS following. Tolerating CLD. Abdominal pain 7/10 at surgical incision site. AARON drains with minimal drainage. 11/02/24: Diet advanced to FLD per surgery team - also recommended to continue TPN for now. +BM. No nausea/vomiting. Patient with abdominal pain at incision site but states pain is "improving everyday" rating at 6/10 on numerical pain scale. Will change pain meds to home pain regimen of percocet 7.5mg. Surgery team following - appreciate recs. 11/03/24: Patient doing well- Pain at 6/10 on numerical pain scale at incision site. Oral pain meds controlling pain. GI bland diet ordered by surgery and patient tolerating. AARON drains to be removed. TPN reduced. Steroids on 30mg x 1 week then dc. Most likely can discharge in a few days per surgery team. 11/04/24: Patient doing well. Surgery team has cleared patient for discharge with follow up in 2 weeks. She is tolerating a regular diet with +BM. She is currently on 30mg solu-medrol daily. Will discharge on equivalent of prednisone 40 mg (per [facility] pharmacy) with last dose on 11/09/24. Patient has been provided surgical dis charge instructions and ready for discharge. Pain is controlled on home percocet dosing. Patient states she has a prescription of Percocet at home and does not need any additional on discharge. We have scheduled follow up with surgery and her GI team. No need for further antibiotics per surgery team. Discharge Note Latest Assessment & Plan (1) Severe sepsis Current Visit: Yes Status: Acute Assessment & Plan: -Received 3L fluid bolus - 2:2 duodenal ulcer perforation - Tele - ICU - I&O Q4hr -no longer meeting sepsis criteria -Continue Merem and Flagyl -WBC reviewed at 8.3- WNL 2/6: WBC reviewed at 10.3-trend -continue Merem/Flagyl Code(s): A41.9 - SEPSIS, UNSPECIFIED ORGANISM; R65.20 - SEVERE SEPSIS WITHOUT SEPTIC SHOCK (2) Crohn's disease Current Visit: Yes Status: Chronic Assessment & Plan: - Follow Dr. Hu in [place] with GI - KUB 10/18/24 appears nonacute and nonobstructed again with moderate fecal debris predominantly in ascending and transverse colon. No focal bowel dilatation or free air. Contrast in urinary bladder from recent CT. Remaining solid organs and osseous structures unremarkable - Abd/Pelvis CT: 10/17/24 Impression: 1. Descending colonic circumferential wall thickening with minimal pericolonic stranding, probable colitis in this patient with history of Crohn's disease. Colonic mass is not completely excluded as there is also intraluminal narrowing with moderate fecal debris up to level of narrowing. 2. Fatty liver. - Attempted transfer pt for GI and would not accept w/o CT abd/ pelvis - Stat CT abd pelvis 10/24 16:42 Impression: 1. New abdominal free fluid and free air concerning for GI perforation. Query gastric perforation. 2. Diminished colonic bowel wall thickening. 3. Again incidental fatty liver and periumbilical hernia. - called again for consult by Dr. Ivan - 10/25/24 surgery for perforated large proximal duodenal ulcer, large diffuse peritonitis and an incarcerated ventral hernia. Surgery consisted of a closure of very large perforated proximal duodenal ulcer with additional omental patch onlay. Repair of incarcerated ventral hernia (with approximately 3.5 cm defect) with suture (given contaminated field). Dr. Fong - Abd binder., AARON drains x3, NG - Antibiotic changed to Merrem and flagyl by GS - Protonix changed to IV Q12 - TPN started - Discuss pt case with pt's GI provider- wean steroids as directed: 30 BID, Then 40 QD x1 week, then 30 QD x1 week - currently on solumedrol 40mg daily started 10/27 stop on 2/5 then start 30mg daily x 1 week - Per GI pt has 2 ft of colon left - Will fax Path and operative report when available per Dr. Hu request. - 2 units PRBC 10/26/24 - Pain med changed to morphine IVP 10/28/24 - CT abd/pelvis reviewed from 10/29/24 with no new findings - CBC, CMP reviewed -Upper GI negative - NG discontinued per surgery and diet advanced to CLD 11/01/24: -BM x 2 - +flatulence -Tolerating CLD -Surgery following -pending further recommendations -AARON drains with minimal drainage -Continue TPN per surgery -CMP/CBC reviewed -unremarkable 11/02: -Surgery has advanced diet to FLD-recommends keeping TPN on -Continue abx -Change to oral pain meds- home regimen- percocet 7.5mg -solumedrol started at 30mg daily x 1 week -stop after final dose on 11/09/2411/03: -DC AARON per surgery- TPN reduced- advance to GI bland diet -continue abx -Pain controlled with oral pain meds -Resume xanax -continue solumedrol until 11/09/24 Code(s): K50.90 - CROHN'S DISEASE, UNSPECIFIED, WITHOUT COMPLICATIONS (3) Hypokalemia Current Visit: No Status: Acute Assessment & Plan: -tele -monitor renal/lytes daily -replenish per potassium protocol as needed -potassium reviewed at 4.0 resolved Code(s): E87.6 - HYPOKALEMIA (4) Anxiety Current Visit: No Status: Chronic Assessment & Plan: - meds stopped due to oversedation 11/03: -resume home meds Code(s): F41.9 - ANXIETY DISORDER, UNSPECIFIED (5) Anemia Current Visit: Yes Status: Acute Qualifiers: Anemia type: other cause Assessment & Plan: -2 units of LPRBC received on 10/26/24 -Hgb reviewed at 10.1 -Monitor and replace if hgb < 7 Code(s): D64.9 - ANEMIA, UNSPECIFIED (6) Bowel perforation Current Visit: Yes Status: Acute Assessment & Plan: - Not a bowel perforation per GS note but a perforated ulcer with peritonitis Code(s): K63.1 - PERFORATION OF INTESTINE (NONTRAUMATIC) (7) Diffuse peritonitis Current Visit: Yes Status: Acute Assessment & Plan: - Per GS OP report Code(s): K65.0 - GENERALIZED (ACUTE) PERITONITIS (8) Hyperglycemia Current Visit: Yes Status: Acute Assessment & Plan: -2/2 to steroids most likely - Accuchecks Q4 as she is NPO - Humalog s/s 2/5: Glucose reviewed and stable at 114 2/6: -Glucose stable at 124 Code(s): R73.9 - HYPERGLYCEMIA, UNSPECIFIED (9) Incarcerated ventral hernia Current Visit: Yes Status: Acute Assessment & Plan: - Per GS report with repair - report reviewed Code(s): K43.6 - OTHER AND UNSP VENTRAL HERNIA WITH OBSTRUCTION, W/O GANGRENE (10) Perforated duodenal ulcer Current Visit: Yes Status: Acute Assessment & Plan: - Per GS OP report - With closure and repair with large ulcer, omental patch by GS Code(s): K26.5 - CHRONIC OR UNSPECIFIED DUODENAL ULCER WITH PERFORATION (11) S/P colon resection Current Visit: Yes Status: Acute Assessment & Plan: - Abd. fluid culture negative - Pt did not have colon resection per OP note rather a closure of very large perforated proximal duodenal ulcer with additional omental patch onlay. Repair of incarcerated ventral hernia (with approximately 3.5 cm defect) with suture (given contaminated field). Code(s): Z90.49 - ACQUIRED ABSENCE OF OTHER SPECIFIED PARTS OF DIGESTIVE TRACT (12) S/P exploratory laparotomy Current Visit: Yes Status: Acute Assessment & Plan: - Post op report from on 10/24 reviewed- see note for further information. Code(s): Z98.890 - OTHER SPECIFIED POSTPROCEDURAL STATES (13) Transaminitis Current Visit: Yes Status: Acute Assessment & Plan: -LFTs reviewed and improving - most likely reactive from recent surgery/infection 11/01: -LFTs down-trending - monitor daily Code(s): R74.01 - ELEVATION OF LEVELS OF LIVER TRANSAMINASE LEVELS (14) Chronic pain syndrome Current Visit: Yes Status: Acute Assessment & Plan: Oral pain med held for now - on [employer]IC[employer] NURSE PRACTITIONER for pain PRN- pharmacy managing 24: -continue morphine IVP for now 26: -Resume home dosing of percocet PO Code(s): G89.4 - CHRONIC PAIN SYNDROME (15) Nausea and vomiting Current Visit: Yes Status: Acute Assessment & Plan: - IVF - Zofran PRN Code(s): R11.2 - NAUSEA WITH VOMITING, UNSPECIFIED (16) Thrombocytosis Current Visit: Yes Status: Acute Assessment & Plan: -most likely reactive 2:2 surgery/ infection -PLT reviewed and improved at 372<443 -trend 2: -Plts reviewed at 403 2: -Plt reviewed at 408 I spent 35 minutes [id number] with the patient on the day of discharge performing discharge exam, discussing hospital stay and discharge instructions with patient and caregivers, preparation of discharge records, prescriptions & referral forms and addressing any questions/concerns the patient had as documented above. - Vitals & Intake/Output Vital Signs: Vital Signs Temperature 98.9 F 11/04/24 11:50 Pulse Rate 90 11/04/24 11:50 Respiratory Rate 18 11/04/24 11:50 Blood Pressure 104/51 11/04/24 11:50 O2 Sat by Pulse Oximetry 95 11/04/24 11:50 Intake & Output: Intake & Output 11/02/24 11/03/24 11/04/24 11/05/24 11:59 11:59 11:59 11:59 Intake Total 3912 4148 3151 Output Total 3335 2810 200 Balance 577 1338 2951 Weight 63.616 kg 63.248 kg 65 kg - Lab Result Diagrams: 11/04/24 05:12 11/04/24 05:12 Lab Results-Last 24 Hrs: Lab Results-Last 24 Hours 11/03/24 11/03/24 11/03/24 Range/Units 16:30 20:09 23:50 WBC (3.98-10.04) x10^3/uL RBC (3.93-5.22) x10^6/uL Hgb (11.2-15.7) g/dL Hct (34.1-44.9) % MCV (79.4-94.8) fL MCH (25.6-32.2) pg MCHC (32.2-35.5) g/dL RDW (11.7-14.4) % Plt Count (182-369) x10^3/uL MPV (9.4-12.3) fL Gran % (34.0-71.1) % Immature Gran % (Auto) (0.001-0.429) % Nucleat RBC Rel Count (0.00-0.2) % Eos # (Auto) (0.04-0.36) x10^3/uL Immature Gran # (Auto) (0.001-0.031) x10^3u/L Absolute Lymphs (auto) (1.18-3.74) x10^3/uL Absolute Monos (auto) (0.24-0.86) x10^3/uL Absolute Nucleated RBC (0.00-0.012) x10^3u/L Lymphocytes % (19.3-51.7) % Monocytes % (4.7-12.5) % Eosinophils % (0.7-5.8) % Basophils % (0.1-1.2) % Absolute Granulocytes (1.56-6.13) x10^3/uL Basophils # (0.01-0.08) x10^3/uL Sodium (135-145) mmol/L Potassium (3.5-5.1) mmol/L Chloride (98-107) mmol/L Carbon Dioxide (22-30) mmol/L Anion Gap (5-15) MEQ/L BUN (7-17) mg/dL Creatinine (0.52-1.04) mg/dL Estimated GFR ML/MIN Glucose (74-106) mg/dL POC Glucometer 226 H 136 H 120 H (74 to 106) mg/dL Calcium (8.4-10.2) mg/dL Total Bilirubin (0.2-1.3) mg/dL AST (14-36) U/L ALT (0-35) U/L Alkaline Phosphatase (38-126) U/L Serum Total Protein (6.3-8.2) g/dL Albumin (3.5-5.0) g/dL 11/04/24 11/04/24 11/04/24 Range/Units 04:00 05:12 05:12 WBC 9.7 (3.98-10.04) x10^3/uL RBC 3.71 L (3.93-5.22) x10^6/uL Hgb 9.9 L (11.2-15.7) g/dL Hct 31.5 L (34.1-44.9) % MCV 84.9 (79.4-94.8) fL MCH 26.7 (25.6-32.2) pg MCHC 31.4 L (32.2-35.5) g/dL RDW 16.0 H (11.7-14.4) % Plt Count 405 H (182-369) x10^3/uL MPV 9.6 (9.4-12.3) fL Gran % 72.6 H (34.0-71.1) % Immature Gran % (Auto) 1.2 H (0.001-0.429) % Nucleat RBC Rel Count 0.0 (0.00-0.2) % Eos # (Auto) 0.07 (0.04-0.36) x10^3/uL Immature Gran # (Auto) 0.12 H (0.001-0.031) x10^3u/L Absolute Lymphs (auto) 1.89 (1.18-3.74) x10^3/uL Absolute Monos (auto) 0.57 (0.24-0.86) x10^3/uL Absolute Nucleated RBC 0.00 (0.00-0.012) x10^3u/L Lymphocytes % 19.4 (19.3-51.7) % Monocytes % 5.9 (4.7-12.5) % Eosinophils % 0.7 (0.7-5.8) % Basophils % 0.2 (0.1-1.2) % Absolute Granulocytes 7.07 H (1.56-6.13) x10^3/uL Basophils # 0.02 (0.01-0.08) x10^3/uL Sodium 136 (135-145) mmol/L Potassium 4.1 (3.5-5.1) mmol/L Chloride 105 (98-107) mmol/L Carbon Dioxide 27 (22-30) mmol/L Anion Gap 8.7 (5-15) MEQ/L BUN 17 (7-17) mg/dL Creatinine 0.74 (0.52-1.04) mg/dL Estimated GFR 99.7 ML/MIN Glucose 95 (74-106) mg/dL POC Glucometer 104 (74 to 106) mg/dL Calcium 8.2 L (8.4-10.2) mg/dL Total Bilirubin 0.50 (0.2-1.3) mg/dL AST 25 (14-36) U/L ALT 38 H (0-35) U/L Alkaline Phosphatase 54 (38-126) U/L Serum Total Protein 5.2 L (6.3-8.2) g/dL Albumin 2.7 L (3.5-5.0) g/dL 11/04/24 11/04/24 Range/Units 07:46 11:35 WBC (3.98-10.04) x10^3/uL RBC (3.93-5.22) x10^6/uL Hgb (11.2-15.7) g/dL Hct (34.1-44.9) % MCV (79.4-94.8) fL MCH (25.6-32.2) pg MCHC (32.2-35.5) g/dL RDW (11.7-14.4) % Plt Count (182-369) x10^3/uL MPV (9.4-12.3) fL Gran % (34.0-71.1) % Immature Gran % (Auto) (0.001-0.429) % Nucleat RBC Rel Count (0.00-0.2) % Eos # (Auto) (0.04-0.36) x10^3/uL Immature Gran # (Auto) (0.001-0.031) x10^3u/L Absolute Lymphs (auto) (1.18-3.74) x10^3/uL Absolute Monos (auto) (0.24-0.86) x10^3/uL Absolute Nucleated RBC (0.00-0.012) x10^3u/L Lymphocytes % (19.3-51.7) % Monocytes % (4.7-12.5) % Eosinophils % (0.7-5.8) % Basophils % (0.1-1.2) % Absolute Granulocytes (1.56-6.13) x10^3/uL Basophils # (0.01-0.08) x10^3/uL Sodium (135-145) mmol/L Potassium (3.5-5.1) mmol/L Chloride (98-107) mmol/L Carbon Dioxide (22-30) mmol/L Anion Gap (5-15) MEQ/L BUN (7-17) mg/dL Creatinine (0.52-1.04) mg/dL Estimated GFR ML/MIN Glucose (74-106) mg/dL POC Glucometer 91 166 H (74 to 106) mg/dL Calcium (8.4-10.2) mg/dL Total Bilirubin (0.2-1.3) mg/dL AST (14-36) U/L ALT (0-35) U/L Alkaline Phosphatase (38-126) U/L Serum Total Protein (6.3-8.2) g/dL Albumin (3.5-5.0) g/dL Micro Results-Entire Visit: Microbiology 10/24/24 22:06 Anaerobic Culture - Final Abdominal Fluid Aerobic Culture - Final Aerobic Culture Result 1 - Final Anaerobic Culture Result 1 - Final 10/24/24 22:06 Anaerobic Culture - Final Abdominal Fluid Aerobic Culture - Final Aerobic Culture Result 1 - Final Anaerobic Culture Result 1 - Final 10/25/24 01:50 Blood Culture - Final Blood 10/25/24 01:50 Blood Culture - Final Blood 10/25/24 21:30 Urine Culture - Final Urine, Catheterized NO GROWTH 10/17/24 20:50 Urine Culture - Final Clean Catch Midstream NO GROWTH Accuchecks Date 11/04/24 Date 11/04/24 Date 11/04/24 Date 11/03/24 Time 04:05 Time 20:12 - Procedures and Test Procedures and Tests throughout Hospitalization: Therapy Orders & Screens 10/24/24 21:00 EKG STAT Comment: Diagnosis: Crohns disease with acute flare 11/01/24 10:35 Incentive Spirometry UD Comment: Diagnosis: Crohns disease with acute flare Discharge Exam General Appearance: no apparent distress Neurologic Exam: alert, oriented x 3, cooperative Eye Exam: PERRL Ears, Nose, Throat Exam: normal ENT inspection Neck Exam: normal inspection Respiratory Exam: normal breath sounds, lungs clear Cardiovascular Exam: regular rate/rhythm, normal heart sounds Gastrointestinal/Abdomen Exam: soft, normal bowel sounds, other (MLI CDI) Pelvic Exam: deferred Rectal Exam: deferred Back Exam: normal inspection Extremity Exam: normal inspection Skin Exam: normal color Wound Assessment: Skin/Wound Assessment Wound/Incision Assessment Start: 10/26/24 07:40 Text: Status: Active Freq: Q6H Protocol: Document 11/04/24 08:00 RUTHIE (Rec: 11/04/24 13:21 AR [id number]) Wound/Incision Assessment Medial Abdomen Wound Assessment Shift Assessment Wound Type Incision Wound Stage Non Pressure Wound Dressing Status Dry & Intact Primary Dressing BORDERED GAUZE Comment DRESSING C/D/I Final Diagnosis/Problem List - Final Discharge Diagnosis/Problem (1) Severe sepsis Current Visit: Yes Status: Resolved Code(s): A41.9 - SEPSIS, UNSPECIFIED ORGANISM; R65.20 - SEVERE SEPSIS WITHOUT SEPTIC SHOCK (2) Crohn's disease Current Visit: Yes Status: Chronic Code(s): K50.90 - CROHN'S DISEASE, UNSPECIFIED, WITHOUT COMPLICATIONS (3) Hypokalemia Current Visit: No Status: Resolved Code(s): E87.6 - HYPOKALEMIA (4) Anxiety Current Visit: No Status: Chronic Code(s): F41.9 - ANXIETY DISORDER, UNSPECIFIED (5) Anemia Current Visit: Yes Status: Chronic Code(s): D64.9 - ANEMIA, UNSPECIFIED (6) Bowel perforation Current Visit: Yes Status: Resolved Code(s): K63.1 - PERFORATION OF INTESTINE (NONTRAUMATIC) (7) Diffuse peritonitis Current Visit: Yes Status: Resolved Code(s): K65.0 - GENERALIZED (ACUTE) PERITONITIS (8) Hyperglycemia Current Visit: Yes Status: Resolved Code(s): R73.9 - HYPERGLYCEMIA, UNSP ECIFIED (9) Incarcerated ventral hernia Current Visit: Yes Status: Resolved Code(s): K43.6 - OTHER AND UNSP VENTRAL HERNIA WITH OBSTRUCTION, W/O GANGRENE (10) Perforated duodenal ulcer Current Visit: Yes Status: Resolved Code(s): K26.5 - CHRONIC OR UNSPECIFIED DUODENAL ULCER WITH PERFORATION (11) S/P colon resection Current Visit: Yes Status: Chronic Code(s): Z90.49 - ACQUIRED ABSENCE OF OTHER SPECIFIED PARTS OF DIGESTIVE TRACT (12) S/P exploratory laparotomy Current Visit: Yes Status: Acute Code(s): Z98.890 - OTHER SPECIFIED POSTPROCEDURAL STATES (13) Transaminitis Current Visit: Yes Status: Resolved Code(s): R74.01 - ELEVATION OF LEVELS OF LIVER TRANSAMINASE LEVELS (14) Chronic pain syndrome Current Visit: Yes Status: Chronic Code(s): G89.4 - CHRONIC PAIN SYNDROME (15) Nausea and vomiting Current Visit: Yes Status: Resolved Code(s): R11.2 - NAUSEA WITH VOMITING, UNSPECIFIED (16) Thrombocytosis Current Visit: Yes Status: Acute - Discharge Discharge Date: 11/04/24 Disposition: Home, Self-Care Condition: Stable Prescriptions: New Prednisone 20 mg [Deltasone 20 mg] 40 mg PO DAILY 5 Days #5 tablet Naloxone HCl See Rx Instructions .ROUTE .COMPLEX 30 Days #1 kit PANTOPRAZOLE 40 mg Tablet [Protonix 40MG Tablet] 40 mg PO DAILY 30 Days #30 tab Continue Gabapentin [Neurontin] 800 mg PO QID Prednisone 10 mg [Deltasone 10 mg] 10 mg PO DAILY Ustekinumab [Stelara] 90 mg SQ UD ALPRAZolam [Alprazolam] 1 mg PO TID OLANZapine [Zyprexa] 7.5 mg PO QHS Oxycodone HCl/Acetaminophen [Oxycodone-Acetaminophn 7.5-325] 7.5 tab PO Q6H PRN PRN PRN Reason: Pain Follow up with: TYLER KUMAR NP [NON-STAFF PHY W/O PRIVILEGES] - 11/24/24 YASHIRA VALLES MD [NON-STAFF PHY W/O PRIVILEGES] - FELISHA CALDWELL [COURTESY STAFF] - 11/14/24 10:25 am (at [facility]) KAREN LOPEZ MD [Primary Care Provider] - 10/28/24 11:00 am
== END 2024-11-04 15:47 | disposition home or self-care (01) | DRG 853 ==
LOC: ED 16:12 → MED SURG 19:52 → OBSVTOIN 10-18 05:14 → ED 10-18 16:12 → MED SURG 10-18 19:52 → ICU 10-25 08:13 → MED SURG 11-04 08:10
PROVIDERS: ADMIT Internal Medicine; ATTEND Internal Medicine
PROC: 0WJF0ZZ Inspection of Abdominal Wall, Open Approach (ICD-10-PCS; principal; 2024-10-24)
PROC: 0DQ90ZZ Repair Duodenum, Open Approach (ICD-10-PCS; 2024-10-24)
PROC: 0WQF0ZZ Repair Abdominal Wall, Open Approach (ICD-10-PCS; 2024-10-24)
DX: A41.9 Sepsis, unspecified organism (principal); K63.1 Perforation of intestine (nontraumatic); K65.0 Generalized (acute) peritonitis; K50.90 Crohn's disease, unspecified, without complications; K43.6 Other and unspecified ventral hernia with obstruction, without gangrene; R65.20 Severe sepsis without septic shock; E87.6 Hypokalemia; F41.9 Anxiety disorder, unspecified; D64.9 Anemia, unspecified; R73.9 Hyperglycemia, unspecified; Z90.49 Acquired absence of other specified parts of digestive tract; Z79.899 Other long term (current) drug therapy; R74.01 Elevation of levels of liver transaminase levels; G89.4 Chronic pain syndrome; R11.2 Nausea with vomiting, unspecified; D75.839 Thrombocytosis, unspecified; R00.0 Tachycardia, unspecified
CPT/HCPCS: 36415; 36430; 71045; 74018; 74177; 74178; 74240; 76937; 80053; 80307; 81001; 82274; 82947; 83036; 83605; 83690; 83735; 84132; 85014; 85018; 85025; 85027; 85610; 85652; 86140; 86850; 86900; 86901; 86922; 87040; 87070; 87075; 87086; 93005; 93268; 96374; 96375; 96376; 99285; J0330; J0360; J0694; J1171; J1642; J1650; J1815; J1817; J1956; J2250; J2270; J2310; J2371; J2405; J2704; J2919; J2997; J3010; J3480; L0625; P9016; Q3014; A9270-GY; G0328; G0378